=== PATIENT | female | born 1950 | race Caucasian/White ===

== ENCOUNTER 2016-07-29 12:01 | Outpatient (CLI) ==
[2016-06-05 12:32] VITALS: BMI 14.1
--- NOTE | 2016-07-29 12:29 | DI ---
EXAM: Two views of the chest. History: Difficulty breathing. Comparison: Chest radiograph 02/17/2016, chest CT 06/05/2016 Findings: Heart size is normal. Emphysema again appreciated. Chronic bilateral interstitial means es again noted with scattered areas of scarring. No developing opacities. No appreciable pleural f luid and no pneumothorax. Atherosclerotic vascular calcifications. Thoracic kyphoplasty material a gain noted. Osteopenia. Impression: No definite acute infiltrates. Stable chronic lung changes.
[2016-07-29 12:55] LABS: BASOPHILS % (AUTO) 0.4 % (0.0-3.0); EOSINOPHILS # (AUTO) 0.7 K/ul (0.0-0.7); EOSINOPHILS % (AUTO) 9.6 % (0.0-7.0); HEMATOCRIT 33.1 % (37.0-47.0); IMMATURE GRANULOCYTE % (AUTO) 0.3 % (0.0-5.0); LYMPHOCYTES # (AUTO) 1.5 K/uL (0.60-3.4); LYMPHOCYTES % (AUTO) 19.1 (10.0-50.0); MEAN CORPUSCULAR HEMOGLOBIN 29.5 pg (27.0-31.0); MEAN CORPUSCULAR HGB CONC 30.2 (31.8-35.4); MEAN CORPUSCULAR VOLUME 97.6 fl (81.0-99.0); MONOCYTES # (AUTO) 0.7 K/uL (0.4-2.0); MONOCYTES % (AUTO) 9.1 (0-10); NEUTROPHILS # (AUTO) 4.7 K/ul (2.0-6.9); NEUTROPHILS % (AUTO) 61.5; PLATELET COUNT 214 10^3/uL (140-440); RED BLOOD COUNT 3.39 10^6/ul (4.20-5.40)
[2016-07-29 13:26] LABS: ALBUMIN 3.3 g/dL (3.4-5.0); ALBUMIN/GLOBULIN RATIO 0.77; ANION GAP 14.8; BILIRUBIN,TOTAL 0.97 mg/dL (0.00-1.20); BUN/CREATININE RATIO 12.65; CALCIUM 9.4 mg/dL (8.2-10.2); CREATININE 0.79 mg/dL (0.60-1.30); POTASSIUM 3.8 mmol/L (3.5-5.10); TOTAL PROTEIN 7.6 g/dL (5.8-8.1)
== END 2016-07-29 12:02 | disposition home or self-care (01) ==
LOC: RAD 12:01
PROVIDERS: ATTEND General Practice
DX: M85.80 Other specified disorders of bone density and structure, unspecified site (principal); E03.9 Hypothyroidism, unspecified; J01.00 Acute maxillary sinusitis, unspecified; R06.89 Other abnormalities of breathing
CPT/HCPCS: 36415; 80053; 84443; 85025

== ENCOUNTER 2016-08-04 09:57 | Outpatient (CLI) ==
[2016-06-05 12:32] VITALS: BMI 14.1
--- NOTE | 2016-08-04 12:12 | DEXA ---
EXAM: BONE DENSITOMETRY HISTORY: Screening for osteoporosis. Compression fracture of lumbar vertebra. FINDINGS: Exam of the hips revealed a total mean bone mineral density of 0.638 g/cm2. Mean hip T score: -2.9 Mean hip age-matched Z score: -0.9 Study quality: Adequate. Comparison date: None. FRAX WHO Fracture Risk Assessment. Ten year probability of fracture (%). Major Osteoporotic Fracture 40.3% Hip Fracture 25.7%. IMPRESSION: Osteoporosis of the hips.
== END 2016-08-04 09:58 | disposition home or self-care (01) ==
LOC: RAD 09:57
PROVIDERS: ATTEND General Practice
DX: S32.010A Wedge compression fracture of first lumbar vertebra, initial encounter for closed fracture (principal)

== ENCOUNTER 2016-08-10 14:42 | Outpatient (CLI) | payer OTHER ==
[2016-06-05 12:32] VITALS: BMI 14.1
== END 2016-08-10 14:43 | disposition home or self-care (01) ==
LOC: LAB 14:42
PROVIDERS: ATTEND General Practice
DX: M85.80 Other specified disorders of bone density and structure, unspecified site (principal)
CPT/HCPCS: 36415; 82306

== ENCOUNTER 2016-08-13 10:58 | Outpatient (CLI) ==
[2016-06-05 12:32] VITALS: BMI 14.1
--- NOTE | 2016-08-13 11:40 | CT ---
Exam: CT thorax without contrast. Clinical indication: Wheezing. Comparison is made to the prior study dated 06/05/2016. TECHNIQUE: Axial unenhanced CT images of the thorax were obtained followed by coronal and sagittal reformats. Findings: There is moderate underlying centrilobular emphysema. There is bilateral upper lobe areas of scarri ng. There are areas of cylindrical bronchiectasis within the bilateral upper lobes and bilateral lower l obes. Within the inferolateral aspect of the right lower lobe there is some heterogeneous linear opacities extending to the pleural surface which most likely represents some focal scarring secondary to the previously noted opacity within this region. At the inferolateral aspect there is a slight nodular area measuring up to 1.0 cm in diameter and is likely focal scarring as well, but underlying neoplas m cannot be entirely excluded. The remainder the pulmonary parenchyma is unremarkable. There are no enlarged axillary, hilar or mediastinal lymph nodes, by size criteria. There are coronary artery calcifications. 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 The remainder the visualized portions of the upper abdomen are grossly unremarkable. There are been kyphoplasties involving the T8 and L1 vertebral bodies. There is also and inferior e ndplate compression fracture involving the L2 vertebral body and superior endplate compression fract ure involving the T5 vertebral body which are unchanged. The remainder the visualized bony structur es are unremarkable. Impression: 1. 1.0 cm nodular opacity at the inferolateral right lower lobe which is likely scarring, but under lying neoplasm cannot be entirely excluded. Follow-up CT in 3 months time is recommended. 2. Moderate underlying centrilobular emphysema. 3. Bilateral areas of cylindrical bronchiectasis. 4. Coronary artery calcifications. 5. Multiple old healed compression fractures.
== END 2016-08-13 10:59 | disposition home or self-care (01) ==
LOC: RAD 10:58
PROVIDERS: ATTEND General Practice
DX: R06.2 Wheezing (principal); R05 Cough; R50.9 Fever, unspecified

== ENCOUNTER 2016-10-12 14:55 | Inpatient (IN) ==
[2016-10-12] MEDS ORDERED: TYLENOL PO PRN (14:59)
[2016-10-12] MEDS ORDERED: VISTARIL INJ IM PRN (14:59)
[2016-10-12] MEDS ORDERED: MORPHINE 4 MG/ML SYRINGE IVP PRN (14:59)
[2016-10-12] MEDS ORDERED: NITROSTAT SL PRN (14:59)
[2016-10-12] MEDS ORDERED: ATROPINE SULFATE PFS IVP PRN (14:59)
[2016-10-12 15:17] LABS: BASOPHILS % (AUTO) 0.2 % (0.0-3.0); EOSINOPHILS # (AUTO) 0.3 K/ul (0.0-0.7); EOSINOPHILS % (AUTO) 2.4 % (0.0-7.0); HEMATOCRIT 33.1 % (37.0-47.0); HEMOGLOBIN 10.1 g/dl (12.0-16.0); IMMATURE GRANULOCYTE % (AUTO) 0.5 % (0.0-5.0); LYMPHOCYTES # (AUTO) 1.8 K/uL (0.60-3.4); LYMPHOCYTES % (AUTO) 12.7 (10.0-50.0); MEAN CORPUSCULAR HGB CONC 30.5 (31.8-35.4); MEAN CORPUSCULAR VOLUME 88.5 fl (81.0-99.0); MONOCYTES # (AUTO) 1.3 K/uL (0.4-2.0); MONOCYTES % (AUTO) 9.3 (0-10); NEUTROPHILS # (AUTO) 10.5 K/ul (2.0-6.9); NEUTROPHILS % (AUTO) 74.9; PLATELET COUNT 290 10^3/uL (140-440); RED BLOOD COUNT 3.74 10^6/ul (4.20-5.40); WHITE BLOOD COUNT 13.96 K/ul (4.6-10.2)
[2016-10-12 15:18] VITALS: BMI 14.4
[2016-10-12 16:31] LABS: ABG BASE EXCESS -3 (-2.0-2.0); ABG HCO3 21.7 (22.0-26.0); ABG PCO2 33.2 mmHg (35-45); ABG PH 7.424 (7.35-7.45); ABG TCO2 23 (22.0-28.0)
--- NOTE | 2016-10-12 16:37 | CT ---
EXAM: CT chest without contrast. HISTORY: Cough. Shortness of breath, chronic tobacco use. Weight loss. COMPARISON: 08/13/2016. TECHNIQUE: Multiple axial images of the chest were obtained without intravenous contrast. Images w ere reformatted in the sagittal and coronal planes. FINDINGS: Evaluation for lymphadenopathy is limited due to lack of intravenous contrast. Heart siz e is normal. Atherosclerotic calcifications present. No pericardial effusion identified. Emphysematous changes seen bilaterally. Nodular consolidation in the right lower lobe has worsened from prior study with findings now present in the left lower lobe and to a lesser extent in the righ t middle lobe. Left upper lobe and lingular scarring is stable. No pleural effusion or pneumothora x identified. No acute abnormality identified in the upper abdomen. Thoracolumbar kyphoplasty changes again seen. Old sternal body fracture also noted. IMPRESSION: Worsening of right middle lobe nodular densities with new involvement of the left lower lobe and to a lesser extent the right middle lobe. Findings most likely due to pneumonia. Follow-up CT in 4-6 weeks recommended for reassessment.
[2016-10-12] MEDS: INFUVITE ADULT 10 ML in D5%-1/4NS-KCL 20 MEQ/L IV SOL 1,000 ML IV SCH (16:39)
[2016-10-12 16:40] LABS: BILIRUBIN,URINE Negative (NEGATIVE); KETONES,URINE Negative (NEGATIVE); LEUKOCYTE ESTERASE ,URINE 2+ (NEGATIVE); NITRITE,URINE Positive (NEGATIVE); PROTEIN,URINE Trace (NEGATIVE); URINE, BLOOD 1+ (NEGATIVE)
[2016-10-12 16:47] LABS: ADD URINE MICROSCOPIC YES
[2016-10-12 16:49] LABS: ALANINE AMINOTRANSFERASE 15 U/L (12-78); ALBUMIN 3.2 g/dL (3.4-5.0); ALKALINE PHOSPHATASE 226 U/L (53-141); ANION GAP 17.2; ASPARTATE AMINO TRANSFERASE 34 U/L (15-37); BILIRUBIN,TOTAL 1.34 mg/dL (0.00-1.20); BLOOD UREA NITROGEN 12 mg/dL (7-18); CALCIUM 9.7 mg/dL (8.2-10.2); CARBON DIOXIDE 20 mmol/L (23-31); CHLORIDE 110 mmol/L (98-107); CREATININE 0.75 mg/dL (0.60-1.30); GLUCOSE 103 mg/dL (82-115); POTASSIUM 3.2 mmol/L (3.5-5.10); SODIUM 144 mmol/L (136-145); TOTAL PROTEIN 7.8 g/dL (5.8-8.1)
[2016-10-12 16:49] LABS: BACTERIA,URINE 3+ (NOT PRESENT)
[2016-10-12 16:51] LABS: CREATINE KINASE 19 U/L; MYOGLOBIN 28 ng/ml
[2016-10-12] MEDS ORDERED: AVELOX 250 ML IV ONE (18:31)
[2016-10-12] MEDS: AVELOX 400 MG in PREMIX 250 ML NS 1 BAG IV SCH (18:33)
[2016-10-12] MEDS: OXYCODONE PO PRN (18:36)
[2016-10-12 23:23] LABS: CREATINE KINASE 15 U/L; MYOGLOBIN 25 ng/ml
[2016-10-13] MEDS: OXYCODONE PO PRN ×4 (00:34→21:26)
[2016-10-13] MEDS: SYNTHROID PO SCH (05:48)
[2016-10-13] MEDS ORDERED: INFUVITE ADULT IV ONE ×2 (06:21→19:04)
[2016-10-13] MEDS: INFUVITE ADULT 10 ML in D5%-1/4NS-KCL 20 MEQ/L IV SOL 1,000 ML IV SCH ×3 (06:25→20:29)
[2016-10-13] MEDS ORDERED: ASPIRIN EC PO SCH (08:00)
[2016-10-13] MEDS: ZOLOFT PO SCH (08:48)
[2016-10-13] MEDS: ZYPREXA PO SCH (08:48)
[2016-10-13] MEDS: AVELOX 400 MG in PREMIX 250 ML NS 1 BAG IV SCH (08:48)
[2016-10-13] MEDS ORDERED: VITAMIN D PO SCH (09:00)
[2016-10-13] MEDS: LOVENOX SUBCUT SCH (21:25)
[2016-10-14] MEDS: OXYCODONE PO PRN ×3 (05:50→20:42)
[2016-10-14] MEDS: SYNTHROID PO SCH (05:50)
[2016-10-14] MEDS: ZYPREXA PO SCH (08:23)
[2016-10-14] MEDS: ZOLOFT PO SCH (08:23)
[2016-10-14] MEDS: AVELOX 400 MG in PREMIX 250 ML NS 1 BAG IV SCH (08:24)
[2016-10-14] MEDS: ROCEPHIN 1 GM in SODIUM CHLORIDE 100 ML IV SCH (10:25)
[2016-10-14] MEDS: DUONEB NEB SCH ×3 (11:02→23:29)
[2016-10-14] MEDS: INFUVITE ADULT 10 ML in D5%-1/4NS-KCL 20 MEQ/L IV SOL 1,000 ML IV SCH ×2 (11:59→23:23)
[2016-10-14] MEDS: LOVENOX SUBCUT SCH (20:29)
[2016-10-14] MEDS ORDERED: INFUVITE ADULT IV ONE (23:13)
[2016-10-15] MEDS: OXYCODONE PO PRN ×4 (03:18→21:40)
[2016-10-15] MEDS: DUONEB NEB SCH ×4 (04:52→22:55)
[2016-10-15] MEDS: SYNTHROID PO SCH (05:40)
[2016-10-15] MEDS: ROCEPHIN 1 GM in SODIUM CHLORIDE 100 ML IV SCH (08:41)
[2016-10-15] MEDS: ZOLOFT PO SCH (08:41)
[2016-10-15] MEDS: ZYPREXA PO SCH (08:41)
[2016-10-15] MEDS ORDERED: AVELOX 400 MG in PREMIX 250 ML NS 1 BAG IV SCH (09:00)
[2016-10-15] MEDS: INFUVITE ADULT 10 ML in D5%-1/4NS-KCL 20 MEQ/L IV SOL 1,000 ML IV SCH (11:09)
[2016-10-15] MEDS: MAXIPIME 2 GM in SODIUM CHLORIDE 100 ML IV SCH ×2 (12:12→20:35)
[2016-10-15] MEDS ORDERED: MAXIPIME IV ONE ×2 (12:12→20:35)
[2016-10-15] MEDS: LOVENOX SUBCUT SCH (20:35)
[2016-10-16] MEDS ORDERED: INFUVITE ADULT IV ONE ×2 (01:09→13:28)
[2016-10-16] MEDS: INFUVITE ADULT 10 ML in D5%-1/4NS-KCL 20 MEQ/L IV SOL 1,000 ML IV SCH ×2 (01:14→13:35)
[2016-10-16] MEDS: OXYCODONE PO PRN (04:15)
[2016-10-16] MEDS: DUONEB NEB SCH ×2 (04:58→11:04)
[2016-10-16] MEDS: SYNTHROID PO SCH (05:44)
[2016-10-16] MEDS: ZOLOFT PO SCH (08:44)
[2016-10-16] MEDS ORDERED: MAXIPIME IV ONE (08:44)
[2016-10-16] MEDS: MAXIPIME 2 GM in SODIUM CHLORIDE 100 ML IV SCH (08:44)
[2016-10-16] MEDS: ZYPREXA PO SCH (08:44)
[2016-10-16 09:56] VITALS: BP 137/68; TEMP 98
--- NOTE | 2016-10-19 09:24 | HP ---
DATE OF ADMISSION: 10/12/16 CHIEF COMPLAINT: Increasing shortness of breath and fever. SOURCE OF HISTORY: The patient HISTORY OF PRESENT ILLNESS: This patient was seen at the office as a regular followup. The patient however on examination was complaining of runny nose, non-productive cough, increasing shortness of breath with fever. The patient has rales on both lung arias, left more than right moist and in crepitant and breath sounds are diminished. Heart is audible and regular with not tachycardiac. I felt that the patient needed to be admitted to the hospital because of the fever, increasing. PAST PERSONAL HISTORY: The patient had right lower lobe pneumonia 06/05/16 and was admitted in the hospital. She also was confused and a CAT scan of the head showed no acute intracranial processes or abnormalities. She also had a bilateral cataract surgery 2014. History of Hepatitis C, there was no history of treatment. After discussion further to see if there was any previous treatment and by home. Previous appendectomy Cholecystectomy ERCP, 2016 Previous hysterectomy FAMILY HISTORY: One brother had COPD Sister also had COPD and was a smoker Mother had congestive heart failure Father had liver carcinoma SOCIAL HISTORY: The patient is with grown child and resides with her . She stopped smoking four months ago. No alcoholic beverages. MEDICATIONS: Zoloft 100mg daily Levothyroxine 50mcg daily Amantadine 100mg twice a day KCL 20meq daily Albuterol 0.083% vial #1 per nebulizer Q 6 hours PRN Zyprexa 20mg daily at bedtime Protonix 40mg twice a day Hydrocodone/Tylenol 10-325 one Q6 hours PRN Vitamin D2 50,000 international units weekly for 12 weeks Lactulose 20grams per 30cc twice a day PRN ALLERGIES: Aspirin Codeine NSAIDS Sulfa REVIEW OF SYSTEMS: CONSTITUTIONAL: The patient has fever, no chills and fatigued and sick looking. CLAIMS INVESTIGATOR: The patient has some headache but not significant. The patient just has generalized weakness but no significant ataxia. VISUAL: Denies any blurred vision, double vision or transient loss of vision. AUDITORY: Denies any significant hearing loss. No tinnitus. No pain or drainage. RESPIRATORY: The patient has gargling sounding cough with some sputum. The patient has shortness of breath and increasing. The patient is using nasal oxygen and does have oxygen at home. CARDIOVASCULAR: Denies any chest pain or chest tightness GASTROINTESTINAL: Appetite is decreased but no nausea of vomiting or diarrhea. Denies any abdominal pain GENITOURINARY: Denies any burning in urination. MUSCULOSKELETAL: Denies any significant joint or muscular pains. INTEGUMENT: The skin is dry and thin but no rash and no subcutaneous ecchymosis ENDOCRINE: Negative HEMATOLOGIC: Denies any prolonged breeding and spontaneous ecchymosis PSYCHIATRIC: Affect is somewhat down, probably because she doesn't feel good. PHYSICAL EXAMINATION: GENERAL: The patient is a 66 year old female who looks much older then her chronological age. She was admitted to the hospital because of fever and increasing shortness of breath. This patient is know to have chronic obstructive lung disease with respiratory failure on chronic oxygen therapy. VITAL SIGNS: Temperature 98.2, pulse 104, blood pressure left 150/88 and right 140/70, respiratory rate 74, she is 5'0 and 73 pounds and 12.8 ounces. FACE: Symmetrical and equal with no facial weakness. No significant tenderness to palpation under pressure in the front maxillary sinus areas. EYES: Pupils equal/reactive to light. Conjunctivae slightly pale. Sclerae not icteric. MOUTH: Unremarkable THROAT: No inflammation, tumors or exudate. NECK: No masses. No bruit. No tenderness. No rigidity. CHEST: Symmetrical and equal with the ribs prominent LUNGS: Breath sounds are diminished in both sides with rales scattered all over more on the left side. Rales also heard anteriorly. No significant wheezing. HEART: Audible and regular with good tones and slightly tachycardiac. No murmurs. ABDOMEN: Flat, soft with tumor masses. No tenderness. No bruit and no masses palpable. EXTERNAL GENITALIA: Not examined RECTAL: Not performed LOWER EXTREMITIES: Some ankle edema, Pedal pulses anterior present. UPPER EXTREMITIES: Symmetrical and equal ASSESSMENT: 1. Bilateral pneumonitis, probable 2. COPD, severe 3. Respiratory failure secondary to the #2 4. Chronic tobacco use and abuse, stopped four months ago 5. Malnourished 6. History of pneumonia right lower lobe,2016 7. History fo hepatitis C 8. History of hypothyroidism 9. History of Vitamin D deficiency 10.History of osteoporosis 11.History of depression 12.Appendectomy 13.Cholecystectomy 14.Hysterectomy PROGNOSIS: Guarded to poor MTDD
--- NOTE | 2016-10-20 09:40 | PN ---
DATE OF VISIT: 10/16/16 SUBJECTIVE: The patient is alert and responsive. I did see her about 12:30 in the afternoon today. Her temperature had been normal since this morning. Temperature 98, pulse 99,blood pressure 132/68, respiratory rate 20 and oxygen saturation 92% at 2 liters per nasal oxygen. LUNGS: Still has rales in both lung field. HEART: Audible with good tones ABDOMEN: Soft with no masses This patient is discharged from Acute care to Transitional today. CALLIED
--- NOTE | 2016-10-20 09:48 | PN ---
DATE OF VISIT: 10/15/16 SUBJECTIVE: The patient today is alert and feeling some better. The patient did spike a temperature late last night of 101.1. The temperature since then has returned to normal. The patient's vital signs at 5:09pm on 10/15/16 showed a temperature of 98.5, pulse 93, blood pressure 125/64 and respiratory rate 20 and oxygen saturation 95 at 2 liters of nasal oxygen. LUNGS: Still has rales of both lung field Sputum showed pseudomonas and urine did show e-coli. The patient is receiving Moxifloxacin and this is discontinued. Since both organism as sensitive to the Cefepime then the patient will be given 2 grams of Cefepime every 12 hours. The Pharm-D also recommended the medication at this dose. This patient will continued on this medication until she has showed emmett improvement of her pneumonia. She is still consuming about the same amount about 70-75% of her food. Still has the gargling the cough and still has rales in both lung arias. MTDD
--- NOTE | 2016-10-20 09:54 | PN ---
DATE OF VISIT: 10/14/16 SUBJECTIVE: The patient is alert and responsive. She is wonder if she can go home. I did tell her that she is no where near going home at this time. I reemphasized to her again that her pneumonia her worsened since the last time. I did encourage her to eat and consume about 75% which is an improved from the previous days. She also receiving intervenous fluids plus vitamins. Temperature on 10/14/16 at 1:44pm showed a temperature of 99.2, pulse 95, blood pressure 129/57 and respiratory 20 an oxygen saturation is 98% at 2 liters, an improvement. LUNGS: Still has rales in both lung field about the same amount. No change in medication. No legs pain or tenderness. CONDITION: Stable maybe somewhat improved PROGNOSIS: Unchanged. MTDD
--- NOTE | 2016-10-20 10:06 | PN ---
DATE OF VISIT: 10/13/16 SUBJECTIVE: The patient today is alert and general condition about the same. Temperature is 99.1 at 6:00 pm on 10/13/16, pulse 100, blood pressure 162/76, respiratory rate 24 and oxygen saturation 93% at 2 liters. The patient still has a gargling cough. She still has rales in both lung field as well as anteriorly. The chest CT showed increasing pneumonia of the right lower lobe and now involving also on the left the lower lobe as well as the right middle lobe. This patient back in May had right lower lobe pneumonia. The Alkaline phosphatase is elevated , reason not clear. BNP is close to normal at 116. Urinalysis abnormal and urine culture was requested as well as sputum gram stain and culture. The patient was given Lovenox 30mg SUBCUT daily and continued on the inhaler. She was given Moxifloxacin intervenously daily since admission. Changing in antibiotics will depend upon the results of the culture. CONDITION: Stable, the same MTDD
--- NOTE | 2016-10-20 12:40 | DS ---
HAN OF ADMISSION: 10/12/16 DATE OF DISCHARGE: 10/16/16 PATIENT IDENTIFICATION: The patient is a 66 year old female who looks older than her chronological age was admitted to the hospital because of increasing weakness, increasing shortness of breath with fever and cough. The patient also had lost weight and her appetite has decreased. The patient examination revealed rales in both lungs field as well as anteriorly. Abdomen was unremarkably. Heart is mitra sinus rhythm. The CAT of the chest showed increasing pneumonic process now extending into the left lower lobe as well as the right middle lobe. The patient patient last May 2016 was diagnosed to have right lower lobe pneumonia by CT. The patient during this admission had CBC showing mild leukocytosis 13,960, hgb 10.1 and hct 33.1. Neutrophil 10.5 and arterial blood gases FiO2 21 showed of a pO2 of 62, pCO2 32.22, pH 7.24 and oxygen saturation is 92. I am not certain as to how long the patient had been without oxygen. The patient's chemistries showed slight abnormality in the electrolyte, potassium 3.2 otherwise the rest was unremarkable. The GFR estimated is 77, Alkaline phosphatase was 226 source undetermined, BNP 116. TSH is 1.620, procalcitonin 0.21 interpreted as low risk for sepsis. Urinalysis is abnormal 2+ leukocyte esterase 50-100 WBC, 3+ bacteria squamous Epith cells negative. Nitrate positive and leukocyte esterase positive, 2+. Urine culture did show e-coli and sensitive to Cefepime and the sputum culture did grown Pseudomonas Aeruginosa and again sensitive to Cefepime. This patient was then given 2 grams every 12 hours and the Moxifloxacin was discontinued. The patient's condition continued to be stable. She did spike of 101.1 once. The patient at the time of discharge from acute care to transitional revealed an alert individual who is not cyanotic. tachypnea has more or less decreased and the rales is still present in both lung arias maybe slightly less, no wheezing. Heart is audible with good tones. The patient will be continued on the same medication on the transitional care status. FINAL DIAGNOSES: 1. Bilateral lower lobe pneumonia and right middle lobe 2. Urinary tract infection, e-coli 3. Pseudomonas sputum 4. History of Hepatitis C 5. History of migraine 6. History of hypothyroidism, replaced 7. History of osteoporosis 8. History of Vitamin D deficiency 9. History of COPD severe 10.History of respiratory failure secondary to COPD 11.History of chronic tobacco use and abuse, stopped four months ago PROGNOSIS: Poor MTDD
== END 2016-10-16 14:08 | disposition swing bed (61) | DRG 178 ==
LOC: MEDSURG B 14:55
PROVIDERS: ADMIT General Practice; ATTEND General Practice
DX: J15.1 Pneumonia due to Pseudomonas (principal); N39.0 Urinary tract infection, site not specified; B96.20 Unspecified Escherichia coli [E. coli] as the cause of diseases classified elsewhere; R50.9 Fever, unspecified; J44.9 Chronic obstructive pulmonary disease, unspecified; E89.0 Postprocedural hypothyroidism; M81.0 Age-related osteoporosis without current pathological fracture; E55.9 Vitamin D deficiency, unspecified; R74.8 Abnormal levels of other serum enzymes; R06.02 Shortness of breath; Z87.891 Personal history of nicotine dependence; Z86.19 Personal history of other infectious and parasitic diseases; Z86.69 Personal history of other diseases of the nervous system and sense organs; Z79.891 Long term (current) use of opiate analgesic; Z79.899 Other long term (current) drug therapy
CPT/HCPCS: 36415; 80053; 81001; 82550; 82803; 83874; 83880; 84145; 84443; 84484; 85025; 87040; 87070; 87086; 87186; 93005; 93010; 94640; 97802; 97803; 99223; 99231; 99232; 99239

== ENCOUNTER 2016-10-16 14:21 | Inpatient (IN) ==
[2016-10-16 15:27] VITALS: BMI 15.1
[2016-10-16] MEDS ORDERED: INFUVITE ADULT IV SCH (15:30)
[2016-10-16] MEDS ORDERED: ADDITIVE ONLY IV SCH (15:30)
[2016-10-16] MEDS ORDERED: INFUVITE ADULT 10 ML in D5%-1/2NS-KCL 20 MEQ/L IV SOL 1,000 ML IV SCH (15:30)
[2016-10-16] MEDS ORDERED: POTASSIUM CHLORIDE IV SCH (15:30)
[2016-10-16] MEDS ORDERED: [UNRECOGNIZED DRUG - OTHER] IV SCH (15:30)
[2016-10-16] MEDS: OXYCODONE PO PRN (17:00)
[2016-10-16] MEDS: DUONEB IH SCH (17:30)
[2016-10-16] MEDS ORDERED: MAXIPIME IV ONE (20:25)
[2016-10-16] MEDS: ZYPREXA PO SCH (20:25)
[2016-10-16] MEDS: MAXIPIME 2 GM in SODIUM CHLORIDE 100 ML IV SCH (20:25)
[2016-10-16] MEDS: LOVENOX SUBCUT SCH (20:26)
[2016-10-17] MEDS: DUONEB IH SCH ×2 (00:02→05:02)
[2016-10-17] MEDS ORDERED: INFUVITE ADULT IV ONE ×2 (02:26→15:24)
[2016-10-17] MEDS: INFUVITE ADULT 10 ML in D5%-1/4NS-KCL 20 MEQ/L IV SOL 1,000 ML IV SCH ×2 (02:33→15:32)
[2016-10-17] MEDS: SYNTHROID PO SCH (05:52)
[2016-10-17 06:52] LABS: BASOPHILS % (AUTO) 0.2 % (0.0-3.0); EOSINOPHILS # (AUTO) 0.7 K/ul (0.0-0.7); EOSINOPHILS % (AUTO) 5.9 % (0.0-7.0); HEMATOCRIT 24.3 % (37.0-47.0); HEMOGLOBIN 7.9 g/dl (12.0-16.0); IMMATURE GRANULOCYTE % (AUTO) 0.6 % (0.0-5.0); LYMPHOCYTES # (AUTO) 1.8 K/uL (0.60-3.4); LYMPHOCYTES % (AUTO) 15.6 (10.0-50.0); MEAN CORPUSCULAR HEMOGLOBIN 29.4 pg (27.0-31.0); MEAN CORPUSCULAR HGB CONC 32.5 (31.8-35.4); MEAN CORPUSCULAR VOLUME 90.3 fl (81.0-99.0); MONOCYTES # (AUTO) 1.1 K/uL (0.4-2.0); MONOCYTES % (AUTO) 9.5 (0-10); NEUTROPHILS # (AUTO) 7.7 K/ul (2.0-6.9); NEUTROPHILS % (AUTO) 68.2; PLATELET COUNT 301 10^3/uL (140-440); RED BLOOD COUNT 2.69 10^6/ul (4.20-5.40); WHITE BLOOD COUNT 11.31 K/ul (4.6-10.2)
[2016-10-17 07:06] LABS: ALBUMIN 2.5 g/dL (3.4-5.0); ALBUMIN/GLOBULIN RATIO 0.58; BILIRUBIN,TOTAL 0.76 mg/dL (0.00-1.20); BUN/CREATININE RATIO 12.5; CALCIUM 8.8 mg/dL (8.2-10.2); CREATININE 0.64 mg/dL (0.60-1.30); TOTAL PROTEIN 6.8 g/dL (5.8-8.1)
[2016-10-17] MEDS ORDERED: CALMOSEPTINE OINTMENT TP PRN (07:54)
[2016-10-17] MEDS: MAXIPIME 2 GM in SODIUM CHLORIDE 100 ML IV SCH ×2 (08:14→20:30)
[2016-10-17] MEDS: ZOLOFT PO SCH (08:14)
[2016-10-17] MEDS ORDERED: MAXIPIME IV ONE (08:14)
[2016-10-17] MEDS ORDERED: OLANZAPINE 10 MG PO SCH (09:00)
[2016-10-17] MEDS ORDERED: MAXIPIME 2 GM in SODIUM CHLORIDE 100 ML IV SCH (09:00)
[2016-10-17] MEDS: DUONEB NEB SCH ×2 (11:04→17:05)
[2016-10-17] MEDS: OXYCODONE PO PRN ×2 (11:51→19:58)
[2016-10-17] MEDS: ZYPREXA PO SCH (20:30)
[2016-10-17] MEDS: LOVENOX SUBCUT SCH (20:30)
[2016-10-18] MEDS: DUONEB NEB SCH ×5 (00:12→23:11)
[2016-10-18] MEDS: OXYCODONE PO PRN ×2 (01:38→19:00)
[2016-10-18] MEDS: INFUVITE ADULT IV ONE ×2 (04:02→04:04)
[2016-10-18] MEDS: INFUVITE ADULT 10 ML in D5%-1/4NS-KCL 20 MEQ/L IV SOL 1,000 ML IV SCH ×2 (04:02→04:06)
[2016-10-18] MEDS: SYNTHROID PO SCH (05:38)
[2016-10-18] MEDS: MAXIPIME 2 GM in SODIUM CHLORIDE 100 ML IV SCH ×2 (08:02→20:53)
[2016-10-18] MEDS: ZOLOFT PO SCH (08:02)
[2016-10-18] MEDS: LOVENOX SUBCUT SCH (20:52)
[2016-10-18] MEDS: ZYPREXA PO SCH (20:53)
[2016-10-19] MEDS: OXYCODONE PO PRN ×2 (01:16→20:00)
[2016-10-19] MEDS: DUONEB NEB SCH ×4 (05:14→23:04)
[2016-10-19] MEDS: SYNTHROID PO SCH (05:36)
[2016-10-19] MEDS: ZOLOFT PO SCH (08:34)
[2016-10-19] MEDS: MAXIPIME 2 GM in SODIUM CHLORIDE 100 ML IV SCH ×2 (08:34→20:00)
[2016-10-19] MEDS ORDERED: VITAMIN D PO SCH (09:00)
[2016-10-19] MEDS: DRISDOL PO SCH (09:34)
--- NOTE | 2016-10-19 11:51 | CT ---
EXAM: CT of the chest without contrast History: Follow-up pneumonia Comparison: Chest CT 10/12/2016 Technique: Multiplanar CT images through the thorax were obtained without the administration of IV contrast Findings: Heart size is upper limits of normal. Atherosclerotic vascular calcifications. No pathol ogically enlarged axillary lymph nodes. Evaluation for mediastinal and hilar lymph nodes is limited due to the lack of contrast administration but no bulky adenopathy is seen. Right greater than left bibasilar consolidation has slightly worsened. Biapical scarring. Emphysema . Small right pleural effusion. Stable 7 mm nodule within the anterior left upper lobe. Within the visualized upper abdomen, nodular surface contour of the liver. The visualized osseous s tructures unchanged. Impression: 1. Right greater than left bibasilar pneumonia has slightly worsened. 2. Small right pleural effusion. 3. Emphysema. 4. No significant interval change in the 7 mm left upper lobe lung nodule. Close attention to on f ollow-up recommended. 5. Nodular surface contour of the liver suggesting cirrhosis.
[2016-10-19 12:18] LABS: HEMOGLOBIN 7.6 g/dl (12.0-16.0)
[2016-10-19] MEDS: LOVENOX SUBCUT SCH (20:00)
[2016-10-19] MEDS: ZYPREXA PO SCH (20:00)
[2016-10-19] MEDS: MEGACE PO SCH (20:01)
[2016-10-20] MEDS: OXYCODONE PO PRN ×2 (03:49→21:16)
[2016-10-20 04:44] LABS: BASOPHILS % (AUTO) 0.2 % (0.0-3.0); EOSINOPHILS # (AUTO) 0.6 K/ul (0.0-0.7); EOSINOPHILS % (AUTO) 5.4 % (0.0-7.0); HEMATOCRIT 24.4 % (37.0-47.0); HEMOGLOBIN 7.5 g/dl (12.0-16.0); IMMATURE GRANULOCYTE % (AUTO) 0.6 % (0.0-5.0); LYMPHOCYTES # (AUTO) 2.3 K/uL (0.60-3.4); LYMPHOCYTES % (AUTO) 19.2 (10.0-50.0); MEAN CORPUSCULAR HEMOGLOBIN 26.6 pg (27.0-31.0); MEAN CORPUSCULAR HGB CONC 30.7 (31.8-35.4); MEAN CORPUSCULAR VOLUME 86.5 fl (81.0-99.0); MONOCYTES % (AUTO) 8.3 (0-10); NEUTROPHILS # (AUTO) 7.9 K/ul (2.0-6.9); NEUTROPHILS % (AUTO) 66.3; PLATELET COUNT 373 10^3/uL (140-440); RED BLOOD COUNT 2.82 10^6/ul (4.20-5.40); WHITE BLOOD COUNT 11.92 K/ul (4.6-10.2)
[2016-10-20] MEDS: DUONEB NEB SCH ×4 (05:11→23:15)
[2016-10-20] MEDS: SYNTHROID PO SCH (05:48)
[2016-10-20] MEDS: MEGACE PO SCH ×2 (08:05→20:56)
[2016-10-20] MEDS: MAXIPIME 2 GM in SODIUM CHLORIDE 100 ML IV SCH ×2 (08:05→20:55)
[2016-10-20] MEDS: ZOLOFT PO SCH (08:06)
[2016-10-20] MEDS ORDERED: WELLBUTRIN SR PO SCH ×2 (09:00)
[2016-10-20] MEDS: WELLBUTRIN PO SCH ×2 (09:38→20:56)
--- NOTE | 2016-10-20 11:16 | US ---
EXAM: Ultrasound abdomen limited right upper quadrant HISTORY: Hepatitis C, cirrhosis COMPARISON: 02/17/2016 TECHNIQUE: Limited ultrasound abdomen right upper quadrant was performed FINDINGS: Visualized portion pancreas appears normal. Portions of the pancreas obscured secondary bowel gas shadowing. Liver coarsened in echogenicity and nodular in contour. Patient status post c holecystectomy. No biliary duct dilation with the common bile duct measuring 0.6 cm. Retrograde mikel w in the main portal vein IMPRESSION: 1. Cirrhotic configuration of the liver. 2. Retrograde flow in the main portal vein. 3. Status post cholecystectomy. No biliary duct dilation.
[2016-10-20 13:14] LABS: BILIRUBIN,URINE Negative (NEGATIVE); KETONES,URINE Negative (NEGATIVE); LEUKOCYTE ESTERASE ,URINE 1+ (NEGATIVE); NITRITE,URINE Negative (NEGATIVE); PH,URINE 6.5 (5-9); PROTEIN,URINE Negative (NEGATIVE); URINE, BLOOD Negative (NEGATIVE)
[2016-10-20 13:15] LABS: ADD URINE MICROSCOPIC YES
[2016-10-20 13:18] LABS: BACTERIA,URINE 2+ (NOT PRESENT)
[2016-10-20] MEDS: LOVENOX SUBCUT SCH (20:55)
[2016-10-20] MEDS: ZYPREXA PO SCH (20:56)
[2016-10-20] MEDS ORDERED: OXYCODONE PO STA (22:54)
[2016-10-21] MEDS: DUONEB NEB SCH ×4 (05:04→23:05)
[2016-10-21 06:12] LABS: ALKALINE PHOSPHATASE, S 171 IU/L (39-117)
[2016-10-21] MEDS: SYNTHROID PO SCH (06:12)
[2016-10-21 07:15] LABS: INTESTINAL FRAC.: 2 % (0-18)
[2016-10-21] MEDS: WELLBUTRIN PO SCH ×2 (08:46→20:32)
[2016-10-21] MEDS: ZOLOFT PO SCH (08:46)
[2016-10-21] MEDS: MAXIPIME 2 GM in SODIUM CHLORIDE 100 ML IV SCH ×2 (08:46→20:30)
[2016-10-21] MEDS: MEGACE PO SCH ×2 (08:48→20:32)
[2016-10-21] MEDS: OXYCODONE PO PRN (20:31)
[2016-10-21] MEDS: LOVENOX SUBCUT SCH (20:31)
[2016-10-21] MEDS: ZYPREXA PO SCH (20:32)
[2016-10-22] MEDS: DUONEB NEB SCH ×4 (05:07→22:15)
[2016-10-22] MEDS: SYNTHROID PO SCH (05:42)
[2016-10-22] MEDS: MEGACE PO SCH ×2 (08:46→20:42)
[2016-10-22] MEDS: WELLBUTRIN PO SCH ×2 (08:46→20:41)
[2016-10-22] MEDS: MAXIPIME 2 GM in SODIUM CHLORIDE 100 ML IV SCH ×2 (08:46→20:41)
[2016-10-22] MEDS: ZOLOFT PO SCH (08:46)
[2016-10-22] MEDS: COLACE PO SCH ×2 (09:43→20:42)
[2016-10-22 11:16] LABS: BILIRUBIN,URINE Negative (NEGATIVE); KETONES,URINE Negative (NEGATIVE); LEUKOCYTE ESTERASE ,URINE 3+ (NEGATIVE); NITRITE,URINE Negative (NEGATIVE); PROTEIN,URINE Trace (NEGATIVE); URINE, BLOOD Trace-intact (NEGATIVE)
[2016-10-22 11:25] LABS: ADD URINE MICROSCOPIC YES
[2016-10-22 11:28] LABS: BACTERIA,URINE 2+ (NOT PRESENT)
[2016-10-22] MEDS: ZYPREXA PO SCH (20:41)
[2016-10-22] MEDS: LOVENOX SUBCUT SCH (20:41)
[2016-10-23] MEDS: DUONEB NEB SCH ×4 (05:13→23:17)
[2016-10-23] MEDS: SYNTHROID PO SCH (05:41)
[2016-10-23 06:14] LABS: BASOPHILS % (AUTO) 0.2 % (0.0-3.0); EOSINOPHILS # (AUTO) 0.5 K/ul (0.0-0.7); EOSINOPHILS % (AUTO) 4.5 % (0.0-7.0); HEMATOCRIT 23.8 % (37.0-47.0); HEMOGLOBIN 7.3 g/dl (12.0-16.0); IMMATURE GRANULOCYTE % (AUTO) 0.5 % (0.0-5.0); LYMPHOCYTES % (AUTO) 19.2 (10.0-50.0); MEAN CORPUSCULAR HEMOGLOBIN 26.4 pg (27.0-31.0); MEAN CORPUSCULAR HGB CONC 30.7 (31.8-35.4); MEAN CORPUSCULAR VOLUME 86.2 fl (81.0-99.0); MONOCYTES # (AUTO) 0.9 K/uL (0.4-2.0); MONOCYTES % (AUTO) 8.8 (0-10); NEUTROPHILS # (AUTO) 6.9 K/ul (2.0-6.9); NEUTROPHILS % (AUTO) 66.8; PLATELET COUNT 406 10^3/uL (140-440); RED BLOOD COUNT 2.76 10^6/ul (4.20-5.40); WHITE BLOOD COUNT 10.27 K/ul (4.6-10.2)
[2016-10-23 06:33] LABS: ALBUMIN 2.5 g/dL (3.4-5.0); ALBUMIN/GLOBULIN RATIO 0.61; ANION GAP 11.6; BILIRUBIN,TOTAL 0.72 mg/dL (0.00-1.20); BUN/CREATININE RATIO 18.75; CALCIUM 8.9 mg/dL (8.2-10.2); CREATININE 0.64 mg/dL (0.60-1.30); POTASSIUM 3.6 mmol/L (3.5-5.10); TOTAL PROTEIN 6.6 g/dL (5.8-8.1)
[2016-10-23] MEDS: OXYCODONE PO PRN ×2 (07:42→16:25)
[2016-10-23] MEDS: ZOLOFT PO SCH (08:10)
[2016-10-23] MEDS: COLACE PO SCH ×2 (08:10→20:36)
[2016-10-23] MEDS: MEGACE PO SCH ×2 (08:10→20:35)
[2016-10-23] MEDS: WELLBUTRIN PO SCH ×2 (08:11→20:36)
[2016-10-23] MEDS: MAXIPIME 2 GM in SODIUM CHLORIDE 100 ML IV SCH ×2 (08:57→21:17)
[2016-10-23] MEDS ORDERED: DRISDOL PO SCH (09:00)
--- NOTE | 2016-10-23 09:12 | PN ---
DATE OF VISIT: 10/16/16 This patient is admitted to Transitional Care today for continued antibiotic administration. VITAL SIGNS: At 2:53 p.m. showed a temperature of 98, pulse 99, blood pressure 137/68, respiratory rate 20, oxygen saturation 92 at 2 Liters per nasal. LUNGS: Still has rales in both lung arias, left lower base and right middle lung. No expiratory wheezing. Breath sounds are diminished in both sides. HEART: Normal sinus rhythm. ABDOMEN: Nontender. The patient did weigh 77 pounds today, but there is a difference in the scale that this patient weighed 73 pounds before that. This patient will be continued on Cefepime 2 grams IV twice a day. MTDD
--- NOTE | 2016-10-23 09:23 | PN ---
DATE OF VISIT: 10/17/16 The patient had a history of hepatitis C and she told me that she was treated by a doctor in [place], [place]/Oncologist, maybe Dr. Ochoa. She was given Interferon, plus other medications. A hepatitis panel showed a positive hepatitis C at 3.9. The hepatitis A antibody is negative. B surface antigen negative. B core antibody negative. The patient appears weak and pale and forlorn. She just told me that she wanted to go home. I told her that she is not able to go home at this time. MTDD
--- NOTE | 2016-10-23 09:29 | PN ---
DATE OF VISIT: 10/18/16 The patient had been afebrile throughout this hospital stay and her temperature today at 5:00 p.m. is 97.4, pulse 91, blood pressure 120/70, respiratory rate 20 , oxygen saturation 98 at 2 liters per nasal. She is pale. Hemoglobin yesterday was 7.9, hematocrit 24.3. Her RDW is 16.5, upper normal 14.8. LUNGS: Still has rales in both lung arias, left base. Right mostly middle posterior chest field. HEART: Audible with good tones. ABDOMEN: No masses and no tenderness. The patient is eating a bit more, about 75% of the meals. This patient is encouraged to eat some more and also eat snacks. MTDD
--- NOTE | 2016-10-23 09:37 | PN ---
DATE OF VISIT: 10/19/16 The patient is alert and responsive. She still wants to go home. I did tell her that it is not reasonable, mostly that the CT scan showed no improvement, in fact a worsening of her pneumonia. I would try to refer to a boiler fireman. I did call her and left a message. CT scan of the chest also indicated cirrhosis of the liver, which may be due to the hepatitis C, but no indication of tumor. We will try to do a dedicated ultrasound of the liver to see if there is any tumor. Alpha-Fetoprotein was requested. LUNGS: Still the same, but the patient is not coughing as much. MTDD
--- NOTE | 2016-10-23 09:43 | PN ---
DATE OF VISIT: 10/20/16 The patient had an ultrasound of the liver showing cirrhosis, but no tumors. She is alert and responsive and pale. She looks much older than her chronological age. CBC showed WBC of 11,920, RBC 2,820,000, hemoglobin 7.5, hematocrit 24.4, MCV 86.5, MCH 26.6. Repeat urinalysis today improved from previous. Leukocyte esterase 1+ and WBC 5-10, bacteria 2+. This patient had pseudomonas in the urine culture. We will continue the antibiotics for now and repeat another urine. LUNGS: Rales still left and right. No wheezing. HEART: Audible with good tones. CONDITION: Stable. MTDD
--- NOTE | 2016-10-23 09:49 | PN ---
DATE OF VISIT: 10/21/16 The patient, in the presence of her , was advised that she has an appointment with Dr. Herrera this coming Wednesday at 9:30 a.m. I also told them that she had been a patient of the clinic before, but she did not keep her appointment. The patient again wanted to go home and I told her in the presence of her , but that she is not ready to go home for now. We will wait for what Dr. Herrera would tell us about her condition. The was agreeable for the referral and he will bring her to the office this coming Wednesday. VITAL SIGNS: At 6:00 p.m. showed a temperature of 98.5, pulse 94, blood pressure 118/62, respiratory rate 22, oxygen saturation 98 at 2 Liters of oxygen. MTDD
--- NOTE | 2016-10-23 09:59 | PN ---
DATE OF VISIT: 10/22/16 I saw the patient this morning and the was present, as well as another gentleman. The patient was alert, pale, responsive, maybe slightly tachypneic. She again told me that she wants to go home. I repeated the same advise to her that she is not ready to go home at this time and we area trying to help her. I also reiterated the appointment with Dr. Herrera this coming Wednesday. I did inform her in the presence of her and the gentleman that I would wait for Dr. Herrera's evaluation and also advice as to how to proceed with her treatment. VITAL SIGNS: Today at 5:58 a.m. showed a temperature of 97.9, pulse 93, blood pressure 101/53, respiratory rate 20, oxygen saturation 97 at 2 Liters. The patient had a CBC on 10/20/16 and had a hemoglobin of 7.5, hematocrit 24.4. The patient is not in congestive heart failure. I wondering whether this patient might benefit with a blood transfusion, probably 2 units to bring the hemoglobin to about 10 or there about. I will repeat another hemoglobin and hematocrit tomorrow 10/23/16 and see what the results are. If it is a 7 or below, that this patient will be given a transfusion of at least 2 units. LUNGS: Still has rales in both lung arias, left base and right middle with no wheezing. CONDITION: Stable. PROGNOSIS: Unchanged, poor. MTDD
[2016-10-23 18:25] LABS: HEMATOCRIT 28.8 % (37.0-47.0); HEMOGLOBIN 9.1 g/dl (12.0-16.0)
[2016-10-23] MEDS: VANCOMYCIN IV SCH ×2 (18:36→22:54)
[2016-10-23] MEDS: SODIUM CHLORIDE IV SCH ×2 (18:36→22:54)
[2016-10-23] MEDS: LOVENOX SUBCUT SCH (20:34)
[2016-10-23] MEDS: ZYPREXA PO SCH (20:35)
[2016-10-24] MEDS: DUONEB NEB SCH ×4 (05:01→23:48)
[2016-10-24] MEDS: SYNTHROID PO SCH (05:56)
[2016-10-24] MEDS: COLACE PO SCH ×2 (08:50→20:15)
[2016-10-24] MEDS: WELLBUTRIN PO SCH ×2 (08:50→20:14)
[2016-10-24] MEDS: MEGACE PO SCH ×2 (08:50→20:15)
[2016-10-24] MEDS: MAXIPIME 2 GM in SODIUM CHLORIDE 100 ML IV SCH ×2 (08:50→20:13)
[2016-10-24] MEDS: ZOLOFT PO SCH (08:50)
[2016-10-24] MEDS: VANCOMYCIN IV SCH (09:59)
[2016-10-24] MEDS: SODIUM CHLORIDE IV SCH (09:59)
[2016-10-24 18:28] LABS: HEMATOCRIT 34.4 % (37.0-47.0); HEMOGLOBIN 11.2 g/dl (12.0-16.0)
[2016-10-24] MEDS: ZYPREXA PO SCH (20:14)
[2016-10-24] MEDS: LOVENOX SUBCUT SCH (20:14)
[2016-10-24] MEDS ORDERED: SODIUM CHLORIDE IV SCH (21:00)
[2016-10-24] MEDS ORDERED: VANCOMYCIN IV SCH (21:00)
[2016-10-25] MEDS: OXYCODONE PO PRN (02:56)
[2016-10-25] MEDS: DUONEB NEB SCH ×4 (04:57→23:04)
[2016-10-25 04:58] LABS: BASOPHILS % (AUTO) 0.2 % (0.0-3.0); EOSINOPHILS # (AUTO) 0.5 K/ul (0.0-0.7); EOSINOPHILS % (AUTO) 5.1 % (0.0-7.0); HEMATOCRIT 32.7 % (37.0-47.0); HEMOGLOBIN 10.4 g/dl (12.0-16.0); IMMATURE GRANULOCYTE % (AUTO) 0.4 % (0.0-5.0); LYMPHOCYTES # (AUTO) 1.7 K/uL (0.60-3.4); LYMPHOCYTES % (AUTO) 18.1 (10.0-50.0); MEAN CORPUSCULAR HEMOGLOBIN 27.3 pg (27.0-31.0); MEAN CORPUSCULAR HGB CONC 31.8 (31.8-35.4); MEAN CORPUSCULAR VOLUME 85.8 fl (81.0-99.0); MONOCYTES # (AUTO) 0.9 K/uL (0.4-2.0); MONOCYTES % (AUTO) 9.1 (0-10); NEUTROPHILS # (AUTO) 6.3 K/ul (2.0-6.9); NEUTROPHILS % (AUTO) 67.1; PLATELET COUNT 339 10^3/uL (140-440); RED BLOOD COUNT 3.81 10^6/ul (4.20-5.40); WHITE BLOOD COUNT 9.44 K/ul (4.6-10.2)
[2016-10-25 05:10] LABS: ALBUMIN 2.5 g/dL (3.4-5.0); ALBUMIN/GLOBULIN RATIO 0.61; ANION GAP 9.6; BILIRUBIN,TOTAL 0.87 mg/dL (0.00-1.20); BUN/CREATININE RATIO 22.85; CALCIUM 9.2 mg/dL (8.2-10.2); CREATININE 0.7 mg/dL (0.60-1.30); POTASSIUM 3.6 mmol/L (3.5-5.10); TOTAL PROTEIN 6.6 g/dL (5.8-8.1)
[2016-10-25] MEDS: SYNTHROID PO SCH (06:28)
[2016-10-25] MEDS: MEGACE PO SCH ×2 (08:13→20:42)
[2016-10-25] MEDS: WELLBUTRIN PO SCH ×2 (08:14→20:42)
[2016-10-25] MEDS: ZOLOFT PO SCH (08:14)
[2016-10-25] MEDS: MAXIPIME 2 GM in SODIUM CHLORIDE 100 ML IV SCH ×2 (08:17→22:59)
[2016-10-25] MEDS: COLACE PO SCH ×2 (08:17→20:42)
--- NOTE | 2016-10-25 16:05 | CT ---
EXAM: CT chest without contrast HISTORY: Follow-up pneumonia TECHNIQUE: Multi-slice transaxial helical with coronal and sagittal reformed images CONTRAST: None COMPARISON: CT chest from 10/19/2016, 04/29/2016, 07/16/2015, and 05/14/2015 FINDINGS: The aorta is atherosclerotic with normal caliber. The heart size is normal. No pericardi al effusion is appreciated. No suspicious lymphadenopathy is evident. Trace right pleural fluid is noted. Bibasilar alveolar opacities are overall unchanged. A solid nodule in the lingula measurin g 7.1 mm is unchanged dating back to 07/16/2015. A more remote study from 05/14/2015 is reviewed in this nodule is not appreciated at that time. The lungs are moderately emphysematous. Mild fibrosi s is stable. Minimal bronchiectasis is noted without mucus plugging. There is peribronchial thicke lenora in the lower lungs. The solid abdominal organs are grossly normal visualized portions of the upper abdomen. The bones are free of suspicious osteolytic or osteoblastic lesions. Vertebral augmentation has bee n performed at L1 and T8. A chronic inferior endplate compression fracture is noted at L2. An kelvin tional chronic inferior endplate compression fracture is detected at T7. Chronic biconvex compressi on fractures are detected at T4 and T5. An old sternal fracture has healed. IMPRESSION: 1. Bibasilar pneumonia, unchanged. 2. Trace right pleural effusion. 3. Moderate emphysema. 4. Minimal bronchiectasis with peribronchial thickening in the lower lobes. 5. Multiple chronic fractures. 6. 7.1 mm solid nodule in the lingula is stable dating back to 07/16/2015. Please see followup comm ent below. Comment: [employer] Recommendations on Incidental Solid Pulmonary Nodule Follow-up: Low risk patient: (no history of smoking, cancer, or other known risk factors) < 6mm - no follow-u needed > 6-8mm - inital at 6-12 months, then 18-24 months if no change > 8mm - Consider CT, PET/CT, or biopsy at 3 months High risk patient: (history of smoking or other risk factors) < 6mm - optional CT at 12 months if suspicious morophology or upper lobe location > 6-8mm - initial CT at 6-12 months, then CT at 18-24 months > 8mm - same as low risk
[2016-10-25] MEDS: ZYPREXA PO SCH (20:42)
[2016-10-25] MEDS: LOVENOX SUBCUT SCH (20:42)
[2016-10-25] MEDS ORDERED: VANCOMYCIN 750 MG in SODIUM CHLORIDE 250 ML IV SCH (21:00)
[2016-10-26] MEDS: DUONEB NEB SCH (05:04)
[2016-10-26] MEDS: SYNTHROID PO SCH (05:32)
[2016-10-26 05:44] VITALS: BP 122/72; TEMP 98
[2016-10-26] MEDS: ZOLOFT PO SCH (08:07)
[2016-10-26] MEDS: COLACE PO SCH (08:07)
[2016-10-26] MEDS: DRISDOL PO SCH (08:07)
[2016-10-26] MEDS: MEGACE PO SCH (08:07)
[2016-10-26] MEDS: WELLBUTRIN PO SCH (08:07)
[2016-10-26] MEDS: MAXIPIME 2 GM in SODIUM CHLORIDE 100 ML IV SCH (08:09)
--- NOTE | 2016-10-27 10:20 | PN ---
DATE OF VISIT: 10/23/16 The patient is alert, oriented times four, not dyspneic, nor tachypneic with nasal oxygen. She looks pale and her recent CBC showed the hemoglobin of 7.3 without the IV fluids that had been discontinued nor for more than 2 days. Because of the persistent severe anemia, a blood transfusion was considered and this patient will be given 2 Units, 1 unit today and one tomorrow. This was explained to the patient about 12:30 this afternoon. The patient was agreeable. The patient also was told of why it is being done. This patient is still receiving Cefepime 2 grams IV every 12 hours. Her CBC today showed 10, 270 WBC, RBC 2.76, hemoglobin 7.3, hematocrit 23.8. MCV is 6.2 and MCH 26.4, RDW 16.9. Chlorides is a little bit higher at 115. Sodium is normal, as well as potassium. CO2 at 20, BUN 12, creatinine 0.64, E GFR 93. Blood sugar is 76. Alkaline phosphatase 144 from 171. Serum ammonia 89 yesterday. The patient will be given Lactulose 10 grams twice a day. Total protein 6.6, Albumin 2.5. Urinalysis yesterday was still abnormal with 2+ leukocyte esterase and WBC 30-50. Squamous cells 5-10. bacteria 2+. I did ask for a catheterized urine and I am not sure whether this was catheterized mid stream. Urine culture showed Enterococcus Faecium, heavy growth sensitive to the available antibiotics that are sensitive to the bacteria. This patient will be given Vancomycin 500 mg every 8 hours, since she is only 75 pounds. I will consult with Staff Toxicologist tomorrow with regards to dosing. LUNGS: Still has rales in both lung arias, somewhat less than before. No wheezing HEART: Audible with good tones. The patient, this evening, had finished the 1 unit and the patient had no reaction. I did encourage her to eat her meals that was on her table. She hasn 't started eating. The dose of the Vancomycin will be changed to 750 mg every 12. MTDD
--- NOTE | 2016-10-27 10:44 | PN ---
DATE OF VISIT: 10/24/16 The patient this morning is alert, responsive with a better color. She was given a Unit of packed red blood cells yesterday and her hemoglobin did rise to 9.1 from 7.3. Hematocrit to 28.8 from 23.8. She is still using 2 Liters of nasal oxygen and there is still some slight tachypnea. VITAL SIGNS: At 5 a.m. showed a temperature of 98.2, pulse 89, blood pressure 123/63, respiratory rate 24, oxygen saturation 94 at 2 Liters. LUNGS: Has rales on the right side. The left has cleared completely. No wheezing. HEART: Audible and regular with good tones. I wonder whether another another CT low dose would be helpful, as it is now 7 days since the last one, which showed some deterioration, although mild. Her appetite is variable consuming any where between 10 to 75%. On 10/22/16, she weighed 74 pounds 12.8 ounces, two pounds less than the other day. This patient was advised that I will be going out of town and that another doctor will be following her in my absence and I will be back Wednesday. She was reminded again about her appointment on Wednesday with Dr. Herrera and that she will just be going there to the office and back and I would follow the recommendations of Dr. eHrrera. Vancomycin today is reduced to 75 once a day, after discussing with the Pharmacist. She will have a CT of the chest tomorrow without contrast for a better evaluation by the Document Image Technician. CBC and CMP also was ordered for tomorrow. SUKUMAR
[2016-10-27 13:11] LABS: ALKALINE PHOSPHATASE, S 160 IU/L (39-117)
[2016-10-28 07:42] LABS: INTESTINAL FRAC.: 5 % (0-18)
--- NOTE | 2016-10-28 10:12 | PN ---
DATE OF VISIT: 10/25/16 66 year old female is still in the hospital receiving antibiotics, Cefepime for the lung problems and Vancomycin because of urinary tract infection. The bacterial culture has changed in the urinary tract. She is receiving 750 mg once a day of Vancomycin. I had a discussion with the Pharmacist with the dose. VITAL SIGNS: The patient's vital signs on 10/25/2016 at 5:40 p.m. showed a temperature of 97.8, pulse 90, blood pressure 131/64, respiratory rate 18, oxygen saturation 96 at 2 liters. The patient's affect is more or less zero. She seems like she doesn't care whether she is in the hospital or she is getting better or worse. She wanted to go home otherwise. LUNGS: The patient has rales more on the right side and a few on the left, mostly at the base. CT of the chest without contrast done 10/25/2016 showed bibasilar pneumonia unchanged. Trace right pleural effusion. Moderate emphysema, minimal bronchiectasis with peribronchial thickening in the lower lobes. Multiple chronic fractures. 7.1 mm solid nodule in the lingula is stable dating back to 07/16/2015. Recommendations 6-8 mm follow up in 6-12 months. Patient is a chronic smoker and since it is still below 8 that the follow up will be 6 to 12 months. This patient has an appointment with the senior search marketing analyst tomorrow. SUKUMAR
--- NOTE | 2016-10-28 11:54 | DS ---
PATIENT IDENTIFICATION: 66 year old female was admitted initially because of increasing pneumonia. HOSPITAL COURSE: The sputum culture showed pseudomonas aeruginosa and sensitive to Cefepime and e. coli in the urine, ESBL negative is also sensitive to the same. This patient was then given 2 grams of Cefepime IV every 12 hours as advised by the Lab Engineer. This patient had bilateral pneumonia, right and left basal or lower lobe and not extending into the middle lobe right side. This patient had a pneumonia way back in the May of 2016. The patient was then discharged from acute care to [facility] for continued antibiotic management, IV. The patient remained afebrile and the vital signs were stable. The patient on repeat CBC showed persistent, severe anemia. The lowest was 7.3 after the IV's were discontinued. It was then decided to transfuse two units and the hemoglobin did rise to 9.1 after one unit and then to 11.2 after the second unit. WBC has remained just slightly above 11,000. The RDW is high at 16.9. MCV is normal with the MCH and MCHC all below normal. The patient's GFR remained high between 83 to 93. Her alkaline phosphatase was high at one time 144 and on 10/25/2016 it returned to normal at 128. The upper normal for this lab is 141. Serum ammonia was elevated to 89, range of normal 11 to 32. This patient has cirrhosis, probably secondary to Hepatitis C. Alpha fetoprotein was requested, but no results at this time. This patient's alkaline phosphatase on admission was 226. Procalcitonin 0.21. Cardiac enzymes normal. This patient had a history of hepatitis C and was treated according to her. She did not know the source of her hepatitis. The patient had another CT scan of the chest without contrast on 10/25/2016 and prior to that was 10/19/2016 and also on admission. CT scan showed bibasilar pneumonia, unchanged. The patient had been on antibiotics since 10/12 to 10/25/2016 with the scan. Repeat urinalysis showed persistent abnormality and showed Enterococcus Faecium instead of e.coli and not sensitive to Cefepime. The patient was then given Vancomycin 750 mg initially twice a day and then one daily after the first two doses. The patient's color had improved after 2 units. The BNP after the 2 unit transfusion was 82, normal. The patient at the time of discharge from [place] to go to the Dredging Inspector was alert, ambulatory with movement of all extremities. LUNGS: Has rales mostly in the right side with a few rales at the left and no wheezing. HEART: Audible with good tones. ABDOMEN: Nontender. VITAL SIGNS: At 5:43 a.m. showed a temperature of 98, pulse 89, blood pressure 122/72, respiratory rate 18, oxygen saturation 96 with 2 liters of oxygen. This patient has home oxygen. PLAN: Records were sent to the crab meat processor's office. I did tell the patient , as well as the , that I would like to see them at the office after they had been to the crab meat processor. FINAL DIAGNOSES: 1. BILATERAL LOWER LOBE PNEUMONITIS, STABLE 2. RESPIRATORY FAILURE, CHRONIC 3. CHRONIC OBSTRUCTIVE PULMONARY DISEASE 4. CHRONIC TOBACCO USE AND ABUSE, STOPPED FOUR MONTHS AGO 5. SEVERE ANEMIA 6. HYPOTHYROIDISM, REPLACED 7. QUESTIONABLE PARKINSON'S DISEASE 8. HISTORY OF HEPATITIS C 9. LIVER CIRRHOSIS, PROBABLY SECONDARY TO HEPATITIS C 10. HISTORY OF DEPRESSION ON [place] PROGNOSIS: Poor. MTDD
== END 2016-10-26 09:06 | disposition home or self-care (01) | DRG 194 ==
LOC: MEDSURG B 14:21
PROVIDERS: ADMIT General Practice; ATTEND General Practice
PROC: 30233N1 Transfusion of Nonautologous Red Blood Cells into Peripheral Vein, Percutaneous Approach (ICD-10-PCS; principal; 2016-10-23)
PROC: 30233N1 Transfusion of Nonautologous Red Blood Cells into Peripheral Vein, Percutaneous Approach (ICD-10-PCS; 2016-10-24)
DX: J18.9 Pneumonia, unspecified organism (principal); B96.5 Pseudomonas (aeruginosa) (mallei) (pseudomallei) as the cause of diseases classified elsewhere; J96.10 Chronic respiratory failure, unspecified whether with hypoxia or hypercapnia; J90 Pleural effusion, not elsewhere classified; N39.0 Urinary tract infection, site not specified; B95.2 Enterococcus as the cause of diseases classified elsewhere; J44.9 Chronic obstructive pulmonary disease, unspecified; D64.9 Anemia, unspecified; E03.9 Hypothyroidism, unspecified; G20 Parkinson's disease; K74.60 Unspecified cirrhosis of liver; Z16.11 Resistance to penicillins; Z86.59 Personal history of other mental and behavioral disorders; Z87.891 Personal history of nicotine dependence; Z86.19 Personal history of other infectious and parasitic diseases; Z79.899 Other long term (current) drug therapy
CPT/HCPCS: 36415; 36430; 80053; 80074; 81001; 82105; 82140; 83880; 84075; 84080; 85014; 85018; 85025; 86850; 86900; 86922; 87086; 87186; 87522; 94640; 97802; 99308; 99316

== ENCOUNTER 2016-11-02 14:10 | Outpatient (CLI) ==
--- NOTE | 2016-11-02 14:31 | DI ---
EXAM: Chest two views HISTORY: Pneumonia, unspecified organism COMPARISON: CT chest 10/25/2016 TECHNIQUE: Two views of the chest were performed FINDINGS: There are bibasilar infiltrates, right greater than left. There is emphysematous change. Left apical scarring. There is no pleural effusion or pneumothorax. The heart is normal in size. T he mediastinal contour is normal, noting atherosclerosis. Multilevel compression deformities , some of which have been treated with vertebral plasty or kyphoplasty. Please see prior CT. IMPRESSION: 1. Bibasilar pneumonia. Follow-up recommended. 2. Emphysema
== END 2016-11-02 14:11 | disposition home or self-care (01) ==
LOC: RAD 14:10
PROVIDERS: ATTEND General Practice
DX: J18.9 Pneumonia, unspecified organism (principal)

== ENCOUNTER 2016-11-16 15:09 | Outpatient (CLI) | payer OTHER ==
--- NOTE | 2016-11-16 15:47 | CT ---
EXAM: CT THORAX HISTORY: Pneumonia. TECHNIQUE: CT thorax without intravenous contrast. 5-mm axial sections. Coronal and sagittal re-fo rmations. COMPARISON: 10/25/2016 FINDINGS: Normal heart size without pericardial effusion. Moderate aortic atherosclerosis. Within limits of this unenhanced exam, there is no obvious hilar mass or mediastinal lymphadenopathy. Lungs are hyperinflated. There is evidence of pulmonary emphysema and scattered fibrosis. There is mild interstitial thickening and patchy consolidation in the posterior right lung base. There is a s tellate opacity in the left upper lobe measuring 0.5 cm which is stable. There is a tiny nodule in t he left lower lobe, axial image 39 which is grossly stable given possible differences in slice selec tion. There is minimal consolidation in the posterior left lung base. No pleural fluid or active c ongestive heart failure. The bones reveal compression fractures which have been treated by vertebral plasty, grossly stable. These are located at the mid thoracic spine and what appears to represent the L1 level. IMPRESSION: 1. Moderate pulmonary emphysema and scattered fibrosis. Right base pneumonia is suggested. 2. Scattered nodular stellate opacities are thought to represent areas of fibrosis and are grossly stable since prior studies reviewed. Given complex appearance of the lungs as well as these finding s, consider follow-up CT in approximately 6 months. 3. Moderate atherosclerotic disease. 4. Stable previously treated vertebral body compression fractures.
== END 2016-11-16 15:10 | disposition home or self-care (01) ==
LOC: RAD 15:09
PROVIDERS: ATTEND General Practice
DX: R09.89 Other specified symptoms and signs involving the circulatory and respiratory systems (principal)

== ENCOUNTER 2016-11-18 11:14 | Inpatient (IN) | payer OTHER ==
[2016-11-18 11:45] VITALS: BMI 14.1
[2016-11-18] MEDS ORDERED: DILAUDID 1 MG/ML SYRINGE IVP STA (12:07)
[2016-11-18] MEDS ORDERED: INFUVITE ADULT 10 ML in DEXTROSE 5%-1/2NS IV SOLUTION 1,000 ML IV SCH (12:30)
[2016-11-18 12:32] LABS: BASOPHILS # (AUTO) 0.1 K/uL (0-0.2); BASOPHILS % (AUTO) 0.4 % (0.0-3.0); EOSINOPHILS # (AUTO) 0.2 K/ul (0.0-0.7); EOSINOPHILS % (AUTO) 1.3 % (0.0-7.0); HEMATOCRIT 36.5 % (37.0-47.0); IMMATURE GRANULOCYTE % (AUTO) 0.5 % (0.0-5.0); LYMPHOCYTES # (AUTO) 1.7 K/uL (0.60-3.4); LYMPHOCYTES % (AUTO) 12.5 (10.0-50.0); MEAN CORPUSCULAR HEMOGLOBIN 27.9 pg (27.0-31.0); MEAN CORPUSCULAR HGB CONC 32.9 (31.8-35.4); MEAN CORPUSCULAR VOLUME 84.9 fl (81.0-99.0); MONOCYTES # (AUTO) 1.3 K/uL (0.4-2.0); MONOCYTES % (AUTO) 9.4 (0-10); NEUTROPHILS # (AUTO) 10.5 K/ul (2.0-6.9); NEUTROPHILS % (AUTO) 75.9; PLATELET COUNT 231 10^3/uL (140-440); WHITE BLOOD COUNT 13.81 K/ul (4.6-10.2)
[2016-11-18 12:52] LABS: ALBUMIN 3.4 g/dL (3.4-5.0); ALBUMIN/GLOBULIN RATIO 0.87; ANION GAP 18.9; BILIRUBIN,TOTAL 1.82 mg/dL (0.00-1.20); BUN/CREATININE RATIO 25.31; CALCIUM 9.4 mg/dL (8.2-10.2); CREATININE 0.79 mg/dL (0.60-1.30); POTASSIUM 2.9 mmol/L (3.5-5.10); TOTAL PROTEIN 7.3 g/dL (5.8-8.1)
--- NOTE | 2016-11-18 13:53 | CT ---
EXAM: CT BRAIN HISTORY: Mental status change TECHNIQUE: CT brain without intravenous contrast. 5-mm axial sections with Reformations. COMPARISON: 06/05/2016 FINDINGS: There is generalized atrophy and at least mild chronic microvascular ischemic change. These finding s are stable. Brain otherwise is unremarkable without distinct evidence of hemorrhage or large vesse l distribution recent ischemic infarction. There is no suggestion of acute hydrocephalus or subdura l fluid collection. No mass or mass effect. Cranium is within normal limits. Mastoid air cells are aerated. The visualized paranasal sinuses are clear. IMPRESSION: No acute intracranial process.
[2016-11-18] MEDS: INFUVITE ADULT 10 ML in D5%-1/2NS-KCL 20 MEQ/L IV SOL 1,000 ML IV SCH (14:00)
[2016-11-18 14:33] LABS: BILIRUBIN,URINE 1+ (NEGATIVE); KETONES,URINE 1+ (NEGATIVE); LEUKOCYTE ESTERASE ,URINE 1+ (NEGATIVE); NITRITE,URINE Negative (NEGATIVE); PH,URINE 6.5 (5-9); PROTEIN,URINE Negative (NEGATIVE); URINE, BLOOD 1+ (NEGATIVE)
[2016-11-18 14:36] LABS: ADD URINE MICROSCOPIC YES
[2016-11-18 14:38] LABS: BACTERIA,URINE 3+ (NOT PRESENT)
[2016-11-18] MEDS: LACTULOSE PO SCH ×2 (15:25→20:10)
[2016-11-18] MEDS ORDERED: ZOFRAN 4 MG/2 ML IVP PRN (22:42)
[2016-11-18] MEDS ORDERED: ROCEPHIN ONE (22:46)
[2016-11-18] MEDS ORDERED: ROCEPHIN 1 GM in SODIUM CHLORIDE 50 ML IV SCH (23:00)
[2016-11-18] MEDS ORDERED: INVANZ ONE (23:29)
[2016-11-18] MEDS ORDERED: INVANZ 1 GM in SODIUM CHLORIDE 50 ML IV SCH (23:30)
[2016-11-18 23:51] LABS: ABG BASE EXCESS -7 (-2.0-2.0); ABG HCO3 17.3 (22.0-26.0); ABG PCO2 25.8 mmHg (35-45); ABG PH 7.435 (7.35-7.45); ABG TCO2 18 (22.0-28.0)
[2016-11-18 23:53] LABS: MAGNESIUM 2.1 mg/dL (1.7-2.2); TROPONIN I 0.027 ng/ml (0.0000-0.4000)
[2016-11-19] MEDS ORDERED: DILAUDID 1 MG/ML SYRINGE ONE (00:45)
[2016-11-19] MEDS: DILAUDID 1 MG/ML SYRINGE IVP PRN ×2 (00:51→11:03)
[2016-11-19] MEDS ORDERED: INFUVITE ADULT IV ONE (02:18)
[2016-11-19] MEDS: INFUVITE ADULT 10 ML in D5%-1/2NS-KCL 20 MEQ/L IV SOL 1,000 ML IV SCH (02:27)
[2016-11-19 10:33] LABS: BASOPHILS % (AUTO) 0.3 % (0.0-3.0); EOSINOPHILS # (AUTO) 0.1 K/ul (0.0-0.7); EOSINOPHILS % (AUTO) 0.9 % (0.0-7.0); HEMATOCRIT 33.6 % (37.0-47.0); IMMATURE GRANULOCYTE % (AUTO) 0.3 % (0.0-5.0); MEAN CORPUSCULAR HEMOGLOBIN 27.6 pg (27.0-31.0); MEAN CORPUSCULAR HGB CONC 32.7 (31.8-35.4); MEAN CORPUSCULAR VOLUME 84.2 fl (81.0-99.0); MONOCYTES # (AUTO) 1.5 K/uL (0.4-2.0); MONOCYTES % (AUTO) 10.3 (0-10); NEUTROPHILS # (AUTO) 10.7 K/ul (2.0-6.9); NEUTROPHILS % (AUTO) 74.2; PLATELET COUNT 225 10^3/uL (140-440); RED BLOOD COUNT 3.99 10^6/ul (4.20-5.40); WHITE BLOOD COUNT 14.43 K/ul (4.6-10.2)
[2016-11-19 10:47] LABS: PROTHROMBIN TIME 11.8 SEC (9.3-11.0)
[2016-11-19 10:52] LABS: ALBUMIN 3.1 g/dL (3.4-5.0); ALBUMIN/GLOBULIN RATIO 0.79; ANION GAP 11.9; BILIRUBIN,TOTAL 1.44 mg/dL (0.00-1.20); BUN/CREATININE RATIO 20.23; CALCIUM 8.5 mg/dL (8.2-10.2); CREATININE 0.84 mg/dL (0.60-1.30); POTASSIUM 2.9 mmol/L (3.5-5.10)
--- NOTE | 2016-11-19 11:28 | US ---
EXAM: Ultrasound abdomen complete. HISTORY: Hepatitis C TECHNIQUE: Ultrasound and limited doppler evaluation of the enitre abdomen was performed. COMPARISON: Abdominal ultrasound 10/20/2016 and 02/29/2016 FINDINGS: The liver is heterogeneous and coarse in echogenicity and is unchanged in size The portal vein is patent and retrograde flow was identified. The gallbladder has been removed. Common bile d uct measures 0.6 cm in diameter. The pancreas is unremarkable and partially obscured. The aorta an d IVC are unremarkable although limited due to bowel gas. The spleen is not identified due to bowel gas. The right kidney measures 7.6 x 3.8 x 3.3 cm with cortical thickness of 0.8 cm. There is mildly inc reased echogenicity and Doppler flow. There is no visualized stone, cyst or hydronephrosis. The left kidney measures 7.7 x 3.8 x 3.5 cm with renal cortical thickness of 0.7 cm. There is norm al echogenicity and color Doppler flow. There is no stone, cyst or hydronephrosis. IMPRESSION: 1. Cirrhotic appearance of the liver with retrograde flow in the main portal vein which is unchanged from prior exam. 2. Prior cholecystectomy. 3. Minimal increased echogenicity of the kidneys that may represent medical renal disease.
[2016-11-19] MEDS: LACTULOSE PO SCH (13:39)
[2016-11-19] MEDS: [UNRECOGNIZED DRUG - MIXTURE] IV SCH (14:30)
[2016-11-19] MEDS ORDERED: LACTULOSE RC SCH (14:30)
[2016-11-19] MEDS: LOVENOX SUBCUT SCH (14:41)
[2016-11-19 19:09] LABS: OCCULT BLOOD INTERNAL QC 1 INTERNAL QC VALID; OCCULT BLOOD SAMPLE 1 POSITIVE (NEGATIVE)
[2016-11-19] MEDS ORDERED: LACTULOSE PO SCH ×2 (19:20→21:00)
[2016-11-19] MEDS ORDERED: LACTULOSE RC ONE (19:35)
[2016-11-19] MEDS ORDERED: INVANZ 1 GM in SODIUM CHLORIDE 50 ML IV SCH (21:00)
[2016-11-19] MEDS: LACTULOSE RC SCH (21:46)
[2016-11-20 01:42] LABS: OCCULT BLOOD SAMPLE 2 NO SPECIMEN RECEIVED (NEGATIVE)
[2016-11-20 01:43] LABS: OCCULT BLOOD INTERNAL QC 2 INTERNAL QC VALID; OCCULT BLOOD INTERNAL QC 3 INTERNAL QC VALID; OCCULT BLOOD SAMPLE 3 NO SPECIMEN RECEIVED (NEGATIVE)
[2016-11-20] MEDS ORDERED: POTASSIUM CHLORIDE 20 MEQ VIAL-ADDITIVE ONLY IV ONE ×2 (04:06→18:56)
[2016-11-20 05:00] LABS: BASOPHILS % (AUTO) 0.2 % (0.0-3.0); EOSINOPHILS # (AUTO) 0.7 K/ul (0.0-0.7); EOSINOPHILS % (AUTO) 4.5 % (0.0-7.0); HEMATOCRIT 34.4 % (37.0-47.0); IMMATURE GRANULOCYTE % (AUTO) 0.5 % (0.0-5.0); LYMPHOCYTES # (AUTO) 3.2 K/uL (0.60-3.4); LYMPHOCYTES % (AUTO) 21.8 (10.0-50.0); MEAN CORPUSCULAR HEMOGLOBIN 27.8 pg (27.0-31.0); MEAN CORPUSCULAR VOLUME 86.9 fl (81.0-99.0); MONOCYTES # (AUTO) 1.6 K/uL (0.4-2.0); MONOCYTES % (AUTO) 10.8 (0-10); NEUTROPHILS % (AUTO) 62.2; PLATELET COUNT 198 10^3/uL (140-440); RED BLOOD COUNT 3.96 10^6/ul (4.20-5.40); WHITE BLOOD COUNT 14.43 K/ul (4.6-10.2)
[2016-11-20] MEDS: [UNRECOGNIZED DRUG - MIXTURE] IV SCH ×2 (05:03→05:04)
[2016-11-20 05:15] LABS: ALBUMIN 2.9 g/dL (3.4-5.0); ALBUMIN/GLOBULIN RATIO 0.78; ANION GAP 11.8; BILIRUBIN,TOTAL 1.43 mg/dL (0.00-1.20); BUN/CREATININE RATIO 18.18; CALCIUM 8.6 mg/dL (8.2-10.2); CREATININE 0.77 mg/dL (0.60-1.30); POTASSIUM 3.8 mmol/L (3.5-5.10); TOTAL PROTEIN 6.6 g/dL (5.8-8.1)
[2016-11-20] MEDS: LACTULOSE RC SCH ×3 (05:50→21:43)
[2016-11-20] MEDS: LOVENOX SUBCUT SCH (08:14)
[2016-11-20] MEDS: ZYVOX 600 MG in PREMIX 300 ML WATER 1 BAG IV SCH ×2 (10:40→20:20)
[2016-11-20] MEDS ORDERED: RIFAMPIN PO SCH (12:00)
[2016-11-20] MEDS ORDERED: LACTULOSE RC STA (12:17)
[2016-11-20] MEDS: XIFAXAN PO SCH ×2 (13:30→20:13)
[2016-11-20] MEDS: DILAUDID 1 MG/ML SYRINGE IVP PRN (18:23)
[2016-11-20] MEDS: [UNRECOGNIZED DRUG - MIXTURE] IV SCH (18:27)
[2016-11-21] MEDS: LACTULOSE RC SCH ×2 (04:16→16:09)
[2016-11-21] MEDS: DILAUDID 1 MG/ML SYRINGE IVP PRN ×2 (04:38→17:23)
[2016-11-21] MEDS ORDERED: POTASSIUM CHLORIDE 20 MEQ VIAL-ADDITIVE ONLY IV ONE ×2 (08:18→20:33)
[2016-11-21] MEDS: LOVENOX SUBCUT SCH (08:24)
[2016-11-21] MEDS: [UNRECOGNIZED DRUG - MIXTURE] IV SCH ×2 (08:24→23:51)
[2016-11-21] MEDS: ZYVOX 600 MG in PREMIX 300 ML WATER 1 BAG IV SCH ×2 (08:24→21:08)
[2016-11-21 09:06] LABS: BASOPHILS % (AUTO) 0.3 % (0.0-3.0); EOSINOPHILS # (AUTO) 1.2 K/ul (0.0-0.7); EOSINOPHILS % (AUTO) 11.4 % (0.0-7.0); HEMATOCRIT 34.2 % (37.0-47.0); HEMOGLOBIN 10.7 g/dl (12.0-16.0); IMMATURE GRANULOCYTE % (AUTO) 0.7 % (0.0-5.0); LYMPHOCYTES # (AUTO) 2.3 K/uL (0.60-3.4); LYMPHOCYTES % (AUTO) 22.8 (10.0-50.0); MEAN CORPUSCULAR HEMOGLOBIN 27.9 pg (27.0-31.0); MEAN CORPUSCULAR HGB CONC 31.3 (31.8-35.4); MEAN CORPUSCULAR VOLUME 89.3 fl (81.0-99.0); MONOCYTES # (AUTO) 0.8 K/uL (0.4-2.0); MONOCYTES % (AUTO) 7.7 (0-10); NEUTROPHILS # (AUTO) 5.7 K/ul (2.0-6.9); NEUTROPHILS % (AUTO) 57.1; PLATELET COUNT 181 10^3/uL (140-440); RED BLOOD COUNT 3.83 10^6/ul (4.20-5.40); WHITE BLOOD COUNT 10.05 K/ul (4.6-10.2)
[2016-11-21] MEDS: XIFAXAN PO SCH ×2 (09:16→21:18)
[2016-11-21 09:26] LABS: ALBUMIN 2.9 g/dL (3.4-5.0); ALBUMIN/GLOBULIN RATIO 0.78; ANION GAP 10.1; BILIRUBIN,TOTAL 1.39 mg/dL (0.00-1.20); BUN/CREATININE RATIO 11.94; CALCIUM 8.6 mg/dL (8.2-10.2); CREATININE 0.67 mg/dL (0.60-1.30); POTASSIUM 4.1 mmol/L (3.5-5.10); TOTAL PROTEIN 6.6 g/dL (5.8-8.1)
[2016-11-21] MEDS ORDERED: CLINIMIX E 4.25%-5% SOLUTION 1,000 ML IV ONE (18:45)
[2016-11-21] MEDS: LACTULOSE PO SCH (21:18)
[2016-11-22 05:02] LABS: BASOPHILS % (AUTO) 0.4 % (0.0-3.0); EOSINOPHILS # (AUTO) 0.9 K/ul (0.0-0.7); EOSINOPHILS % (AUTO) 12.3 % (0.0-7.0); HEMOGLOBIN 10.7 g/dl (12.0-16.0); IMMATURE GRANULOCYTE % (AUTO) 0.7 % (0.0-5.0); LYMPHOCYTES # (AUTO) 1.7 K/uL (0.60-3.4); LYMPHOCYTES % (AUTO) 22.9 (10.0-50.0); MEAN CORPUSCULAR HEMOGLOBIN 27.7 pg (27.0-31.0); MEAN CORPUSCULAR HGB CONC 30.6 (31.8-35.4); MEAN CORPUSCULAR VOLUME 90.7 fl (81.0-99.0); MONOCYTES # (AUTO) 0.7 K/uL (0.4-2.0); MONOCYTES % (AUTO) 9.1 (0-10); NEUTROPHILS % (AUTO) 54.6; PLATELET COUNT 166 10^3/uL (140-440); RED BLOOD COUNT 3.86 10^6/ul (4.20-5.40); WHITE BLOOD COUNT 7.38 K/ul (4.6-10.2)
[2016-11-22 05:11] LABS: BILIRUBIN,URINE Negative (NEGATIVE); KETONES,URINE Negative (NEGATIVE); LEUKOCYTE ESTERASE ,URINE 2+ (NEGATIVE); NITRITE,URINE Negative (NEGATIVE); PROTEIN,URINE Negative (NEGATIVE); URINE, BLOOD 1+ (NEGATIVE)
[2016-11-22] MEDS: LACTULOSE PO SCH ×3 (05:12→21:15)
[2016-11-22 05:51] LABS: ADD URINE MICROSCOPIC YES
[2016-11-22 05:52] LABS: BACTERIA,URINE TRACE (NOT PRESENT)
[2016-11-22 05:59] LABS: ALBUMIN 2.7 g/dL (3.4-5.0); ALBUMIN/GLOBULIN RATIO 0.82; ANION GAP 10.1; BILIRUBIN,TOTAL 0.97 mg/dL (0.00-1.20); BUN/CREATININE RATIO 9.83; CALCIUM 8.2 mg/dL (8.2-10.2); CREATININE 0.61 mg/dL (0.60-1.30); POTASSIUM 4.1 mmol/L (3.5-5.10)
[2016-11-22] MEDS ORDERED: CLINIMIX E 4.25%-5% SOLUTION 1,000 ML IV ONE (08:00)
[2016-11-22] MEDS: LOVENOX SUBCUT SCH (08:15)
[2016-11-22] MEDS: ZYVOX 600 MG in PREMIX 300 ML WATER 1 BAG IV SCH ×2 (08:15→21:34)
[2016-11-22] MEDS: XIFAXAN PO SCH ×2 (08:15→21:16)
[2016-11-22 08:44] LABS: BASOPHILS % (AUTO) 0.4 % (0.0-3.0); EOSINOPHILS # (AUTO) 0.9 K/ul (0.0-0.7); HEMATOCRIT 33.4 % (37.0-47.0); HEMOGLOBIN 10.5 g/dl (12.0-16.0); IMMATURE GRANULOCYTE % (AUTO) 0.2 % (0.0-5.0); LYMPHOCYTES # (AUTO) 1.5 K/uL (0.60-3.4); LYMPHOCYTES % (AUTO) 18.5 (10.0-50.0); MEAN CORPUSCULAR HEMOGLOBIN 27.7 pg (27.0-31.0); MEAN CORPUSCULAR HGB CONC 31.4 (31.8-35.4); MEAN CORPUSCULAR VOLUME 88.1 fl (81.0-99.0); MONOCYTES # (AUTO) 0.6 K/uL (0.4-2.0); MONOCYTES % (AUTO) 7.2 (0-10); NEUTROPHILS % (AUTO) 62.7; PLATELET COUNT 179 10^3/uL (140-440); RED BLOOD COUNT 3.79 10^6/ul (4.20-5.40); WHITE BLOOD COUNT 8.02 K/ul (4.6-10.2)
[2016-11-22 09:01] LABS: ALBUMIN 2.8 g/dL (3.4-5.0); ALBUMIN/GLOBULIN RATIO 0.8; ANION GAP 11.1; BILIRUBIN,TOTAL 1.09 mg/dL (0.00-1.20); BUN/CREATININE RATIO 8.06; CALCIUM 8.5 mg/dL (8.2-10.2); CREATININE 0.62 mg/dL (0.60-1.30); POTASSIUM 4.1 mmol/L (3.5-5.10); TOTAL PROTEIN 6.3 g/dL (5.8-8.1)
[2016-11-22] MEDS: [UNRECOGNIZED DRUG - MIXTURE] IV SCH (18:18)
[2016-11-22] MEDS ORDERED: NON-FORMULARY MEDICATION (Olanzapine [Zyprexa] 20 MG) PO SCH (21:00)
[2016-11-22] MEDS: ZYPREXA ONE (21:16)
[2016-11-22] MEDS: ZYPREXA PO ONE (21:16)
[2016-11-22] MEDS ORDERED: POTASSIUM CHLORIDE 20 MEQ VIAL-ADDITIVE ONLY IV ONE (23:22)
[2016-11-23] MEDS: [UNRECOGNIZED DRUG - MIXTURE] IV SCH ×2 (03:35→17:50)
[2016-11-23] MEDS: LACTULOSE PO SCH ×3 (05:20→20:13)
[2016-11-23] MEDS: ZYPREXA PO ONE (07:12)
[2016-11-23] MEDS: ZYPREXA ONE (07:13)
[2016-11-23] MEDS: LOVENOX SUBCUT SCH (08:38)
[2016-11-23] MEDS: XIFAXAN PO SCH ×2 (08:38→20:13)
[2016-11-23] MEDS: ZYVOX 600 MG in PREMIX 300 ML WATER 1 BAG IV SCH ×2 (08:39→20:13)
[2016-11-23] MEDS ORDERED: CALMOSEPTINE OINTMENT TP PRN (12:21)
[2016-11-23] MEDS ORDERED: POTASSIUM CHLORIDE 20 MEQ VIAL-ADDITIVE ONLY IV ONE (17:33)
[2016-11-23] MEDS: ZYPREXA PO SCH (20:13)
[2016-11-24] MEDS: LACTULOSE PO SCH ×2 (05:07→20:07)
[2016-11-24] MEDS: ZYVOX 600 MG in PREMIX 300 ML WATER 1 BAG IV SCH ×2 (08:30→20:07)
[2016-11-24] MEDS: LOVENOX SUBCUT SCH (08:30)
[2016-11-24] MEDS: XIFAXAN PO SCH ×2 (08:31→20:07)
[2016-11-24] MEDS: [UNRECOGNIZED DRUG - MIXTURE] IV SCH (08:39)
--- NOTE | 2016-11-24 09:34 | HP ---
DATE OF ADMISSION: 11/18/16 CHIEF COMPLAINT: Change in mental status, unresponsive and not eating for the last day or two. HISTORY OF PRESENT ILLNESS: The patient was seen at the office about two day prior to admission and was responsive to verbal questions. She claimed that she did eat and her and her did not see anything otherwise. This patient was diagnosed with right lower lobe pneumonia back on her admission on 06/05/16. The patient had rales in both lung arias and no wheezing. Her general appear were not different from the times that I had seen her at the office. Her sister however on 11/17/16 was concerned since the patient was not eating. We had a conversation with regards to support her nutrition either by feeding gastrostomy would be much easier and probably longer lasting then intervenous hyperalimentation. Did call Dr. Mark's office that day and the office told me that Dr. Mark is on vacation and would not be back for about 2 weeks but the Nurse practitioner had told me that she would be talk to the other GI doctors in the group. She hasn't returned my call and the patient's condition more or less had deteriorated on the next day and the sister was very concerned that now she is not responding and not eating. I did tell the sister, Hiral to then admit her to the Hospital. Reason for admission is unresponsive to verbal stimulus, dehydration and anorexia. This patient is known to have liver cirrhosis probably from alcohol as well as from Hepatitis C. Hepatitis C was treated by Dr. Mark several years ago using Interferon. The patient was seen at the emergency room 06/05/16 because of altered mental status and CT chest showed right lower lobe pneumonitis. Change in mental status had improved. During that time the patient had received Lactulose from 06/06/16 with Vancomycin, Ceftriaxone and Zithromax. CT of the head was without any acute intracranial processes again the chest CT showed right lower lobe pneumonia. She was discharged to the alf and her sister had asked me to her physician while she was in the alf. She was discharged 06/11/16. PAST PERSONAL HISTORY: The patient used to be a heavy drinker when she was younger and also had Hepatitis C that was treated. Urinary tract infection also on 06/05/16 Compression L1 May 2015 Cavitating lesion in the right upper lobe May 2015 Anemia, chronic problem Hyperthyroidism Senile Dementia Psychosis maybe partly alcohol induced This patient had been to a psychiatrist, Dr. Post who has prescribed medications History of substance abuse when younger Degenerative Joint Disease, knees SURGICAL HISTORY: Appendectomy Cholecystectomy Tonsillectomy Bilateral cataract surgery Total abdominal Hysterectomy ERCP, 2015( Will try to get the results since that would tell us whether the patient had varices then that were significant) The patient was diagnosed with cirrhosis of the liver. FAMILY HISTORY: One brother had COPD and Sister had COPD and still is a smoker with coronary artery disease plus NH Mother had congestive heart failure Father had liver Carcinoma. SOCIAL HISTORY: The patient is and resides with her . The sister did tell me that she has been 5 times in her life. She stopped smoking 4 months ago and she had not had any alcohol beverages for some times. MEDICATIONS: Levothyroxine Zyprexa 20mg Vitamin D3 50,000 international units weekly Albuterol 0.083% for Nebulization 3cc Zoloft 50mg Ranitidine 150mg twice a day Amantadine 100mg twice a day Hydrocodone/ Tylenol 10-325mg one Q hours PRN Lactulose 20mg per 30cc twice a day, it is not listed at this time. ALLERGIES: Aspirin Codeine NSAIDS Sulfa REVIEW OF SYSTEMS: CONSTITUTIONAL: The patient is unresponsive. The sister claimed that she had not been eating since yesterday and worse today. She was quite concerned since she was becoming more drowsy. She had not had any seizure problems. Because of the unresponsiveness and inability to get oral nutrition the patient was admitted to the hospital for further evaluation and nutritional support. INSURANCE SPECIAL AGENT: VISUAL: AUDITORY: RESPIRATORY: CARDIOVASCULAR: GASTROINTESTINAL: GENITOURINARY: MUSCULOSKELETAL: ENDOCRINE: INTEGUMENT: ENDOCRINE: HEMATOLOGIC: INTEGUMENT: PSYCHIATRIC: PHYSICAL EXAMINATION: GENERAL: The patient is a 66 year old female was admitted to the hospital with mental changes and refusal to eat with progression to being unresponsive. The patient is unresponsive to very stimulus and she does respond to pain stimulation. VITAL SIGNS:Temperature 98 oral, pulse 92, blood pressure left 138/70 and right 136/78, respiratory rate 20, oxygen saturation 94% at room air. She is 5'0 weighting 72 pounds 6.4 ounces, BMI 14.1. HEAD: Unremarkable FACE: Symmetrical and equal with no facial weakness. No signs of pain on palpation on the frontal maxillary sinus areas under pressure. EYES: The eye balls are rolled towards the head. THROAT: No inflammation, tumors or exudate. NECK: No masses. No bruit. No tenderness. No rigidity. CHEST: Symmetrical and equal with rib prominent. LUNGS: Breath sounds are diminished in both sides with rales scattered all over more on the left. No wheezing. Rales are also heard anteriorly. HEART: Audible and regular with good tones. No murmurs. ABDOMEN: Flat to scaphoid. No remarkable tenderness based upon the facial expression. No tumor, masses. Bowel sounds are active. No bruit. EXTERNAL GENITALIA: Not examined RECTAL: Not performed LOWER EXTREMITIES: Some ankle edema. Pedal pulse anterior are present. UPPER EXTREMITIES: Symmetrical and equal. ASSESSMENT: 1. HEPATIC ENCEPHALOPATHY 2. HISTORY OF LIVER CIRRHOSIS 3. HISTORY OF ALCOHOL USE AND ABUSE 4. HISTORY OF HEPATITIS C TREATED BY DR. MARK 5. HISTORY OF SUBSTANCE ABUSE 6. HISTORY OF CHRONIC TOBACCO USE AND ABUSE STOPPING FOUR MONTHS AGO 7. HISTORY OF RIGHT LOWER LOBE PNEUMONIA 06/05/16 8. HISTORY OF CEREBRAL ENCEPHALOPATHY 06/05/16 ASCRIBED TO URINARY TRACT INFECTION 9. HISTORY OF HYPOTHYROIDISM ON REPLACEMENT THERAPY 10. HISTORY OF VITAMIN D DEFICIENCY ON REPLACEMENT THERAPY 11. HISTORY OF OSTEOPOROSIS 12. HISTORY OF L1 COMPRESSION FRACTURE 13. HISTORY OF DEPRESSION BEING FOLLOWED AND TREATED BY PSYCHIATRIST, DR. POST 14. HISTORY OF APPENDECTOMY/CHOLECYSTECTOMY/HYSTERECTOMY/BILATERAL CATARACT EXTRACTION AND ERCP. NOTE: The patient had a CT chest without contrast on 11/16/16 interpreted as moderate pulmonary emphysema and scattered fibrosis, bibasilar pneumonia suggested; scattered nodular stellate opacities thought to represent areas of fibrosis grossly stable since prior studies. Followup in 6 months was recommended because of the complex appearance of the lung. Moderate atherosclerotic disease, stable compression fracture mid thoracic spine areas treated with kyphoplasty and also L1. PLAN: 1. MTDD
--- NOTE | 2016-11-24 10:05 | PN ---
DATE OF VISIT: 11/19/16 SUBJECTIVE: The patient remained unresponsive to verbal stimulus. Her eyes are still rolled towards the head. CAT scan of the head that was done yesterday was without any acute intracranial processes. VITAL SIGNS: Temperature 97.8, pulse 82, blood pressure 152/64 and respiratory rate 22 with oxygen saturation 92 with 2 liters of oxygen. It was also 92% without any oxygen prior to that. It was after my examined that I advised to give the nasal oxygen to the patient. HEART: Normal sinus rhythm ABDOMEN: Not distended and no masses, No muscular guarding, bowel sounds are present. No significant edema on both lower extremities. CONDITION: Stable LABS: Coagulation profile normal. WBC still elevated 14,430. The patient is unable to take any oral medications and so lactulose is given as an enema since yesterday. The patient is not able to retain the enema. Alpha feta protein marker is normal 2.9. The procalcitonin on admission was normal. Urinalysis abnormal. Urine culture no sensitivity at this time. This patient is receiving Ertapenem 1 gram daily. Blood cultures are still negative. MRSA screen positive. MTDD
--- NOTE | 2016-11-24 10:22 | PN ---
DATE OF VISIT: 11/20/16 SUBJECTIVE: This patient is receiving Lactulose enema every 8 hours. I had evacuated the stool a large amount yesterday. She also had a large bowel movement according to the nurse. The patient appears to be a bit responsive, still not follow verbal commands and would not swallow any foods or liquids. I instructed the nursing to give Rifaximin maybe with ice cream and see if she would swallow. Rifaximin at 250mg twice a day. VITAL SIGNS: Temperature 96.5, pulse 81, blood pressure 164/89, respiratory rate 24, oxygen saturation 97 at 2 liters. LUNGS: Still has rales in both lung arias. LABS: Urinalysis showed Enterococcus faecium and sensitive to only Zyvox. Quinupristin and Tigecycline. The patient is then given Zyvox intervenous Q 12 hours 600mg. The Ertapenem was discontinued. Labs today still showed WBC 14,430 , hgb 11, sodium 153, potassium 3.8, chloride 125, alkaline phosphatase decreasing now 139, ammonia 74 from 119. BNP slightly elevated at 302 total protein 6.6, Albumin 2.9, Globulin 3.7. Total protein is better then the time she was admitted at 16. MTDD
--- NOTE | 2016-11-24 11:01 | PN ---
DATE OF VISIT: 11/21/16 SUBJECTIVE: The patient today is responsive and did recognize her sister and even called her name. She now opens her eyes. She follows some verbal commands. She still was wanting to under go insertion of her gastric feeding tube and/or intervenous hyperalimentation. All the relatives were present in the room. I did tell her that I would call the hospitalist if they would accept the patient to their services and then would need to consult a GI doctor. Tried to call today realistically it would be better if she would be transferred tomorrow if they will accept her since there is not going to be any procedure since this is more or less elective. VITAL SIGNS: Temperature 97 auxiliary, pulse 74, blood pressure 114/62, respiratory rate 22, oxygen saturation 99 with 2 liters. LABS: CBC now showed a WBC of 10,050, RDW elevated, MCH lower normal indicated some iron deficiency. The patient is receiving Lovenox 30mg SUBCUT daily as a prophylaxis. Total bilirubin slightly lower than admission now 1.39 from 1.82. AST is slightly higher at 60m ALT has remained essentially unchanged. Alkaline phosphatase still slightly elevated and serum ammonia is lower today was 74 yesterday and 58 today. Total protein 6.6, Albumin 2.9. Serum Calcium is still normal. I would like to transfer tomorrow to better hospital who has a specialty to insert the feed gastrostomy or including an intervenous hyperalimentation. Tried to get give her Aminosyn plus Liposyn and Dextrose. MTDD
[2016-11-24 11:11] LABS: BASOPHILS % (AUTO) 0.1 % (0.0-3.0); EOSINOPHILS # (AUTO) 0.6 K/ul (0.0-0.7); HEMATOCRIT 33.1 % (37.0-47.0); HEMOGLOBIN 10.1 g/dl (12.0-16.0); IMMATURE GRANULOCYTE % (AUTO) 0.3 % (0.0-5.0); LYMPHOCYTES # (AUTO) 1.6 K/uL (0.60-3.4); MEAN CORPUSCULAR HEMOGLOBIN 27.7 pg (27.0-31.0); MEAN CORPUSCULAR HGB CONC 30.5 (31.8-35.4); MEAN CORPUSCULAR VOLUME 90.9 fl (81.0-99.0); MONOCYTES # (AUTO) 0.6 K/uL (0.4-2.0); MONOCYTES % (AUTO) 8.1 (0-10); NEUTROPHILS # (AUTO) 4.7 K/ul (2.0-6.9); NEUTROPHILS % (AUTO) 62.5; PLATELET COUNT 155 10^3/uL (140-440); RED BLOOD COUNT 3.64 10^6/ul (4.20-5.40); WHITE BLOOD COUNT 7.54 K/ul (4.6-10.2)
--- NOTE | 2016-11-24 11:12 | PN ---
DATE OF VISIT: 11/22/16 SUBJECTIVE: The patient is now alert and responsive and does recognize relatives. She also answer questions. She had been eating and the family is feeding her. I did talk to her sister, Hiral, with regards to the feeding tube. I did tell her that I did not call the doctors in [place] yesterday since they are not likely receive her at that point in time since it is not an emergency. I told her that we would see how she does Wednesday, tomorrow and if she eats better then she can decided if they still wanted to pursue the feeding gastrostomy. I did tell them that she needs somebody to urge her to eat. They longterm setting and that is probably not likely to be pursued very strongly. I do not about the home setting. They patient has improved. VITAL SIGNS: Temperature 98.1, pulse 80, blood pressure 112/78, respiratory rate 22 and pulse ox 97% at 2 liters. This patient is receiving the Zyvox because of the enterococcus faecium in the urine. LABS: WBC has remained normal in the last three days, Electrolyte are close to normal except for the chloride of 118, EGFR has remained normal, BUN normal, Ammonia now down to 44 from 58 yesterday; it was 119 on admission. BNP is slightly higher today 331 from 302. Repeat urinalysis better. RBC 0, WBC 5-10 from 20-30 , epithelial cell 0-2 and bacteria trace from 3+. MTDD
[2016-11-24 11:30] LABS: ALBUMIN 2.7 g/dL (3.4-5.0); ALBUMIN/GLOBULIN RATIO 0.82; ANION GAP 11.9; BILIRUBIN,TOTAL 0.54 mg/dL (0.00-1.20); BUN/CREATININE RATIO 12.16; CALCIUM 8.6 mg/dL (8.2-10.2); CREATININE 0.74 mg/dL (0.60-1.30); POTASSIUM 3.9 mmol/L (3.5-5.10)
[2016-11-24] MEDS: ZYPREXA PO SCH (20:07)
[2016-11-25] MEDS: [UNRECOGNIZED DRUG - MIXTURE] IV SCH (01:18)
[2016-11-25] MEDS ORDERED: POTASSIUM CHLORIDE 20 MEQ VIAL-ADDITIVE ONLY IV ONE ×2 (01:24→01:28)
[2016-11-25 05:02] LABS: BASOPHILS % (AUTO) 0.3 % (0.0-3.0); EOSINOPHILS # (AUTO) 0.6 K/ul (0.0-0.7); EOSINOPHILS % (AUTO) 8.9 % (0.0-7.0); HEMATOCRIT 32.3 % (37.0-47.0); HEMOGLOBIN 10.2 g/dl (12.0-16.0); IMMATURE GRANULOCYTE % (AUTO) 0.4 % (0.0-5.0); LYMPHOCYTES # (AUTO) 1.7 K/uL (0.60-3.4); LYMPHOCYTES % (AUTO) 24.6 (10.0-50.0); MEAN CORPUSCULAR HEMOGLOBIN 28.3 pg (27.0-31.0); MEAN CORPUSCULAR HGB CONC 31.6 (31.8-35.4); MEAN CORPUSCULAR VOLUME 89.7 fl (81.0-99.0); MONOCYTES # (AUTO) 0.5 K/uL (0.4-2.0); MONOCYTES % (AUTO) 6.7 (0-10); NEUTROPHILS % (AUTO) 59.1; PLATELET COUNT 146 10^3/uL (140-440); WHITE BLOOD COUNT 6.71 K/ul (4.6-10.2)
[2016-11-25 05:22] LABS: ALBUMIN 2.7 g/dL (3.4-5.0); ALBUMIN/GLOBULIN RATIO 0.75; ANION GAP 11.4; BILIRUBIN,TOTAL 0.61 mg/dL (0.00-1.20); BUN/CREATININE RATIO 13.69; CALCIUM 8.7 mg/dL (8.2-10.2); CREATININE 0.73 mg/dL (0.60-1.30); POTASSIUM 4.4 mmol/L (3.5-5.10); TOTAL PROTEIN 6.3 g/dL (5.8-8.1)
[2016-11-25] MEDS: ZYVOX 600 MG in PREMIX 300 ML WATER 1 BAG IV SCH (09:21)
[2016-11-25] MEDS: LACTULOSE PO SCH (09:21)
[2016-11-25] MEDS: XIFAXAN PO SCH (09:21)
[2016-11-25] MEDS: LOVENOX SUBCUT SCH (09:22)
[2016-11-25 10:17] VITALS: BP 116/57; TEMP 97.1
[2016-11-25 15:52] LABS: BILIRUBIN,URINE Negative (NEGATIVE); KETONES,URINE Negative (NEGATIVE); LEUKOCYTE ESTERASE ,URINE 2+ (NEGATIVE); NITRITE,URINE Negative (NEGATIVE); PH,URINE 6.5 (5-9); PROTEIN,URINE Negative (NEGATIVE); URINE, BLOOD 2+ (NEGATIVE)
[2016-11-25 15:56] LABS: ADD URINE MICROSCOPIC YES
[2016-11-25 15:57] LABS: BACTERIA,URINE 1+ (NOT PRESENT)
--- NOTE | 2017-01-27 15:14 | PN ---
DATE OF VISIT: 11/23/2016 The patient is alert and responsive and does answer questions correctly. Her appetite has improved remarkably and she is now eating. The question of feeding gastrostomy is now moot. She did eat between 75 to 100% yesterday and today. She is also given Boost. The urine output is good. VITAL SIGNS: At 2 p.m. on 11/23/16 showed a temperature of 97.8, axillary, pulse 82, blood pressure 124/66, respiratory rate 20, oxygen saturation 98 at 2 liters. LUNGS: Still has some rales, but less and scattered and markedly diminished breath sounds. HEART: Regular with good tones. ABDOMEN: Unremarkable. This patient is on Zyprexa 20 mg at bedtime. Lactulose 20 grams every 12 hours. KCL 20 mEq to the IV. This patient was given Amicine 4.25% peripheral IV. She also was given Rifaximin 550 mg twice a day MTDD
--- NOTE | 2017-01-27 15:21 | PN ---
DATE OF VISIT: 11/24/2016 The patient is alert and responsive and eating well. This patient will be discharged to the detention after discussing with relatives. The relatives will be coming to the detention and tried to encourage her to eat. VITAL SIGNS: Today at 5:47 p.m. showed a temperature of 97 oral, pulse 93, blood pressure 125/55, respiratory rate 16, oxygen saturation 97 at 2 liters. The patient will be admitted to [facility]. Arrangement will be made for that. LUNGS: Again, has diminished breath sound with some rales. HEART: Audible with good tones. CONDITION: Markedly improved. MTDD
--- NOTE | 2017-01-28 11:48 | PN ---
DATE OF VISIT: 11/19/2016 The patient received Rocephin 1 gram yesterday, but this was change to Invanz today. Most of the urinary tract infection would be e.coli and sometimes ESBL positive. This patient had markedly abnormal urinalysis with 3+ bacteria, 20- 30 WBC, RBC 2-5. Leukocyte esterase was positive. The patient is still unresponsive to verbal stimulus. She does move with pain. LUNGS: Still has diminished breath sounds with rales in both lung arias. The patient's encephalopathy maybe related to the liver cirrhosis. Serum ammonia yesterday was 119, upper normal 32. Alkaline phosphatase slightly elevated, probably coming from the liver. The total bilirubin is 1.82. E GFR is 68. Potassium is still low at 2.9. Alpha fetoprotein 2.9 within normal. Upper limit 8.3 nanogram per ml. Procalcitonin yesterday was 0.09, normal. Not indicative of any sepsis. MTDD
--- NOTE | 2017-01-28 11:58 | PN ---
DATE OF VISIT: 11/20/16 the patient is still nonresponsive to verbal stimulus. The potassium now has risen to 3.8 from 2.9. AST is slightly elevated. Alkaline phosphatase still in the upper normal. VITAL SIGNS: At 5:54 p.m. showed a temperature 97.5, axillary, pulse 92, blood pressure 130/74, respiratory rate 24, on 2 liters of nasal oxygen. Discussion about feeding the patient, since the patient is not able to eat and the IV's including the protein IV is not enough to sustain the calories. Feeding gastrostomy was entertained. The family is willing to consider and proceed with the feeding gastrostomy. I told them that I will touch base with the GI doctor who comes to [place] to do the feeding gastrostomy. CT scan of the head unremarkable. Generalized atrophy. Ultrasound of the abdomen cirrhotic liver. 3+ bacteria, enterococcus faecium and resistant to Vancomycin. It is sensitive to Linezolid and Tigecycline. The Ertapenem was discontinued and changed to Zyvox on 11/20/2016. CONDITION: Still serious. MTDD
--- NOTE | 2017-01-29 14:22 | DS ---
PATIENT IDENTIFICATION: 66 year old female who was admitted directly to the hospital because of increasing weakness. The sister, who is a nurse, was very concerned. I did see the patient two days ago and the patient was verbal and answered questions. She claims that she was eating. The never did contradict anything. This patient, according to the sister, had not been eating very much. HOSPITAL COURSE: The patient on admission was found to be unconscious and no responsive to verbal stimulus. She does move with pain stimuli. LUNGS: She had rales on both lung arias with diminished breath sounds. The patient is a chronic tobacco user. HEART: Audible and regular with good tones. Initial laboratory showed mild leukocytosis 13,810, RDW 19.1. Serial blood gases with oxygen saturation 95, pH 7.435, PCO2 25.8, PO2 71, carbonate 17.3, total CO2 18, base excess -7. Sodium was slightly elevated at 150, potassium 2.9, chloride 119. Carbon dioxide 15, iron gap elevated. BUN 20, GFR 73, total bilirubin 1.82, alkaline phosphatase 165, serum ammonia 119, upper normal 32. Troponin and CK are normal. Urinalysis markedly abnormal 20-30 WBC, 3+ bacteria, 2-5 red cells, leukocyte esterase positive. Ketones 1+, blood 1+. The Procalcitonin is 0.09. The patient was given IV fluids and later on peripheral protein aminase in 4.25 and liposin. The patient remained unresponsive for the next four days until . She at times responded to the family on 11/21/2016. Discussion with regards to feeding gastrostomy was carried, however that was more or less abandoned when the patient regained consciousness and was eating. The patient since then progressed remarkably and she was eating good. The patient on was eating 100% of her meals and on 11/23 75% and 11/24 25%. She was drinking Boost. This patient was treated with Rocephin initially for urinary tract infection and changed Ertapenem and then Linezolid. It did grow enterococcus and resistant to Vancomycin and only sensitive to a few medications including Zyvox. The patient also was given Rifaximin 550 mg twice a day and Lactulose 20 twice a day. Urinalysis was done 11/25/16, mini cath, not a catheterized midstream. This showed no bacteria, but has 10-20 WBC and 10 -20 RBC, 2+ leukocyte esterase. CBC now has normal WBC and had been normal since 11/21/2016. She still has moderate anemia. The electrolytes now are normal, except for slightly elevated chlorides at 115. The AST is 39, ALT normal, alkaline phosphatase normal at 135, ammonia 35 from 113. Upper normal for ammonia is 32. The patient at the time of transfer was alert and responsive and cheerful. LUNGS: Has rales in both lung arias and also diminished breath sounds. No wheezing. HEART: Audible and regular with good tones. ABDOMEN: Soft with no remarkable tenderness. No masses and no bruits. PLAN: 1. The patient on discharge is continued on Albuterol sulfate 0.083% in 3 cc of saline every 6 hours. Amantadine 100 mg twice a day. Vitamin D3 50,000 units weekly for 12 weeks. Hydrocodone/APAP 10/325 mg one tablet every 6 hours prn. Levothyroxine sodium 50 mcg daily. Olanzapine 20 mg daily. Ranitidine 150 mg twice a day. Sertraline 50 mg daily. 2. Continue Lactulose 20 grams every 12 hours. 3. Use Calmoseptine to the area in the coccyx twice a day. 4. Vital signs every shift for three days and then weekly for four weeks and then monthly. 5. Mechanical soft diet as tolerated. 6. Labs; CBC, CMP and ammonia level in one week. CBC and CMP every three months. 7. Oxygen at 2 liters per minute. FINAL DIAGNOSES: 1. 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 ELEVATED SERUM AMMONIA 3. HISTORY OF HEPATITIS C 4. DEHYDRATION, CORRECTED 5. URINARY TRACT INFECTION, ENTEROCOCCUS FAECIUM, VANCOMYCIN RESISTANT 6. MODERATE ANEMIA 7. COPD 8. HISTORY OF CHRONIC TOBACCO USE AND ABUSE, STOPPED FOUR MONTHS AGO 9. HISTORY OF SUBSTANCE ABUSE 10. HISTORY OF RIGHT LOWER LOBE PNEUMONIA 06/05/2016 11. HISTORY OF HYPOTHYROIDISM REPLACED 12. HISTORY OF VITAMIN D DEFICIENCY, TREATED 13. HISTORY OF OSTEOPOROSIS 14. HISTORY OF COMPRESSION FRACTURE L1 15. HISTORY OF DEPRESSION ON MEDICATION PROGNOSIS: Poor to guarded. MTDD
== END 2016-11-25 15:32 | DRG 70 ==
LOC: MEDSURG B 11:14 → UNDOADMIN 11:14 → SCU 11:14 → UNDOADMIN 11-19 01:00 → SCU 11-19 01:00
PROVIDERS: ADMIT General Practice; ATTEND General Practice
DX: G93.40 Encephalopathy, unspecified (principal); R40.20 Unspecified coma; E72.20 Disorder of urea cycle metabolism, unspecified; N39.0 Urinary tract infection, site not specified; K74.60 Unspecified cirrhosis of liver; R63.0 Anorexia; E86.0 Dehydration; D64.9 Anemia, unspecified; J44.9 Chronic obstructive pulmonary disease, unspecified; E03.9 Hypothyroidism, unspecified; F32.9 Major depressive disorder, single episode, unspecified; B95.2 Enterococcus as the cause of diseases classified elsewhere; F10.21 Alcohol dependence, in remission; Z86.19 Personal history of other infectious and parasitic diseases; Z87.898 Personal history of other specified conditions; Z87.891 Personal history of nicotine dependence; Z16.24 Resistance to multiple antibiotics; Z79.899 Other long term (current) drug therapy
CPT/HCPCS: 36415; 80053; 81001; 82105; 82140; 82272; 82550; 82803; 82985; 83735; 83880; 84145; 84484; 85025; 85610; 87040; 87081; 87086; 87186; 93005; 93010; 97802; 99223; 99232; 99238

== ENCOUNTER 2017-03-16 14:29 | Outpatient (CLI) ==
[2017-03-16 14:45] LABS: BASOPHILS % (AUTO) 0.3 % (0.0-3.0); EOSINOPHILS # (AUTO) 0.3 K/ul (0.0-0.7); EOSINOPHILS % (AUTO) 3.5 % (0.0-7.0); HEMATOCRIT 32.3 % (37.0-47.0); HEMOGLOBIN 9.8 g/dl (12.0-16.0); IMMATURE GRANULOCYTE % (AUTO) 0.3 % (0.0-5.0); LYMPHOCYTES % (AUTO) 13.4 (10.0-50.0); MEAN CORPUSCULAR HEMOGLOBIN 26.7 pg (27.0-31.0); MEAN CORPUSCULAR HGB CONC 30.3 (31.8-35.4); MONOCYTES # (AUTO) 0.5 K/uL (0.4-2.0); MONOCYTES % (AUTO) 6.3 (0-10); NEUTROPHILS # (AUTO) 5.4 K/ul (2.0-6.9); NEUTROPHILS % (AUTO) 76.2; PLATELET COUNT 233 10^3/uL (140-440); RED BLOOD COUNT 3.67 10^6/ul (4.20-5.40); WHITE BLOOD COUNT 7.09 K/ul (4.6-10.2)
[2017-03-16 15:20] LABS: ALBUMIN 2.9 g/dL (3.4-5.0); ALBUMIN/GLOBULIN RATIO 0.74; ANION GAP 15.3; BILIRUBIN,TOTAL 0.51 mg/dL (0.00-1.20); CALCIUM 9.3 mg/dL (8.2-10.2); CREATININE 0.75 mg/dL (0.60-1.30); POTASSIUM 3.3 mmol/L (3.5-5.10); TOTAL PROTEIN 6.8 g/dL (5.8-8.1)
== END 2017-03-16 14:30 | disposition home or self-care (01) ==
LOC: LAB 14:29
PROVIDERS: ATTEND General Practice
DX: I10 Essential (primary) hypertension (principal); E55.9 Vitamin D deficiency, unspecified; Z79.899 Other long term (current) drug therapy
CPT/HCPCS: 36415; 80053; 82306; 85025

== ENCOUNTER 2017-03-31 16:13 | Outpatient (CLI) ==
[2017-03-31 16:35] LABS: ADD URINE MICROSCOPIC YES; BILIRUBIN,URINE Negative (NEGATIVE); KETONES,URINE Negative (NEGATIVE); LEUKOCYTE ESTERASE ,URINE 3+ (NEGATIVE); NITRITE,URINE Positive (NEGATIVE); PH,URINE 6.5 (5-9); PROTEIN,URINE 1+ (NEGATIVE); URINE, BLOOD 2+ (NEGATIVE)
== END 2017-03-31 16:14 | disposition home or self-care (01) ==
LOC: LAB 16:13
PROVIDERS: ATTEND General Practice
DX: N32.89 Other specified disorders of bladder (principal); R10.9 Unspecified abdominal pain
CPT/HCPCS: 81001; 87086

== ENCOUNTER 2017-04-16 12:27 | Outpatient (CLI) ==
[2017-04-16 12:34] LABS: BILIRUBIN,URINE Negative (NEGATIVE); KETONES,URINE Negative (NEGATIVE); LEUKOCYTE ESTERASE ,URINE 3+ (NEGATIVE); NITRITE,URINE Positive (NEGATIVE); PH,URINE >=9.0 (5-9); PROTEIN,URINE 1+ (NEGATIVE); URINE, BLOOD Trace-lysed (NEGATIVE)
[2017-04-16 12:40] LABS: ADD URINE MICROSCOPIC YES
[2017-04-16 12:41] LABS: BACTERIA,URINE 3+ (NOT PRESENT)
== END 2017-04-16 12:28 | disposition home or self-care (01) ==
LOC: LAB 12:27
PROVIDERS: ATTEND General Practice
DX: N32.89 Other specified disorders of bladder (principal); R10.9 Unspecified abdominal pain; N39.0 Urinary tract infection, site not specified
CPT/HCPCS: 81001; 87086; 87186

== ENCOUNTER 2017-04-21 16:10 | Outpatient (CLI) ==
[2017-04-21 16:17] LABS: BILIRUBIN,URINE Negative (NEGATIVE); KETONES,URINE Negative (NEGATIVE); LEUKOCYTE ESTERASE ,URINE 3+ (NEGATIVE); NITRITE,URINE Positive (NEGATIVE); PH,URINE 8.5 (5-9); PROTEIN,URINE Trace (NEGATIVE); URINE, BLOOD Trace-intact (NEGATIVE)
[2017-04-21 16:19] LABS: ADD URINE MICROSCOPIC YES
[2017-04-21 16:20] LABS: BACTERIA,URINE 3+ (NOT PRESENT)
== END 2017-04-21 16:11 | disposition home or self-care (01) ==
LOC: LAB 16:10
PROVIDERS: ATTEND General Practice
DX: R82.90 Unspecified abnormal findings in urine (principal)
CPT/HCPCS: 81001; 87086

== ENCOUNTER 2017-05-07 07:56 | Day surgery (SDC) ==
[2017-05-07 09:05] VITALS: TEMP 98.7
[2017-05-07] MEDS ORDERED: LIDOCAINE 1%-EPI 1:100,000 10 ML (SURGERY) INJ ONE (09:45)
[2017-05-07] MEDS ORDERED: ALBUTEROL 0.083% NEB NEB STA (10:27)
--- NOTE | 2017-05-07 11:20 | DI ---
EXAM: CHEST FRONTAL AND LATERAL VIEWS HISTORY: Wheezing. COMPARISON: 11/02/2016 FINDINGS: Normal heart size. Mild to moderate atherosclerosis. There is diffuse, chronic appearing interstitial accentuation. Lungs are hyperinflated and there is relative lucency of the lung zones s uggesting emphysema. Scattered fibrosis. Patchy density over the right cardiophrenic angle is indet erminate in etiology. Fibrotic change could appear similar. Pulmonary nodules or other mass not exc luded. Less likely pneumonia. No vascular congestion nor pleural fluid. Redemonstration of previou sly treated vertebral body (with kyphoplasty) mid thoracic spine. IMPRESSION: Moderately severe chronic obstructive pulmonary disease. Densities in the right costophrenic angle a re indeterminate. This was seen on recent CT of 11/16/2016. Follow-up CT was recommended.
[2017-05-07 11:53] VITALS: BP 123/59
--- NOTE | 2017-05-19 13:50 | OP ---
DATE OF SERVICE: 05/07/17 DATA: 67 year old female who was found to have a firm area raised and irregular in the left lower labia. There are no similar lesions on the right side. The nature of this is undetermined and this patient as well as the was advised an incisional biopsy to determine the nature. They were advised about the possibility to infection and further surgery dependant upon the results of the biopsy. They had showed good understanding and the patient was then scheduled. PRE OPERATIVE DIAGNOSIS: Firm irregular lesion left lower labia OPERATION: Incisional biopsy under 1% local anesthesia and Xylocaine. POST OPERATIVE DIAGNOSIS: Firm irregular lesion left lower labia PROCEDURE: The patient was left on the cot and was placed in a lithotomy position. The area was then prepped and draped and then anesthetized with 1% Xylocaine. A wedge tissue was removed at the center of the lesion. This was submitted. The bed was the cauterized using a disposable cautery. No significant bleeding was noted at the end and Neosporin ointment was applied. The patient tolerated the procedure well and was advised to see me a week from the time of surgery and before if there is any problem. SUKUMAR
== END 2017-05-07 10:50 | disposition home or self-care (01) ==
LOC: SURG 07:56
PROVIDERS: ATTEND General Practice
DX: L82.0 Inflamed seborrheic keratosis (principal); D28.0 Benign neoplasm of vulva; N90.89 Other specified noninflammatory disorders of vulva and perineum
CPT/HCPCS: 56605; 94640

== ENCOUNTER 2017-05-10 14:56 | Outpatient (CLI) | payer OTHER ==
--- NOTE | 2017-05-10 15:56 | CT ---
EXAM: CT chest without contrast. HISTORY: Chronic obstructive pulmonary disease. Shortness of breath for 2 weeks. COMPARISON: 11/16/2016. TECHNIQUE: Multiple axial images of the chest were obtained without intravenous contrast. Images we re reformatted in the sagittal and coronal planes. FINDINGS: Evaluation for lymphadenopathy is limited by lack of intravenous contrast. Heart size is normal. There is no pericardial effusion. Atherosclerotic calcifications present. Emphysematous changes present bilaterally. Subpleural reticular and nodular opacities in the right l ower lobe are stable. Other scattered linear and nodular densities in both lungs are stable, includi ng a 0.6 cm left upper lobe nodule on axial image 19 and a 0.6 cm lingular nodule on axial image 37. No new nodules, consolidation, pleural effusion or pneumothorax identified. No acute abnormality identified in the upper abdomen. Multilevel thoracolumbar compression deformiti es with to level kyphoplasty again noted. IMPRESSION: 1. Stable nodular and linear densities throughout both lungs, likely post inflammatory scarring. Co nsider follow-up CT in 6-12 months for reassessment. 2. Stable emphysema.
== END 2017-05-10 14:57 | disposition home or self-care (01) ==
LOC: RAD 14:56
PROVIDERS: ATTEND General Practice
DX: J44.9 Chronic obstructive pulmonary disease, unspecified (principal); R91.8 Other nonspecific abnormal finding of lung field

== ENCOUNTER 2017-05-12 12:39 | Outpatient (CLI) | payer OTHER | END 2017-05-12 12:40 | disposition home or self-care (01) | LOC: LAB 12:39 | PROVIDERS: ATTEND General Practice | DX: L03.211 Cellulitis of face (principal); H57.8 Other specified disorders of eye and adnexa | CPT/HCPCS: 87070 ==

== ENCOUNTER 2017-05-12 22:53 | Inpatient (IN) | payer OTHER ==
[2017-05-12] MEDS ORDERED: DUONEB NEB STA (23:16)
--- NOTE | 2017-05-12 23:28 | ED.PDOC ---
General ED Provider: Dr. ANALI MAYES Chief Complaint: Cellulitis Stated Complaint: Pateint is a 67 year old female who comes to the ER with right face redness but has been having shortness of breath. He was placed on Doxycylinc for redness of the right face. Has been couging that sounds productive. Time Seen by Physician: 23:29 Mode of Arrival: Wheelchair Information Source: Patient, Family Exam Limitations: No limitations Primary [facility] Provider[facility] Nursing and Triage Documentation Reviewed and Agree: Yes Respiratory Complaint Exam - Respiratory Complaint/Exam Onset/Duration: 2 days Symptoms Are: Still present Timing: Constant Initial Severity: Moderate Current Severity: Severe Location: Chest Character: Reports: Productive cough Aggravating: Reports: URI, Weather Alleviating: Reports: Bronchodilators Associated Signs and Symptoms: Reports: Dyspnea, Fever (with right facial flushing. ), Wheezing, Vomiting Related History: Reports: Similar episode History of Healthcare-Acquired Pneumonia: No Cardiac Risk Factors: Reports: Smoking Home Oxygen Use: No Recent Stress Test: No Recent Echo/LV Function: No Current Antibiotic Use: Yes (doxycycline) Current Asthma Medication Use: Yes Respiratory Distress: Moderate Inadequate Respiratory Effort: Yes Dysphagia Present: No Stridor Present: No JVD Present: No Accessory Muscle Use: Yes Retractions: Supraclavicular Diminished Breath Sounds: Yes Grunting Respirations: No Kussmaul Respirations: No Differential Diagnoses: COPD Exacerbation, Pneumonia, URI, Influenza Review of Systems - Review Of Systems Constitutional: Reports: Fever, Weakness Ears, Nose, Mouth, Throat: Reports: No symptoms Respiratory: Reports: Cough, Short of air, Wheezing Cardiac: Reports: No symptoms GI: Reports: No symptoms : Reports: No symptoms Skin: Reports: Rash (right face) Neurological: Reports: Anxiety Endocrine: Reports: No symptoms Hematologic/Lymphatic: Reports: No symptoms All Other Systems: Reviewed and Negative Past Medical History - Past Medical History Previously Healthy: No Endocrine: Reports: Hypothyroid Cardiovascular: Reports: None Respiratory: Reports: COPD, Pneumonia ((05/31/15 bap)), Other (benign RUL lesion , chronic LLL inf(05/31/15 bap)) Hematological: Reports: Other Gastrointestinal: Reports: GERD, Liver (hepatitits c post treatment(05/31/15 bap )) Genitourinary: Reports: UTI Neuro/Psych: Reports: None, 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)) Musculoskeletal: Reports: Arthritis (osteoarthritis), Back Pain (L1 comp fracture without malignancy(05/31/15 bap)with kyphoplasty(05/31/15 bap)), Other (leg pain) Cancer: Reports: None Last Menstrual Period: na - Surgical History General Surgical History: Reports: Back Surgery, Other (URINARY SURGERY,) - Family History Family History: Reports: Unknown - Social History Smoking Status: Former smoker Hx Substance Use: No Alcohol Screening: None - Immunizations Tetanus Shot up to Date: No (unknown) Physical Exam - Physical Exam Appearance: Ill-appearing, Thin Ill-appearing: Severe Pain Distress: Mild Eyes: CATHLEEN, EOMI, Conjunctiva clear ENT: Dry mucosa Neck: Supple Respiratory: Breath sounds diminished, Rhonchi, Wheezes Cardiovascular: Tachycardia GI/: Soft Musculoskeletal: Normal strength Skin: Warm Neurological: Sensation intact, Alert, Oriented Psychiatric: Anxious Interpretation - Radiology Interpretation Radiology Interpretation By: Radiologist Re-Evaluation - Re-Evaluation Time of Re-Evaluation: 01:27 Status: Improved (resting comfortably ) Vital Signs Stable: Yes Lungs: Clear Physician Notification - Case Discussed Physician Notified: Dr Rodriguez Time of Notification: 01:10 (admit to SCU, get sputum cultures and Urine cultures too. ) Critical Care Note - Critical Care Note Total Time (mins): 35 Course - Course Hematology/Chemistry: 05/12/17 23:32 05/12/17 23:32 Orders, Labs, Meds: Lab Review 05/12/17 05/12/17 05/12/17 23:15 23:32 23:32 WBC 8.44 RBC 3.77 L Hgb 10.5 L Hct 33.0 L MCV 87.5 MCH 27.9 MCHC 31.8 RDW Coeff of [place] 17.0 H Plt Count 163 Immature Gran % (Auto) 0.2 Neut % (Auto) 80.5 Lymph % (Auto) 11.8 [place] % (Auto) 6.9 Eos % (Auto) 0.5 Baso % (Auto) 0.1 Immature Gran # (Auto) 0.0 Neut # 6.8 Lymph # 1.0 [place] # 0.6 Eos # 0.0 Baso # 0.0 Puncture Site Rr O2 Saturation 88.0 L ABG pH 7.460 H ABG pCO2 32.6 L ABG pO2 51.0 L* ABG HCO3 23.2 ABG Total CO2 24 ABG Base Excess -1 Ta Test + FiO2 % 21.0 Sodium 141 Potassium 3.3 L Chloride 108 H Carbon Dioxide 22 L Anion Gap 14.3 BUN 12 Creatinine 0.70 Estimated GFR (MDRD) 83.00 BUN/Creatinine Ratio 17.14 Glucose 110 Lactic Acid Calcium 9.3 Total Bilirubin 1.10 AST 30 ALT 9 L Alkaline Phosphatase 151 H Total Protein 7.6 Albumin 3.2 L Globulin 4.4 Albumin/Globulin Ratio 0.73 Procalcitonin Influenza A (Rapid) Influenza B (Rapid) 05/12/17 05/12/17 05/12/17 23:32 23:32 23:58 WBC RBC Hgb Hct MCV MCH MCHC RDW Coeff of [place] Plt Count Immature Gran % (Auto) Neut % (Auto) Lymph % (Auto) [place] % (Auto) Eos % (Auto) Baso % (Auto) Immature Gran # (Auto) Neut # Lymph # [place] # Eos # Baso # Puncture Site O2 Saturation ABG pH ABG pCO2 ABG pO2 ABG HCO3 ABG Total CO2 ABG Base Excess Ta Test FiO2 % Sodium Potassium Chloride Carbon Dioxide Anion Gap BUN Creatinine Estimated GFR (MDRD) BUN/Creatinine Ratio Glucose Lactic Acid 11.1 Calcium Total Bilirubin AST ALT Alkaline Phosphatase Total Protein Albumin Globulin Albumin/Globulin Ratio Procalcitonin 0.16 Influenza A (Rapid) Negative Influenza B (Rapid) Negative Orders Category Date Time Status ADMIT PATIENT INPATIENT .TO SCU (MONITORED BED) ADMISSION 05/13/17 01:05 Active ABG DRAW REQUEST Stat CARDIO 05/12/17 23:15 Completed NEBULIZER TREATMENT Routine CARDIO 05/13/17 01:10 Ordered NEBULIZER TREATMENT Stat CARDIO 05/12/17 23:16 Completed OXYGEN Routine CARDIO 05/13/17 01:05 Ordered INTAKE & OUTPUT Q8HR CARE 05/13/17 01:05 Active IV ACCESS ONCE CARE 05/12/17 23:15 Active TELEMETRY MONITORING TELE CARE 05/13/17 01:10 Active VITAL SIGNS Q4HR CARE 05/13/17 01:05 Active REGULAR DIET DIETARY 05/13/17 Breakfast Ordered ED APPLY O2 .ONCE EMERGENCY 05/12/17 23:15 Active ED BOX ANNEALER APPLIED .ONCE EMERGENCY 05/12/17 23:15 Active ED VITAL SIGNS Q1HR EMERGENCY 05/12/17 23:15 Active IV [ED IV/MEDIPORT/POWERPORT] .ONCE EMERGENCY 05/13/17 00:10 Active ABG Stat LAB 05/12/17 23:15 Completed BASIC METABOLIC PANEL DAILY@0600 LAB 05/13/17 06:00 Ordered BASIC METABOLIC PANEL DAILY@0600 LAB 05/14/17 06:00 Ordered BASIC METABOLIC PANEL DAILY@0600 LAB 05/15/17 06:00 Ordered BASIC METABOLIC PANEL DAILY@0600 LAB 05/16/17 06:00 Ordered BASIC METABOLIC PANEL DAILY@0600 LAB 05/17/17 06:00 Ordered BASIC METABOLIC PANEL DAILY@0600 LAB 05/18/17 06:00 Ordered BASIC METABOLIC PANEL DAILY@0600 LAB 05/19/17 06:00 Ordered BASIC METABOLIC PANEL DAILY@0600 LAB 05/20/17 06:00 Ordered BASIC METABOLIC PANEL DAILY@0600 LAB 05/21/17 06:00 Ordered BASIC METABOLIC PANEL DAILY@0600 LAB 05/22/17 06:00 Ordered BASIC METABOLIC PANEL DAILY@0600 LAB 05/23/17 06:00 Ordered BASIC METABOLIC PANEL DAILY@0600 LAB 05/24/17 06:00 Ordered BASIC METABOLIC PANEL DAILY@0600 LAB 05/25/17 06:00 Ordered BASIC METABOLIC PANEL DAILY@0600 LAB 05/26/17 06:00 Ordered BASIC METABOLIC PANEL DAILY@0600 LAB 05/27/17 06:00 Ordered BASIC METABOLIC PANEL DAILY@0600 LAB 05/28/17 06:00 Ordered BASIC METABOLIC PANEL DAILY@0600 LAB 05/29/17 06:00 Ordered BASIC METABOLIC PANEL DAILY@0600 LAB 05/30/17 06:00 Ordered BASIC METABOLIC PANEL DAILY@0600 LAB 05/31/17 06:00 Ordered BASIC METABOLIC PANEL DAILY@0600 LAB 06/01/17 06:00 Ordered CBC W/ AUTO DIFF DAILY@0600 LAB 05/13/17 06:00 Ordered CBC W/ AUTO DIFF DAILY@0600 LAB 05/14/17 06:00 Ordered CBC W/ AUTO DIFF DAILY@0600 LAB 05/15/17 06:00 Ordered CBC W/ AUTO DIFF DAILY@0600 LAB 05/16/17 06:00 Ordered CBC W/ AUTO DIFF DAILY@0600 LAB 05/17/17 06:00 Ordered CBC W/ AUTO DIFF DAILY@0600 LAB 05/18/17 06:00 Ordered CBC W/ AUTO DIFF DAILY@0600 LAB 05/19/17 06:00 Ordered CBC W/ AUTO DIFF DAILY@0600 LAB 05/20/17 06:00 Ordered CBC W/ AUTO DIFF DAILY@0600 LAB 05/21/17 06:00 Ordered CBC W/ AUTO DIFF DAILY@0600 LAB 05/22/17 06:00 Ordered CBC W/ AUTO DIFF DAILY@0600 LAB 05/23/17 06:00 Ordered CBC W/ AUTO DIFF DAILY@0600 LAB 05/24/17 06:00 Ordered CBC W/ AUTO DIFF DAILY@0600 LAB 05/25/17 06:00 Ordered CBC W/ AUTO DIFF DAILY@0600 LAB 05/26/17 06:00 Ordered CBC W/ AUTO DIFF DAILY@0600 LAB 05/27/17 06:00 Ordered CBC W/ AUTO DIFF DAILY@0600 LAB 05/28/17 06:00 Ordered CBC W/ AUTO DIFF DAILY@0600 LAB 05/29/17 06:00 Ordered CBC W/ AUTO DIFF DAILY@0600 LAB 05/30/17 06:00 Ordered CBC W/ AUTO DIFF DAILY@0600 LAB 05/31/17 06:00 Ordered CBC W/ AUTO DIFF DAILY@0600 LAB 06/01/17 06:00 Ordered CBC W/ AUTO DIFF Stat LAB 05/12/17 23:32 Completed COMPREHENSIVE METABOLIC PANEL Stat LAB 05/12/17 23:32 Completed LACTIC ACID Stat LAB 05/12/17 23:32 Completed PROCALCITONIN Stat LAB 05/12/17 23:32 Completed RAPID FLU A/B Stat LAB 05/12/17 23:58 Completed URINALYSIS C & S IF INDICATED Stat LAB 05/12/17 23:15 Uncollected 0.9 % Sodium Chloride [Saline Flush] MEDS 05/13/17 00:10 Ordered 1 syr IVF PRN PRN Acetaminophen [Tylenol] MEDS 05/13/17 00:44 Discontinued 1,000 mg PO ONCE STA Acetaminophen [Tylenol] MEDS 05/13/17 01:05 Ordered 650 mg PO Q4H PRN Enoxaparin Sodium [Lovenox] MEDS 05/13/17 09:00 Ordered 40 mg SUBCUT DAILY Ipratropium/Albuterol Neb [Duoneb] MEDS 05/12/17 23:16 Discontinued 1 vial NEB ONCE STA Ipratropium/Albuterol Neb [Duoneb] MEDS 05/13/17 06:00 Ordered 1 vial NEB RTQID Methylprednisolone Sod Succ/Pf [Solu-Medrol 125 mg] MEDS 05/12/17 23:53 Discontinued 125 mg IVP ONCE STA Methylprednisolone Sod Succ/Pf [Solu-Medrol 40 mg] MEDS 05/13/17 05:00 Ordered 80 mg IVP Q8HR Ondansetron HCl/Pf [Zofran 4 mg/2 ml] MEDS 05/13/17 01:05 Ordered 4 mg IVP Q6H PRN Piperacillin Sodium/Tazobactam [Zosyn 3.375 gm] 3.375 MEDS 05/12/17 23:54 Discontinued gm 0.9 % Sodium Chloride [Sodium Chloride] 100 ml IV ONCE Piperacillin Sodium/Tazobactam [Zosyn 3.375 gm] 3.375 MEDS 05/13/17 06:00 Ordered gm 0.9 % Sodium Chloride [Sodium Chloride] 100 ml IV Q6HR Sodium Chloride 0.9% [Sodium Chloride] 1,000 ml MEDS 05/13/17 01:30 Ordered IV 75 mls/hr RESUSCITATION STATUS Routine OTHERS 05/13/17 01:05 Ordered CHEST, 1V AP ONLY Stat RADS 05/12/17 23:15 Completed Medications Generic Name Dose Route Start Last Admin Trade Name Freq PRN Reason Stop Dose Admin Acetaminophen 650 mg 05/13/17 01:05 Tylenol PO Q4H PRN fever/chills Acetaminophen/Hydrocodone Bitart tab 05/13/17 01:10 [place] 10-325 PO Q6H PRN moderate pain Albuterol/Ipratropium 1 vial 05/13/17 06:00 Duoneb NEB RTQID ANTONIO Enoxaparin Sodium 40 mg 05/13/17 09:00 Lovenox SUBCUT DAILY ANOTNIO Ergocalciferol 50,000 unit 05/13/17 09:00 Drisdol PO WEEKLY ANTONIO Piperacillin Sod/Tazobactam 100 mls @ 100 mls/hr 05/13/17 06:00 Sod 3.375 gm/ Sodium Chloride IV Q6HR ANTONIO Sodium Chloride 1,000 mls @ 75 mls/hr 05/13/17 01:30 Sodium Chloride IV .[id number] ANTONIO Lactulose 20 gm 05/13/17 09:00 Lactulose PO EVERY OTHER DAY [facility] Levothyroxine Sodium 50 mcg 05/13/17 09:00 Synthroid PO DAILY ANTONIO Methylprednisolone Sodium Succinate 80 mg 05/13/17 05:00 Solu-Medrol 40 Mg IVP Q8HR ANTONIO Non-Formulary Medication 20 mg 05/13/17 21:00 Olanzapine [Zyprexa] PO BEDTIME ANTONIO Non-Formulary Medication 100 mg 05/13/17 09:00 Amantadine Hcl PO BID ANTONIO Ondansetron HCl 4 mg 05/13/17 01:05 Zofran 4 Mg/2 Ml IVP Q6H PRN Nausea / Vomiting Ranitidine HCl 150 mg 05/13/17 06:30 Zantac PO BIDAC ANTONIO Sertraline HCl 50 mg 05/13/17 09:00 Zoloft PO DAILY ANTONIO Sodium Chloride 1 syr 05/13/17 00:10 05/13/17 00:20 Saline Flush IVF 1 syr PRN PRN Administration To flush IV Discontinued Medications Generic Name Dose Route Start Last Admin Trade Name Freq PRN Reason Stop Dose Admin Acetaminophen 1,000 mg 05/13/17 00:44 05/13/17 00:53 Tylenol PO 05/13/17 00:45 1,000 mg ONCE STA Administration Albuterol/Ipratropium 1 vial 05/12/17 23:16 05/12/17 23:38 Duoneb NEB 05/12/17 23:17 1 vial ONCE STA Administration Piperacillin Sod/Tazobactam 100 mls @ 100 mls/hr 05/12/17 23:54 05/13/17 00: 25 Sod 3.375 gm/ Sodium Chloride IV 05/13/17 00:53 100 mls/hr ONCE STA Administration Methylprednisolone Sodium Succinate 125 mg 05/12/17 23:53 05/13/17 00:20 Solu-Medrol 125 Mg IVP 05/12/17 23:54 125 mg ONCE STA Administration Vital Signs: Temp Pulse Resp BP Pulse Ox 05/13/17 00:55 98.5 F 84 18 110/55 L 98 05/12/17 22:56 101.7 F H 108 H 32 H 131/75 90 L Departure - Departure Time of Disposition: 01:27 Disposition: ADMITTED INPATIENT Discharge Problem: Cellulitis COPD (chronic obstructive pulmonary disease) Qualifiers: COPD type: COPD with acute exacerbation Qualified Code(s): J44.1 - Chronic obstructive pulmonary disease with (acute) exacerbation Condition: Serious Pt referred to PMD for follow-up: No (admitted ) Allergies/Adverse Reactions: Allergies aspirin Allergy (Mild, Verified 05/12/17 23:16) Vomiting codeine Allergy (Mild, Verified 05/12/17 23:16) Vomiting NSAIDS (Non-Steroidal Anti-Inflamma Allergy (Mild, Verified 05/12/17 23:16) Vomiting Sulfa (Sulfonamide Antibiotics) Allergy (Mild, Verified 05/12/17 23:16) Unknown Blisters in mouth Home Medications: Ambulatory Orders Albuterol Sulfate 0.083% Neb [Albuterol 0.083% Neb] 0.083 vial IH Q6H PRN Hydrocodone/Acetaminophen [[place] 10-325 Tablet] 1 each PO Q6H PRN 11/18/16 Ranitidine HCl [Zantac] 150 mg PO BIDAC 11/18/16 Disposition Discussed With: Patient, Family
[2017-05-12 23:31] LABS: ABG PCO2 32.6 mmHg (35-45)
[2017-05-12 23:32] LABS: ABG BASE EXCESS -1 (-2.0-2.0); ABG HCO3 23.2 (22.0-26.0); ABG TCO2 24 (22.0-28.0)
[2017-05-12] MEDS ORDERED: SOLU-MEDROL 125 MG IVP STA (23:53)
[2017-05-12] MEDS ORDERED: ZOSYN 3.375 GM 3.375 GM in SODIUM CHLORIDE 100 ML IV STA (23:54)
[2017-05-12 23:57] LABS: BASOPHILS % (AUTO) 0.1 % (0.0-3.0); EOSINOPHILS % (AUTO) 0.5 % (0.0-7.0); HEMOGLOBIN 10.5 g/dl (12.0-16.0); IMMATURE GRANULOCYTE % (AUTO) 0.2 % (0.0-5.0); LYMPHOCYTES % (AUTO) 11.8 (10.0-50.0); MEAN CORPUSCULAR HEMOGLOBIN 27.9 pg (27.0-31.0); MEAN CORPUSCULAR HGB CONC 31.8 (31.8-35.4); MEAN CORPUSCULAR VOLUME 87.5 fl (81.0-99.0); MONOCYTES # (AUTO) 0.6 K/uL (0.4-2.0); MONOCYTES % (AUTO) 6.9 (0-10); NEUTROPHILS # (AUTO) 6.8 K/ul (2.0-6.9); NEUTROPHILS % (AUTO) 80.5; PLATELET COUNT 163 10^3/uL (140-440); RED BLOOD COUNT 3.77 10^6/ul (4.20-5.40); WHITE BLOOD COUNT 8.44 K/ul (4.6-10.2)
[2017-05-13 00:18] LABS: ALBUMIN 3.2 g/dL (3.4-5.0); ALBUMIN/GLOBULIN RATIO 0.73; ANION GAP 14.3; BILIRUBIN,TOTAL 1.1 mg/dL (0.00-1.20); BUN/CREATININE RATIO 17.14; CALCIUM 9.3 mg/dL (8.2-10.2); CREATININE 0.7 mg/dL (0.60-1.30); POTASSIUM 3.3 mmol/L (3.5-5.10); TOTAL PROTEIN 7.6 g/dL (5.8-8.1)
[2017-05-13 00:23] LABS: FLU INTERNAL QC INTERNAL QC VALID; RAPID FLU A NEGATIVE (NEGATIVE); RAPID FLU B NEGATIVE (NEGATIVE)
[2017-05-13] MEDS ORDERED: TYLENOL PO STA (00:44)
--- NOTE | 2017-05-13 00:50 | DI ---
EXAM: Single-view chest HISTORY: Cough COMPARISON: Two-view chest 05/07/2017 FINDINGS: The heart is normal in size. Atherosclerotic changes are seen involving the aortic arch. There is improved aeration at the level of the right lateral costophrenic angle. The left lung is cl ear. There is multilevel kyphoplasty. IMPRESSION: Resolution previously noted right lower lobe infiltrate
[2017-05-13] MEDS ORDERED: TYLENOL PO PRN (01:05)
[2017-05-13] MEDS ORDERED: ZOFRAN 4 MG/2 ML IVP PRN (01:05)
[2017-05-13] MEDS: SODIUM CHLORIDE 1,000 ML IV SCH ×2 (02:13→17:29)
[2017-05-13 02:30] VITALS: BMI 17.8
[2017-05-13] MEDS ORDERED: SOLU-MEDROL 40 MG IVP SCH (05:00)
[2017-05-13] MEDS: DUONEB NEB SCH ×4 (05:30→21:20)
[2017-05-13] MEDS: ZOSYN 3.375 GM 3.375 GM in SODIUM CHLORIDE 100 ML IV SCH ×4 (05:54→23:51)
[2017-05-13] MEDS: SYNTHROID PO SCH (05:55)
[2017-05-13] MEDS: ZANTAC PO SCH ×2 (05:55→17:28)
[2017-05-13 06:07] LABS: HEMATOCRIT 27.8 % (37.0-47.0); HEMOGLOBIN 8.9 g/dl (12.0-16.0); IMMATURE GRANULOCYTE % (AUTO) 0.3 % (0.0-5.0); LYMPHOCYTES # (AUTO) 0.7 K/uL (0.60-3.4); LYMPHOCYTES % (AUTO) 11.2 (10.0-50.0); MEAN CORPUSCULAR HEMOGLOBIN 28.1 pg (27.0-31.0); MEAN CORPUSCULAR VOLUME 87.7 fl (81.0-99.0); MONOCYTES # (AUTO) 0.1 K/uL (0.4-2.0); MONOCYTES % (AUTO) 1.7 (0-10); NEUTROPHILS # (AUTO) 5.3 K/ul (2.0-6.9); NEUTROPHILS % (AUTO) 86.8; PLATELET COUNT 146 10^3/uL (140-440); RED BLOOD COUNT 3.17 10^6/ul (4.20-5.40); WHITE BLOOD COUNT 6.06 K/ul (4.6-10.2)
[2017-05-13 06:27] LABS: ANION GAP 11.8; BUN/CREATININE RATIO 18.3; CALCIUM 8.9 mg/dL (8.2-10.2); CREATININE 0.71 mg/dL (0.60-1.30); POTASSIUM 3.8 mmol/L (3.5-5.10)
[2017-05-13] MEDS ORDERED: SYNTHROID PO SCH (09:00)
[2017-05-13] MEDS ORDERED: NON-FORMULARY MEDICATION (Amantadine Hcl 100 MG) PO SCH (09:00)
[2017-05-13] MEDS: LOVENOX SUBCUT SCH (09:26)
[2017-05-13] MEDS: SYMMETREL PO SCH ×2 (09:26→20:24)
[2017-05-13] MEDS: ZOLOFT PO SCH (09:27)
[2017-05-13] MEDS: LACTULOSE PO SCH (09:27)
[2017-05-13] MEDS: NORCO 10-325 PO PRN ×2 (13:46→19:39)
--- NOTE | 2017-05-13 13:46 | CT ---
EXAM: CT sinuses/facial bones without contrast HISTORY: Right-sided facial edema COMPARISON: CT head 11/18/2016 TECHNIQUE: Serial axial images of the facial bones/sinuses were obtained without IV contrast. These were viewed in coronal, sagittal and axial planes. FINDINGS: There is skin thickening on the right with minimal hazy ground-glass in the subcutaneous f at. There is no focal fluid collection. Orbital globes are normal. The retrobulbar structures are normal. Limited views of the intracranial are unremarkable. Parotid and submandibular glands are no rmal. Paranasal sinuses demonstrate minimal mucosal thickening. Mastoid air cells are clear. IMPRESSION: Skin thickening on the right with mild subcutaneous ground-glass consistent with cellulitis/edema wit h no focal fluid collection or abscess. Minimal paranasal sinus mucosal thickening.
[2017-05-13] MEDS: SOLU-MEDROL 125 MG IVP SCH ×2 (13:47→20:26)
[2017-05-13] MEDS: ZYPREXA PO SCH (20:24)
[2017-05-13] MEDS ORDERED: NON-FORMULARY MEDICATION (Olanzapine [Zyprexa] 20 MG) PO SCH (21:00)
[2017-05-14] MEDS: NORCO 10-325 PO PRN (02:21)
[2017-05-14] MEDS: DUONEB NEB SCH ×4 (05:00→21:50)
[2017-05-14] MEDS: SOLU-MEDROL 125 MG IVP SCH ×3 (05:05→20:36)
[2017-05-14] MEDS: ZOSYN 3.375 GM 3.375 GM in SODIUM CHLORIDE 100 ML IV SCH ×4 (05:05→23:01)
[2017-05-14 05:35] LABS: HEMATOCRIT 24.2 % (37.0-47.0); HEMOGLOBIN 7.7 g/dl (12.0-16.0); IMMATURE GRANULOCYTE % (AUTO) 0.6 % (0.0-5.0); LYMPHOCYTES # (AUTO) 0.7 K/uL (0.60-3.4); LYMPHOCYTES % (AUTO) 10.3 (10.0-50.0); MEAN CORPUSCULAR HGB CONC 31.8 (31.8-35.4); MONOCYTES # (AUTO) 0.4 K/uL (0.4-2.0); NEUTROPHILS # (AUTO) 5.2 K/ul (2.0-6.9); NEUTROPHILS % (AUTO) 82.1; PLATELET COUNT 119 10^3/uL (140-440); RED BLOOD COUNT 2.75 10^6/ul (4.20-5.40); WHITE BLOOD COUNT 6.31 K/ul (4.6-10.2)
[2017-05-14] MEDS: SYNTHROID PO SCH (05:47)
[2017-05-14] MEDS: ZANTAC PO SCH ×2 (05:47→17:32)
[2017-05-14 05:55] LABS: ANION GAP 10.2; BUN/CREATININE RATIO 25.35; CALCIUM 8.5 mg/dL (8.2-10.2); CREATININE 0.71 mg/dL (0.60-1.30); POTASSIUM 3.2 mmol/L (3.5-5.10)
[2017-05-14] MEDS: LOVENOX SUBCUT SCH (09:02)
[2017-05-14] MEDS: SYMMETREL PO SCH (09:02)
[2017-05-14] MEDS: ZOLOFT PO SCH (09:02)
[2017-05-14] MEDS: SODIUM CHLORIDE 1,000 ML IV SCH (10:00)
[2017-05-14] MEDS: NORCO 5-325 PO PRN ×2 (14:55→20:36)
[2017-05-14] MEDS: BACTROBAN TP SCH (20:36)
[2017-05-14] MEDS: ZYPREXA PO SCH (20:36)
[2017-05-15] MEDS: NORCO 5-325 PO PRN ×2 (02:28→12:14)
[2017-05-15] MEDS: SODIUM CHLORIDE 1,000 ML IV SCH ×2 (02:28→09:34)
[2017-05-15 05:02] LABS: BASOPHILS % (AUTO) 0.2 % (0.0-3.0); HEMATOCRIT 24.4 % (37.0-47.0); HEMOGLOBIN 7.8 g/dl (12.0-16.0); IMMATURE GRANULOCYTE % (AUTO) 0.9 % (0.0-5.0); LYMPHOCYTES # (AUTO) 0.6 K/uL (0.60-3.4); LYMPHOCYTES % (AUTO) 9.5 (10.0-50.0); MEAN CORPUSCULAR HEMOGLOBIN 28.2 pg (27.0-31.0); MEAN CORPUSCULAR VOLUME 88.1 fl (81.0-99.0); MONOCYTES # (AUTO) 0.3 K/uL (0.4-2.0); MONOCYTES % (AUTO) 4.5 (0-10); NEUTROPHILS % (AUTO) 84.9; PLATELET COUNT 123 10^3/uL (140-440); RED BLOOD COUNT 2.77 10^6/ul (4.20-5.40); WHITE BLOOD COUNT 5.82 K/ul (4.6-10.2)
[2017-05-15] MEDS: DUONEB NEB SCH ×4 (05:15→20:37)
[2017-05-15] MEDS: ZOSYN 3.375 GM 3.375 GM in SODIUM CHLORIDE 100 ML IV SCH ×3 (05:31→18:34)
[2017-05-15] MEDS: SYNTHROID PO SCH (05:32)
[2017-05-15] MEDS: SOLU-MEDROL 125 MG IVP SCH ×2 (05:32→12:06)
[2017-05-15] MEDS: ZANTAC PO SCH (05:32)
[2017-05-15 05:35] LABS: ANION GAP 11.2; BUN/CREATININE RATIO 26.08; CALCIUM 8.5 mg/dL (8.2-10.2); CREATININE 0.69 mg/dL (0.60-1.30); POTASSIUM 3.2 mmol/L (3.5-5.10)
[2017-05-15] MEDS: BACTROBAN TP SCH ×2 (09:49→20:59)
[2017-05-15] MEDS: ZOLOFT PO SCH (09:50)
[2017-05-15] MEDS: LACTULOSE PO SCH (09:51)
[2017-05-15] MEDS: LOVENOX SUBCUT SCH (09:51)
[2017-05-15] MEDS: LIDODERM PATCH 5% TP SCH (09:53)
[2017-05-15] MEDS ORDERED: AVELOX 250 ML IV ONE (16:00)
[2017-05-15] MEDS: AVELOX 400 MG in PREMIX 250 ML NS 1 BAG IV SCH (16:02)
[2017-05-15] MEDS: ZYPREXA PO SCH (21:00)
[2017-05-15] MEDS ORDERED: OXYCODONE PO STA (21:59)
[2017-05-16] MEDS: ZOSYN 3.375 GM 3.375 GM in SODIUM CHLORIDE 100 ML IV SCH ×3 (01:18→12:21)
[2017-05-16 04:46] LABS: BASOPHILS % (AUTO) 0.4 % (0.0-3.0); HEMATOCRIT 24.4 % (37.0-47.0); HEMOGLOBIN 7.6 g/dl (12.0-16.0); IMMATURE GRANULOCYTE % (AUTO) 0.7 % (0.0-5.0); LYMPHOCYTES # (AUTO) 1.1 K/uL (0.60-3.4); LYMPHOCYTES % (AUTO) 19.6 (10.0-50.0); MEAN CORPUSCULAR HEMOGLOBIN 27.7 pg (27.0-31.0); MEAN CORPUSCULAR HGB CONC 31.1 (31.8-35.4); MEAN CORPUSCULAR VOLUME 89.1 fl (81.0-99.0); MONOCYTES # (AUTO) 0.6 K/uL (0.4-2.0); MONOCYTES % (AUTO) 11.3 (0-10); NEUTROPHILS # (AUTO) 3.8 K/ul (2.0-6.9); PLATELET COUNT 125 10^3/uL (140-440); RED BLOOD COUNT 2.74 10^6/ul (4.20-5.40); WHITE BLOOD COUNT 5.51 K/ul (4.6-10.2)
[2017-05-16] MEDS: DUONEB NEB SCH ×3 (05:00→14:19)
[2017-05-16] MEDS: SYNTHROID PO SCH (05:56)
[2017-05-16] MEDS: BACTROBAN TP SCH (09:13)
[2017-05-16] MEDS: AVELOX 400 MG in PREMIX 250 ML NS 1 BAG IV SCH (09:14)
[2017-05-16] MEDS: LIDODERM PATCH 5% TP SCH (09:14)
[2017-05-16] MEDS: LOVENOX SUBCUT SCH (09:14)
[2017-05-16] MEDS: ZOLOFT PO SCH (09:15)
[2017-05-16 14:10] VITALS: BP 150/82; TEMP 98.4
[2017-05-18] MEDS ORDERED: DRISDOL PO SCH (09:00)
--- NOTE | 2017-05-18 09:54 | PN ---
DATE OF VISIT: 05/13/17 SUBJECTIVE: The patient appears to be better outwardly. She is less dyspneic. Her color is good. Temperature is 98.5, pulse 100, blood pressure 130/70, respiratory rate 20 and oxygen saturation is 97at 2 liters. CBC today showed normal WBC, severe anemia, 8.9 grams hgb, MCV and MCH within normal limits. RDW elevated between 6.8-17. Plt count 146,000 and the rest are unremarkable. Chemistry is unremarkable. Redness and swelling on the right side of the face is less. The alveolar ridge in the right lower is benzene still utility operator to palpation not the upper. There is not purulent material exuding through and there is no fluctuant area noted. CT scan maxillary facial bones and sinus showed skin thickening on the right side with mild subcutaneous ground glass consistent with cellulitis edema with no focal fluid collection or abscess. Minimal paranasal sinus mucosal thickening. LUNGS: About the same as yesterday. Rales mostly in the right side. Breath sounds are markedly diminished. Appetite is somewhat OK. 60% of dinner. MTDD
--- NOTE | 2017-05-18 10:30 | PN ---
DATE OF VISIT: 05/14/17 SUBJECTIVE: The patient is alert and claims to be feeling better. The redness in the right side of the face and swelling is less. VITAL SIGNS: Temperature 98.2 the previous temperatures were within normal also, pulse 99, blood pressure 137/62, respiratory rate 18, oxygen saturation 95 at 2 liters. LUNGS: Diminished breath sounds in the left with no obvious rales. Right rales scattered on the right side posteriorly HEART: Audible with good tones ABDOMEN: unremarkable Appetite is somewhat OK, 60% of the food given was consumed. PLAN: 1. The patient will be treated with Bactroban with positive MRSA nasal swab 2. Blood cultures are still negative at this point 3. Sputum culture no growth. 4. The patient is treated with Bactroban to be swabbed into the nostrils twice a day MTDD
--- NOTE | 2017-05-18 13:00 | PN ---
DATE OF VISIT: 05/15/17 SUBJECTIVE: The patient is alert with no distress. Her son is visiting her and I did introduce myself to him. She is alert and responsive. Her affect is better. She is much more awake and alert. The facial redness and swelling is decreased remarkably. HEART: Audible with good tones LUNGS: The same as yesterday. Still has rales in the right side ABDOMEN: Unremarkable VITAL SIGNS: Temperature 97.7, pulse 87, blood pressure 130/68, respiratory rate 16, oxygen saturation 97 at 2 liters per minutes. ASSESSMENT: 1. Cellulitis right side, improved secondary to infection in the lower mandibular area. 2. Acute exacerbation of chronic bronchitis or COPD PLAN: 1. Amantadine will not be continued as home medication MTDD
--- NOTE | 2017-06-08 11:45 | DS ---
PATIENT IDENTIFICATION: 67 year old female presented to the emergency room because of facial redness and swelling with fever. The patient was seen at the office earlier for followup post incisional biopsy of a vaginal lesion of the left lower labia. The patient during the course of the followup was noted to have redness with swelling of the right side of the face with some tenderness. The patient was felt to have cellulitis probably coming from the mandibular area although there was no obvious ulceration or abscess but was tender to palpation. The patient was prescribed Doxycycline. The patient at that time did not have any fever and did not complain of any pain. This was finding only during physical examination but the patient never did complain of any nor the . HOSPITAL COURSE: The patient at present to the emergency room had a temperature of 101.7, pulse 108, respiratory rate 32 with some shortness of breath. This patient is known to have chronic obstructive lung disease moderate to severe with nasal oxygen at home. The patient has rales scattered on the right side all over and none on the left but markedly diminished breath sounds. There is no wheezing in the left or right. I had asked emergency room physician to get a sputum culture as well as urine culture and blood. The culture bottle for blood should be specified for one with onboard antibiotic. He did tell me the culture was done. The patient was then admitted because of the facial cellulitis on the right side as well as exacerbation of chronic bronchitis. The chest x-ray does not show exacerbation instead resolving or resolution previously noted right lower lobe infiltrate. This patient had reduced her use of cigarettes but she is still smoking. The patient's home medications were continued and the patient was given Zosyn 3.375 grams intervenously every 6 hours. Doxycycline was held. The patient also was given Lovenox prophylactically. The swelling and redness had decreased the next day and continued to decrease over time. CAT scan of the facial bone showed some edema of the subcutaneous tissue as well as skin but none in the bone. Avelox was added to the regimen 400mg daily. The MRSA screen was positive. Urine analysis was unremarkable. The patient's cough is getting less and the shortness of breath is much less. The patient's oxygen saturation at the emergency room on presentation was 90 at 2 liters subsequent saturations had improved to 95 at 2 liters. She had not had any fever since admission. Her respiratory rate was ranging from 16 to 18. Oxygen saturation was getting higher at 98 to 95. It was 95-98 on day of discharge. The patient's appearance is much better. She is not dyspneic or tachypneic at rest and no cyanosis. The swelling in the face is markedly decreased. There is minimal edema. The tenderness in the right mandibular surface is much less. There are no ulcerations in the ocular surface nor in the buccal mucosa. I did tell them I am not certain as to the source of the cellulitis but could be from the ocular surface maybe denture related. Rales in the right side is less and the left remained fairly clear although the breath sounds are markedly diminished and there is no wheezing. HEART: Audible with good tones. ABDOMEN: Nontender LOWER EXTREMITIES: No edema. Tibial pulses are present both left and right The patient's CBC today showed WBC 5,510, hgb 7.6, hct 24.4, RDW 17.5. Chemistry unremarkable as of 06/14/17. Chloride is slightly elevated to 116 from 107. Had been receiving intervenous fluids. Blood sugar went down to 117 from high 150 and 148. The steroid was discontinued. The Procalcitonin is 0.16. VITAL SIGNS: Temperature 98.4, pulse 95, blood pressure 150/82, respiratory rate 20, oxygen saturation 95 before that the oxygen saturation was 98. FINAL DIAGNOSES: 1. Facial cellulitis, improved 2. Severe anemia probably iron deficiency 3. Chronic obstructive lung disease, severe 4. Chronic respiratory failure on nasal oxygen at home 5. Chronic tobacco use and abuse persistent 6. History of Hepatitis C 7. History of Anorexia, resolving PLAN: The patient is to resume the Doxycycline that she has at home to be taken twice a day two hours after breakfast and two hours after supper with no milk. The patient also is prescribed Levaquin 500mg tablet daily #7. This patient is instructed to see me this coming Wednesday and I told them that I would be on Vacation after that. They should call the office tomorrow for the appointment on Wednesday. Consideration will be made as to further followup for the severe anemia. This patient needs to either have an injection of iron and will refer to capital equipment specialist/oncologist for that purpose. She also needs to have an endoscopy plus a colonoscopy if she had not had one lately. SUKUMAR
== END 2017-05-16 15:10 | disposition home or self-care (01) | DRG 603 ==
LOC: ED 22:53 → SCU 05-13 01:08
PROVIDERS: ADMIT General Practice; ATTEND General Practice
DX: L03.211 Cellulitis of face (principal); J44.1 Chronic obstructive pulmonary disease with (acute) exacerbation; J96.10 Chronic respiratory failure, unspecified whether with hypoxia or hypercapnia; R50.9 Fever, unspecified; D50.9 Iron deficiency anemia, unspecified; R63.0 Anorexia; F17.200 Nicotine dependence, unspecified, uncomplicated; Z86.19 Personal history of other infectious and parasitic diseases; Z79.899 Other long term (current) drug therapy
CPT/HCPCS: 36415; 80048; 80053; 82803; 83605; 84145; 85025; 87070; 87081; 87804; 94640; 96365; 96375; 99284

== ENCOUNTER 2017-06-16 15:29 | Inpatient (IN) | payer OTHER ==
[2017-06-16] MEDS ORDERED: DUONEB NEB STA (15:42)
--- NOTE | 2017-06-16 15:43 | ED.PDOC ---
General ED Provider: Dr. LAURA TREVINO JR Chief Complaint: Shortness of Air Stated Complaint: to clinic today for regular appointment; sent to er with labored breathing and low o2 sat, productive cough yellow-green sputum [End] Time Seen by Physician: 15:40 Mode of Arrival: Wheelchair Information Source: Patient Exam Limitations: No limitations Primary Care Provider[facility] Nursing and Triage Documentation Reviewed and Agree: No Review of Systems - Review Of Systems Constitutional: Reports: Malaise, Weakness Eyes: Reports: No symptoms Ears, Nose, Mouth, Throat: Reports: No symptoms Respiratory: Reports: Cough, Short of air Cardiac: Reports: No symptoms GI: Reports: No symptoms : Reports: No symptoms Musculoskeletal: Reports: No symptoms Skin: Reports: No symptoms Neurological: Reports: No symptoms Endocrine: Reports: No symptoms Hematologic/Lymphatic: Reports: No symptoms All Other Systems: Other Past Medical History - Past Medical History Previously Healthy: No Endocrine: Reports: Hypothyroid Cardiovascular: Reports: None Respiratory: Reports: COPD, Pneumonia ((05/31/15 bap)), Other (benign RUL lesion , chronic LLL inf(05/31/15 bap)) Hematological: Reports: Other Gastrointestinal: Reports: GERD, Liver (hepatitits c post treatment(05/31/15 [facility] )) Genitourinary: Reports: UTI Neuro/Psych: Reports: None, 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)) Musculoskeletal: Reports: Arthritis (osteoarthritis), Back Pain (L1 comp fracture without malignancy(05/31/15 bap)with kyphoplasty(05/31/15 [facility])), Other (leg pain) Cancer: Reports: None Last Menstrual Period: none - Surgical History General Surgical History: Reports: Back Surgery, Other (URINARY SURGERY,) - Family History Family History: Reports: Unknown - Social History Smoking Status: Former smoker Hx Substance Use: No Alcohol Screening: None Physical Exam - Physical Exam Appearance: Ill-appearing, Cachectic Ill-appearing: Moderate Pain Distress: Mild Eyes: CATHLEEN, EOMI, Conjunctiva clear ENT: Ears normal, Nose normal, Oropharynx normal Neck: Supple Respiratory: Airway patent, Breath sounds equal, Breath sounds diminished, Rhonchi Cardiovascular: RRR, Pulses normal, No rub, No murmur GI/: Soft, Nontender, No masses, Bowel sounds normal, No Organomegaly Musculoskeletal: ROM intact, No edema, Calf tenderness (bilateral chronic) Skin: Warm, Dry, Normal color Neurological: Sensation intact, Motor intact, Reflexes intact, Cranial nerves intact, Alert, Oriented Psychiatric: Affect appropriate, Mood appropriate Interpretation - EKG Interpretation Time of EKG #1: 16:03 Rate: Normal Rhythm: Sinus Ectopy: None Mobile: NL ST Segment: Normal Critical Care Note - Critical Care Note Total Time (mins): 20 Course - Course Hematology/Chemistry: 06/16/17 16:02 06/16/17 16:02 Orders, Labs, Meds: Lab Review 06/16/17 06/16/17 06/16/17 15:38 16:02 16:02 WBC 6.45 RBC 3.79 L Hgb 10.3 L Hct 33.7 L MCV 88.9 MCH 27.2 MCHC 30.6 L RDW Coeff of [place] 15.9 H Plt Count 162 Immature Gran % (Auto) 0.5 Neut % (Auto) 60.2 Lymph % (Auto) 25.9 [place] % (Auto) 7.3 Eos % (Auto) 5.9 Baso % (Auto) 0.2 Immature Gran # (Auto) 0.0 Neut # 3.9 Lymph # 1.7 [place] # 0.5 Eos # 0.4 Baso # 0.0 D-Dimer (Manual) Puncture Site Rb O2 Saturation 84.0 L ABG pH 7.430 ABG pCO2 42.3 ABG pO2 48.0 L* ABG HCO3 28.0 H ABG Total CO2 29 H ABG Base Excess 4 H FiO2 % 21.0 Sodium 147 H Potassium 3.3 L Chloride 107 Carbon Dioxide 28 Anion Gap 15.3 BUN 11 Creatinine 0.77 Estimated GFR (MDRD) 75.00 BUN/Creatinine Ratio 14.28 Glucose 109 Lactic Acid Calcium 9.7 Total Bilirubin 0.79 AST 36 ALT 8 L Alkaline Phosphatase 168 H Total Creatine Kinase 69 Troponin I < 0.0100 B-Natriuretic Peptide Total Protein 7.7 Albumin 3.5 Globulin 4.2 Albumin/Globulin Ratio 0.83 Procalcitonin 06/16/17 06/16/17 06/16/17 16:02 16:02 16:02 WBC RBC Hgb Hct MCV MCH MCHC RDW Coeff of [place] Plt Count Immature Gran % (Auto) Neut % (Auto) Lymph % (Auto) [place] % (Auto) Eos % (Auto) Baso % (Auto) Immature Gran # (Auto) Neut # Lymph # [place] # Eos # Baso # D-Dimer (Manual) 977.94 Puncture Site O2 Saturation ABG pH ABG pCO2 ABG pO2 ABG HCO3 ABG Total CO2 ABG Base Excess FiO2 % Sodium Potassium Chloride Carbon Dioxide Anion Gap BUN Creatinine Estimated GFR (MDRD) BUN/Creatinine Ratio Glucose Lactic Acid Calcium Total Bilirubin AST ALT Alkaline Phosphatase Total Creatine Kinase Troponin I B-Natriuretic Peptide 79 Total Protein Albumin Globulin Albumin/Globulin Ratio Procalcitonin < 0.05 06/16/17 16:02 WBC RBC Hgb Hct MCV MCH MCHC RDW Coeff of [place] Plt Count Immature Gran % (Auto) Neut % (Auto) Lymph % (Auto) [place] % (Auto) Eos % (Auto) Baso % (Auto) Immature Gran # (Auto) Neut # Lymph # [place] # Eos # Baso # D-Dimer (Manual) Puncture Site O2 Saturation ABG pH ABG pCO2 ABG pO2 ABG HCO3 ABG Total CO2 ABG Base Excess FiO2 % Sodium Potassium Chloride Carbon Dioxide Anion Gap BUN Creatinine Estimated GFR (MDRD) BUN/Creatinine Ratio Glucose Lactic Acid 22.7 H Calcium Total Bilirubin AST ALT Alkaline Phosphatase Total Creatine Kinase Troponin I B-Natriuretic Peptide Total Protein Albumin Globulin Albumin/Globulin Ratio Procalcitonin Orders Category Date Time Status ADMIT PATIENT INPATIENT .TO [facility] [place] (MONITORED BED) ADMISSION 06/16/17 17: 04 Active ABG DRAW REQUEST Stat CARDIO 06/16/17 15:38 Completed EKG-(ED ONLY) Stat CARDIO 06/16/17 15:38 Completed EKG-(IP & OP ONLY) DAILY CARDIO 06/17/17 06:00 Ordered EKG-(IP & OP ONLY) DAILY CARDIO 06/18/17 06:00 Ordered NEBULIZER TREATMENT Stat CARDIO 06/16/17 15:42 Completed OXYGEN Routine CARDIO 06/16/17 17:09 Ordered ACTIVITY .Early Mobilization for VTE Prevention CARE 06/16/17 17:04 Active ACTIVITY .Up ad Barbie CARE 06/16/17 17:04 Active INTAKE & OUTPUT Q8HR CARE 06/16/17 17:05 Active IV ACCESS ONCE CARE 06/16/17 15:40 Active TELEMETRY MONITORING TELE CARE 06/16/17 17:08 Active VITAL SIGNS Q4HR CARE 06/16/17 17:04 Active REGULAR DIET DIETARY 06/16/17 Dinner Ordered ED APPLY O2 .ONCE EMERGENCY 06/16/17 15:37 Active ED COP APPLIED .ONCE EMERGENCY 06/16/17 15:37 Active ED IV/MEDIPORT/POWERPORT .ONCE EMERGENCY 06/16/17 15:37 Active ED VITAL SIGNS Q1HR EMERGENCY 06/16/17 15:40 Active ABG Stat LAB 06/16/17 15:38 Completed B-TYPE NATRIURETIC PEPTIDE Stat LAB 06/16/17 16:02 Completed BLOOD CULTURE Stat LAB 06/16/17 15:38 Received CBC W/ AUTO DIFF DAILY@0600 LAB 06/17/17 06:00 Ordered CBC W/ AUTO DIFF DAILY@0600 LAB 06/18/17 06:00 Ordered CBC W/ AUTO DIFF Stat LAB 06/16/17 16:02 Completed COMPREHENSIVE METABOLIC PANEL DAILY@0600 LAB 06/17/17 06:00 Ordered COMPREHENSIVE METABOLIC PANEL DAILY@0600 LAB 06/18/17 06:00 Ordered COMPREHENSIVE METABOLIC PANEL Stat LAB 06/16/17 16:02 Completed CREATINE KINASE Q8H LAB 06/16/17 23:15 Ordered CREATINE KINASE Q8H LAB 06/17/17 07:15 Ordered CREATINE KINASE Stat LAB 06/16/17 16:02 Completed D-DIMER Stat LAB 06/16/17 16:02 Completed LACTIC ACID Stat LAB 06/16/17 16:02 Completed PROCALCITONIN Stat LAB 06/16/17 16:02 Completed SPUTUM CULTURE Stat LAB 06/16/17 16:02 Received TROPONIN I Q8H LAB 06/16/17 23:15 Ordered TROPONIN I Q8H LAB 06/17/17 07:15 Ordered TROPONIN I Stat LAB 06/16/17 16:02 Completed URINALYSIS C & S IF INDICATED Stat LAB 06/16/17 15:40 Uncollected 0.9 % Sodium Chloride [Saline Flush] MEDS 06/16/17 15:37 Active 1 syr IVF PRN PRN Acetaminophen [Tylenol] MEDS 06/16/17 17:04 Active 650 mg PO Q4H PRN Ceftriaxone Sodium [Rocephin] MEDS 06/16/17 16:26 Discontinued 1 gm .ROUTE .STK-MED ONE Ceftriaxone Sodium [Rocephin] 1 gm MEDS 06/16/17 15:47 Discontinued 0.9 % Sodium Chloride [Sodium Chloride] 50 ml IV ONCE Ipratropium/Albuterol Neb [Duoneb] MEDS 06/16/17 15:42 Discontinued 1 vial NEB ONCE STA Morphine Sulfate [Morphine 2 mg/ml Syringe] MEDS 06/16/17 16:46 Discontinued 2 mg IVP ONCE STA Potassium Chloride [K-Dur] MEDS 06/16/17 16:38 Discontinued 40 meq PO ONCE STA RESUSCITATION STATUS Routine OTHERS 06/16/17 17:04 Ordered CHEST, 1V AP ONLY Stat RADS 06/16/17 15:38 Completed Medications Generic Name Dose Route Start Last Admin Trade Name Freq PRN Reason Stop Dose Admin Acetaminophen 650 mg 06/16/17 17:04 Tylenol PO Q4H PRN Mild Pain Acetaminophen/Hydrocodone Bitart tab 06/16/17 17:21 [place] 10-325 PO Q6H PRN pain Albuterol Sulfate 0.083 vial 06/16/17 17:21 Albuterol 0.083% Neb NEB Q6H PRN Wheezing Ergocalciferol 50,000 unit 06/23/17 09:00 Drisdol PO WEEKLY ANTONIO Guaifenesin 1,200 mg 06/16/17 21:00 Mucinex PO Q12HR ANTONIO Lactulose 20 gm 06/18/17 09:00 Lactulose PO EVERY OTHER DAY ANTONIO Levothyroxine Sodium 50 mcg 06/17/17 09:00 Synthroid PO DAILY ANTONIO Methylprednisolone Sodium Succinate 40 mg 06/16/17 17:30 Solu-Medrol 40 Mg IVP Q8HR ANTONIO Non-Formulary Medication 2 puff 06/16/17 21:00 Glycopyrrolate/Formoterol Fum [Bevespi Aerosphere Inhaler] IH BID ANTONIO Non-Formulary Medication 100 mg 06/16/17 21:00 Amantadine Hcl PO BID ANTONIO Non-Formulary Medication 20 mg 06/16/17 21:00 Olanzapine [Zyprexa] PO BEDTIME ANTONIO Sertraline HCl 50 mg 06/17/17 09:00 Zoloft PO DAILY ANTONIO Sodium Chloride 1 syr 06/16/17 15:37 Saline Flush IVF PRN PRN To flush IV Discontinued Medications Generic Name Dose Route Start Last Admin Trade Name Freq PRN Reason Stop Dose Admin Albuterol/Ipratropium 1 vial 06/16/17 15:42 06/16/17 16:08 Duoneb NEB 06/16/17 15:43 1 vial ONCE STA Administration Ceftriaxone Sodium 1 gm/ 50 mls @ 75 mls/hr 06/16/17 15:47 06/16/17 16:49 Sodium Chloride IV 06/16/17 16:26 75 mls/hr ONCE STA Administration Morphine Sulfate 2 mg 06/16/17 16:46 06/16/17 16:59 Morphine 2 Mg/Ml Syringe IVP 06/16/17 16:47 2 mg ONCE STA Administration Potassium Chloride 40 meq 06/16/17 16:38 06/16/17 16:59 K-Dur PO 06/16/17 16:39 40 meq ONCE STA Administration Vital Signs: Temp Pulse Resp BP Pulse Ox 06/16/17 15:29 97.8 F 93 H 22 156/70 H 75 L Departure - Departure Time of Disposition: 17:26 Disposition: ADMITTED INPATIENT Discharge Problem: COPD (chronic obstructive pulmonary disease) Qualifiers: COPD type: unspecified COPD Qualified Code(s): J44.9 - Chronic obstructive pulmonary disease, unspecified Respiratory failure Qualifiers: Chronicity: acute on chronic Respiratory failure complication: hypoxia Qualified Code(s): J96.21 - Acute and chronic respiratory failure with hypoxia Condition: Stable Pt referred to PMD for follow-up: Yes Allergies/Adverse Reactions: Allergies aspirin Allergy (Mild, Verified 06/16/17 15:42) Vomiting codeine Allergy (Mild, Verified 06/16/17 15:42) Vomiting NSAIDS (Non-Steroidal Anti-Inflamma Allergy (Mild, Verified 06/16/17 15:42) Vomiting Sulfa (Sulfonamide Antibiotics) Allergy (Mild, Verified 06/16/17 15:42) Unknown Blisters in mouth Home Medications: Ambulatory Orders Albuterol Sulfate 0.083% Neb [Albuterol 0.083% Neb] 0.083 vial IH Q6H PRN Hydrocodone/Acetaminophen [[place] 10-325 Tablet] 1 each PO Q6H PRN 11/18/16 Glycopyrrolate/Formoterol Fum [Bevespi Aerosphere Inhaler] 2 puff IH BID
[2017-06-16] MEDS ORDERED: ROCEPHIN 1 GM in SODIUM CHLORIDE 50 ML IV STA (15:47)
--- NOTE | 2017-06-16 16:08 | DI ---
EXAM: Single view of the chest. History: Chest pain. Comparison: Chest radiograph 05/12/2017 Findings: Heart size is within normal limits. No focal consolidation. Emphysema. Reachable pleura l fluid and no pneumothorax. No acute osseous abnormalities. The visualized osseous structures unch anged. No acute osseous abnormalities identified. Kyphoplasty within the thoracic spine. Impression: No acute cardiopulmonary process. Emphysema.
[2017-06-16] MEDS ORDERED: ROCEPHIN ONE (16:26)
[2017-06-16] MEDS ORDERED: K-DUR PO STA (16:38)
[2017-06-16] MEDS ORDERED: MORPHINE 2 MG/ML SYRINGE IVP STA (16:46)
[2017-06-16] MEDS ORDERED: TYLENOL PO PRN (17:04)
[2017-06-16] MEDS ORDERED: ALBUTEROL 0.083% NEB NEB PRN (17:21)
[2017-06-16] MEDS ORDERED: NORCO 10-325 PO PRN (17:21)
[2017-06-16] MEDS ORDERED: SOLU-MEDROL 125 MG IVP SCH (17:30)
[2017-06-16] MEDS ORDERED: SOLU-MEDROL 40 MG IVP STA (17:34)
[2017-06-16 18:23] VITALS: BMI 16.9
[2017-06-16] MEDS: SOLU-MEDROL 40 MG IVP SCH ×2 (18:34→20:40)
[2017-06-16] MEDS: MUCINEX PO SCH (20:40)
[2017-06-16] MEDS: NON-FORMULARY MEDICATION (Glycopyrrolate/Formoterol Fum [Bevespi Aerosphere Inhaler] 2 PUF IH SCH (20:41)
[2017-06-16] MEDS ORDERED: NORCO 10-325 ONE (20:54)
[2017-06-16] MEDS: NORCO 10-325 PO PRN (20:58)
[2017-06-16] MEDS ORDERED: NON-FORMULARY MEDICATION (Amantadine Hcl 100 MG) PO SCH (21:00)
[2017-06-16] MEDS ORDERED: NON-FORMULARY MEDICATION (Olanzapine [Zyprexa] 20 MG) PO SCH (21:00)
[2017-06-17] MEDS: SOLU-MEDROL 40 MG IVP SCH ×3 (04:46→20:56)
[2017-06-17] MEDS: SYMMETREL PO SCH ×2 (08:29→20:57)
[2017-06-17] MEDS: ZOLOFT PO SCH (08:29)
[2017-06-17] MEDS: SYNTHROID PO SCH (08:29)
[2017-06-17] MEDS: MUCINEX PO SCH ×2 (08:30→20:57)
[2017-06-17] MEDS: NON-FORMULARY MEDICATION (Glycopyrrolate/Formoterol Fum [Bevespi Aerosphere Inhaler] 2 PUF IH SCH ×2 (08:31→20:56)
[2017-06-17] MEDS: NORCO 10-325 PO PRN ×2 (10:32→16:24)
--- NOTE | 2017-06-17 11:56 | RS.PTINEVL ---
Subjective - Patient information Date of Evaluation: 06/17/17 Date of Arrival on Unit: 06/16/17 Admitted From:: Home Diagnosis: COPD, Resp. failure Usual Living Arrangement: With Spouse Living Arrangement Comments: Lives with spouse Home Environment: House, Stairs (few), Rail Medical History: COPD, Arthritis Medical History Comments:: GERD, RA, Hep C, hypothyroid, back pain with L1 comp fx Surgical History Comments:: kyphoplasty Subjective Information/ Patient Comments:: pt states she came in because she could not breath. pt states she uses O2 at home and does not walk with AD due to "they cause me to hurt myself" states pt walks very short distance and really needs someone with her when she walks. - Level of function Prior to this admission, the patient could do the following:: Independent Selfcare, Independent ADL's, Partially Dependent Ambulation Current Level of Function: Partially Dependent Current Equipment Used at Home: oxygen-in use at home. shower chair, bedside commode, walker, cane, wheelchair- has but does not use at this time. Pain Assessement - Location Back Description: Sharp, Aching Intensity: 7 Pain Behavior: Facial Grimacing Pain Aggravating Factors: Changing Position, Standing, Walking, Stair Climbing Pain Alleviating Factors: Medication Interventions - Objective Patient Orientation: Person, Place, Situation Current Interventions: Oxygen, Telemetry Range of Motion - ROM Right Upper Extremity AROM: WFL's Left Upper Extremity AROM: WFL's Right Lower Extremity AROM: WFL's Left Lower Extremity AROM: WFL's Muscle Strength - Muscle Strength Right Upper Extremity Strength: Mild Weakness (grossly 3+/5) Left Upper Extremity Strength: Mild Weakness (grossly 3+/5) Right Lower Extremity Strength: Mild Weakness (hip flex 3+/5, knee flex/ext 4-/5 , ankle DF/PF 4-/5) Left Lower Extremity Strength: Mild Weakness (hip flex 3+/5, knee flex/ext 4-/5 , ankle DF/PF 4-/5) Sensation - Sensation Right Upper Extremity Sensation: Intact/Normal Left Upper Extremity Sensation: Intact/Normal Right Lower Extremity Sensation: Intact/Normal Left Lower Extremity Sensation: Intact/Normal Palpation Palpation Findings: Tenderness (lumbar spine) Balance - Sitting Balance and Reactions Static Sitting Balance: Good Dynamic Sitting Balance: Fair Sitting Equilibrium Reactions: Delayed Left, Delayed Right Sitting Protective Reactions: Delayed Left, Delayed Right - Standing Balance and Reactions Static Standing Balance: Fair Dynamic Standing Balance: Poor Standing Equilibrium Reactions: Delayed Left, Delayed Right Standing Protective Reactions: Delayed Left, Delayed Right - Comments Balance Assessment Comments: pt balance limited due to BLE and trunk weakness. Functional Mobility - Bed Mobility Rolling R/L: Supervision Scooting: Supervision Supine to Sit: CGA Sit to Supine: CGA - Transfers Sit to Stand: CGA Stand to Sit: CGA - Safety Awareness Safety Awareness: Fair Ambulation - Ambulation Assistive Device Used: Gait belt Orthotic/Prosthetic Device: No Distance: 30ft x 2 Assistance needed with Ambulation: CGA Quality of Ambulation: pt refused to use AD pt amb with OPERATIONS WELDER for CGA Gait Deviations: Forward posture, Short stride, Deviates from path, Lacks step continuity Ambulation Comments: pt with increased lat sway and decreased step length, Treatment time - Time with patient Total treatment time: 28 Patient Education - Education Patient Education: Education of diagnosis, Activity Modification, Education of Plan of Care Teaching Recipient: Patient Teaching Methods: Discussion, Audiovisual Comments: Instructed pt on PLB and deep breathing technques. Assessment - Assessment Problem List:: Decreased level of function, Requires training/education, Decreased safety/Risk of falls, Weakness, Pain limits previous level of function , Cognitive status limits abilities Rehab Potential: Good Further Therapy Indicated?: Yes Short Term Goals GOAL #1: pt transfer sup to/from sit to/from stand SBA Goal to be met by: 06/19/17 GOAL #2: pt amb with/without AD 100ft with O2 with CGA and no LOB Goal to be met by: 06/19/17 GOAL #3: pt independent with bed mobility Goal to be met by: 06/19/17 Soap Drier Operator Goals GOAL #1: pt transfer sup to/from sit to/from stand independently Goal to be met by: 06/21/17 GOAL #2: pt amb 150ft with/without AD with no LOB with O2 with SBA Goal to be met by: 06/21/17 GOAL #3: pt demonstrate improved strength BLE 4- to 4/5 and independent with HEP Goal to be met by: 06/21/17 Plan Plan of Care: Therapeutic EX, Therapeutic Activity, Self-Care/Home Management Other:: gait training Frequency of Treatment: 1-2 X day, as tolerated Duration of Treatment: 4 days Anticipated Discharge Destination: Home Has the Physician been added for Co-signature?: Yes
--- NOTE | 2017-06-17 15:16 | RS.OTINEVL ---
Subjective - Patient information Date of Evaluation: 06/17/17 Date of Arrival on Unit: 06/16/17 Admitted From:: Home Diagnosis: COPD, Respiratory Failure Usual Living Arrangement: With Spouse Living Arrangement Comments: Lives with spouse Home Environment: House, Stairs (few), Rail Medical History: COPD, Arthritis Medical History Comments:: GERD, RA, Hep C, hypothyroid, back pain with L1 comp fx Surgical History Comments:: kyphoplasty Subjective Information/ Patient Comments:: "I need a pain pill. It's about a 7/ 10 right now. It took them an hour to get me the last pain pill." - Level of function Prior to this admission, the patient could do the following:: Independent Selfcare, Independent ADL's, Partially Dependent Ambulation Abilities prior to this admission: Pt was living at home. Her does the cooking and the laundry. She has a house keeper 2X a week to clean and straighten the house. Current Equipment Used at Home: oxygen-in use at home. shower chair, bedside commode, walker, cane, wheelchair- has but does not use at this time. Pain Assessment - Pain Pain Score: 7 Side: bilateral Pain Location Body Site: Back Pain Aggravating Factors: ADL's, Changing Position, Standing, Walking Pain Alleviating Factors: Medication Interventions - Objective Patient Orientation: Person, Place, Situation Current Interventions: IV's, Oxygen, Telemetry Observation: Pt is very small, short of air with activity. Pt's O2 drops when she is in standing. Interventions - ROM Right Upper Extremity AROM: WFL's Left Upper Extremity AROM: WFL's - Strength Right Upper Extremity Strength: Mild Weakness Left Upper Extremity Strength: Mild Weakness - Sensation Right Upper Extremity Sensation: Intact/Normal Left Upper Extremity Sensation: Intact/Normal Balance - Sitting Balance Static Sitting Balance: Fair Dynamic Sitting Balance: Fair - Standing Balance Static Standing Balance: Fair Dynamic Standing Balance: Fair - Comments Balance Assessment Comments: Pt uses a walker at home. ADL Skills - Self Feeding Self Feeding: Set Up Only (Pt reported getting choked on the rice -a-Neftali) - Grooming Grooming: Min Assist - Bathing Bathing UE: Min Assist Bathing LE: Min Assist - Dressing Dressing UE: Min Assist Dressing LE: Min Assist - Toilet Management Toileting Management: Min Assist Functional Mobility - Bed Mobility Rolling R/L: Independent Scooting: Independent Supine to Sit: Supervision Sit to Supine: Supervision - Transfers Sit to Stand: Min Assist Stand to Sit: Min Assist Stand Pivot Transfers: Min Assist, 1 person assist - Ambulation Weight Bearing Status: FWB Assistive Device Used: No Assistive Device Assistance needed with Ambulation: 1 person assist Comments:: Pt walks Hand Held assistance and does well until her O2 level drops. - Safety Awareness Safety Awareness: Fair Additional Treatment Performed - Additional units charged ADL: 15 - Time with patient Total treatment time: 30 Activities Patient Interests:: Watching Television, Visiting/Socializing Patient Education Patient Education: Education of diagnosis, Home Exercise Program, Home Safety, Education of Plan of Care Teaching Recipient: Patient Teaching Methods: Teach Back Method Used, Discussion Comments: O2 teach back method of purse lip breathing. Educating patient regarding breathing slowly to catch her breath. Assessment Problem List:: Decreased level of function, Requires training/education, Decreased safety/Risk of falls, Weakness, Pain limits previous level of function Rehab Potential: Good Further Therapy Indicated?: Yes Short Term Goals - Goals GOAL 1: Pt to increase BUE strength to 4+/5. Goal to be met by: 06/24/17 GOAL 2: Pt to tolerate 10 minutes of sink level ADLS with O2. Goal to be met by: 06/24/17 GOAL 3: Pt to be independent with Home exercise programs. Goal to be met by: 06/24/17 Healthcare Economics Consultant Goals GOAL 1: Pt to increase BUE strength to 5/5. Goal to be met by: 07/01/17 GOAL 2: Pt to tolerate 15 minutes of sink level ADLS with O2. Goal to be met by: 07/01/17 GOAL 3: Pt to tolerate 15 minutes of standing activity with Good balance. Goal to be met by: 07/01/17 Plan Plan of Care: Therapeutic EX, Neuromuscular Re-Educ, Therapeutic Activity, Self- Care/Home Management Modalities: Cold Pack/Cryotherapy Frequency of Treatment: 1-2 X day, as tolerated Duration of Treatment: 2 Weeks Anticipated Discharge Destination: Home Has the Physician been added for Co-signature?: Yes
[2017-06-17] MEDS: ALBUTEROL 0.083% NEB NEB SCH ×2 (17:33→23:50)
[2017-06-17] MEDS ORDERED: ZYPREXA PO SCH (21:00)
[2017-06-18] MEDS: NORCO 10-325 PO PRN ×2 (00:04→10:36)
[2017-06-18] MEDS: ALBUTEROL 0.083% NEB NEB SCH ×2 (05:13→11:05)
[2017-06-18] MEDS: SOLU-MEDROL 40 MG IVP SCH ×2 (05:43→14:14)
[2017-06-18] MEDS: SYNTHROID PO SCH (05:43)
[2017-06-18] MEDS ORDERED: LACTULOSE PO SCH (09:00)
[2017-06-18] MEDS: ZOLOFT PO SCH (09:08)
[2017-06-18] MEDS: NON-FORMULARY MEDICATION (Glycopyrrolate/Formoterol Fum [Bevespi Aerosphere Inhaler] 2 PUF IH SCH (09:08)
[2017-06-18] MEDS: MUCINEX PO SCH (09:08)
[2017-06-18] MEDS: SYMMETREL PO SCH (09:09)
[2017-06-18 14:28] VITALS: BP 102/46; TEMP 98.2
[2017-06-19] MEDS ORDERED: ASPIRIN CHEWABLE PO STA (07:48)
[2017-06-23] MEDS ORDERED: DRISDOL PO SCH (09:00)
--- NOTE | 2017-07-20 11:05 | HP ---
CHIEF COMPLAINT: Shortness of breath and markedly low oxygen saturation. HISTORY OF PRESENT ILLNESS: The patient is known to have chronic obstructive lung disease secondary to smoking. This patient more or less had stopped smoking, but not completely. The patient was seen at the office initially for regular follow up, but the patient now looks sicker and respiration is rapid and also dyspneic. Oxygen saturation was low. Because of this, the patient was then advised to go to the emergency room for further evaluation and possible admission. The work up in the emergency room showed moderate anemia with a hemoglobin of 10.3 and hematocrit 33.7, normal WBC and platelet count. Arterial blood gases with oxygen saturation 84, pH 7.430, PCO2 42.3, PO2 48. Bicarbonate slightly high at 28, upper normal 26 and total CO2 at 29. Lactic acid 22.7, upper normal 19.8, cardiac enzymes, CK and Troponin normal. Procalcitonin normal at 0.05. TSH normal. Alkaline phosphatase was elevated initially at 168. The chest x-ray showed no acute processes-emphysema. The patient was then admitted for COPD with respiratory failure with acute exacerbation. PAST PERSONAL HISTORY: Bilateral cataract extraction 10/2014, history of hepatitis C not treated evidently. History of total abdominal hysterectomy, gallbladder surgery and bladder surgery. The patient admits to history of depression. FAMILY HISTORY: Brother had COPD, sister also had COPD and coronary artery disease. Mother had congestive heart failure. Father had liver problems. SOCIAL HISTORY: The patient is and resides with her . She had tried to stop smoking and still smokes very occasionally. HOME MEDICATIONS: Albuterol Sulfate 0.083% for nebulizer every six hours prn Hydrocodone/Tylenol 10/325 mg one every six hours prn Vitamin D2 50,000 IU one weekly Amantadine 100 mg capsule twice a day Lactulose 20 grams per 30 cc solution every other day Zyprexa 20 mg daily at bedtime Levothyroxine 50 mcg tablet daily Zoloft 50 mg daily Bevespi two puffs twice a day DRUG ALLERGIES: Aspirin, Codeine, NSAIDS REVIEW OF SYSTEMS: CONSTITUTIONAL: The patient is somewhat drowsy. She denies any fever or chills , but is fatigued. DISPATCHER RADIO: The patient is somewhat drowsy. She is arousable and answers questions. Denies any headaches. VISUAL: Denies any blurred vision, double vision or transient loss of vision. AUDITORY: Hearing is adequate. She does hear, but you have to raise your voice. Denies any tinnitus, pain or drainage. RESPIRATORY: The patient is having shortness of breath with rapid respirations and low oxygen saturation. She does not have any cyanosis. CARDIOVASCULAR: Denies any chest pain or chest oppression. GASTROINTESTINAL: Denies any problems swallowing solids or liquids, but the appetite is somewhat down. No abdominal pain. GENITOURINARY: The patient denies any pain on urination. MUSCULOSKELETAL: She does have some joint pains and does take some narcotic analgesics. She does have some back pain also. ENDOCRINE: Negative. No history of prolonged bleeding. PSYCHIATRIC: Affect is decreased. PHYSICAL EXAMINATION: GENERAL: We have a 67 year old female admitted to the hospital because of rapid respirations with dyspnea and low oxygen saturation. The arterial blood gases showed a markedly low PO2 at 48. VITAL SIGNS: Blood pressure 156/70 on admission, temperature 97.8, respiratory rate 22, oxygen saturation 75 at room air. 86 pounds, 6.7 ounces, 5'. GENERAL APPEARANCE: Is that of an individual who is tired. She does answer questions. She is dyspneic and tachypneic, but no cyanosis. HEAD: The head is leaning towards the right. Unremarkable. FACE: Symmetrical and equal with no facial weakness. No significant tenderness in the frontal or maxillary sinus area to palpation under pressure. EYES: Pupils equal/reactive to light. Conjunctivae not pale. Sclerae not icteric. THROAT: No inflammation, tumors or exudate. NECK: No masses. No bruit. No tenderness. No rigidity. CHEST: Symmetrical and equal with a limited expansion. The ribs are quite prominent LUNGS: Breath sounds are diminished on both sides. No wheezing. There are some rales, mostly in the left side base. HEART: Audible and regular with good tones. Slightly tachycardic. No murmurs. ABDOMEN: Flat, soft with no remarkable tenderness. No guarding. No masses palpable. Bowel sounds are active. EXTERNAL GENITALIA: Not examined. RECTAL: Not performed. LOWER EXTREMITIES: Some ankle edema. Pedal pulses anterior tibials present. UPPER EXTREMITIES: Symmetrical and equal. ASSESSMENT: 1. CHRONIC OBSTRUCTIVE PULMONARY DISEASE WITH ACUTE EXACERBATION 2. RESPIRATORY FAILURE WITH LEFT SIDE DETERIORATION 3. CHRONIC TOBACCO USE AND ABUSE HAD STOPPED, BUT NOT COMPLETELY. 4. HISTORY OF RIGHT LOWER LOBE PNEUMONIA 2016 5. HISTORY OF HEPATITIS C, NO EVIDENCE OF TREATMENT 6. HISTORY OF HYPOTHYROIDISM REPLACED 7. HISTORY OF VITAMIN D DEFICIENCY TREATED 8. HISTORY OF OSTEOPOROSIS 9. HISTORY OF DEPRESSION 10. HISTORY OF APPENDECTOMY, CHOLECYSTECTOMY, HYSTERECTOMY AND CATARACT SURGERY MTDD
--- NOTE | 2017-07-20 11:35 | DS ---
PATIENT IDENTIFICATION: 67 year old female who is know to have chronic obstructive lung disease, severe with respiratory failure because of chronic tobacco use. The patient's appetite also had been poor and the patient continued to lose weight. Finally, the patient had reduced her smoking to essentially stopped and the patient had began to gain weight. The patient had occasionally used tobacco or cigarettes, but very occasional. I did tell her that she could never use any cigarettes at all not even once a day or once a week. It is an all or nothing proposition. The patient was seen in the office on 06/15/2017 and appeared weak, drowsy. Oxygen saturation was very low and she was dyspneic and tachypneic. She was sent to the emergency room for further evaluation and the arterial blood gases showed markedly low PO2 at 48, oxygen saturation at 84. The chest x-ray showed changes compatible with emphysema. CBC showed anemia, otherwise unremarkable. ABG's with FIO2 21, oxygen saturation 84, pH 7.430, PCO2 of 42.3, PO2 48, bicarbonate 28, total CO2 29, base excess 4. Lactic acid slightly elevated at 22.7. Alkaline phosphatase 168, BNP normal at 79. CK plus Troponin normal. HOSPITAL COURSE: The patient while in the hospital was given Rocephin 1 gram IV daily. She also was given Solu-Cortef 125 mg every 8 hours. This was replaced with Solu-Medrol 40 mg every 12 hours. She also was given Mucinex 1200 mg twice a day. The patient remained afebrile during her hospital stay and her pulse was slightly elevated at slightly above 100 initially. The blood pressure at one time did rise to 142/78, but the blood pressure remained slightly elevated on admission, however that had come down to the lower normal towards the end of her hospitalization. The patient had improved while in the hospital and she had eaten about 50% at times during lunch. Dinner between 25 to 75. The patient at the time of discharge was much more alert and responsive. She was no longer drowsy. VITAL SIGNS: On 06/18/2017 at 2 p.m. showed a temperature of 98.2, pulse 97, blood pressure 1012/46, respiratory rate 22, oxygen saturation 94 at 2 liters. Her oxygen saturation at 2 liters had gone up to 95 and up to 98. LUNGS: Breath sounds are diminished, but air exchange is better on the left. The right is much more diminished than the left. There is still a few rales on the right base. HEART: Audible with good tones. ABDOMEN: Nontender. This patient also was seen by Physical Therapy, as well as Occupational Therapy. The patient has qualified for home oxygen after testing and the patient will be placed on oxygen at least 2 liters of oxygen per minute. [facility] [place] will be providing the oxygen. The patient was instructed never to smoke at all. I told her that the proposition for smoking is zero or smoke as much as she wants. She is to resume her previous medications. She should see me in about a week or two from the time of discharge and before if there is any concerns. FINAL DIAGNOSES: 1. CHRONIC OBSTRUCTIVE LUNG DISEASE WITH ACUTE EXACERBATION 2. RESPIRATORY FAILURE 3. CHRONIC TOBACCO USE AND ABUSE, NOW STOPPED 4. HISTORY OF HEPATITIS C 5. HISTORY OF GERD 6. HISTORY OF LUMBAR SURGERY, CHOLECYSTECTOMY, BLADDER SUSPENSION PROGNOSIS: Guarded. MTDD
== END 2017-06-18 15:22 | disposition home or self-care (01) | DRG 190 ==
LOC: ED 15:29 → MEDSURG A 17:10
PROVIDERS: ADMIT General Practice; ATTEND General Practice
DX: J44.1 Chronic obstructive pulmonary disease with (acute) exacerbation (principal); J96.21 Acute and chronic respiratory failure with hypoxia; R06.02 Shortness of breath; R53.1 Weakness; F17.201 Nicotine dependence, unspecified, in remission; K21.9 Gastro-esophageal reflux disease without esophagitis; Z86.19 Personal history of other infectious and parasitic diseases; Z79.891 Long term (current) use of opiate analgesic; Z79.899 Other long term (current) drug therapy; Z98.890 Other specified postprocedural states; Z90.49 Acquired absence of other specified parts of digestive tract
CPT/HCPCS: 36415; 80053; 80074; 80323; 81001; 82550; 82803; 83605; 83880; 84145; 84443; 84484; 85025; 85379; 87040; 87070; 87086; 87186; 87522; 93005; 93010; 94640; 94761; 96365; 96375; 99284

== ENCOUNTER 2017-08-16 10:37 | Outpatient (CLI) | END 2017-08-16 10:38 | disposition home or self-care (01) | LOC: LAB 10:37 | PROVIDERS: ATTEND General Practice | DX: D75.89 Other specified diseases of blood and blood-forming organs (principal); E03.9 Hypothyroidism, unspecified; I10 Essential (primary) hypertension; J44.9 Chronic obstructive pulmonary disease, unspecified; Z79.899 Other long term (current) drug therapy; Z86.2 Personal history of diseases of the blood and blood-forming organs and certain disorders involving the immune mechanism | CPT/HCPCS: 36415; 80053; 80061; 81001; 85025; 87086 ==

== ENCOUNTER 2017-09-21 12:15 | Outpatient (CLI) | END 2017-09-21 12:16 | disposition home or self-care (01) | LOC: CAR 12:15 | PROVIDERS: ATTEND General Practice | DX: R74.8 Abnormal levels of other serum enzymes (principal); R40.0 Somnolence; R53.83 Other fatigue; R82.90 Unspecified abnormal findings in urine | CPT/HCPCS: 36415; 81001; 82803; 84075; 84080; 87086 ==

== ENCOUNTER 2017-09-21 17:45 | Inpatient (IN) | payer OTHER ==
[2017-09-21 18:27] VITALS: BMI 18.1
[2017-09-21] MEDS ORDERED: NON-FORMULARY MEDICATION (Olanzapine [Zyprexa] 20 MG) PO SCH (21:00)
--- NOTE | 2017-09-21 22:27 | CT ---
EXAM: CT of the chest without contrast. HISTORY: Shortness of breath. PROCEDURE: Contiguous axial CT images of the chest without contrast with coronal and sagittal reform ats. FINDINGS: Comparison made with CT chest of 05/10/2017. The heart is within normal limits in size. Th e thoracic aorta is within normal limits in diameter. There are calcified mediastinal and hilar lymp h nodes. There are emphysematous changes throughout both lungs. There are stable bilateral lung nodu les measuring up to 6 mm. There is scarring in the upper lobes. There is a stable parenchymal densi ty in the lateral left upper lobe measuring 0.7 x 0.4 cm. There is minimal bibasilar dependent atelec tasis. No new consolidation. Redemonstrated are compression fractures in the spine containing methylm ethacrylate. The liver has a nodular contour suspicious for cirrhosis. The adrenal glands are normal in appearance. Impression: Stable bilateral lung nodules and left upper lobe parenchymal density as described. Rec ommend follow-up CT in 6 months to confirm stability. Minimal bibasilar dependent atelectasis. Chronic obstructive pulmonary disease. Nodular liver suspicious for cirrhosis.
[2017-09-21] MEDS: NORCO 5-325 PO PRN (23:36)
[2017-09-22] MEDS: DUONEB NEB SCH ×5 (00:05→22:58)
[2017-09-22] MEDS: ZOLOFT PO SCH (08:48)
[2017-09-22] MEDS: SYNTHROID PO SCH (08:48)
[2017-09-22] MEDS: INFUVITE ADULT 10 ML in D5%-1/2NS-KCL 20 MEQ/L IV SOL 1,000 ML IV SCH ×2 (12:36→23:44)
[2017-09-22] MEDS ORDERED: ZYPREXA PO SCH (21:00)
[2017-09-22] MEDS: NORCO 5-325 PO PRN (21:12)
[2017-09-22] MEDS ORDERED: LEVAQUIN 500 MG in PREMIX 100 ML D5W 1 BAG IV STA (23:36)
[2017-09-22] MEDS ORDERED: LEVAQUIN 100 ML IV ONE (23:41)
[2017-09-22] MEDS ORDERED: INFUVITE ADULT IV ONE (23:41)
[2017-09-23] MEDS: DUONEB NEB SCH (05:08)
[2017-09-23] MEDS: SYNTHROID PO SCH (05:59)
[2017-09-23] MEDS: ZOLOFT PO SCH (09:24)
[2017-09-23] MEDS ORDERED: DUONEB NEB SCH (10:00)
[2017-09-23 10:35] VITALS: BP 125/60; TEMP 98.4
[2017-09-23] MEDS: NORCO 5-325 PO PRN (11:26)
[2017-09-23] MEDS ORDERED: LEVAQUIN 500 MG in PREMIX 100 ML D5W 1 BAG IV SCH (21:00)
--- NOTE | 2017-09-24 14:54 | HP ---
CHIEF COMPLAINT: Lethargy, pallor and low oxygen saturation. HISTORY OF PRESENT ILLNESS: The patient was seen at the office on 09/21/17 as a regular follow up. She had been seen monthly because of her chronic problems- respiratory failure secondary to COPD. The patient had not smoked for some time according to the patient and confirmed by the . The patient was complaining of inability to sleep. The patient, however, at the office could hardly keep her eyes open. Her previous urinalysis was abnormal, so a catheterized urine was done for urinalysis, plus culture. The patient's physical examination revealed an individual who is drowsy and could not keep her eyes open. She goes back to sleep a few seconds after you ask a question. Lungs with breath sounds diminished in both sides, but no wheezing or rales. Heart is normal sinus rhythm. The patient was sent for arterial blood gases, however, unfortunately the blood gases was venous. Repeat arterial blood gases were done with the patient and the coming back to the hospital. Respiratory therapist had noted the oxygen, portable that was being used by the patient is triggered by the patient's depth of respiratory. The patient being drowsy was unable to get any oxygen at all. Because of lethargy and generalized weakness without any fever that this patient was felt to require hospitalization for further examination. PAST PERSONAL HISTORY: The patient was admitted 06/16/2017 because of shortness of breath. She had exacerbation of chronic bronchitis with deterioration of the respiratory failure. She was still smoking at that point. She also had a right lower lobe pneumonia in 2016. Hepatitis C slightly treated. Hypothyroidism replaced. History of osteoporosis. History of depression. PAST SURGICAL HISTORY: Appendectomy, cholecystectomy, hysterectomy and cataract extraction. FAMILY HISTORY: Brother had COPD, sister had COPD and coronary artery disease , mother had congestive heart failure, father had liver problems. SOCIAL HISTORY: The patient is and resides with her . She had stopped smoking and the has confirmed that. MEDICATIONS: Albuterol Sulfate 0.083% per nebulizer every 6 hours prn Hydrocodone/APAP 10/325 mg one every 6 hours [address]n prescribed by Dr[address] Garza. This patient, according to the , had been out for about 3 weeks or more since she lost the prescription and had a prescription filled some three to four days ago and had been taking four times a day more or less. Levothyroxine Sodium 50 mcg daily Zyprexa 20 mg daily at bedtime Zantac 150 mg twice a day Zoloft 50 mg daily Lactulose 20 gms 30 cc solution every other day Vitamin D2 50,000 unit capsule monthly ALLERGIES: The patient is allergic to Aspirin, codeine and NSAIDS. REVIEW OF SYSTEMS: CONSTITUTIONAL: The patient has no fever or chills, but markedly drowsy. The patient could hardly keep her eyes open. Not also able to answer questions continuously since since her eyes closes. 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 No headaches. She denies any seizure problems. VISUAL: Denies any blurred vision, double vision or loss of vision. AUDITORY: Hearing is adequate and diminished. Denies any tinnitus, pain or drainage. RESPIRATORY: The patient has shortness of breath and slightly tachypneic. Oxygen saturation is 86. No cyanosis. CARDIOVASCULAR: Denies any chest pain or chest tightness. GASTROINTESTINAL: Appetite is poor. She had not been eating much according to the patient, as well as the . GENITOURINARY: Denies any pain on urination. This patient's previous urinalysis was abnormal, so urine was obtained with catheterization in the office before admission. MUSCULOSKELETAL: The patient does have some back pain and takes narcotic analgesics prescribed by the orthopedic surgeon, Dr. Garza. ENDOCRINE: Negative. INTEGUMENT: Denies any rash or pruritus. HEMATOLOGIC: Negative for history of prolonged bleeding. PSYCHIATRIC: Affect is diminished. The patient is drowsy. PHYSICAL EXAMINATION: GENERAL: We have a 67 year old female admitted to the hospital because of marked lethargy. VITAL SIGNS: At 6:05 p.m. on admission showed a temperature 97.8 orally, pulse 80, blood pressure 130/70 left, 126/63 right, respiratory rate 18, oxygen saturation 86 at room air. She is 5' and 92 pounds and 9.5 ounces. GENERAL APPEARANCE: Weak, drowsy, but arousable. Pale with no cyanosis. Unable to sit up on her own, nor stand up. HEAD: Unremarkable. Scalp with no active dermatitis. FACE: Symmetrical and equal with no facial weakness. EYES: Pupils equal/reactive to light. Conjunctivae pale. Sclerae not icteric. MOUTH: Unremarkable. THROAT: No inflammation, tumors or exudate. NECK: No masses. No bruit. No tenderness. No rigidity. CHEST: Symmetrical and equal with limited expansion. No tenderness. LUNGS: Breath sounds are diminished in both sides. No rales or wheezing. HEART: Audible and regular with good tones. No murmurs. Not tachycardic. ABDOMEN: Flat, soft with no remarkable tenderness. No guarding. Bowel sounds are active. No masses palpable. EXTERNAL GENITALIA: Not examined. RECTAL: Not performed. LOWER EXTREMITIES: Essentially symmetrical and equal with no significant edema. Pedal pulses, anterior tibials are present, posterior tibials not palpable. UPPER EXTREMITIES: Symmetrical and equal. NOTE: The patient's portable oxygen was not used when she first came in. When the did bring the portable oxygen that it was on 4 liters per minute. This however does not seem to be a continuous flow oxygen. This has to be triggered by her breathing. We will contact the supplier and probably change it to a continuous or intermittent flow that is not triggered by her breathing. ASSESSMENT: 1. LETHARGY, ETIOLOGY UNDETERMINED. RULE OUT CO2 NARCOSIS. 2. CHRONIC OBSTRUCTIVE PULMONARY DISEASE WITH RESPIRATORY FAILURE WITH PROBABLE EXACERBATION 3. CHRONIC TOBACCO USE AND ABUSE, STOPPED A FEW MONTHS AGO 4. HISTORY OF HEPATITIS C 5. HISTORY OF HYPOTHYROIDISM, TREATED AND REPLACED. 6. HISTORY OF VITAMIN D DEFICIENCY TREATED WITH 50,000 IU MONTHLY 7. HISTORY OF OSTEOPOROSIS 8. HISTORY OF PNEUMONIA, RIGHT LOWER LOBE 9. HISTORY OF APPENDECTOMY, CHOLECYSTECTOMY, HYSTERECTOMY AND CATARACT EXTRACTION AND ERCP NOTE: This patient complained of insomnia. I asked the whether he knew that for a fact and he told me that he sleeps in another room so he is not quite sure. The lethargy maybe iatrogenic with the patient taking the Hydrocodone/APAP 10/325 mg maybe four times a day. We need to count the amount of medication left and we will ask the to bring the Hydrocodone, so that we can count it. MTDD
--- NOTE | 2017-09-27 11:11 | PN ---
DATE OF VISIT: 09/22/17 SUBJECTIVE: The patient at the time of my rounds, 13:00 today was alert, cheerful and wide awake. Her color is good and she appears entirely different from yesterday. The nurse had also told me that she had asked for any pain medication and so as a consequence had not received any [place] or Lortab. This patient had been without the pain medication for three weeks when she lost the prescription that this patient probably does not need the pain medication at all or if she does it will be much a lower dose. I talked to the and I will talk to the sister , Hiral hopefully to remove the Hydrocodone for now and see how she does. This will done only with conjunction with Mr. Sung. Her oral intake today is very low so this patient is initiated on Dextrose 5% 1/2 saline plus 20KCL plus MVI at 33cc per minute. VITAL SIGNS: Temperature 98.4 orally, pulse 85, blood pressure 105/76, respiratory rate 14 with oxygen saturation 98 at 2 liters. LUNGS: Still has diminished breath sounds but no rales HEART: Audible with good tones. The patient was asking when she can go home. This patient may very well go home tomorrow. The chest CT does not indicate any acute processes that was done last night. The oxygen was reduced to 1 liters per nasal, to see if the oxygen saturation is adequate and above 90's MTDD
--- NOTE | 2017-09-27 12:45 | PN ---
DATE OF VISIT: 09/23/17 SUBJECTIVE: Urine culture did show Morganella Morganii. It is sensitive to Levaquin and the patient received Levaquin last night, 500mg. Her renal panel is normal and liver panel is normal. This patient has severe anemia and reason undetermined. The patient does go to Pain Management and was prescribed Hydrocodone/ APAP 10- 325mg every 6 hours. We had reduced that medication to 5mg-325mg one Q 6 hours PRN while in the hospital. The patient had not asked so much for this medication. The patient was alert yesterday and still alert today although slightly less than yesterday. The sister, Hiral was in the room. I had discussed with them the possible problems. I recounted about the extreme drowsiness that the patient had while at the office. The problem is not a CO2 retention base upon the results of the atrial blood gasses. It may very well be due to the medications since she is taking 10mg of Hydrocodone. She is being given 5mg orally while in the hospital. I did advise the sister to break the prescription that was given by the Pain Management to half a tablet every 6 hours. The patient's color is sallow, she is jaundice. Her liver enzymes are normal. Bilirubin is also normal. LUNGS: rales on the right side, none on the left. The patient is now able to take deeper breaths then the day of admission. HEART: Audible and regular and not tachycardiac The patient again had claimed that she had not smoked anymore. CT scan of the chest was without any acute processes. This patient will be discharged today at noon or slightly beyond noon time. SUKUMAR
[2017-10-03] MEDS ORDERED: DRISDOL PO SCH (09:00)
--- NOTE | 2017-10-15 08:19 | DS ---
PATIENT IDENTIFICATION: 67 year old female was seen at the office on regular follow up. The patient was markedly lethargic and the patient was admitted to the hospital because of the severe lethargy. The reason was not quite obvious at that time. HOSPITAL COURSE: The patient was arousable and responsive. The patient goes to Pain Management and had been prescribed Hydrocodone/APAP 10/325 mg to be taken every 6 hours. The patient lost the prescription and so she did not have any pain medication for about three weeks. She had recently acquired again the pain medication and was it about four times a day. Because of the drowsiness, she was admitted to the hospital and she had not been eating and so fluid replacement plus electrolytes was initiated at 83 cc per hour. The Hydrocodone/ APAP was reduced to 5/325 every 6 hours prn and the Zoloft was decreased to 25 mg daily. Breath sounds were bilaterally diminished, but no rales or wheezing. Heart was audible and regular with good tones and no murmurs. The abdomen was unremarkable. The patient's initial CBC showed a hemoglobin of 8.4, hematocrit 27.3, MCV 88.3 , MCH 27.2. A repeat CBC with hydration showed a hemoglobin of 7.5, hematocrit 24.2 and the MCV and MCH stayed about the same. The RDW is elevated slightly. Arterial blood gases on the second hospital day, 09/22/2017 appears to be satisfactory and given the patient's chronic condition. Oxygen saturation 94, pH 7.45, PCO2 40, PO2 67, CO2 28, total CO2 29, base excess +4 and FIO2 28%. Serum albumin was low even on admission and stayed at 2.9 and 2.8. Urinalysis was abnormal and urine culture showed Morganella Morganii and is sensitive to Cipro and Levofloxacin. It is also sensitive to Ampicillin, Bactrim, as well as Cefepime, Zosyn and Tobramycin. The patient was given Levofloxacin 500 mg IV daily. The patient was much more alert on the second hospital day and on much more on the third hospital day, day of discharge. The patient at the time of discharge is alert, not drowsy and responsive and with a normal affect. LUNGS: Breath sounds are diminished, but no rales or wheezing. HEART: Audible and regular with good tones. ABDOMEN: Soft and nontender. VITAL SIGNS: At discharge, showed a temperature of 98.4, pulse 92, blood pressure 125/60, respiratory rate 20, oxygen saturation 97 at room air. The patient on discharge was prescribed Ferrous Sulfate 45 mg tablet daily, Levofloxacin 500 mg p.o. daily, #6. She was instructed to follow up with me at the office. She would need a repeat urinalysis, probably a catheterized or clean catch. FINAL DIAGNOSES: 1. LETHARGY, PROBABLY SECONDARY TO MEDICATION INDUCED 2. URINARY TRACT INFECTION MORGANELLA MORGANII 3. CHRONIC OBSTRUCTIVE PULMONARY DISEASE, SEVERE WITH HOME OXYGEN 4. CHRONIC TOBACCO USE AND ABUSE, STOPPED ABOUT A MONTH AGO OR SO 5. ANEMIA 6. HISTORY OF HEPATITIS C 7. HYPERTHYROIDISM TREATED 8. HISTORY OF VITAMIN D DEFICIENCY ON 50,000 IU MONTHLY 9. HISTORY OF OSTEOPOROSIS 10. HISTORY OF APPENDECTOMY, CHOLECYSTECTOMY, HYSTERECTOMY AND CATARACT EXTRACTION PROGNOSIS: guarded. NOTE: This patient's weight on 05/14/2015 was 123 pounds 14.3 ounces and on , a year after that was 72 pounds, a loss of 50 pounds. She was under Dr. Aguilera at that time. The patient remained at 72 pounds until 11/18/2016. She gained 19 pounds from 11/2016 to 05/12/2017. She lost 5 pounds from 2016 to 06/16/2017 and gained a few more pounds from 06/16/2017 to 09/21/2017 and now weighing 92 pounds 9.5 ounces. SUKUMAR
== END 2017-09-23 01:30 | disposition home or self-care (01) | DRG 948 ==
LOC: MEDSURG A 17:45
PROVIDERS: ADMIT General Practice; ATTEND General Practice
DX: R53.83 Other fatigue (principal); N39.0 Urinary tract infection, site not specified; T40.2X5A Adverse effect of other opioids, initial encounter; B96.89 Other specified bacterial agents as the cause of diseases classified elsewhere; J44.9 Chronic obstructive pulmonary disease, unspecified; D64.9 Anemia, unspecified; E05.90 Thyrotoxicosis, unspecified without thyrotoxic crisis or storm; M81.0 Age-related osteoporosis without current pathological fracture; R74.8 Abnormal levels of other serum enzymes; R40.0 Somnolence; R82.90 Unspecified abnormal findings in urine; F17.211 Nicotine dependence, cigarettes, in remission; Z79.891 Long term (current) use of opiate analgesic; Z79.899 Other long term (current) drug therapy; Z99.81 Dependence on supplemental oxygen; Z86.19 Personal history of other infectious and parasitic diseases; Z16.11 Resistance to penicillins
CPT/HCPCS: 36415; 80053; 81001; 82803; 84075; 84080; 84443; 85025; 87086; 87186; 94640

== ENCOUNTER 2017-12-26 10:54 | Emergency (ER) ==
[2017-12-26 10:57] VITALS: BP 152/75; TEMP 98.3; BMI 20.5
[2017-12-26] MEDS ORDERED: NORCO 10-325 PO STA (11:16)
--- NOTE | 2017-12-26 12:19 | CT ---
EXAM: CT of the cervical spine without contrast History: Neck trauma. Technique: Multiplanar CT images through the cervical spine were obtained without the administration of IV contrast Findings: Emphysema within the upper lungs. Biapical lung scarring. The visualized airway remains p atent. Atherosclerotic vascular calcifications. No acute fracture or subluxation of the cervical spine. Osteopenia. Mild to moderate disc space marissa rowing at C4-5 and C6-7 with endplate sclerosis and small osteophytes. Bony spinal canal is not sign ificantly compromised. Mild to moderate multilevel bilateral bony neural foraminal narrowing seconda ry to uncovertebral and facet hypertrophy and most significant at C4-5. Impression: No acute osseous abnormality of the cervical spine
--- NOTE | 2017-12-26 12:23 | CT ---
EXAM: CT of the chest without contrast History: Chest trauma. Comparison: Chest CT 09/21/2017 Technique: Multiplanar CT images through the thorax were obtained without the administration of IV c ontrast Findings: Heart size is normal. Coronary calcifications. No thoracic aortic aneurysm. No axillary or mediastinal lymphadenopathy. Evaluation for hilar lymph nodes is limited due to the lack of contr ast administration but no bulky hilar adenopathy is seen. Emphysema again noted. No significant int erval change in the bilateral lung nodules. There is bronchial wall thickening and mild right lower lobe infiltrate. No pleural fluid and no pneumothorax. Within the visualized upper abdomen, nodular cirrhotic liver again noted. Osteopenia. Kyphoplasties again seen within the spine with stable chronic compression deformities. No acute osseous abnormali ties. Impression: 1. No acute traumatic injury identified within the thorax. 2. Mild right lower lobe infiltrate suspicious for pneumonia. 3. No change in the bilateral lung nodules. Recommend follow-up chest CT in 6 months. 4. Emphysema. 5. Cirrhotic liver
--- NOTE | 2017-12-26 12:32 | CT ---
EXAM: CT of the thoracic spine without contrast History: Back trauma. Comparison: Chest CT 12/26/2017, thoracic spine CT 05/14/2015, chest CT 09/21/2017 of the Technique: Multiplanar CT images through the thoracic spine were obtained without the administration of IV contrast Findings: Emphysema within the lungs. Bilateral lung nodules as seen on recent chest CT. Mild righ t lower lobe infiltrate. Nodular cirrhotic contour of the liver. Atherosclerotic vascular calcifica tions. Stable chronic compression deformities with kyphoplasties at T8 and L1. Osteopenia. Mild to moderat e multilevel degenerative disc space narrowing. No significant bony central canal stenosis. No acute fracture or subluxation. Impression: No acute osseous abnormality of the thoracic spine.
--- NOTE | 2017-12-26 12:40 | CT ---
EXAM: CT of the lumbar spine without contrast History: Lower back trauma. Comparison: Thoracic spine CT 12/26/2017, chest CT 12/26/2017, chest CT 09/21/2017, CT abdomen pelvi s and 02/2016 Technique: Multiplanar CT images through the lumbar spine were obtained without the administration o f IV contrast Findings: Osteopenia. Stable compression deformity with kyphoplasty at L1. Stable chronic compression deformit y involving the inferior endplate of L2. No acute fracture or subluxation of the lumbar spine. Bony spinal canal is not significantly compromised. Multilevel bilateral bony neural foraminal narrowing secondary to ligamentous and facet hypertrophy which is severe on the right at L5-S1, and moderate t o severe on the right at L4-L5. Moderate to severe disc space narrowing at L4-L5 with endplate scler osis and osteophyte formation. Impression: No acute osseous abnormality of the lumbar spine.
--- NOTE | 2017-12-26 12:44 | CT ---
EXAM: CT of the pelvis without contrast History: Pelvic trauma and pelvic pain. Comparison: CT lumbar spine 12/26/2017, CT abdomen pelvis 02/17/2016 Technique: Multiplanar CT images through the pelvis were obtained without the administration of IV c ontrast Findings: Atherosclerotic vascular calcifications. A [id number] amount of stool seen distend ing the rectosigmoid colon. No bladder wall thickening. Uterus is not seen. Osteopenia. Degenerative changes within the lower lumbar spine. There is an acute mild to moderatel y displaced and varus angulated intertrochanteric fracture of the proximal right femur with adjacent soft tissue swelling. No dislocation. Bilateral hip joint spaces are relatively preserved. Sacroil iac joints are intact. Impression: Acute intertrochanteric fracture of the proximal right femur.
--- NOTE | 2017-12-26 12:56 | DI ---
EXAM: Four views of the right femur. History: Right leg trauma. Findings: Surgical clips seen within the pelvis. Osteopenia. Mild to moderately displaced varus an gulated intertrochanteric fracture of the proximal right femur. No dislocation. Mild to moderate de generative changes seen at the right knee. Mild narrowing of the right hip joint. Impression: Intertrochanteric proximal right femoral fracture.
--- NOTE | 2017-12-26 13:19 | ED.PDOC ---
General ED Provider: Dr. ESE PAIGE Chief Complaint: Extremity Pain/Injury Stated Complaint: RIGHT HIP PAIN AFTER A FALL Time Seen by Physician: 11:00 (FALL 9 AM) Mode of Arrival: Wheelchair Information Source: Patient Exam Limitations: No limitations [facility] Nursing and Triage Documentation Reviewed and Agree: Yes (NO FOOD SINCE LAST NIGHT ) Reviewed sepsis parameters & appropriate labs ordered?: Yes System Inflammatory Response Syndrome: Not Applicable Sepsis Protocol: For patient's 13 years and over: Temp is 96.8 and below OR 101 and greater Pulse >90 BPM Resp >20/minute Acutely Altered Mental Status Are patient's symptoms suggestive of a new infection, such as: -Pneumonia -Skin, Soft Tissue -Endocarditis -UTI -Bone, Joint Infection -Implantable Device -Acute Abdominal Infection -Wound Infection -Meningitis -Blood Stream Catheter Infection -Unknown Trauma/Injury Complaint Exam - Trauma Complaint/Exam Location of Pain or Injury: Reports: Neck, Back, RLE (HIP) Mechanism of Injury: Reports: Fall (NOT SYNCOPE RELATED ) Onset/Duration: 3 HOURS Symptoms Are: Still present Timing of Treatment: Immediate Initial Severity: Moderate Current Severity: Moderate Character: Reports: Aching Aggravating: Reports: Movement Alleviating: Reports: Rest Associated Signs and Symptoms: Denies: LOC, Confusion, Memory loss, Lethargy, Vomiting, Bleeding, Bruising (BUT ABRASION, , LACERATION), Swelling, Extremity disuse, Painful respiration, Hoarseness, Dysphagia, Hemoptysis, Significant blood loss Related History: Reports: Similar episode : No Related Surgical History: Reports: None Nexus Low Risk Criteria: No evidence of intoxicat., No Altered LOC, No focal neuro deficit, No distracting injuries Immobilization Removed Post Exam: No Glascow Coma Scale (see protocol): 15 Compartment Syndrome Risk Factors: Present: Pain Trauma Findings: Present: Neck tenderness, Decreased breath sounds, Pelvic tenderness (RIGHT SIDED). Absent: Hemotympanum, Nasal deformity, Dental tenderness, Dental injury, Dental malocclusion, Neck spasm, SubQ Air, Crepitus, Airway obstructed, Trachea displaced, Labored respirations, Muffled heart sounds , Weak pulses, Absent pulses, Abdominal distention Review of Systems - Review Of Systems Constitutional: Reports: No symptoms Eyes: Reports: No symptoms Ears, Nose, Mouth, Throat: Reports: No symptoms Respiratory: Reports: No symptoms Cardiac: Reports: No symptoms GI: Reports: No symptoms : Reports: No symptoms Musculoskeletal: Reports: Other (RIGHT HIP PAIN EXTERNAL ROTATION , ABRASION ARMS ) Skin: Reports: No symptoms Neurological: Reports: No symptoms Endocrine: Reports: No symptoms Hematologic/Lymphatic: Reports: No symptoms All Other Systems: Reviewed and Negative Past Medical History - Past Medical History Previously Healthy: No Endocrine: Reports: Hypothyroid Cardiovascular: Reports: None Respiratory: Reports: COPD, Pneumonia ((05/31/15 [facility])), Other (benign RUL lesion , chronic LLL inf(05/31/15 [facility])) Hematological: Reports: Other Gastrointestinal: Reports: GERD, Liver (hepatitits c post treatment(05/31/15 [facility] )) Genitourinary: Reports: UTI Neuro/Psych: Reports: None, Other (hx eulalia psychosis(05/31/15 [facility])) Musculoskeletal: Reports: Arthritis (osteoarthritis), Back Pain (L1 comp fracture without malignancy(05/31/15 [facility])with kyphoplasty(05/31/15 [facility])), Other (leg pain) Cancer: Reports: None Last Menstrual Period: none - Surgical History General Surgical History: Reports: Back Surgery, Other (URINARY SURGERY,) - Family History Family History: Reports: Unknown - Social History Smoking Status: Former smoker Hx Substance Use: No Alcohol Screening: None - Immunizations Tetanus Shot up to Date: Yes Physical Exam - Physical Exam Appearance: Well-appearing, No pain distress, Well-nourished Eyes: CATHLEEN, EOMI, Conjunctiva clear ENT: Ears normal, Nose normal, Oropharynx normal Respiratory: Airway patent, Breath sounds clear, Breath sounds equal, Respirations nonlabored Cardiovascular: RRR, Pulses normal, No rub, No murmur GI/: Soft, Nontender, No masses, Bowel sounds normal, No Organomegaly Musculoskeletal: Limited ROM (HIP PAIN RIGHT SIDED ), Limited strength (RIGHT HIP) Skin: Warm, Dry ( ABRASION ARMS ) Neurological: Sensation intact, Motor intact, Reflexes intact, Cranial nerves intact, Alert, Oriented Psychiatric: Affect appropriate, Mood appropriate Procedures - IV/Art Line Insertion Location: LEFT E/J Type of Line: External Jugular Invasive Line/IV Catheter Gauge: 20 Number of Attempts: 1 Blood Return Positive: Yes Invasive Line/IV Flushes Without Difficulty: Yes (PRESENT ADE[place] AND FAMILY ) Physician Notification - Case Discussed Physician Notified: RODRÍGUEZ Love Time of Notification: 13:26 (TRANSFER ) Physician Notified: KRISTIAN FERREIRA Time of Notification: 13:26 Critical Care Note - Critical Care Note Total Time (mins): 0 Course - Course Hematology/Chemistry: 12/26/17 13:55 Orders, Labs, Meds: Lab Review 12/26/17 13:55 WBC 11.97 H RBC 3.83 L Hgb 11.8 L Hct 36.5 L MCV 95.3 MCH 30.8 MCHC 32.3 RDW Coeff of [place] 15.0 H Plt Count 141 Immature Gran % (Auto) 0.5 Neut % (Auto) 83.6 Lymph % (Auto) 8.6 L [place] % (Auto) 6.3 Eos % (Auto) 0.8 Baso % (Auto) 0.2 Immature Gran # (Auto) 0.1 Neut # (Auto) 10.0 H Lymph # (Auto) 1.0 [place] # (Auto) 0.8 Eos # (Auto) 0.1 Baso # (Auto) 0.0 Orders Category Date Time Status ABG Stat LAB 12/26/17 11:16 Ordered CBC W/ AUTO DIFF Stat LAB 12/26/17 13:55 Completed COMPREHENSIVE METABOLIC PANEL Stat LAB 12/26/17 13:55 Received CREATINE KINASE Stat LAB 12/26/17 13:55 Received TROPONIN I Stat LAB 12/26/17 13:55 Received Hydrocodone Bit/Acetaminophen [[place] 10-325] MEDS 12/26/17 11:16 Discontinued 1 tab PO ONCE STA CT CERVICAL SPINE W/O CONTRAST Stat RADS 12/26/17 11:[address] CHEST W/O CONTRAST Stat RADS 12/26/17 11:[address] LUMBAR SPINE W/O CONTRAST Stat RADS 12/26/17 11:[address] PELVIS W/O CONTRAST Stat RADS 12/26/17 11:[address] THORACIC SPINE W/O CONTRAST Stat RADS 12/26/17 11:14 Completed FEMUR, RIGHT 2 VIEWS Stat RADS 12/26/17 11:16 Completed Medications Discontinued Medications Generic Name Dose Route Start Last Admin Trade Name Freq PRN Reason Stop Dose Admin Hydrocodone Bitart/Acetaminophen 1 tab 12/26/17 11:16 12/26/17 11:22 [place] 10-325 PO 12/26/17 11:17 1 tab ONCE STA Administration Vital Signs: Temp Pulse Resp BP Pulse Ox 12/26/17 10:54 98.3 F 89 14 152/75 H 80 L Departure - Departure Time of Disposition: 13:24 (FAMILY DECLINED ABF) Disposition: TSF SHORT-TRM HOSP Discharge Problem: Hip fracture Qualifiers: Encounter type: initial encounter Fracture type: closed Laterality: right Qualified Code(s): S72.001A - Fracture of unspecified part of neck of right femur, initial encounter for closed fracture Instructions: Hip Fracture (ED) Condition: Good Pt referred to PMD for follow-up: Yes IPMP verified?: No Additional Instructions: Please call your Family Physician as soon as possible to schedule a follow-up appointment. Allergies/Adverse Reactions: Allergies aspirin Allergy (Mild, Unverified 08/18/17 11:29) Vomiting codeine Allergy (Mild, Unverified 08/18/17 11:29) Vomiting NSAIDS (Non-Steroidal Anti-Inflamma Allergy (Mild, Unverified 08/18/17 11:29) Vomiting Sulfa (Sulfonamide Antibiotics) Allergy (Mild, Unverified 08/18/17 11:29) Unknown Blisters in mouth Home Medications: Ambulatory Orders Albuterol Sulfate 0.083% Neb [Albuterol 0.083% Neb] 0.083 vial IH Q6H PRN Hydrocodone/Acetaminophen [[place] 10-325 Tablet] 1 each PO Q6H PRN 11/18/16 Ferrous Sulfate 45 mg PO DAILY #30 tablet 09/23/17 Levofloxacin [Levaquin] 500 mg PO DAILY #6 tablet 09/23/17
[2017-12-26] MEDS ORDERED: SODIUM CHLORIDE 500 ML IV STA (13:29)
== END 2017-12-26 13:45 | disposition short-term general hospital (02) ==
LOC: ED 10:54
DX: S72.141A Displaced intertrochanteric fracture of right femur, initial encounter for closed fracture (principal); M54.2 Cervicalgia; M54.9 Dorsalgia, unspecified; S40.812A Abrasion of left upper arm, initial encounter; S40.811A Abrasion of right upper arm, initial encounter; W19.XXXA Unspecified fall, initial encounter; R06.9 Unspecified abnormalities of breathing
CPT/HCPCS: 36415; 80053; 82550; 84484; 85025; 96360; 96361; 99285

== ENCOUNTER 2017-12-30 15:50 | Outpatient (CLI) | payer OTHER ==
[2017-12-30 18:36] VITALS: BMI 18.6
== END 2017-12-30 16:13 | disposition short-term general hospital (02) ==
LOC: AMBL 15:50
PROVIDERS: ATTEND Emergency Medicine
DX: S72.001D Fracture of unspecified part of neck of right femur, subsequent encounter for closed fracture with routine healing (principal); W19.XXXD Unspecified fall, subsequent encounter; Z98.890 Other specified postprocedural states

== ENCOUNTER 2017-12-30 16:25 | Inpatient (IN) ==
[2017-12-30] MEDS ORDERED: ZOFRAN TAB PO PRN (17:48)
[2017-12-30] MEDS: XARELTO PO SCH (18:20)
[2017-12-30 18:36] VITALS: BMI 18.6
[2017-12-30] MEDS: NORCO 5-325 PO PRN (20:56)
[2017-12-30] MEDS: MUCINEX PO SCH (20:56)
[2017-12-30] MEDS: SYMBICORT 160-4.5 MCG INHALER IH SCH (20:57)
[2017-12-30] MEDS ORDERED: NON-FORMULARY MEDICATION (Olanzapine [Zyprexa] 20 MG) PO SCH (21:00)
[2017-12-30] MEDS ORDERED: ZYPREXA ONE (21:00)
[2017-12-30] MEDS ORDERED: ZANTAC PO SCH (21:00)
[2017-12-31] MEDS: NORCO 5-325 PO PRN ×4 (01:12→23:37)
[2017-12-31] MEDS ORDERED: DULCOLAX PO PRN (09:00)
[2017-12-31] MEDS: ZYPREXA PO SCH ×2 (09:39→20:33)
[2017-12-31] MEDS: SYNTHROID PO SCH (10:16)
[2017-12-31] MEDS: ZOLOFT PO SCH (10:16)
[2017-12-31] MEDS: MUCINEX PO SCH ×2 (10:16→20:33)
[2017-12-31] MEDS: FERROUS SULFATE PO SCH (10:16)
[2017-12-31] MEDS: ZANTAC PO SCH ×2 (10:16→17:54)
[2017-12-31] MEDS: SYMBICORT 160-4.5 MCG INHALER IH SCH ×2 (10:17→20:33)
--- NOTE | 2017-12-31 11:01 | RS.OTINEVL ---
Subjective - Patient information Date of Evaluation: 12/31/17 Date of Arrival on Unit: 12/30/17 Admitted From:: Facility Transfer Usual Living Arrangement: With Spouse Living Arrangement Comments: Lives with spouse Home Environment: House, Stairs (few), Rail Medical History: Hypertension, COPD Medical History Comments:: tonsillectomy, hysterectomy, bladder surgery, ERCP, Glaucoma, Liver disease, hypothyroid, L1 compression fracture. Surgical History Comments:: hysterectomy, ERCP, Bladders surgery, Right hip surgery-nail Subjective Information/ Patient Comments:: It's an 02/18. - Level of function Prior to this admission, the patient could do the following:: Independent Selfcare, Independent ADL's, Partially Dependent Ambulation Abilities prior to this admission: Pt lives at home with her . He takes care of her. He does the cooking, laundry, and helps her with bathing. Current Level of Function: Partially Dependent Current Equipment Used at Home: walker, wheelchair, oxygen at night at home on 2L [place], nebulizer, bedside commode, shower chair Pain Assessment - Pain Pain Score: 8 Side: right Pain Location Body Site: Hip Pain Aggravating Factors: ADL's, Changing Position, Standing, Sitting, Walking Pain Alleviating Factors: Medication, Position Change Interventions - Objective Patient Orientation: Person, Place, Time, Situation Current Interventions: IV's, Oxygen, Telemetry Observation: Pt is weak and requires 2 people minimal assistance to transfer with rolling walker. Interventions - ROM Right Upper Extremity AROM: WFL's Left Upper Extremity AROM: WFL's - Strength Right Upper Extremity Strength: Mild Weakness Left Upper Extremity Strength: Mild Weakness - Sensation Right Upper Extremity Sensation: Intact/Normal Left Upper Extremity Sensation: Intact/Normal Balance - Sitting Balance Static Sitting Balance: Fair Dynamic Sitting Balance: Fair - Standing Balance Static Standing Balance: Poor Dynamic Standing Balance: Poor - Comments Balance Assessment Comments: Poor ADL Skills - Self Feeding Self Feeding: Independent - Grooming Grooming: Min Assist - Bathing Bathing LE: Max Assist - Dressing Dressing UE: Min Assist Dressing LE: Max Assist - Toilet Management Toileting Management: Mod Assist Functional Mobility - Bed Mobility Rolling R/L: Independent Scooting: Independent Supine to Sit: Independent Sit to Supine: Min Assist - Transfers Sit to Stand: Min Assist, 2 person assist Stand to Sit: Min Assist, 2 person assist Stand Pivot Transfers: Min Assist, 2 person assist - Ambulation Weight Bearing Status: FWB Assistive Device Used: Rolling Walker Assistance needed with Ambulation: Min Assist, 2 person assist - Safety Awareness Safety Awareness: Fair [place] INDEX SCORE: 55 Additional Treatment Performed - Additional units charged ADL: 15 - Time with patient Total treatment time: 30 Activities Do you have difficulty with your vision?: No Patient Interests:: Watching Television, Visiting/Socializing Patient Education Patient Education: Education of diagnosis, Home Exercise Program, Home Safety, Education of Plan of Care Teaching Recipient: Patient Teaching Methods: Teach Back Method Used, Discussion, Demonstration Assessment Problem List:: Decreased level of function, Requires training/education, Decreased safety/Risk of falls, Pain limits previous level of function Rehab Potential: Good Further Therapy Indicated?: Yes Candidate for Swing Bed for Therapy Services?: yes Evaluation Complexity: HISTORY: Medium, EXAM OF BODY SYSTEMS: Medium, CLINICAL DECISION MAKING: Medium Short Term Goals - Goals GOAL 1: Pt to increase BUE strength to 4/5. Goal to be met by: 01/07/18 GOAL 2: Pt to tolerate 10 minutes of sink level ADLS with O2. Goal to be met by: 01/07/18 GOAL 3: Pt to be independent with Home exercise programs. Goal to be met by: 01/07/18 GOAL 4: Pt to increase dynamic std. balance to Good. Goal to be met by: 01/07/18 Care Home Goals GOAL 1: Pt to increase BUE strength to 4+/5. Goal to be met by: 01/14/18 GOAL 2: Pt to tolerate 15 minutes of sink level ADLS with O2. Goal to be met by: 01/14/18 GOAL 3: Pt to tolerate 15 minutes of standing activity with Good balance. Goal to be met by: 01/14/18 Plan Plan of Care: Therapeutic EX, Neuromuscular Re-Educ, Therapeutic Activity, Self- Care/Home Management Frequency of Treatment: 1-2 X day, as tolerated Duration of Treatment: 2 Weeks Anticipated Discharge Destination: Home Treatment Diagnosis (ICD 10 Codes): M62.81 Muscle Weakness Has the Physician been added for Co-signature?: Yes
--- NOTE | 2017-12-31 11:21 | RS.PTINEVL ---
Subjective - Patient information Date of Evaluation: 12/31/17 Date of Arrival on Unit: 12/30/17 Admitted From:: Facility Transfer (swing bed) Diagnosis: R hip fx s/p ORIF Usual Living Arrangement: With Spouse Living Arrangement Comments: Lives with spouse Home Environment: House, Stairs (few), Rail Medical History: Hypertension, COPD Medical History Comments:: glaucoma, Hepatitis C, L1 compression fx LATEX ALLERGY?: No Surgical History: Lumbar Spine, Cholecystectomy, Hysterectomy Surgical History Comments:: ERCP, Bladders surgery, Medications: see chart Subjective Information/ Patient Comments:: pt states that she is SOA today. pt somewhat confused regarding situation, alert and oriented x person and place. pt states she tripped over her dog and broke her hip. - Level of function Prior to this admission, the patient could do the following:: Independent Selfcare, Independent ADL's, Partially Dependent Ambulation Current Level of Function: Partially Dependent Current Equipment Used at Home: walker, wheelchair, oxygen at night at home on 2L [place], nebulizer, bedside commode, shower chair Pain Assessement - Location R hip Description: Sharp, Acute Pain Behavior: Facial Grimacing Pain Aggravating Factors: ADL's, Changing Position, Exercise/Activity, Walking Pain Alleviating Factors: Medication Interventions - Objective Patient Orientation: Person, Place Current Interventions: IV's, Oxygen (2 liters) Range of Motion - ROM Right Upper Extremity AROM: WFL's Left Upper Extremity AROM: WFL's Right Lower Extremity AROM: Slight limitation (limited R hip due to fx and s/p ORIF) Left Lower Extremity AROM: WFL's Muscle Strength - Muscle Strength Right Upper Extremity Strength: Mild Weakness (grossly 4-/5) Left Upper Extremity Strength: Mild Weakness (grossly 4-/5) Right Lower Extremity Strength: Mild Weakness (hip flex 3/5, knee flex/ext 3+/5 , ankle Df/PF 4-/5) Left Lower Extremity Strength: Mild Weakness (grossly 4/5) Sensation - Sensation Right Upper Extremity Sensation: Intact/Normal Left Upper Extremity Sensation: Intact/Normal Right Lower Extremity Sensation: Intact/Normal Left Lower Extremity Sensation: Intact/Normal Palpation Palpation Findings: Tenderness (R hip) Balance - Sitting Balance and Reactions Static Sitting Balance: Fair Dynamic Sitting Balance: Poor Sitting Equilibrium Reactions: Delayed Left, Delayed Right Sitting Protective Reactions: Delayed Left, Delayed Right - Standing Balance and Reactions Static Standing Balance: Poor Dynamic Standing Balance: Poor Standing Equilibrium Reactions: Delayed Left, Delayed Right Standing Protective Reactions: Delayed Left, Delayed Right Functional Mobility - Bed Mobility Rolling R/L: Min Assist Scooting: Min Assist Supine to Sit: Min Assist - Transfers Sit to Stand: Min Assist Stand to Sit: Min Assist - Safety Awareness Safety Awareness: Poor [place] INDEX SCORE: 55 Ambulation - Ambulation Assistive Device Used: Rolling Walker Orthotic/Prosthetic Device: No Distance: 20ft Assistance needed with Ambulation: Min Assist, 2 person assist Gait Deviations: Forward posture, Short stride Ambulation Comments: pt c/o increased SOA with amb and anxiety which limits amb. Factors Affecting Ambulation: Decreased Balance, Breathing/O2 Saturation, Weakness, Decreased Safety, Cognitive Status, Limited Endurance Treatment time - Units charged Gait trainin - Time with patient Total treatment time: 31 Patient Education - Education Patient Education: Activity Modification, Education of Plan of Care Teaching Recipient: Patient Teaching Methods: Discussion (discussion regarding POC as well as demonstrated PLB pt requires multiple vc for PLB), Demonstration Assessment - Assessment Problem List:: Decreased level of function, Requires training/education, Decreased safety/Risk of falls, Weakness, Pain limits previous level of function , Cognitive status limits abilities Rehab Potential: Good Further Therapy Indicated?: Yes Candidate for Swing Bed for Therapy Services?: pt is currently swing bed patient Evaluation Complexity: HISTORY: Medium (COPD, hip fx, hep c), EXAM OF BODY SYSTEMS: Medium (gait, pain, balance, strength), CLINICAL PRESENTATION: Medium ( evolving), CLINICAL DECISION MAKING: Medium Short Term Goals GOAL #1: pt transfer sup to/from sit to/from stand CGA Goal to be met by: 01/05/18 GOAL #2: pt amb with RWX 75ft with O2 with CGA and no LOB Goal to be met by: 01/05/18 GOAL #3: pt independent with rolling and scooting in bed with bedrails Goal to be met by: 01/05/18 GOAL #4: pt demonstrate improved dyn stand balance as noted by no LOB with gait Goal to be met by: 01/05/18 Prison Goals GOAL #1: pt transfer sup to/from sit to/from stand independently Goal to be met by: 01/10/18 GOAL #2: pt amb functional household distances with rwx with O2 with no LOB SBA Goal to be met by: 01/10/18 GOAL #3: pt demonstrate improved strength BLE 4 to 4+/5 and independent with HEP Goal to be met by: 01/10/18 Plan Plan of Care: Therapeutic EX, Therapeutic Activity Other:: gait training Frequency of Treatment: 1-2 X day, as tolerated Duration of Treatment: 10 days Anticipated Discharge Destination: Home Treatment Diagnosis (ICD 10 Codes): R 26.81 balance impaired. M 62.81 general weakness Has the Physician been added for Co-signature?: Yes
[2017-12-31] MEDS: XARELTO PO SCH (17:54)
[2018-01-01] MEDS: SYNTHROID PO SCH (05:49)
[2018-01-01] MEDS: ZANTAC PO SCH ×2 (05:49→16:35)
[2018-01-01] MEDS: SYMBICORT 160-4.5 MCG INHALER IH SCH ×2 (08:49→20:52)
[2018-01-01] MEDS: ZOLOFT PO SCH (08:49)
[2018-01-01] MEDS: MUCINEX PO SCH ×2 (08:50→20:53)
[2018-01-01] MEDS: FERROUS SULFATE PO SCH (08:50)
[2018-01-01] MEDS: NORCO 5-325 PO PRN ×3 (10:01→20:53)
[2018-01-01] MEDS: XARELTO PO SCH (16:35)
[2018-01-01] MEDS: ZYPREXA PO SCH (20:52)
[2018-01-02] MEDS: NORCO 5-325 PO PRN ×4 (04:21→23:10)
[2018-01-02] MEDS: ZANTAC PO SCH ×2 (06:07→16:35)
[2018-01-02] MEDS: SYNTHROID PO SCH (06:07)
[2018-01-02] MEDS: SYMBICORT 160-4.5 MCG INHALER IH SCH ×2 (08:50→20:57)
[2018-01-02] MEDS: FERROUS SULFATE PO SCH (08:50)
[2018-01-02] MEDS: ZOLOFT PO SCH (08:51)
[2018-01-02] MEDS: MUCINEX PO SCH ×2 (08:51→20:58)
[2018-01-02] MEDS: XARELTO PO SCH (16:35)
[2018-01-02] MEDS: ZYPREXA PO SCH (20:57)
[2018-01-03] MEDS: ZANTAC PO SCH ×2 (06:13→17:03)
[2018-01-03] MEDS: SYNTHROID PO SCH (06:13)
[2018-01-03] MEDS: SYMBICORT 160-4.5 MCG INHALER IH SCH ×2 (09:21→21:37)
[2018-01-03] MEDS: MUCINEX PO SCH ×2 (09:21→21:37)
[2018-01-03] MEDS: FERROUS SULFATE PO SCH (09:21)
[2018-01-03] MEDS: ZOLOFT PO SCH (09:22)
[2018-01-03] MEDS: NORCO 5-325 PO PRN ×3 (09:27→23:18)
[2018-01-03] MEDS: XARELTO PO SCH (17:03)
[2018-01-03] MEDS: ZYPREXA PO SCH (21:37)
[2018-01-04] MEDS: SYNTHROID PO SCH (05:47)
[2018-01-04] MEDS: ZANTAC PO SCH ×2 (05:47→18:07)
[2018-01-04] MEDS: MUCINEX PO SCH ×2 (08:21→21:12)
[2018-01-04] MEDS: ZOLOFT PO SCH (08:21)
[2018-01-04] MEDS: SYMBICORT 160-4.5 MCG INHALER IH SCH ×2 (08:21→21:11)
[2018-01-04] MEDS: FERROUS SULFATE PO SCH (08:21)
[2018-01-04] MEDS ORDERED: LACTULOSE PO SCH (09:00)
[2018-01-04] MEDS: NORCO 5-325 PO PRN ×2 (10:40→18:00)
[2018-01-04] MEDS: XARELTO PO SCH (18:07)
[2018-01-04] MEDS: ZYPREXA PO SCH (21:11)
[2018-01-05] MEDS: SYNTHROID PO SCH (05:42)
[2018-01-05] MEDS: ZANTAC PO SCH ×2 (05:42→16:17)
[2018-01-05] MEDS: NORCO 5-325 PO PRN ×2 (06:00→12:17)
[2018-01-05] MEDS: FERROUS SULFATE PO SCH (08:04)
[2018-01-05] MEDS: SYMBICORT 160-4.5 MCG INHALER IH SCH ×2 (08:04→20:14)
[2018-01-05] MEDS: MUCINEX PO SCH ×2 (08:04→20:15)
[2018-01-05] MEDS: ZOLOFT PO SCH (08:04)
[2018-01-05] MEDS: LACTULOSE PO SCH (10:41)
[2018-01-05] MEDS: XARELTO PO SCH (16:17)
[2018-01-05] MEDS: ZYPREXA PO SCH (20:16)
[2018-01-06] MEDS: ZANTAC PO SCH ×2 (05:41→17:25)
[2018-01-06] MEDS: SYNTHROID PO SCH (05:42)
[2018-01-06] MEDS: SYMBICORT 160-4.5 MCG INHALER IH SCH ×2 (08:30→20:15)
[2018-01-06] MEDS: ZOLOFT PO SCH (08:30)
[2018-01-06] MEDS: LACTULOSE PO SCH (08:30)
[2018-01-06] MEDS: MUCINEX PO SCH ×2 (08:30→20:16)
[2018-01-06] MEDS: FERROUS SULFATE PO SCH (08:30)
[2018-01-06] MEDS: NORCO 5-325 PO PRN ×2 (12:56→16:55)
[2018-01-06] MEDS: XARELTO PO SCH (17:25)
[2018-01-06] MEDS: ZYPREXA PO SCH (20:16)
[2018-01-07] MEDS: ZANTAC PO SCH ×2 (05:56→17:48)
[2018-01-07] MEDS: SYNTHROID PO SCH (05:56)
[2018-01-07] MEDS: NORCO 5-325 PO PRN ×3 (06:25→20:23)
[2018-01-07] MEDS: FERROUS SULFATE PO SCH (08:50)
[2018-01-07] MEDS: LACTULOSE PO SCH (08:50)
[2018-01-07] MEDS: MUCINEX PO SCH ×2 (08:50→20:23)
[2018-01-07] MEDS: SYMBICORT 160-4.5 MCG INHALER IH SCH ×2 (08:51→20:24)
[2018-01-07] MEDS: ZOLOFT PO SCH (08:51)
[2018-01-07] MEDS: XARELTO PO SCH (17:48)
[2018-01-07] MEDS: ZYPREXA PO SCH (20:23)
[2018-01-08] MEDS: NORCO 5-325 PO PRN ×4 (03:44→23:16)
[2018-01-08] MEDS: ZANTAC PO SCH ×2 (06:26→16:49)
[2018-01-08] MEDS: SYNTHROID PO SCH (06:26)
[2018-01-08] MEDS: MUCINEX PO SCH ×2 (10:06→20:09)
[2018-01-08] MEDS: ZOLOFT PO SCH (10:06)
[2018-01-08] MEDS: SYMBICORT 160-4.5 MCG INHALER IH SCH ×2 (10:06→20:06)
[2018-01-08] MEDS: LACTULOSE PO SCH (10:06)
[2018-01-08] MEDS: FERROUS SULFATE PO SCH (10:06)
[2018-01-08] MEDS: XARELTO PO SCH (16:49)
[2018-01-08] MEDS: ZYPREXA PO SCH (20:09)
[2018-01-09] MEDS: SYNTHROID PO SCH (06:00)
[2018-01-09] MEDS: ZANTAC PO SCH ×2 (06:00→17:10)
[2018-01-09] MEDS: LACTULOSE PO SCH (08:49)
[2018-01-09] MEDS: FERROUS SULFATE PO SCH (08:49)
[2018-01-09] MEDS: SYMBICORT 160-4.5 MCG INHALER IH SCH ×2 (08:49→20:11)
[2018-01-09] MEDS: ZOLOFT PO SCH (08:50)
[2018-01-09] MEDS: MUCINEX PO SCH ×2 (08:50→20:08)
--- NOTE | 2018-01-09 10:59 | DI ---
EXAM: Two views of the chest. History: Short of breath Comparison: Chest radiograph 06/16/2017, chest CT 12/26/2017 Findings: Atherosclerotic vascular calcifications. Heart size is normal. Emphysema. Scattered are as of subsegmental atelectasis and scarring. No definite acute infiltrates. No appreciable pleural fluid and no pneumothorax. Visualized osseous structures unchanged with kyphoplasties again seen. Impression: No definite acute infiltrates. Chronic obstructive pulmonary disease.
[2018-01-09] MEDS: NORCO 5-325 PO PRN ×2 (13:39→18:40)
[2018-01-09] MEDS: XARELTO PO SCH (17:10)
[2018-01-09] MEDS: ZYPREXA PO SCH (20:08)
[2018-01-10] MEDS: NORCO 5-325 PO PRN ×3 (03:06→22:21)
[2018-01-10] MEDS: ZANTAC PO SCH ×2 (05:40→17:56)
[2018-01-10] MEDS: SYNTHROID PO SCH (05:41)
[2018-01-10] MEDS: SYMBICORT 160-4.5 MCG INHALER IH SCH ×2 (08:51→21:11)
[2018-01-10] MEDS: FERROUS SULFATE PO SCH (08:51)
[2018-01-10] MEDS: MUCINEX PO SCH ×2 (08:51→21:10)
[2018-01-10] MEDS: ZOLOFT PO SCH (08:51)
[2018-01-10] MEDS: LACTULOSE PO SCH (08:51)
[2018-01-10] MEDS: XARELTO PO SCH (17:56)
[2018-01-10] MEDS: ZYPREXA PO SCH (21:10)
[2018-01-11] MEDS: ZANTAC PO SCH ×2 (05:50→16:52)
[2018-01-11] MEDS: SYNTHROID PO SCH (05:51)
[2018-01-11] MEDS: SYMBICORT 160-4.5 MCG INHALER IH SCH ×2 (08:06→20:08)
[2018-01-11] MEDS: ZOLOFT PO SCH (08:06)
[2018-01-11] MEDS: LACTULOSE PO SCH (08:06)
[2018-01-11] MEDS: FERROUS SULFATE PO SCH (08:06)
[2018-01-11] MEDS: MUCINEX PO SCH ×2 (08:06→20:08)
[2018-01-11] MEDS: NORCO 5-325 PO PRN ×2 (13:38→20:08)
[2018-01-11] MEDS: XARELTO PO SCH (16:52)
[2018-01-11] MEDS: ZYPREXA PO SCH (20:08)
[2018-01-12] MEDS: NORCO 5-325 PO PRN ×3 (00:15→18:31)
[2018-01-12] MEDS: SYNTHROID PO SCH (05:37)
[2018-01-12] MEDS: ZANTAC PO SCH ×2 (05:37→16:45)
[2018-01-12] MEDS: FERROUS SULFATE PO SCH (08:49)
[2018-01-12] MEDS: ZOLOFT PO SCH (08:49)
[2018-01-12] MEDS: SYMBICORT 160-4.5 MCG INHALER IH SCH ×2 (08:50→20:23)
[2018-01-12] MEDS: MUCINEX PO SCH ×2 (08:50→20:23)
[2018-01-12] MEDS: LACTULOSE PO SCH (08:50)
[2018-01-12] MEDS: XARELTO PO SCH (16:45)
[2018-01-12] MEDS: ZYPREXA PO SCH (20:23)
[2018-01-13] MEDS: ZANTAC PO SCH (05:33)
[2018-01-13] MEDS: SYNTHROID PO SCH (05:34)
[2018-01-13 06:05] VITALS: BP 106/60; TEMP 98.6
[2018-01-13] MEDS: LACTULOSE PO SCH ×2 (08:05→08:07)
[2018-01-13] MEDS: SYMBICORT 160-4.5 MCG INHALER IH SCH (08:05)
[2018-01-13] MEDS: MUCINEX PO SCH (08:05)
[2018-01-13] MEDS: ZOLOFT PO SCH (08:05)
[2018-01-13] MEDS: FERROUS SULFATE PO SCH (08:05)
[2018-01-13] MEDS: NORCO 5-325 PO PRN (13:57)
--- NOTE | 2018-01-19 12:50 | PN ---
DATE OF SERVICE: 12/31/17 SUBJECTIVE: The patient is alert, responsive with movement of all extremities. The patient' s first question is "when he is going home". I told her that I did but we have to complete the physical therapy and rehabilitation before we can consider going home. Initial labs on 12/31/17 showed a normal WBC 6.74, RBC 2.45, hemoglobin 7.4, hematocrit 23.1. Platelet count 131. TSH 2.326, normal. Hemoglobin the next day was 7.8 so the idea of transfusion was dropped at this time. The patient did not eat very much of the meals today. OBJECTIVE: Lungs are about the same. Heart is normal sinus rhythm. Dressing on the right lateral thigh is in place and dry. Lungs have diminished breath sounds with few rales at the bases. No wheezing. No change from yesterday. Abdomen soft and nontender. Lower extremities have no significant edema in the right lower extremity with fracture. MTDD
--- NOTE | 2018-01-19 12:55 | PN ---
DATE OF SERVICE: 01/01/18 SUBJECTIVE: The hemoglobin today is 7.8. She consumed about 50% of dinner. She voided twice but no bowel movement. She weighed 91 lbs today and 7 ozs. General appearance is about the same. This patient appears to be slightly tachypneic even with nasal oxygen. MTDD
--- NOTE | 2018-01-19 12:57 | PN ---
DATE OF SERVICE: 01/02/18 SUBJECTIVE: The patient is alert, oriented times four. OBJECTIVE: Vital signs at 1735 hours 01/02/18 showed a temperature of 97.6, pulse 103, blood pressure 119/66, oxygen saturation 90 on room air, respiratory rate 16. No labs were done today. CONDITION: Stable. MTDD
--- NOTE | 2018-01-19 13:00 | PN ---
DATE OF SERVICE: 01/03/18 SUBJECTIVE: The patient is alert and oriented. She again wanted to know when she is going home or if she is going home today. I told her again that she is not going home yet until physical therapy and rehabilitation is completed. The patient did eat 90% of her meals today. OBJECTIVE: The patient is still pale and weak looking. Lungs still have diminished breath sounds with a few rales at the bases. No wheezing. Heart is audible and regular. Abdomen nontender. Conjunctivae pale. CONDITION: Stable. MTDD
--- NOTE | 2018-01-19 13:05 | PN ---
DATE OF SERVICE: 01/04/18 SUBJECTIVE: The patient is alert and oriented using nasal oxygen. OBJECTIVE: Temperature at 5:17 p.m. was not recorded. Pulse 96, BP 116/64, respiratory rate 20, oxygen saturation 98% on 2L/oxygen. Lungs still have markedly diminished breath sounds with few rales at the bases. No wheezing. Heart is audible and regular with good tones. Abdomen unremarkable. Legs have no tenderness in the calf muscles. The area of surgery is dry with intact dressing. The patient's hemoglobin today came down to 7.1 from 7.8 on 01/01/18. It was felt that this patient probably would benefit from a transfusion so 2 units of packed red cells were ordered. She will be transfused one pack of red cells a day instead of continuous. The patient received one unit on the and her hemoglobin did go up to 8.5 from 7.1, hematocrit went up to 6.6 from 23.3. She is still pale. Essentially unchanged. Heart is audible and regular with good tones. The patient tolerated the transfusion without any reaction. CALLIED
--- NOTE | 2018-01-19 13:12 | PN ---
DATE OF SERVICE: 01/05/18 SUBJECTIVE: The patient received another unit of transfusion and the hemoglobin now at 6:19 p.m. on 01/05/18 is 10.3. Hematocrit is at 32.3. Lungs still have a few rales at the bases. No wheezing. Heart is normal sinus rhythm. No abdominal pain. The patient denies any pain in the area of surgery that is significant. The dressing is dry. MTDD
--- NOTE | 2018-01-19 13:17 | PN ---
DATE OF SERVICE: 01/06/18 SUBJECTIVE: The patient is alert, still wanting to go home and asking the same question, when is she going home. Again, I told her that it would be after the physical therapy is completed and we would have to talk to her as well as her sister as to where she would be going after this hospitalization. OBJECTIVE: Vital signs at 5:59 p.m. at 01/06/18 showed temperature 98.7, pulse 88, BP 122/68 , respiratory rate 18, oxygen saturation 96 on 2L of oxygen. She consumed 25% of her meals. The patient is encouraged to eat more since that would make her stronger. Heart is normal sinus rhythm. There is no significant swelling in both legs and no tenderness to palpation in the calf muscles. MTDD
--- NOTE | 2018-01-19 13:22 | PN ---
DATE OF SERVICE: 01/07/18 SUBJECTIVE: The patient is alert and responsive. OBJECTIVE: Vital signs in the afternoon at 5:43 p.m. showed temperature 98.5, pulse 98, BP 132/66, respiratory rate 20, oxygen saturation 97 on 2L of nasal oxygen. Lungs essentially the same findings. Breath sounds are diminished with a few rales at the bases. No wheezing. Heart normal sinus rhythm and not tachycardic. No murmurs. Abdomen is flat and soft, no remarkable tenderness with active bowel sounds. She did consume about 60% of her lunch. LABS: Today showed hemoglobin of 9.8, hematocrit 30.5, WBC normal 7.74 and platelet count 248. Electrolytes very slightly lower potassium and higher chlorides. Renal panel normal. Alkaline phosphatase elevated probably secondary to the fracture. MTDD
--- NOTE | 2018-01-19 13:25 | PN ---
DATE OF SERVICE: 01/08/18 SUBJECTIVE: The patient is alert and still asking question of when she is going home. She did eat 50% of her dinner. She has movement of all extremities. She still has two liters of nasal oxygen. Lung findings are about the same. Heart is audible and regular with good tones. Vital signs at 5:18 p.m. No change in physical findings as of yesterday. SUKUMAR
--- NOTE | 2018-01-19 13:29 | PN ---
DATE OF SERVICE: 01/09/18 SUBJECTIVE: The patient is alert and responsive. She eats about 80% of meals. Blood pressure 112/62 at 6 p.m. on 01/09/18. Temperature 98.2, pulse 102, respiratory rate 20, oxygen saturation 94 on 2L. The patient does have movement of all extremities. She is still continuing her physical and occupational therapy. Condition is stable. [facility]
--- NOTE | 2018-01-19 13:32 | PN ---
DATE OF SERVICE: 01/10/18 SUBJECTIVE: The patient's temperature 97.9 at 6 p.m. 01/10/18, pulse 98, BP 116/62, oxygen saturation 96 on 2L of oxygen. Lungs still have rales at the bases but few. No expiratory wheezing. Heart is audible with good tones. She ate about the same amount of food, 50% of dinner. This patient is encouraged to eat a good amount of meals and explained it to her. TIME SPENT: More than 35 minutes MTDD
--- NOTE | 2018-01-19 13:44 | PN ---
DATE OF SERVICE: 01/11/18 SUBJECTIVE: The patient is alert with movement of all extremities. She is cooperative. She ate 95% of her dinner today. OBJECTIVE: Vital signs at 6 p.m. showed a temperature 97.7, pulse 79, blood pressure 125/63 , respiratory rate 16, oxygen saturation 97 on 2L. No significant edema. No tenderness in the calf muscles. MTDD
--- NOTE | 2018-01-19 13:47 | PN ---
DATE OF SERVICE: 01/12/18 SUBJECTIVE: The patient is alert with movement of all extremities. OBJECTIVE: 5:55 p.m. - vital signs: Temperature 98, pulse 92, BP 110/57, respiratory rate 18, oxygen saturation 97 on 2L. Lungs have rales at the bases. Heart normal sinus rhythm. Will discuss post hospitalization placement for this patient tomorrow with the family. SUKUMAR
--- NOTE | 2018-01-19 13:55 | PN ---
DATE OF SERVICE: 01/13/18 SUBJECTIVE: Discussion with patient and sister Hiral. I talked with Hiral and she told me that it is set now that she has to go home. It is not affordable for her to go to a custodial so she will be going home. The physical therapy has released her 01/11/18. This patient will then be discharged today to home with Home Health, see if this would be adequate. OBJECTIVE: Lungs have diminished breath sounds, fairly clear except for a few rales at the bases. Heart has a normal sinus rhythm. Abdomen is soft and nontender. Legs are nontender. PLAN: This patient will be given a prescription for Xarelto. She still has some pain medications at home so no new prescriptions were writtent for that. The patient is to resume all of her previous medications. She is to see me in about two weeks at the office or before if there is any problem or concerns. SUKUMAR
--- NOTE | 2018-01-19 14:38 | HP ---
DATE OF SERVICE: 12/30/17 CHIEF COMPLAINT: Admission transitional care post right hip surgery; open reduction and internal fixation. HISTORY OF PRESENT ILLNESS: The patient fell at home after tripping over her dog on 12/26/17. She was seen initially at [facility] Emergency Room and transferred to the [facility]. She was seen by Dr. Jovan Arteaga who did the surgery on 12/26/17. She was also seen by a silk screen etcher Dr. Herrera during the course of the hospitalization. The patient was transferred 12/30/17 to this facility after being judged stable. The patient's hgb and hct was decreased while at [facility], no blood transfusion. PAST PERSONAL HISTORY: The patient has been admitted to the hospital because of COPD with exacerbation. The patient has chronic respiratory problems with home oxygen. The patient was still smoking then however she had stopped now. She had right lower lobe pneumonitis in 2016. Hypothyroidism replaced. Thrombocytopenia, mild. History of lumbar compression fracture status post kyphoplasty. History of urinary tract infection with e-coli Possible speculated nodule of the left upper lobe to be followed by Dr. Herrera History of chronic hepatitis C, patient claimed that she was treated Acute blood loss during surgery Generalized weakness Appendectomy Cholecystectomy Hysterectomy Cataract extraction FAMILY HISTORY: Brother had COPD Sister had COPD and still smoking as well as coronary artery disease, [place]. Mother had congestive heart failure Father had liver problems SOCIAL HISTORY: The patient is and resides with her . She claimed to have stopped smoking and had not returned to habit. MEDICATIONS: Levothyroxine 50mcg daily Zoloft 50mg daily Zyprexa 20mg at bedtime Ranitidine 150mg twice a day Zofran 4mg tablet four times a day as needed ALLERGIES: Aspirin Codeine NSAIDS REVIEW OF SYSTEMS: CONSTITUTIONAL: The patient has no fever or chills but extremely fatigue and weak. TRANSITIONAL LIVING SPECIALIST: The patient is alert and responsive. She does back to sleep. Denies any headaches and had not had any seizure disorder or any syncopal episode. VISUAL: Denies any blurred vision, double vision or loss of vision. AUDITORY: The patient's hearing is decreased but denies any tinnitus or pain or drainage RESPIRATORY: The patient has some cough and shortness. On nasal oxygen and had been for some time. The patient claimed that she had stopped smoking completely CARDIOVASCULAR: She denies any chest pain or chest tightness. GASTROINTESTINAL: The patient's appetite is poor. Denies any problems swallowing solids or liquids. Denies any abdominal pain or diarrhea. MUSCULOSKELETAL: The patient has pain in the right hip from previous fracture that was recently corrected. ENDOCRINE: Negative INTEGUMENT: No rash or pleuritis HEMATOLOGIC: The patient has lost consider amount of blood and is severely anemic but no transfusion was given PSYCHIATRIC: The patient is responsive and appropriate PHYSICAL EXAMINATION: GENERAL: 67 year old female admitted to the hospital as transitional care post open reduction and internal fixation of right Intertrochanteric fracture. The patient is markedly pale but alert and responsive. She has movement of all extremities. VITAL SIGNS: Temperature 97.5, pulse 87, blood pressure 105/55, respiratory rate 20 and oxygen saturation 90 at 2 liters of oxygen. 5'0, 93 pounds and 4 ounces. HEAD: Unremarkable FACE: Symmetrical and equal with no facial weakness and no cyanosis. No remarkably tenderness to palpation under pressure in the frontal and maxillary sinus area. EYES: Pupils equal/reactive to light. Conjunctivae markedly pale. Sclerae not icteric. THROAT: No inflammation, tumors or exudate. NECK: No masses. No bruit. No tenderness. No rigidity. CHEST: Essentially symmetrical and equal with limited expansion LUNGS: Breath sounds are markedly diminished in both sides. No rales of wheezing. HEART: Audible and regular with good tones. No murmurs. Not tachycardiac ABDOMEN: Flat, soft with no remarkably tenderness. No guarding. Bowel sounds are active. No masses palpable. EXTERNAL GENITALIA: Not examined RECTAL: Not performed LOWER EXTREMITIES: Right lateral thigh has a dressing from the previous open reduction due to intertrochanteric fracture of the right femur. No significant edema in both feet and legs. Pedal pulses, anterior tibials are present and posterior tibials could not be found. UPPER EXTREMITIES: Symmetrical and equal ASSESSMENT: 1. Intertrochanteric fracture, right femur post open reduction and internal fixation. Transferred to [place] for transitional care admission 2. Severe anemia, exacerbation by bleeding during surgery 3. Severe COPD 4. Chronic respiratory failure with home oxygen. 5. Chronic hepatitis C, treated 6. Speculated nodule left upper lobe as seen on CT at [place] 7. History of e-coli urinary tract infection 8. History of lumbar compression status post kyphoplasty 9. History of hypothyroidism replacement therapy 10.History of thrombocytopenia MTDD
--- NOTE | 2018-02-17 14:51 | DS ---
DATE OF SERVICE: 01/13/18 PATIENT IDENTIFICATION: 67 year old female who fell tripped by her dog on 12/26/17 was seen at [facility] initially because of pain in the right hip. The patient had intertrochanteric fracture and was then transferred to [facility] and was operated by Dr. Castro. The patient while at [facility] was also seen by a director of enterprise applications Dr. Herrera. The patient has chronic lung problems, chronic respiratory distress and chronic hypoxemia on home oxygen. The patient was discharged from [facility] 12/30/17 four days after surgery to be admitted at [place] on transitional care for rehabilitation. The patient's hgb was markedly low and was fluctuating between 7.4-7.8 and then finally to 7.1. It was then decided to transfuse this patient and did receive a transfusion on 01/04/18 and hgb did rise to 8.5 from 7.1 and another unit was given on and now the hgb is 10.3. The patient's appetite had been variable. On admission she had 50% and practically nothing the next day and on 01/01/18 consumed 50%. Her consumption of food which has varied and at times as high has 90%. Her temperature had remained normal and her blood pressure also was stable. Her oxygen saturation at room air was 90 but was at 97 at 2 liters. Most of the time the oxygen saturation up to 2 liters is 98%. MEDICATIONS WHILE IN THE HOSPITAL: Hydrocodone/Tylenol 5-325Q 4 hours PRN for pain Xarelto 10mg daily to be continued until 02/05/18 Zofran 4mg four times a day as needed PO Symbicort 160/4.5 mcg two puffs twice a day Zyprexa 20mg daily Ranitidine 150mg twice a day Mucinex 600mg Q 12 hours Zyprexa 20mg at bedtime Ferrous Sulfate 324mg tablet daily Dulcolax 10mg PO daily as needed Levothyroxine 50mcg daily Zoloft 50mg daily Lactulose 20grams every other day 0.9% sodium chloride flush The patient has been progressing and physical therapy rehab as well as OT had been working with the patient physical therapy and I arrived to the decision to stop the physical therapy on 01/11/18. The patient seemed to have achieved the goal for the rehab. The patient was ready to go to the snf however that was not feasible because of high cost. Her sister did tell me, Hiral, that there is just no way that Mr. Sung and his can afford to do that. The patient is then going home with home health care. I had emphasized to Mrs. Sung that she should not get out of bed by herself unless there is somebody that is going help her where she is going. It was be a disaster if she would fall and then break another bone in the process. Prescription of Xarelto was given since there was a date that was established as to when to stop the medication. She was also scheduled followup for the director of enterprise applications as well as the orthopedic surgeon. The patient at the time of discharge was alert and responsive to verbal stimuli and have movement of all extremities. LUNGS: Diminished breaths sounds with occasional rales in both bases with no wheezing HEART: Normal sinus rhythm ABDOMEN: Flat, soft with no remarkably tenderness. No guarding. The incision is healed completely. There is no significant swelling. No tenderness in the calf muscles. The patient is being discharged today with instructions to continue Levothyroxine, Zyprexa and Zofran. She is to see me in two weeks and before if there is any concern. Xarelto 10mg to be taken daily with supper until . Home Health will provide with PT/OT was at home as well as discussion with nutrition. Appointment with Dr. Castro on January 17, 2018 at 8:30am and Dr. Herrera on 02/03/18. FINAL DIAGNOSES: 1. Intertrochanteric fracture treated with ORIF 2. Severe anemia aggravated by post operative bleeding, two unit transfusion required 3. Severe COPD 4. Chronic hypoxic respiratory failure on home oxygen 5. History of chronic Hepatitis C 6. History of left upper lobe speculated nodule 7. UTI- e-coli 8. History of Thrombocytopenia 9. History of Hypothyroidism 10.History of lumbar compression with kyphoplasty PROGNOSIS: Guarded to poor. MTDD
== END 2018-01-13 15:50 | disposition home or self-care (01) | DRG 812 ==
LOC: MEDSURG A 16:25 → MEDSURG B 01-07 18:39
PROVIDERS: ADMIT General Practice; ATTEND General Practice
PROC: 30233N1 Transfusion of Nonautologous Red Blood Cells into Peripheral Vein, Percutaneous Approach (ICD-10-PCS; principal; 2018-01-04)
PROC: 30233N1 Transfusion of Nonautologous Red Blood Cells into Peripheral Vein, Percutaneous Approach (ICD-10-PCS; 2018-01-05)
DX: D64.9 Anemia, unspecified (principal); J96.11 Chronic respiratory failure with hypoxia; N39.0 Urinary tract infection, site not specified; J44.9 Chronic obstructive pulmonary disease, unspecified; Z99.81 Dependence on supplemental oxygen; B19.20 Unspecified viral hepatitis C without hepatic coma; B96.20 Unspecified Escherichia coli [E. coli] as the cause of diseases classified elsewhere; R53.1 Weakness
CPT/HCPCS: 36415; 36430; 80053; 82803; 84443; 85014; 85018; 85025; 86850; 86900; 86922; 87081; 97802; 99305; 99307; 99310

== ENCOUNTER 2018-01-25 12:57 | Inpatient (IN) ==
--- NOTE | 2018-01-25 13:21 | ED.PDOC ---
General ED Provider: Dr. LICHA NICOLE Chief Complaint: Fever Stated Complaint: Urinary Burning. Has been weak, somewhat confused.Has a headache. Fell stated bumped her Rt Frontal scalp. Time Seen by Physician: 13:10 Mode of Arrival: Wheelchair Information Source: Patient, Family Exam Limitations: No limitations [facility] and Triage Documentation Reviewed and Agree: Yes Does patient meet sepsis criteria?: No System Inflammatory Response Syndrome: Not Applicable Sepsis Protocol: For patient's 13 years and over: Temp is 96.8 and below OR 101 and greater Pulse >90 BPM Resp >20/minute Acutely Altered Mental Status Are patient's symptoms suggestive of a new infection, such as: -Pneumonia -Skin, Soft Tissue -Endocarditis -UTI -Bone, Joint Infection -Implantable Device -Acute Abdominal Infection -Wound Infection -Meningitis -Blood Stream Catheter Infection -Unknown Complaint Exam - UTI Female Complaint/Exam Patient Complains of: Reports: Painful urination Symptoms Are: Still present Timing: Constant Initial Severity: Severe Current Severity: Moderate Location of Pain: Reports: Right, Left, Flank, Suprapubic Associated Signs and Symptoms: Reports: Fever, Chills, Flank pain Related History: Reports: Similar episode CVA Tenderness: Yes Suprapubic Tenderness: Yes Differential Diagnoses: Metabolic Disorder, Pyelonephritis, Ureteral Calculus Review of Systems - Review Of Systems Constitutional: Reports: Chills, Fever, Malaise, Weakness Eyes: Reports: No symptoms Ears, Nose, Mouth, Throat: Reports: No symptoms Respiratory: Reports: Short of air, Wheezing Cardiac: Reports: No symptoms GI: Reports: No symptoms : Reports: Burning, Dysuria, Discharge Musculoskeletal: Reports: Back pain Skin: Reports: No symptoms Neurological: Reports: Headache Endocrine: Reports: No symptoms Hematologic/Lymphatic: Reports: No symptoms All Other Systems: Reviewed and Negative Past Medical History - Past Medical History Endocrine: Reports: Hypothyroid Cardiovascular: Reports: None Respiratory: Reports: COPD, Pneumonia ((05/31/15 bap)), Other (benign RUL lesion , chronic LLL inf(05/31/15 bap)) Hematological: Reports: Other Gastrointestinal: Reports: GERD, Liver (hepatitits c post treatment(05/31/15 bap )) Genitourinary: Reports: UTI Neuro/Psych: Reports: None, 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)) Musculoskeletal: Reports: Arthritis (osteoarthritis), Back Pain (L1 comp fracture without malignancy(05/31/15 bap)with kyphoplasty(05/31/15 bap)), Other (leg pain) Cancer: Reports: None Last Menstrual Period: none - Surgical History General Surgical History: Reports: Back Surgery, Other (URINARY SURGERY,) - Family History Family History: Reports: Unknown - Social History Smoking Status: Former smoker Hx Substance Use: No Alcohol Screening: None Physical Exam - Physical Exam Appearance: Ill-appearing, Well-nourished, Thin Ill-appearing: Severe Pain Distress: Mild Eyes: CATHLEEN, EOMI, Conjunctiva clear ENT: Ears normal, Nose normal, Oropharynx normal Respiratory: Airway patent, Breath sounds clear, Breath sounds equal, Respirations nonlabored Cardiovascular: RRR, Pulses normal, No rub, No murmur GI/: Soft, No masses, No Organomegaly, Tender, Bowel sounds hypoactive Musculoskeletal: Normal strength, ROM intact, No edema, No calf tenderness Skin: Warm, Dry, Normal color Neurological: Sensation intact, Motor intact, Reflexes intact, Cranial nerves intact, Alert, Oriented Psychiatric: Affect appropriate, Mood appropriate Re-Evaluation - Re-Evaluation Time of Re-Evaluation: 15:20 Status: Improved Vital Signs Stable: Yes Appearance: NAD Lungs: Other (few wheezes) Skin: Warm and Dry Neuro: Alert and Oriented X3 CV: RRR Critical Care Note - Critical Care Note Total Time (mins): 60 Course - Course Hematology/Chemistry: 01/25/18 13:30 01/25/18 13:20 Orders, Labs, Meds: Lab Review 01/25/18 01/25/18 01/25/18 13:20 13:20 13:30 WBC 13.36 H RBC 3.62 L Hgb 11.0 L Hct 34.7 L MCV 95.9 MCH 30.4 MCHC 31.7 L RDW Coeff of [place] 15.9 H Plt Count 195 Immature Gran % (Auto) 0.4 Neut % (Auto) 83.9 Lymph % (Auto) 8.7 L [place] % (Auto) 6.3 Eos % (Auto) 0.6 Baso % (Auto) 0.1 Immature Gran # (Auto) 0.1 Neut # (Auto) 11.2 H Lymph # (Auto) 1.2 [place] # (Auto) 0.8 Eos # (Auto) 0.1 Baso # (Auto) 0.0 Sodium 142 Potassium 3.4 L Chloride 108 H Carbon Dioxide 26 Anion Gap 11.4 BUN 9 Creatinine 0.60 Estimated GFR (MDRD) 99.00 BUN/Creatinine Ratio 15.00 Glucose 132 H Calcium 9.1 Total Bilirubin Pending AST 25 ALT 8 L Alkaline Phosphatase 236 H Troponin I Total Protein 7.6 Albumin 3.8 Globulin 3.8 Albumin/Globulin Ratio 1.00 Procalcitonin Urine Color Yellow Urine Clarity Cloudy Urine pH 6.5 Ur Specific [place] 1.015 Urine Protein 1+ Urine Glucose (UA) Negative Urine Ketones Negative Urine Blood 1+ Urine Nitrite Positive Urine Bilirubin Negative Urine Urobilinogen 2.0 Ur Leukocyte Esterase 3+ Urine Microscopic RBC 20-30 Urine Microscopic WBC Tntc Ur Squamous Epith Cells Not present Urine Bacteria 3+ 01/25/18 01/25/18 13:30 14:04 WBC RBC Hgb Hct MCV MCH MCHC RDW Coeff of [place] Plt Count Immature Gran % (Auto) Neut % (Auto) Lymph % (Auto) [place] % (Auto) Eos % (Auto) Baso % (Auto) Immature Gran # (Auto) Neut # (Auto) Lymph # (Auto) [place] # (Auto) Eos # (Auto) Baso # (Auto) Sodium Potassium Chloride Carbon Dioxide Anion Gap BUN Creatinine Estimated GFR (MDRD) BUN/Creatinine Ratio Glucose Calcium Total Bilirubin AST ALT Alkaline Phosphatase Troponin I < 0.0100 Total Protein Albumin Globulin Albumin/Globulin Ratio Procalcitonin 0.11 Urine Color Urine Clarity Urine pH Ur Specific [place] Urine Protein Urine Glucose (UA) Urine Ketones Urine Blood Urine Nitrite Urine Bilirubin Urine Urobilinogen Ur Leukocyte Esterase Urine Microscopic RBC Urine Microscopic WBC Ur Squamous Epith Cells Urine Bacteria Orders Category Date Time Status ADMIT PATIENT INPATIENT .TO MEDSURG (MONITORED BED) ADMISSION 01/25/18 15: 05 Active EKG-(ED ONLY) Stat CARDIO 01/25/18 13:29 Completed ACTIVITY .Early Mobilization for VTE Prevention CARE 01/25/18 15:05 Active GIVE HS SNACK 2100 CARE 01/25/18 13:57 Active INTAKE & OUTPUT Q8HR CARE 01/25/18 15:05 Active TELEMETRY MONITORING TELE CARE 01/25/18 15:06 Active VITAL SIGNS Q4HR CARE 01/25/18 15:05 Active CLEAR LIQUID DIET DIETARY 01/25/18 Dinner Ordered HS SNACK DIETARY 01/25/18 Dinner Ordered BLOOD CULTURE (ED ONLY) Stat LAB 01/25/18 13:30 Received CBC W/ AUTO DIFF Stat LAB 01/25/18 13:30 Completed CMP [COMPREHENSIVE METABOLIC PANEL] Stat LAB 01/25/18 13:20 Results LACTIC ACID Stat LAB 01/25/18 13:30 Ordered PROCALCITONIN Stat LAB 01/25/18 14:04 Completed TROPONIN I Stat LAB 01/25/18 13:30 Completed UA [URINALYSIS C & S IF INDICATED] Stat LAB 01/25/18 13:20 Completed URINE CULTURE Stat LAB 01/25/18 13:20 Received Ceftriaxone Sodium [Rocephin] MEDS 01/25/18 14:49 Discontinued 2 gm .ROUTE .STK-MED ONE Ceftriaxone Sodium [Rocephin] 2 gm MEDS 01/25/18 14:44 Active 0.9 % Sodium Chloride [Sodium Chloride] 50 ml IV ONCE Methylprednisolone Sod Succ/Pf [Solu-Medrol 125 mg] MEDS 01/25/18 14:45 Discontinued 125 mg IVP ONCE STA Sodium Chloride 0.9% [Sodium Chloride] 1,000 ml MEDS 01/25/18 13:56 Active IV 125 mls/hr RESUSCITATION STATUS Routine OTHERS 01/25/18 15:[address] ABD/PEL WO RENAL STONE PROT Stat RADS 01/25/18 13:[address] CHEST W/O CONTRAST Stat RADS 01/25/18 13:44 Completed Medications Generic Name Dose Route Start Last Admin Trade Name Freq PRN Reason Stop Dose Admin Albuterol/Ipratropium 1 vial 01/25/18 15:11 Duoneb NEB RTQ6H PRN Wheezing Enoxaparin Sodium 40 mg 01/25/18 15:30 Lovenox SUBCUT DAILY ANTONIO Sodium Chloride 1,000 mls @ 125 mls/hr 01/25/18 13:56 01/25/18 14:32 Sodium Chloride IV 01/25/18 21:55 125 mls/hr .Q8H STA Administration Ceftriaxone Sodium 2 gm/ 50 mls @ 50 mls/hr 01/25/18 14:44 01/25/18 14:56 Sodium Chloride IV 01/25/18 15:43 50 mls/hr ONCE STA Administration Ceftriaxone Sodium 1 gm/ 50 mls @ 75 mls/hr 01/26/18 09:00 Sodium Chloride IV DAILY ANTONIO Methylprednisolone Sodium Succinate 125 mg 01/25/18 21:00 Solu-Medrol 125 Mg IVP Q8HR ANTONIO Discontinued Medications Generic Name Dose Route Start Last Admin Trade Name Kellie PRN Reason Stop Dose Admin Methylprednisolone Sodium Succinate 125 mg 01/25/18 14:45 01/25/18 14:55 Solu-Medrol 125 Mg IVP 01/25/18 14:46 125 mg ONCE STA Administration Vital Signs: Temp Pulse Resp BP Pulse Ox 01/25/18 12:57 100.6 F H 116 H 18 117/65 87 L Departure - Departure Time of Disposition: 15:10 Disposition: ADMITTED INPATIENT Discharge Problem: UTI (urinary tract infection), Colon abnormality, Clubbing of nail, Dehydration , Confusion Condition: Poor Pt referred to PMD for follow-up: Yes (PCP) IPMP verified?: No Allergies/Adverse Reactions: Allergies aspirin Allergy (Mild, Verified 01/25/18 13:01) Vomiting codeine Allergy (Mild, Verified 01/25/18 13:01) Vomiting NSAIDS (Non-Steroidal Anti-Inflamma Allergy (Mild, Verified 01/25/18 13:01) Vomiting Sulfa (Sulfonamide Antibiotics) Allergy (Mild, Verified 01/25/18 13:01) Unknown Blisters in mouth Home Medications: Ambulatory Orders Ondansetron HCl [Zofran] 1 tab PO QID PRN 12/30/17 Disposition Discussed With: Patient, Family
[2018-01-25] MEDS ORDERED: SODIUM CHLORIDE 1,000 ML IV STA (13:56)
[2018-01-25] MEDS ORDERED: ROCEPHIN 2 GM in SODIUM CHLORIDE 50 ML IV STA (14:44)
[2018-01-25] MEDS ORDERED: SOLU-MEDROL 125 MG IVP STA (14:45)
--- NOTE | 2018-01-25 14:45 | CT ---
EXAM: CT chest without contrast HISTORY: Dyspnea. Patient complaining of cough and congestion and bilateral flank pain. COMPARISON: CT chest 12/26/2017 and numerous priors TECHNIQUE: Serial axial images of the chest were obtained from the lung apices to the upper abdomen without contrast. These were viewed in multiple planes. FINDINGS: The thyroid is normal. The visualized vessels demonstrate mild atherosclerotic disease wi thout aneurysm or stenosis. The heart is normal in size without pericardial effusion. There are no pathologically enlarged mediastinal or hilar lymph nodes. There is no pneumothorax or pleural effusion. There is mild bronchiectasis and emphysema. Evaluatio n is limited due to patient respiratory motion. There is scattered areas of airway thickening. Nodu lar ground-glass in the central lobular distribution is noted in the right lower lobe. There is a 0. 3 cm ground-glass nodule in the left lower lobe on image 38 which is unchanged from prior exam. Ther e is a 0.4 cm pulmonary nodule in the left upper lobe which is become more prominent than on prior st udy. The central airways are patent. Soft tissues in the upper abdomen are unremarkable with moderate atherosclerotic disease. The osseou s structures are unchanged with stable vertebraplasty/kyphoplasty changes with no new compression fra cture. IMPRESSION: 1. No change in airway thickening and ground-glass in the lungs with scattered emphysema. Suggestiv e of chronic obstructive pulmonary disease with or without component of small airways infection/infla mmation. 2. Nodules noted above are unchanged from most recent study. Follow-up CT in 6 months is recommende d. 3. Moderate atherosclerotic disease.
--- NOTE | 2018-01-25 14:47 | CT ---
EXAM: CT ABDOMEN AND PELVIS HISTORY: Bilateral flank pain TECHNIQUE: CT abdomen and pelvis without intravenous contrast. Images were reconstructed using 3 mm section thickness. Reformations were prepared. COMPARISON: 02/17/2016 FINDINGS: Diagnostic limitations exist without including contrast enhanced images. Artifact from arms remainin g down within the scanning field of view degrade image quality. No focal hepatic or splenic lesions. Gallbladder has been removed. Pancreas within normal limits. No adrenal nodule is seen. No nephro lithiasis or hydronephrosis. The ureters are poorly seen although have no obvious dilatation or intra luminal calculus. Severe vascular calcifications consistent with atherosclerosis and / or diabetic an giopathy. There is a there is a 3 cm length within the mid right colon which has circumferential wall thickenin g and caliber restriction as well as mild surrounding stranding of the paracolic fat and several tiny regional lymph nodes. The bowel was otherwise grossly within normal limits. No bowel obstruction. Urinary bladder is within normal limits. The patient has a history of appendectomy and hysterectomy . No ascites is seen. No ventral abdominal wall hernia. Bones appear demineralized. There is a severe compression fractur e at L1 which is stable and has been treated with kyphoplasty. Stabilization hardware of the right h ip. Lung bases reveal interstitial thickening which may be chronic or secondary to inflammatory/infe ctious process. Less likely a neoplastic process would be considered. There is no pneumoperitoneum. IMPRESSION: 1. No evidence of hydronephrosis or collecting system obstruction. Limited exam. 2. Focal region of wall thickening and caliber restriction mid right colon could be infectious, infl ammatory or neoplastic. Further workup is recommended. See second paragraph of report. 3. Severe vascular calcifications consistent with atherosclerosis and / or diabetic angiopathy. 4. Stable L1 compression fracture. 5. Interstitial thickening in the lung bases.
[2018-01-25] MEDS ORDERED: ROCEPHIN ONE (14:49)
[2018-01-25] MEDS ORDERED: DUONEB NEB PRN (15:11)
[2018-01-25] MEDS ORDERED: ZOFRAN TAB PO PRN (15:51)
[2018-01-25 15:59] VITALS: BMI 16.9
[2018-01-25] MEDS: LOVENOX SUBCUT SCH (16:34)
[2018-01-25] MEDS: ZANTAC PO SCH (16:50)
[2018-01-25] MEDS: SOLU-MEDROL 125 MG IVP SCH (20:12)
[2018-01-25] MEDS ORDERED: NON-FORMULARY MEDICATION (Olanzapine [Zyprexa] 20 MG) PO SCH (21:00)
[2018-01-25] MEDS: ZYPREXA PO SCH (21:05)
[2018-01-25] MEDS ORDERED: D5%-1/2NS-KCL 20 MEQ/L IV SOL 1,000 ML IV SCH (22:00)
[2018-01-25] MEDS: D5%-1/2NS-KCL 20 MEQ/L IV SOL 1,000 ML IV SCH (23:10)
[2018-01-26] MEDS: SOLU-MEDROL 125 MG IVP SCH ×2 (04:40→12:44)
[2018-01-26] MEDS: SYNTHROID PO SCH (05:44)
[2018-01-26] MEDS: ZANTAC PO SCH ×2 (05:44→16:40)
[2018-01-26] MEDS ORDERED: ROCEPHIN 1 GM in SODIUM CHLORIDE 50 ML IV SCH (09:00)
[2018-01-26] MEDS ORDERED: ZOLOFT PO SCH (09:00)
[2018-01-26] MEDS: LOVENOX SUBCUT SCH (09:15)
[2018-01-26] MEDS: D5%-1/2NS-KCL 20 MEQ/L IV SOL 1,000 ML IV SCH (12:44)
--- NOTE | 2018-01-26 13:13 | ECHO2D ---
Date of Exam: 01/26/18 Ordering Physician: DR. JANUSZ RODRIGUEZ--HOSPITALIST Room #: [id number] Reason for Echo: COPD M-Mode Normal Adult Results LV Dimensions Normal Adult Results AoV Opening excursions >1.6 >1.6 LVEDD-base- 3.5-5.8 3.7 Ao root dimensions 2.0-3.7 3.1 LVESD-base- 3.1-4.6 L. Atrium dimensions 1.9-3.8 3.6 Post. Wall thickness 0.8-1.1 1.0 IV septum (thickness) 0.7-1.2 1.1 Post. Wall excursion 0.72-1.3 NORMAL Septal motion NORMAL Systolic motion R. Ventricular cavity 1.5-2.0 3.0 LVEF 60% 63% Paradoxical septal wall motion NONE 2-D : 2-D M Mode Echocardiogram was performed using apical four chamber and left parasternal long and short axis views. Mitral, tricuspid and aortic valves appear to be normal. Contractility of the left ventricle seems to be normal, so is the cavity size. Left atrial cavity size and aortic root appear to be normal. There is no pericardial effusion. There is no thrombus noted in the left ventricular or left aortic cavity. No mitral valve prolapse noted. M-MODE: MV: NORMAL AV: NORMAL TV: NORMAL PV: CHAMBER SIZE: ENLARGED RIGHT VENTRICULAR CAVITY SIZE WALL MOTION: NORMAL PERICARDIUM: NORMAL INTERPRETATION: 1. NORMAL LEFT VENTRICULAR CONTRACTILITY 2. ENLARGED RIGHT VENTRICLE CAVITY 3. NORMAL VALVES MTDD
--- NOTE | 2018-01-26 13:34 | RS.PTINEVL ---
Subjective - Patient information Date of Evaluation: 01/26/18 Date of Arrival on Unit: 01/25/18 Admitted From:: Home Diagnosis: Fall, UTI, dehydration Usual Living Arrangement: With Spouse Home Environment: House, Stairs (few), Rail Medical History: COPD, Arthritis Medical History Comments:: GERD, Hep C post treatment, psychosis, back pain, L1 comp fx, hypothyroid LATEX ALLERGY?: No Surgical History Comments:: kyphoplasty, R hip fx s/p ORIF. Medications: see chart Subjective Information/ Patient Comments:: pt states that she was walking at home with rwx independently and the dog ran between her legs causing her to fall and strike her head. - Level of function Prior to this admission, the patient could do the following:: Partially Dependent Ambulation Abilities prior to this admission: assisted with ADL's, Current Level of Function: Partially Dependent Current Equipment Used at Home: oxygen Pain Assessement - Location headache Description: Aching Intensity: 7 Pain Behavior: Facial Grimacing Pain Alleviating Factors: Medication R hip Description: Aching Intensity: 5 Pain Alleviating Factors: Medication Effects of Pain: pt c/o R hip pain without outward signs of pain. Interventions - Objective Patient Orientation: Person, Place Current Interventions: IV's, Oxygen (2 liters), Telemetry Range of Motion - ROM Right Upper Extremity AROM: WFL's Left Upper Extremity AROM: WFL's Right Lower Extremity AROM: WFL's Left Lower Extremity AROM: WFL's Muscle Strength - Muscle Strength Right Upper Extremity Strength: Mild Weakness (grossly 4-/5) Left Upper Extremity Strength: Mild Weakness (grossly 4-/5) Right Lower Extremity Strength: Mild Weakness (hip flex 3+/5, knee flex/ext 4-/5 , ankle DF/PF 4-/5) Left Lower Extremity Strength: Mild Weakness (hip flex 4-/5, knee flex/ext 4/5, ankle Df/PF 4/5) Sensation - Sensation Right Upper Extremity Sensation: Intact/Normal Left Upper Extremity Sensation: Intact/Normal Right Lower Extremity Sensation: Intact/Normal Left Lower Extremity Sensation: Intact/Normal Palpation Comments:: pt with bruising to R side of forehead from fall. Balance - Sitting Balance and Reactions Static Sitting Balance: Fair Dynamic Sitting Balance: Poor Sitting Equilibrium Reactions: Delayed Left, Delayed Right Sitting Protective Reactions: Delayed Left, Delayed Right - Standing Balance and Reactions Static Standing Balance: Poor Dynamic Standing Balance: Poor Standing Equilibrium Reactions: Delayed Left, Delayed Right Standing Protective Reactions: Delayed Left, Delayed Right Functional Mobility - Bed Mobility Rolling R/L: Supervision Supine to Sit: CGA - Transfers Sit to Stand: CGA Stand to Sit: CGA, Min Assist - Safety Awareness Safety Awareness: Poor BARRON INDEX SCORE: n/a Ambulation - Ambulation Assistive Device Used: Rolling Walker Orthotic/Prosthetic Device: No Distance: 40ft Assistance needed with Ambulation: CGA, Min Assist Quality of Ambulation: pt amb with CGA to min x 1 +1 for IV and O2 Gait Deviations: Forward posture, Short stride, Deviates from path Ambulation Comments: pt with difficulty guiding rwx running into wall requires assist for placement of rwx. Factors Affecting Ambulation: Decreased Balance, Breathing/O2 Saturation, Pain, Weakness, Decreased Safety, Limited Endurance Treatment time - Units charged Gait trainin - Time with patient Length of Evaluation: 21 Total treatment time: 32 Patient Education - Education Patient Education: Home Exercise Program, Education of Plan of Care Teaching Recipient: Patient Teaching Methods: Discussion, Demonstration Comments: discussion and demonstration of safety with amb. Assessment - Assessment Problem List:: Decreased level of function, Requires training/education, Decreased safety/Risk of falls, Weakness, Pain limits previous level of function , Cognitive status limits abilities Rehab Potential: Good Further Therapy Indicated?: Yes Candidate for Swing Bed for Therapy Services?: would need to reeval at later time to determine pt ability to reach goals to determine candidate for swing bed. Evaluation Complexity: HISTORY: Medium (falls, UTI, COPD, OA recent hip fx), EXAM OF BODY SYSTEMS: Medium (strength, posture, balance, gait), CLINICAL PRESENTATION: Medium (evolving), CLINICAL DECISION MAKING: Medium Short Term Goals GOAL #1: pt transfer sup to/from sit to/from stand SBA Goal to be met by: 01/30/18 GOAL #2: pt amb with RWX 75ft with O2 with CGA and no LOB Goal to be met by: 01/30/18 GOAL #3: pt independent with rolling and scooting in bed with bedrails Goal to be met by: 01/30/18 GOAL #4: improved dyn stand balance as noted by improved ability to guide rwx Goal to be met by: 01/30/18 Manufacturing Chief Engineer Goals GOAL #1: pt transfer sup to/from sit to/from stand independently Goal to be met by: 02/01/18 GOAL #2: pt amb functional household distances with rwx with O2 with no LOB SBA/ CGA Goal to be met by: 02/01/18 GOAL #3: pt demonstrate improved strength BLE 4 to 4+/5 and independent with HEP Goal to be met by: 02/01/18 Plan Plan of Care: Therapeutic EX, Therapeutic Activity Other:: gait training Frequency of Treatment: 1-2 X day, as tolerated Duration of Treatment: 5-6 days Anticipated Discharge Destination: Home Treatment Diagnosis (ICD 10 Codes): R26.2 difficulty walking. R 26.81 balance impaired. M62.81 general weakness Has the Physician been added for Co-signature?: Yes
--- NOTE | 2018-01-26 14:24 | RS.OTINEVL ---
Subjective - Patient information Date of Evaluation: 01/26/18 Date of Arrival on Unit: 01/25/18 Admitted From:: Home Usual Living Arrangement: With Spouse Living Arrangement Comments: Lives at home with her . Pt uses a RW to ambulate in her home. Pt wears oxygen at all times. Home Environment: House, Stairs (few), Rail Medical History: COPD, Arthritis Medical History Comments:: GERD, Hep C post treatment, psychosis, back pain, L1 comp fx, hypothyroid LATEX ALLERGY?: No Surgical History Comments:: kyphoplasty, R hip fx s/p ORIF. Medications: see chart Subjective Information/ Patient Comments:: "My helps me in the shower." "I fed myself today." - Level of function Prior to this admission, the patient could do the following:: Partially Dependent Ambulation Abilities prior to this admission: Pt was feeding herself at home. Pt has help from her for showering. Pt has help in her home. Pt was walking with a RW around in her home. Current Level of Function: Partially Dependent Current Equipment Used at Home: oxygen, RW, shower chair Pain Assessment - Pain Pain Score: 7 Pain Location Body Site: Head Pain Aggravating Factors: ADL's, Changing Position Pain Alleviating Factors: Medication Interventions - Objective Patient Orientation: Person Current Interventions: IV's, Oxygen, Telemetry Observation: Pt is confused and is having difficulty giving the appropriate answer to a question. Pt is SOA with activity. Pt sat down before she was safely in front of her chair. Interventions - ROM Right Upper Extremity AROM: WFL's Left Upper Extremity AROM: WFL's - Strength Right Upper Extremity Strength: Mild Weakness Left Upper Extremity Strength: Mild Weakness - Sensation Right Upper Extremity Sensation: Intact/Normal Left Upper Extremity Sensation: Intact/Normal Balance - Sitting Balance Static Sitting Balance: Poor Dynamic Sitting Balance: Poor - Standing Balance Static Standing Balance: Poor Dynamic Standing Balance: Poor - Comments Balance Assessment Comments: Poor ADL Skills - Self Feeding Self Feeding: CGA - Grooming Grooming: Min Assist - Bathing Bathing UE: Min Assist Bathing LE: Max Assist - Dressing Dressing UE: Min Assist Dressing LE: Max Assist - Toilet Management Toileting Management: CGA Functional Mobility - Bed Mobility Rolling R/L: Supervision Scooting: Supervision Supine to Sit: Supervision Sit to Supine: Supervision - Transfers Sit to Stand: Supervision Stand to Sit: Supervision Stand Pivot Transfers: Supervision - Ambulation Weight Bearing Status: FWB Assistive Device Used: Rolling Walker Orthotic/Prosthetic Device: No Assistance needed with Ambulation: CGA - Safety Awareness Safety Awareness: Good BARRON INDEX SCORE: . Additional Treatment Performed - Additional units charged ADL: 15 - Time with patient Length of Evaluation: 15 Total treatment time: 30 Activities Patient Interests:: Reading Books/Magazines, Watching Television, Visiting/ Socializing Patient Education Patient Education: Education of diagnosis, Home Exercise Program, Home Safety, Education of Plan of Care Teaching Recipient: Patient Teaching Methods: Teach Back Method Used, Discussion Assessment Problem List:: Decreased level of function, Requires training/education, Weakness, Pain limits previous level of function Rehab Potential: Good Further Therapy Indicated?: Yes Evaluation Complexity: HISTORY: Medium, EXAM OF BODY SYSTEMS: Medium, CLINICAL DECISION MAKING: Medium Short Term Goals - Goals GOAL 1: Pt to increase BUE strength to 4/5. Goal to be met by: 01/31/18 GOAL 2: Pt to tolerate 10 minutes of sink level ADLS with O2. Goal to be met by: 01/31/18 Progress towards goal: Partially Met Comments: Performed in sitting and standing GOAL 3: Pt to be independent with Home exercise programs. Goal to be met by: 01/31/18 GOAL 4: Pt to increase dynamic std. balance to Good. Goal to be met by: 01/31/18 Fdc Goals GOAL 1: Pt to increase BUE strength to 4+/5. Goal to be met by: 02/04/18 GOAL 2: Pt to tolerate 15 minutes of sink level ADLS with O2. Goal to be met by: 02/04/18 GOAL 3: Pt to tolerate 15 minutes of standing activity with Good balance. Goal to be met by: 02/04/18 Plan Plan of Care: Therapeutic EX, Neuromuscular Re-Educ, Therapeutic Activity, Self- Care/Home Management Frequency of Treatment: 1-2 X day, as tolerated Duration of Treatment: 2 Weeks Anticipated Discharge Destination: Home Treatment Diagnosis (ICD 10 Codes): M62.81 Muscle weakness, Z74.1 Need for assistance fir personal care. Z74.0 Reduced Mobility. Has the Physician been added for Co-signature?: Yes
[2018-01-26] MEDS: LEVAQUIN 500 MG in PREMIX 100 ML D5W 1 BAG IV SCH (16:35)
[2018-01-26] MEDS: D5%-1/2NS-KCL 40 MEQ/L IV SOL 1,000 ML IV SCH (16:35)
[2018-01-26] MEDS: ZYPREXA PO SCH (20:24)
[2018-01-27] MEDS: SYNTHROID PO SCH (05:58)
[2018-01-27] MEDS: ZANTAC PO SCH ×2 (05:58→16:13)
[2018-01-27] MEDS: D5%-1/2NS-KCL 40 MEQ/L IV SOL 1,000 ML IV SCH ×2 (07:18→21:12)
[2018-01-27] MEDS: LEVAQUIN 500 MG in PREMIX 100 ML D5W 1 BAG IV SCH (08:38)
[2018-01-27] MEDS: ZOLOFT PO SCH (08:38)
[2018-01-27] MEDS: LOVENOX SUBCUT SCH (08:39)
--- NOTE | 2018-01-27 08:40 | PN ---
DATE OF SERVICE: 01/26/18 SUBJECTIVE: The patient's vital signs this morning showed a temperature of 97.7, pulse 99, blood pressure 111/63, respiratory rate 20, oxygen saturation 96 at 2 liters. It is not room air. This patient has continuous oxygen. The patient is arousable but she went to sleep. She finally woke up. The food was still on the tray and she needed somebody to help her eat. I did talk to the nurse and the nurse is the only on in that wing and she was going to finish things and will help her eat. LUNGS: breath sounds are still diminished in both sides with no rales or wheezing. HEART: Audible and slightly rapid The urine culture showed gram negative rods probably e-coli. We don't have the ID as well as the M.I.C at this time. The patient was given Rocephin two grams in the emergency room initially and 1 gram daily. The Rocephin was discontinued and changed to Levaquin 500mg daily. This patient's EGFR is 103. Her hgb is 8.9 from 11. This patient had been dehydrated. The WBC is now normal at 5,370. Arterial blood gasses showed a oxygen saturation of 96 at 2 liters of oxygen. pH 7.4393, pCO2 30.5, pO2 77, HCO3 23.4, CO2 34. Potassium is slightly lower than yesterday and now at 3.1. The IV changed to 40meq of Potassium per 1,000cc of Dextrose 5% 1/2 saline running at 83 drops per minute. The Alkaline phosphatase is down to 167 still high and this is probably due to the fracture. The sugar is elevated to 144. The patient had an echocardiogram today. A large right ventricular cavity ejection fraction is 63%. The valves were judged normal. This patient may have depression. She is on Zoloft. We will probably reduce this medication slowly and give her Remeron. Remeron would be for depression and hopefully it will increase her appetite. Try to reduce the Zoloft 25mg today. Methylprednisolone intervenously every 8 hours is discontinued today. MTDD
[2018-01-27] MEDS: NORCO 5-325 PO PRN ×2 (12:09→20:22)
--- NOTE | 2018-01-27 14:17 | HP ---
DATE OF SERVICE: 01/25/18 CHIEF COMPLAINT: Confusion increased as well as fever SOURCE OF HISTORY: Emergency room triage notes HISTORY OF PRESENT ILLNESS: The patient is being followed by Home Health and Home Health Personal felt that this patient has increasing confusion with fever and maybe some urinary tract infection. The patient was then brought to the emergency room. The patient in the emergency room had a temperature of 100.6, pulse 116, respiratory rate 18, oxygen saturation 97 at room air. Blood pressure was 117/65 and 100 pounds. The labs done in the emergency room showed slight leukocytosis 13,360, moderate anemia 236 Alkaline phosphatase, Troponin less than 0.100, calcitonin 0.11. Chest CT no acute processes noted, nodules repeat 6 months. CAT scan of the abdomen and pelvis focal region of all thickening and caliber restriction mid right colon could be infectious, inflammatory or neoplastic. Further workup is recommended. Severe vascular calcifications, Stable L1 compression fracture and interstitial thickening of the lung bases. This patient should have a colonoscopy. The patient was admitted because of the fever and confusion and urinary tract infection. PAST PERSONAL HISTORY: The patient had recent right intertrochanteric fracture after a fall at home and was admitted at [facility] and had surgery and was discharged to Transitional care at [facility]. She was admitted to [facility] 12/30/17. She had previous admissions because of COPD exacerbation. Right lower lobe pneumonia in 2016, hypothyroidism replaced, mild thrombocytopenia, lumbar compression fracture L1 and had Kyphoplasty. History of urinary tract infection with e-coli possible speculated nodule left upper lobe followed by Dr. Herrera. The recent chest CT without contrast does not indicate that. Chronic hepatitis and patient claimed that she was treated. Acute blood loss during the surgery of the hip. Generalized weakness. Previous appendectomy, cholecystectomy and hysterectomy and cataract extraction. FAMILY HISTORY: Brother COPD Sister COPD and smoker with coronary artery disease Mother congestive heart failure Father liver problems. SOCIAL HISTORY: The patient is and resides with her . She claims to have stopped smoking and had not return to the habit. MEDICATIONS: Levothyroxine 50mcg daily Zoloft 50mg daily Zyprexa 20mg at bedtime Ranitidine 150mg twice a day Zofran 4mg tablet four times a day as needed for nausea. Zofran was a prescription from [facility] after the open reduction and internal fixation of the hip fracture. ALLERGIES: Aspirin Codeine NSAID REVIEW OF SYSTEMS: CONSTITUTIONAL: The patient has fever but no chills and fatigued. 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 No seizure disorder VISUAL: Denies any blurred vision double vision or loss of vision. AUDITORY: The patient has decreased hearing but denies any ringing of the ears, pain or drainage. RESPIRATORY: The patient has cough and shortness of breath. On nasal oxygen 2 liters at home. The patient has COPD with respiratory failure. She had stopped smoking completely. CARDIOVASCULAR: Denies any chest pain or chest tightness and nausea or diaphoresis. GASTROINTESTINAL: Appetite remained poor. The patient however had maintained her weight. Denies any problems swallowing solids or liquids. Denies any abdominal pain. No diarrhea. ENDOCRINE: Negative. INTEGUMENT: No rash or pruritus HEMATOLOGIC: No history of prolonged bleeding although she did bleed a lot in the last surgery. Hgb was down to 7.4 and finally down to 7.1 when she was at [facility] and was then transfused two units. PSYCHIATRIC: The patient is arousable and follows verbal commands. PHYSICAL EXAMINATION: GENERAL: 67 year old female admitted to the hospital by the emergency room because of fever and more confusion and abnormal urinalysis. She was given 2 grams of Ceftriaxone in the emergency room intervenously. VITAL SIGNS: Temperature 100.6, pulse 116, blood pressure 117/65, respiratory rate 87 and oxygen saturation 87. HEAD: Unremarkably. Scalp no active dermatitis. FACE: Symmetrical and equal with no facial weakness and no cyanosis. She denies of any tenderness on pressure on the frontal maxillary sinus areas. EYES: Pupils equal/reactive to light. Conjunctivae pale. Sclerae not icteric. THROAT: No inflammation, tumors or exudate. NECK: No masses. No bruit. No tenderness. No rigidity. CHEST: Symmetrical and equal with limited expansion. Ribs are prominent. LUNGS: Breath sounds are diminished in both sides with no rales or wheezing. HEART: Audible and regular with good tones. No murmurs. Slightly tachycardiac ABDOMEN: Flat, soft with no remarkable tenderness. No masses palpable. Bowel sounds are active and no bruit. EXTERNAL GENITALIA: Not examined RECTAL: Not preformed LOWER EXTREMITIES: Essentially symmetrical and equal. The incision in the right lateral thigh is healed. Anterior tibials are present, posterior tibials not found. No significant edema on both ankles. UPPER EXTREMITIES: Symmetrical and equal ASSESSMENT: 1. Urinary tract infection 2. Confusion probably exacerbated by the urinary tract infection 3. Recent intertrochanteric fracture, right hip 4. Severe anemia, post operative transfused two units 5. Chronic respiratory daily 6. COPD severe 7. Chronic oxygen therapy at home 8. Chronic Hepatitis C treated 9. History of e-coli, urinary tract infection 10.History of lumbar oppression post kyphoplasty 11.History of hypothyroidism, replaced. PROGNOSIS: Guarded MTDD
[2018-01-27] MEDS: ZYPREXA PO SCH (20:21)
[2018-01-28] MEDS: SYNTHROID PO SCH (05:52)
[2018-01-28] MEDS: ZANTAC PO SCH ×2 (05:52→16:31)
[2018-01-28] MEDS: ZOLOFT PO SCH (09:08)
[2018-01-28] MEDS: NORCO 5-325 PO PRN ×2 (09:09→21:20)
[2018-01-28] MEDS: LOVENOX SUBCUT SCH (09:09)
[2018-01-28] MEDS: LEVAQUIN 500 MG in PREMIX 100 ML D5W 1 BAG IV SCH (09:09)
[2018-01-28] MEDS: D5%-1/2NS-KCL 40 MEQ/L IV SOL 1,000 ML IV SCH (11:40)
[2018-01-28] MEDS: ZYPREXA PO SCH (20:55)
[2018-01-28] MEDS ORDERED: LASIX ONE (23:46)
[2018-01-28] MEDS ORDERED: LASIX IVP STA (23:53)
[2018-01-29] MEDS: SYNTHROID PO SCH (05:53)
[2018-01-29] MEDS: ZANTAC PO SCH ×2 (05:53→16:21)
[2018-01-29] MEDS ORDERED: LEVAQUIN PO SCH (06:30)
[2018-01-29] MEDS: D5%-1/2NS-KCL 40 MEQ/L IV SOL 1,000 ML IV SCH (07:04)
[2018-01-29] MEDS: LOVENOX SUBCUT SCH (08:26)
[2018-01-29] MEDS: ZOLOFT PO SCH (08:26)
[2018-01-29] MEDS: NORCO 5-325 PO PRN (13:18)
[2018-01-29] MEDS ORDERED: LACTULOSE PO STA (13:52)
[2018-01-29] MEDS ORDERED: REMERON PO SCH ×2 (14:00→21:00)
[2018-01-29] MEDS: ZYPREXA PO SCH (22:39)
[2018-01-30] MEDS: NORCO 5-325 PO PRN (00:47)
[2018-01-30] MEDS: SYNTHROID PO SCH (05:52)
[2018-01-30] MEDS: ZANTAC PO SCH (05:52)
[2018-01-30] MEDS: ZOLOFT PO SCH (08:44)
[2018-01-30] MEDS: LOVENOX SUBCUT SCH (08:45)
[2018-01-30] MEDS ORDERED: LACTULOSE PO SCH (09:00)
[2018-01-30 09:19] VITALS: BP 104/62; TEMP 98
--- NOTE | 2018-01-31 09:07 | PN ---
DATE OF SERVICE: 01/27/18 SUBJECTIVE: The patient is this afternoon was alert and responsive. She is on nasal oxygen at 2 liters. She had movement of all extremities. Her temperature is 97.4, pulse 98, blood pressure 132/68, respiratory rate 16, oxygen saturation 96 at 2 liters. The patient refused her snack but did eat. She used the bedside commode. CBC today showed normal WBC, low RBC, lower hgb 9.1 from 11, hct 29.3 from 34.7 on admission this is probably due to hemodilution. Electrolytes showed an increasing chlorides. This patient is getting Dextrose 5% 1/2 saline plus Potassium 20. I am not certain as to why the chloride went up to 117 from 110, it was 108 on admission. The patient's Alkaline phosphatase is down to 157 from 236 on admission. This is probably the results from the fracture of the hip at the trochanteric right. LUNGS: Diminished breath sounds in both sides. Rales at right base, no wheezing HEART: Audible and regular GENERAL APPEARANCE: The same The patient goes to sleep. Her arterial blood gasses yesterday 01/26/18 showed an O2 saturation of 96, pH 7.493, pO2 2 2 liters is 77, pCO2 30.5. This patient is encouraged to eat and drink the Boost but she constantly refused to drink the Boost with the high protein. This patient will be advised to drink the Boost or milk. She just likes to drink Coca Cola and she constantly drinks coke. The relatives does drink her the Coca Cola. CONDITION: Stable, no fever now and the patient always had some confusion which is not a new one. She however answer question correctly today and yesterday. SUKUMAR
--- NOTE | 2018-01-31 09:19 | PN ---
DATE OF SERVICE: 01/28/18 SUBJECTIVE: The patient is alert and responsive. Color is about the same. General appearance is the same. She is has 2 liters of nasal oxygen. Temperature today is normal orally 98, pulse 86, blood pressure 120/69, respiratory rate 16, oxygen saturation 99 at 2 liters. It was 100% earlier in the afternoon. She again refused her snack and not drink the Boost. It was given to the patient. There was no output recorded today and the patient is incontinent. It was 2300cc yesterday. Total intake was 3300. The patient was given hydrocodone/APAP 5-325 and that seemed to make her drowsy so it was reduced to half a tablet Q 8 hours PRN. The patient was given Lasix 20mg intervenously near midnight on 01/28. The IV was discontinued and heplock was applied. LUNGS: still has rales at right base and this is a chronic problem ABDOMEN: No tenderness. No remarkably edema on both legs. General condition of the patient is about the same. She no longer has any fever and not as confused as before. PROGNOSIS: Poor MTDD
--- NOTE | 2018-01-31 09:27 | PN ---
DATE OF SERVICE: 01/29/18 SUBJECTIVE: The patient in the afternoon of 01/29/18 is alert and responsive but goes back to closing her eyes and sleep. Temperature is 98.7, pulse 95, blood pressure 101 /59. Respiratory rate 18, oxygen saturation 97 at 2 liters. The patient did eat except the snacks which she refuses. She also refuses the Boost. The patient was given Lactulose yesterday hoping she would have a good bowel movement. She will be given 20 gram of Lactulose everyday. FACE: Symmetrical and equal LUNGS: Diminished breath sounds in both sides with rales on the right lower base. No wheezing HEART: Audible and regular with good tones ABDOMEN: Nontender CBC today showed a hgb at 9.3 from 9.1 yesterday. The RDW is 15.9, electrolytes now shows chloride of 108 from 117. BNP is 127. The patient seemed to have some signs of congestive heart failure, breathing fasting according to the nurse. The urinalysis now showed marked improved, protein 1+ previously now negative, blood 1+ now negative, nitrated positive now negative and leukocyte esterase 3+ to trace, RBC 20-30 now none, WBC too numerous to count now 2-5, Epithelial cells 2-5 and urine bacteria initially on admission was 3+ and now trace. An antibiotics was already given and was discontinued since the urine as returned to normal and the patient has no fever and is not complaining of any burning on urination. The patient's Albumin is low and she needed to drink more Boost with high protein or drink Skim milk if she likes Skim Milk. MTDD
--- NOTE | 2018-01-31 11:35 | RS.OTQKDC ---
OT Discharge Date of Discharge: 01/29/18 Reason for Discharge: Pt discharged to home with home health.
--- NOTE | 2018-02-17 12:50 | DS ---
DATE OF SERVICE: 01/30/18 PATIENT IDENTIFICATION: 68 year old female admitted to the hospital by the emergency room because of confusion, fever and abnormal urinalysis. The patient was felt to have aggravated confusion because of the urinary tract infection. The patient was given Rocephin 2gram intervenous in the emergency room and 1 gram daily. The Rocephin was discontinued. The urine did grow gram negative rods. It was later identified as Klebsiella pneumoniae. It was sensitive to Ceftriaxone as well as sensitive to Cipro as well as Levaquin, Ertapenem, Gentamicin and Levofloxacin. The CINDY for the Levofloxacin is 0.12. The patient was continued on Levaquin with close observation to the heart rhythm since the Levaquin can prolong acute intervals. No such prolongation was seen. The patient's blood culture was negative after 5 days and the MRSA screen positive for MRSA. The patient had remained afebrile throughout the rest of her hospital except for when she was at the emergency room. Her blood pressure more or less stable. Her appetite was variable. The patient's vitals signs at discharge; temperature 98, pulse 96, blood pressure 104/62, respiratory rate 22 with 2 liters nasal oxygen 95% saturation. LUNGS: Still has diminished breath sounds with rales in the right lower base. HEART: Normal sinus rhythm The area of surgery has no signs of infection. ABDOMEN: Flat soft and no masses. LOWER EXTREMITIES: Significant edema This patient was tried on reduction of the Zoloft to 25mg daily and given Remeron hopefully help the depression as well as her appetite. Did not change the appetite at all and maybe because it was just given a couple days. I did call Mrs. Sung's and did advised him that she will be coming home and that she is no drinking her Boost. Mr. Sung did tell me that she drinks milk. I did tell him to give her milk at least 4 glasses a day. That would improve her protein as well as her calories. Hopefully that will make her stronger physically. Her labs today showed normal WBC 8,600, RBC 3.52, Hgb 10.7 , hct 33.1. This is probably a result of some reduction in the fluid since the IV was discontinued. Her EGFR is 84 and it was 86 yesterday. The patient did eat today but did not drink the Boost, she is drinking the coke. I did tell Mr. Sung personally when he came to pick her up that she should drink as much milk as she can and at least 4 glasses of 8 ounces. FINAL DIAGNOSES: 1. Urinary tract infection, Klebsiella Pneumoniae by culture, resolved 2. Elevated alkaline phosphatase, maybe secondary to the fracture 3. Anemia, moderately severe 4. Right intertrochanteric fracture, treated with open reduction and internal fixation, recent 5. COPD 6. History of chronic tobacco use and abuse, stopped a few months 7. History of depression 8. History of hypothyroidism, replaced 9. Serum ammonia level 105 upper normal 32. 10.Liver enzymes also abnormal PROGNOSIS: Very poor. PLAN: 1. Resume all medications 2. Drink plenty of milk and water 3. See me a week from this coming Wednesday and before if there is any concerns. SUKUMAR
== END 2018-01-30 16:12 | disposition home or self-care (01) | DRG 696 ==
LOC: ED 12:57 → MEDSURG A 15:10
PROVIDERS: ADMIT General Practice; ATTEND General Practice
DX: R30.9 Painful micturition, unspecified (principal); N39.0 Urinary tract infection, site not specified; R53.1 Weakness; R41.0 Disorientation, unspecified; R51 Headache; R10.9 Unspecified abdominal pain; J44.9 Chronic obstructive pulmonary disease, unspecified; J98.9 Respiratory disorder, unspecified; S72.141D Displaced intertrochanteric fracture of right femur, subsequent encounter for closed fracture with routine healing; D64.9 Anemia, unspecified; B18.2 Chronic viral hepatitis C; B96.1 Klebsiella pneumoniae [K. pneumoniae] as the cause of diseases classified elsewhere; Z99.81 Dependence on supplemental oxygen
CPT/HCPCS: 36415; 74176; 80053; 81001; 82140; 82803; 83605; 83880; 84145; 84484; 85025; 87040; 87081; 87086; 87186; 93005; 93010; 94640; 96365; 96375; 99284

== ENCOUNTER 2018-03-15 13:58 | Outpatient (CLI) | payer OTHER ==
--- NOTE | 2018-03-15 16:16 | DI ---
Exam: Single view pelvis. Date: 03/15/2018. Comparison: 05/14/2015. HISTORY: Right hip pain. FINDINGS: Vascular calcifications present multiple surgical clips are present overlying the lower ab domen pelvis. The mineralization is normal. There is an avulsed fragment of the left greater trocha nter with approximately 1.8 cm of separation. An intramedullary jessica and interlocking nail are presen t in the head of the right femur with dystrophic calcification in the soft tissues surrounding the ri ght hip. Femoral head is appropriately seated. Impression: There has been interval placement of an intramedullary jessica with interlocking nail in the right hip. 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 Avulsion of the greater trochanter of the left femur with approximately 1.8 cm of separation. The ag e of this finding is unknown. Previous pelvic surgery.
--- NOTE | 2018-03-15 16:19 | DI ---
Exam: Two views of the right hip. Comparison: X-ray of the pelvis performed 03/15/2018. Reason for exam: Low back pain. FINDINGS: Operative changes are seen after orthopedic fixation of the right femoral neck. Osseous d ensities are seen in the soft tissues adjacent to the operative site. These findings do not appear s ignificantly changed when compared to the previous exam. Impression: Similar appearing operative changes after intramedullary fixation of the right femoral n rahat without evidence of hardware complication. Similar appearing soft tissue calcifications likely po stoperative and post traumatic
== END 2018-03-15 13:59 | disposition home or self-care (01) ==
LOC: RAD 13:58
PROVIDERS: ATTEND General Practice
DX: M25.551 Pain in right hip (principal); M54.5 Low back pain

== ENCOUNTER 2018-05-11 15:40 | Inpatient (IN) ==
[2018-05-11 16:12] VITALS: BMI 15.8
[2018-05-11] MEDS ORDERED: XOPENEX 1.25 MG NEB ONE (16:57)
[2018-05-11] MEDS ORDERED: ZOFRAN TAB PO PRN (17:26)
[2018-05-11] MEDS: XOPENEX 1.25 MG NEB SCH ×2 (17:48→23:55)
[2018-05-11] MEDS ORDERED: NON-FORMULARY MEDICATION (Doxycycline Monohydrate [Doxycycline Monohydrate] 100 MG) PO SCH (21:00)
[2018-05-11] MEDS ORDERED: DOXYCYCLINE HYCLATE ONE (21:41)
[2018-05-11] MEDS: ZYPREXA PO SCH (21:47)
[2018-05-11] MEDS: MUCINEX PO SCH (21:47)
[2018-05-11] MEDS: INFUVITE ADULT 10 ML in D5%-1/2NS-KCL 20 MEQ/L IV SOL 1,000 ML IV SCH ×2 (22:27→22:36)
[2018-05-11] MEDS ORDERED: INFUVITE ADULT IV ONE (22:31)
[2018-05-11] MEDS ORDERED: MAXIPIME IV ONE (22:49)
[2018-05-11] MEDS: MAXIPIME 2 GM in SODIUM CHLORIDE 100 ML IV SCH (22:51)
[2018-05-11] MEDS: LACTULOSE PO SCH (22:52)
[2018-05-12] MEDS: XOPENEX 1.25 MG NEB SCH ×4 (04:55→23:09)
[2018-05-12] MEDS: SYNTHROID PO SCH (05:41)
[2018-05-12] MEDS: ZANTAC PO SCH ×2 (05:41→16:32)
--- NOTE | 2018-05-12 05:44 | DI ---
Exam: Chest two-view History: Cough FINDINGS: Rotated non conventional positioning is inhibiting. The cardiomediastinal contours are pr obably normal allowing for radiographic positioning. No infiltrative opacities are seen. There is c hronic reticular coarsening and hyperexpansion. Senescent changes of the chest wall. Prior thoracic and lumbar vertebral cement fixation. Left distal clavicle fracture incidentally noted. Impression: 1. Chronic obstructive pulmonary disease. No acute cardiopulmonary disease. 2. Left distal clavicle fracture
--- NOTE | 2018-05-12 05:45 | DI ---
Exam: Left shoulder three-view History: Fall with injury and pain Findings / impression: Left distal clavicle fracture is present. Slight elevation (5 mm) of the pro ximal segment. The acromioclavicular joint remains intact. The glenohumeral joint is intact with mi ld osteoarthritic change.
--- NOTE | 2018-05-12 05:49 | DI ---
Exam: Cervical spine three-view History: Fall with shoulder pain FINDINGS: Cervical spine shows normal alignment. Vertebral body height is maintained. Minor endpla te spondylosis. No fracture lines are seen. Normal prevertebral soft tissues. Impression: No acute findings of the cervical spine.
--- NOTE | 2018-05-12 05:49 | DI ---
Exam: Thoracic spine three-view History: Fall with back and shoulder pain FINDINGS: Thoracic spine shows normal alignment. Prior cement fixation of T8 and L1. The bones are demineralized. No acute fracture deformities are seen. Minor degenerative change. Impression: No acute abnormality of the thoracic spine.
[2018-05-12] MEDS ORDERED: REMERON PO SCH ×2 (09:00→21:00)
[2018-05-12] MEDS: MIRALAX PO SCH (09:33)
[2018-05-12] MEDS: MUCINEX PO SCH ×2 (09:33→21:19)
[2018-05-12] MEDS: DOXYCYCLINE HYCLATE PO SCH ×2 (09:33→21:28)
[2018-05-12] MEDS: LACTULOSE PO SCH ×2 (09:33→21:20)
[2018-05-12] MEDS: MAXIPIME 2 GM in SODIUM CHLORIDE 100 ML IV SCH ×2 (09:34→21:33)
[2018-05-12] MEDS: INFUVITE ADULT 10 ML in D5%-1/2NS-KCL 20 MEQ/L IV SOL 1,000 ML IV SCH (13:27)
[2018-05-12] MEDS: NORCO 10-325 PO PRN ×2 (15:37→21:33)
[2018-05-12] MEDS: ZYPREXA PO SCH (21:15)
[2018-05-13] MEDS ORDERED: INFUVITE ADULT IV ONE ×2 (02:36→16:41)
[2018-05-13] MEDS: INFUVITE ADULT 10 ML in D5%-1/2NS-KCL 20 MEQ/L IV SOL 1,000 ML IV SCH ×2 (02:40→16:47)
[2018-05-13] MEDS: NORCO 10-325 PO PRN ×3 (04:15→22:56)
[2018-05-13] MEDS: XOPENEX 1.25 MG NEB SCH ×4 (04:48→23:12)
[2018-05-13] MEDS: SYNTHROID PO SCH (06:23)
[2018-05-13] MEDS: ZANTAC PO SCH ×2 (06:23→16:47)
[2018-05-13] MEDS ORDERED: LACTULOSE PO SCH (09:00)
[2018-05-13] MEDS: MAXIPIME 2 GM in SODIUM CHLORIDE 100 ML IV SCH ×2 (09:41→20:41)
[2018-05-13] MEDS: MIRALAX PO SCH (09:41)
[2018-05-13] MEDS: LACTULOSE PO SCH ×2 (09:42→20:43)
[2018-05-13] MEDS: MUCINEX PO SCH ×2 (09:42→20:41)
[2018-05-13] MEDS: ZYPREXA PO SCH (20:41)
[2018-05-14] MEDS: XOPENEX 1.25 MG NEB SCH ×4 (04:42→23:06)
[2018-05-14] MEDS: ZANTAC PO SCH ×2 (06:05→16:22)
[2018-05-14] MEDS: SYNTHROID PO SCH (06:06)
[2018-05-14] MEDS ORDERED: INFUVITE ADULT IV ONE ×3 (09:00→22:25)
[2018-05-14] MEDS: MUCINEX PO SCH ×2 (09:04→20:18)
[2018-05-14] MEDS: MIRALAX PO SCH (09:05)
[2018-05-14] MEDS: LACTULOSE PO SCH ×2 (09:06→20:19)
[2018-05-14] MEDS: INFUVITE ADULT 10 ML in D5%-1/2NS-KCL 20 MEQ/L IV SOL 1,000 ML IV SCH ×3 (09:10→22:30)
[2018-05-14] MEDS: MAXIPIME 2 GM in SODIUM CHLORIDE 100 ML IV SCH (10:59)
[2018-05-14] MEDS: NORCO 10-325 PO PRN ×2 (15:44→21:48)
[2018-05-14] MEDS: ZYPREXA PO SCH (20:18)
[2018-05-15] MEDS: NORCO 10-325 PO PRN ×2 (03:22→17:54)
[2018-05-15] MEDS: XOPENEX 1.25 MG NEB SCH ×4 (04:56→22:30)
[2018-05-15] MEDS: SYNTHROID PO SCH (06:12)
[2018-05-15] MEDS: ZANTAC PO SCH ×2 (06:12→16:06)
[2018-05-15] MEDS: INFUVITE ADULT 10 ML in D5%-1/2NS-KCL 20 MEQ/L IV SOL 1,000 ML IV SCH ×4 (06:35→22:16)
[2018-05-15] MEDS: MIRALAX PO SCH (09:04)
[2018-05-15] MEDS: ROCEPHIN 1 GM in SODIUM CHLORIDE 50 ML IV SCH (09:04)
[2018-05-15] MEDS: LACTULOSE PO SCH ×2 (09:04→20:22)
[2018-05-15] MEDS: MUCINEX PO SCH ×2 (09:04→20:22)
[2018-05-15] MEDS ORDERED: INFUVITE ADULT IV ONE ×2 (09:08→22:06)
[2018-05-15] MEDS: ZYPREXA PO SCH (20:22)
[2018-05-16] MEDS: NORCO 10-325 PO PRN ×3 (02:07→20:54)
[2018-05-16] MEDS: XOPENEX 1.25 MG NEB SCH ×4 (04:43→23:40)
[2018-05-16] MEDS: INFUVITE ADULT 10 ML in D5%-1/2NS-KCL 20 MEQ/L IV SOL 1,000 ML IV SCH ×2 (04:50→12:57)
[2018-05-16] MEDS: SYNTHROID PO SCH (06:14)
[2018-05-16] MEDS: ZANTAC PO SCH ×2 (06:14→16:19)
[2018-05-16] MEDS: ROCEPHIN 1 GM in SODIUM CHLORIDE 50 ML IV SCH (08:53)
[2018-05-16] MEDS: MIRALAX PO SCH (08:55)
[2018-05-16] MEDS: LACTULOSE PO SCH ×2 (08:56→20:35)
[2018-05-16] MEDS: MUCINEX PO SCH ×2 (08:56→20:35)
[2018-05-16] MEDS ORDERED: DRISDOL PO SCH (09:00)
[2018-05-16] MEDS ORDERED: INFUVITE ADULT IV ONE (12:36)
--- NOTE | 2018-05-16 14:00 | HP ---
DATE OF SERVICE: 05/11/18 CHIEF COMPLAINT: Recurrent falls. Pain in left shoulder area from the fall. SOURCE OF HISTORY: Patient and . HISTORY OF PRESENT ILLNESS: The patient was admitted 05/11/2018. The patient fell at home about a week from the time of admission. The patient was across from her , but he was not able to catch before she went down to the floor. The patient had been experiencing increasing weakness and more drowsiness. The patient at the time of examination in the office was markedly weak, with the head down or slumped over. She does follow verbal commands however. Because of the extreme weakness and recurrent falls and also the severe ecchymosis in the left shoulder, this patient was admitted to the hospital for further workup and examination. PAST PERSONAL HISTORY: The patient had fallen over her dog 12/26/2017 and was seen at [place] emergency room initially and transported to [place] because of the fracture. She was operated by Dr. Castro. She did undergo open reduction and internal fixation. She was seen by Dr. Herrera, a client services associate, because of chronic lung problems. She was transferred to [place] post surgery on 2017. Previous admissions because of acute exacerbation of chronic bronchitis, right lower pneumonitis 2015. Hypothyroidism on medication. Lumbar compression fracture, status post kyphoplasty. Urinary tract infection, speculated nodule left upper lobe followed by Dr. Herrera. Chronic hepatitis C. The patient claimed to have received treatment. Generalized weakness. Previous appendectomy, cholecystectomy, hysterectomy and cataract extraction. FAMILY HISTORY: Brother had COPD, sister had COPD and still smoking with coronary artery disease and [place]. Mother had congestive heart failure. Father had liver problems. SOCIAL HISTORY: The patient is and resides with her . The patient claimed that she had stopped smoking. MEDICATIONS: Levothyroxine 50 mcg daily Zoloft 50 mg daily Zyprexa 20 mg at bedtime Ranitidine 150 mg twice a day Zofran 4 mg tablet four times a day as needed for nausea. Zofran was a prescription from [facility] after the open reduction and internal fixation of the hip fracture. Hydrocodone/APAP 10/325 mg every 6 hours prn Lactulose 20 grams every other day Remeron 15 mg daily Symbicort 160/4.5 mcg Vitamin D2 50,000 monthly Doxycycline Monohydrate 100 mg twice daily Mucinex 600 mg twice daily Miralax 17 gram daily ALLERGIES: Aspirin, Codeine and NSAID. REVIEW OF SYSTEMS: CONSTITUTIONAL: The patient has no fever or chills, but has extreme fatigue. Her head is always hanging down. 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 She does, however, answer verbal questioning and follows verbal commands. RESPIRATORY: The patient has cough, somewhat gurgling. She does have oxygen at home. CARDIOVASCULAR: Denies any chest pain. GASTROINTESTINAL: Appetite is poor. Denies any dysphagia or abdominal pain. GENITOURINARY: The patient is incontinent of urine, as well as stress incontinence. She denies any burning or symptoms on urination. MUSCULOSKELETAL: The patient has pain in the right hip probably related to the previous fracture. ENDOCRINE: Negative. INTEGUMENT: No rash. There is no lacerations. The patient has ecchymosis involving the left shoulder, as well as the area proximal to the shoulder. No crepitus. HEMATOLOGIC: No history of prolonged bleeding. PSYCHIATRIC: Affect is down. 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 Poor appetite. VITAL SIGNS: Temperature on admission is 98.3, pulse 99, blood pressure left 129 /79, right 137/82, respiratory rate 20, oxygen saturation 95 at room air. GENERAL APPEARANCE: Close to being lifeless. HEAD: Unremarkable. Scalp with no active dermatitis. FACE: Symmetrical and equal with no tenderness to palpation under pressure in the frontal or maxillary sinus areas. EYES: Pupils equal/reactive to light. Conjunctivae pale. Sclerae not icteric. THROAT: No inflammation, tumors or exudate. NECK: No masses. No bruit. No tenderness. No rigidity. CHEST: Symmetrical and equal with adequate expansion. LUNGS: Breath sounds are markedly diminished. Coarse rales. No wheezing. HEART: Audible and regular with good tones. No murmurs. ABDOMEN: Flat, soft with no remarkable tenderness. Liver and spleen not palpable. No masses palpable. No bruit. EXTERNAL GENITALIA: Not examined. RECTAL: Not done. LOWER EXTREMITIES: Essentially symmetrical and equal. No significant leg edema. Pedal pulses are present. UPPER EXTREMITIES: Symmetrical and equal. ASSESSMENT: 1. REPEATED FALLS, ETIOLOGY UNDETERMINED. 2. ECCHYMOSIS LEFT SHOULDER SECONDARY TO THE FALL A WEEK AGO 3. LETHARGIC 4. HISTORY OF CHRONIC HEPATITIS C PROGNOSIS: Poor. This patient, after this hospitalization, should be in the fpc to continue physical therapy and watch her diet. TIME SPENT: GREATER THAN 65 MINUTES MTDD
--- NOTE | 2018-05-16 14:08 | PN ---
DATE OF VISIT: 05/12/18 The patient was alert and responsive. VITAL SIGNS: Temperature at 2 p.m. showed a temperature of 98.6, pulse 86, blood pressure 110/64, respiratory rate 20, oxygen saturation 98 with 2 liters of nasal oxygen. LUNGS: Still has the same with coarse rales and diminished. No wheezing. HEART: Audible and regular. The patient on 05/12/18 did eat dinner about 90%. She also had a bowel movement , plus urination. She weighed 81 pounds 5.6 ounces. The alkaline phosphatase was elevated at 190.2 and ammonia 142.7. The Pro BNP is normal. We will obtain a repeat CMP tomorrow, 05/13/2018 to see what the alkaline phosphatase and ammonia also will be. The patient's Lactulose is increased to every other day to twice a day. The IV is continued. MTDD
--- NOTE | 2018-05-16 14:19 | PN ---
DATE OF VISIT: 05/13/18 The patient is alert and responsive. Her general appearance is somewhat better. Her WBC is normal, but the hemoglobin and hematocrit is down below normal. This is probably due to hydration. Mild abnormalities in the electrolytes, but no clinical significance. The alkaline phosphatase is down to normal now from 190 to 137.9 and ammonia is from 142.7 to 47.9. LUNGS: The lungs are still the same. HEART: Audible with good tones. The patient did eat 100% of her dinner. The patient is incontinent, but also voided. She also had a bowel movement today. CONDITION: Stable, but not much better. I am certain whether we can improve this patient very much from where she is. She probably needs to have a continued management of her appetite and caloric intake. The chest x-ray showed COPD, no acute processes. Distal clavicular fracture, left shoulder x-ray. Elevation of proximal segment about 5 mm. The AC joint is intact and the glenohumeral joint is also intact. Cervical and thoracic spine has no acute findings. PROGNOSIS: Poor. MTDD
--- NOTE | 2018-05-16 14:28 | PN ---
DATE OF VISIT: 05/14/18 The patient is alert and general appearance is somewhat improved. I did tell her that she would most likely go to the skilled nursing instead of going home. That was the plan on the previous admission, however because of financial reasons they had to go home instead of the skilled nursing. The patient did tell me that she wanted to go home. Her was in the hallway and I did talk to him earlier with regards to the skilled nursing placement. I also told him after I examined Ms. Sung, Mrs. Sung said to me that she wants to go home. I do not believe that she is ready to go home today. VITAL SIGNS: At 1:34 p.m. today showed a temperature of 98.7, pulse 99, blood pressure 112/61, respiratory rate 18, oxygen saturation 98 at 2 liters. LUNGS: Still has coarse breath sounds or rales. HEART: Normal sinus rhythm. ABDOMEN: Nontender. SHOULDER: The left shoulder ecchymosis is resolving. It is now with some brownish discoloration and some are green. No crepitus. Blood cultures times two were still negative. The urine did show Providencia Rettgeri and is sensitive to Cefepime. This patient is receiving Cefepime at this time. It is also sensitive to Ceftriaxone and we will probably change this medication to Ceftriaxone since there are no renal issues with Ceftriaxone. MTDD
[2018-05-16] MEDS: ZYPREXA PO SCH (20:35)
--- NOTE | 2018-05-16 23:07 | DI ---
EXAM: PA and lateral views of the chest. HISTORY: Cough. FINDINGS: There are multilevel compression fractures in the spine. There is methyl methacrylate in t wo compression fractures in the spine. The cardiac silhouette and pulmonary vasculature are within no rmal limits. The costophrenic angles are clear. There is right basilar atelectasis and/or pneumonia . Impression: Right basilar atelectasis and/or pneumonia.
[2018-05-17] MEDS: INFUVITE ADULT 10 ML in D5%-1/2NS-KCL 20 MEQ/L IV SOL 1,000 ML IV SCH (03:51)
[2018-05-17] MEDS: XOPENEX 1.25 MG NEB SCH ×2 (04:55→11:11)
[2018-05-17] MEDS: SYNTHROID PO SCH (05:46)
[2018-05-17] MEDS: ZANTAC PO SCH (05:46)
[2018-05-17 06:09] VITALS: BP 98/55; TEMP 97.6
[2018-05-17] MEDS: ROCEPHIN 1 GM in SODIUM CHLORIDE 50 ML IV SCH (08:39)
[2018-05-17] MEDS: LACTULOSE PO SCH (08:39)
[2018-05-17] MEDS: MUCINEX PO SCH (08:39)
[2018-05-17] MEDS: MIRALAX PO SCH (08:39)
--- NOTE | 2018-05-17 11:29 | PN ---
DATE OF SERVICE: 05/15/18 SUBJECTIVE: The patient is alert and somewhat tachypneic at 5:17 p.m. Her temperature is 98.6, pulse rate 94, BP 113/56, respiratory rate 18. The patient seemed to be breathing faster. The oxygen saturation 99% on 2L. Lungs have rales on both lung arias, more on the right side and crepitant. Heart is audible and regular , slightly rapid. No cyanosis. Abdomen is nontender. The patient was saying that she wants to go home. I don't believe that it is mujica for this patient to go home. If we can find an alternative place rather than home until she has gotten stronger, it would probably tina for a better prognosis. SUKUMAR
--- NOTE | 2018-05-17 11:35 | PN ---
DATE OF SERVICE: 05/16/18 SUBJECTIVE: The patient is seen at 9 o'clock this evening and the patient is alert and responsive and tachypneic. Respiratory rate at 7:46 p.m. was 22, pulse rate 96 , no other vital signs. The patient has rales on both lung arias, more on the right side. The IV will be discontinued and chest x-ray, two views, will be ordered as well as NT-Pro-BNP. Rales seem to be more than admission. The patient is receiving Ceftriaxone for the urinary tract infection and also will be helpful with the pulmonary problems. This patient has COPD with exacerbation. I did talk to the patient in the presence of MELVIN Deluna about going to the care home. I told her that I don't advise her to go home. She needs to be in a place where she can have physical rehabilitation and hopefully she will get stronger and her medications given to her regularly as well as food. The patient forgets easily. I just told her about going to the care home and she was agreeable. Then she told me, is she going home with her on Wednesday and I told her no. Prognosis of this patient is poor. SUKUMAR
--- NOTE | 2018-05-18 10:38 | DS ---
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 The patient was accompanied by her . The patient was barely able to raise her head. She looks very weak. She also has some rapid breathing. She did have rales more on the right side. No significant wheezing. The heart is audible with good tones. Abdomen nontender. The patient's skin is dry. The patient had a large area of ecchymosis with swelling in the left shoulder. No edema on the legs. Pedal pulses are present. The patient had repeated falls at home and the last one was about a week ago injuring the left shoulder. The patient is emaciated. HOSPITAL COURSE: The patient's labs during this admission consisted of a CBC repeated times four. Initial hemoglobin on admission was 13.2, hematocrit 40 and on discharge the hemoglobin is down to 9.9 and hematocrit 31.4 with hydration. Electrolytes remained essentially the same on repeat determination. E GFR normal. AST is slightly elevated. GGT normal. Alkaline phosphatase elevated 190.2, serum ammonia 142, upper normal 30 ml per liter. Pro BNP 125 on admission. Total protein was normal on admission, but with IV fluids the total protein is below normal, as well as the albumin. This patient had not been drinking very much liquids at home. BUN, however, is normal at 89.7. Specific gravity 1.015. The patient had an abnormal urinalysis although she did not have any fever and was treated with Cefepime 2 gram IV every 8 hours and changed to Rocephin 1 gram every 24 hours. This patient had been taking Doxycycline prior to this admission and this was discontinued. The urine culture showed Providencia Rettgeri and sensitive to Cefepime, as well as Ceftriaxone. The patient's vital signs were stable and she remained afebrile. The patient, however, was felt to have some increased tachypnea and the rales in the right side has increased. Chest x-ray showed right basilar atelectasis and/or pneumonia. IV fluids were discontinued. The NT-Pro BNP has slightly increased from admission to 273. It was felt necessary to continue the the antibiotic for several days prior to discharge to the shelter. I had discussed the placement post hospitalization with the patient and she was agreeable, as well as the . The patient's Procalcitonin is 0.10. It is less than 0.5. The chest x-ray showed fracture of the distal end of the clavicle. The patient at the time of discharge from acute care to Transitional is alert and responsive drinking a soda. LUNGS: She still has rales on both lung arias and more on the right, although less than yesterday. HEART: Audible with good tones. She still doesn't look well or healthy. The patient's Lactulose was increased and her serum ammonia has reduced from 147 to 47 and then was slightly up to 48. This patient had been refusing to take the Lactulose in the evening. FINAL DIAGNOSES: 1. LETHARGY, IMPROVED 2. GENERALIZED WEAKNESS, PERSISTENT 3. PNEUMONIA RIGHT LOWER LOBE 4. CHRONIC OBSTRUCTIVE PULMONARY DISEASE 5. ELEVATED AMMONIA LEVEL 6. FRACTURED LEFT DISTAL CLAVICLE 7. RECURRENT FALLS, SECONDARY TO GENERALIZED WEAKNESS 8. HISTORY OF CHRONIC HEPATITIS C PROGNOSIS: Poor. This patient is DNR. TIME SPENT: GREATER THAN 30 MINUTES MTDD
== END 2018-05-17 11:32 | disposition swing bed (61) | DRG 947 ==
LOC: MEDSURG B 15:40
PROVIDERS: ADMIT General Practice; ATTEND General Practice
DX: R53.83 Other fatigue (principal); J18.9 Pneumonia, unspecified organism; R53.1 Weakness; S42.032A Displaced fracture of lateral end of left clavicle, initial encounter for closed fracture; Z91.81 History of falling; Z86.19 Personal history of other infectious and parasitic diseases; W19.XXXA Unspecified fall, initial encounter
CPT/HCPCS: 36415; 80053; 81001; 82140; 82977; 83880; 84145; 85025; 87040; 87070; 87077; 87086; 87186; 93005; 93010; 94640; 97802

== ENCOUNTER 2018-05-17 12:07 | Inpatient (IN) | payer OTHER ==
[2018-05-17] MEDS ORDERED: DRISDOL PO SCH (12:30)
[2018-05-17 13:39] VITALS: BMI 15.9
[2018-05-17] MEDS: ZANTAC PO SCH (16:05)
[2018-05-17] MEDS: NORCO 10-325 PO PRN ×2 (16:10→22:15)
[2018-05-17] MEDS: XOPENEX 1.25 MG NEB SCH ×2 (17:05→23:00)
[2018-05-17] MEDS: LACTULOSE PO SCH (20:09)
[2018-05-17] MEDS: ZYPREXA PO SCH (20:09)
[2018-05-17] MEDS: MUCINEX PO SCH (20:09)
[2018-05-18] MEDS: XOPENEX 1.25 MG NEB SCH ×4 (04:50→23:04)
[2018-05-18] MEDS: SYNTHROID PO SCH (06:06)
[2018-05-18] MEDS: ZANTAC PO SCH ×2 (06:06→16:51)
--- NOTE | 2018-05-18 08:41 | RS.PTINEVL ---
Subjective - Patient information Date of Evaluation: 05/17/18 Date of Arrival on Unit: 05/17/18 Admitted From:: In-House Transfer (transfer to swing bed) Diagnosis: exacerbation COPD, L clavicular fx, falls, decubitus Usual Living Arrangement: With Spouse Living Arrangement Comments: Lives at home with her . Pt uses a RW to ambulate in her home. Pt wears oxygen at all times. Home Environment: House, Stairs (few), Rail Medical History: CVA/TIA, COPD Medical History Comments:: glaucoma, Hep C, hypothyroid, R hip fx, L1 comp fx Surgical History: Cholecystectomy, Hysterectomy Surgical History Comments:: ORIF R hip, Medications: see chart Subjective Information/ Patient Comments:: pt states " I am tired, but I am always going to be tired." - Level of function Prior to this admission, the patient could do the following:: Partially Dependent Ambulation Current Level of Function: Partially Dependent Current Equipment Used at Home: rwx, Pain Assessement - Location L shld Description: Sharp, Aching Pain Behavior: Moaning, Facial Grimacing Pain Aggravating Factors: Changing Position Pain Alleviating Factors: Medication Effects of Pain: pt unable to rate pain Interventions - Objective Patient Orientation: Person, Place Current Interventions: IV's, Oxygen Range of Motion - ROM Right Upper Extremity AROM: WFL's Left Upper Extremity AROM: Moderate limitation (limited due to clavicular fx) Right Lower Extremity AROM: WFL's Left Lower Extremity AROM: WFL's Muscle Strength - Muscle Strength Right Upper Extremity Strength: Mild Weakness (grossly 4-/5) Left Upper Extremity Strength: Mild Weakness (shld flex 2+/5, elbow flex/ext 3/5 ,) Right Lower Extremity Strength: Mild Weakness (hip flex 3+/5, knee flex/ext 4-/5 , ankle DF/PF 4-/5) Left Lower Extremity Strength: Mild Weakness (hip flex 3+/5, knee flex/ext 4-/5 , ankle DF/PF 4-/5) Sensation - Sensation Right Upper Extremity Sensation: Intact/Normal Left Upper Extremity Sensation: Intact/Normal Right Lower Extremity Sensation: Intact/Normal Left Lower Extremity Sensation: Intact/Normal Palpation Palpation Findings: Tenderness Comments:: L shld Balance - Sitting Balance and Reactions Static Sitting Balance: Fair Dynamic Sitting Balance: Poor Sitting Equilibrium Reactions: Delayed Left, Delayed Right Sitting Protective Reactions: Delayed Left, Delayed Right - Standing Balance and Reactions Static Standing Balance: Poor Dynamic Standing Balance: Poor Standing Equilibrium Reactions: Delayed Left, Delayed Right Standing Protective Reactions: Delayed Left, Delayed Right - Comments Balance Assessment Comments: pt able to maintain static sitting balance unsupported, unable to maintain dyn sit balance without assist Functional Mobility - Bed Mobility Rolling R/L: Min Assist Scooting: Mod Assist Supine to Sit: Min Assist, Mod Assist, 1 person assist - Transfers Sit to Stand: Min Assist, 2 person assist Stand to Sit: Min Assist, 2 person assist - Safety Awareness Safety Awareness: Poor BARRON INDEX SCORE: 15 Ambulation - Ambulation Assistive Device Used: Rolling Walker Orthotic/Prosthetic Device: No Distance: 15ft Assistance needed with Ambulation: Min Assist, 2 person assist Quality of Ambulation: pt required min assist of 1 +1 for O2. Gait Deviations: Forward posture, Short stride, Deviates from path Ambulation Comments: pt requires assist with placement of rwx as well as cues for step length and posture. Factors Affecting Ambulation: Decreased Balance, Breathing/O2 Saturation, Pain, Weakness, Decreased Coordination, Decreased Safety, Cognitive Status, Limited Endurance Treatment time - Time with patient Length of Evaluation: 26 Total treatment time: 29 Patient Education - Education Patient Education: Activity Modification, Education of Plan of Care Teaching Recipient: Patient Teaching Methods: Discussion Comments: discussion with patient regarding importance of trying to sit up in chair and being out of the bed to improve endurance as well as discussion regarding POC. Assessment - Assessment Problem List:: Decreased level of function, Requires training/education, Decreased safety/Risk of falls, Weakness, Pain limits previous level of function , Cognitive status limits abilities Rehab Potential: Fair Further Therapy Indicated?: Yes Candidate for Swing Bed for Therapy Services?: pt is currently swing bed for IV antibiotics. PT will attempt to work with patient to improve strength and endurance however unsure if pt will be able to tolerate PT. Evaluation Complexity: HISTORY: High (COPD, falls, clavicular fx, CVA, Hep C, ) , EXAM OF BODY SYSTEMS: High (SOA, strength, posture, balacne, gait, activity tolerance, cognition), CLINICAL PRESENTATION: Medium (evolving), CLINICAL DECISION MAKING: Medium Short Term Goals GOAL #1: pt demonstrate rolling and bridging with verbal cues Goal to be met by: 05/23/18 GOAL #2: pt amb with RWX 50ft with O2 with min to CGA Goal to be met by: 05/23/18 GOAL #3: Transfer sup to/from sit min x 1, sit to/from stand CGA Goal to be met by: 05/23/18 GOAL #4: Improved strength BLE 4- to 4/5 Goal to be met by: 05/23/18 Flight Paramedic Goals GOAL #1: pt transfer sup to/from sit to/from stand CGA Goal to be met by: 05/27/18 GOAL #2: pt amb with rwx with O2 with CGA functional household distances Goal to be met by: 05/27/18 GOAL #3: pt able to maintain dyn sit balance with reaching and challenges to balance Goal to be met by: 05/27/18 Plan Plan of Care: Therapeutic EX, Therapeutic Activity Other:: gait training Frequency of Treatment: 1-2 X day, as tolerated Duration of Treatment: 10 days Anticipated Discharge Destination: undetermined, pt would like to go home Treatment Diagnosis (ICD 10 Codes): R26.2 difficulty walking. R26.81 balance impaired. Z91.81 fall risk. M62.81 weakness Has the Physician been added for Co-signature?: Yes
[2018-05-18] MEDS: MUCINEX PO SCH ×2 (09:02→20:29)
[2018-05-18] MEDS: LACTULOSE PO SCH ×3 (09:02→20:30)
[2018-05-18] MEDS: MIRALAX PO SCH (09:02)
[2018-05-18] MEDS: ROCEPHIN 1 GM in SODIUM CHLORIDE 50 ML IV SCH (10:17)
[2018-05-18] MEDS: NORCO 10-325 PO PRN ×2 (10:24→18:59)
[2018-05-18] MEDS: ZYPREXA PO SCH (20:29)
[2018-05-19] MEDS: XOPENEX 1.25 MG NEB SCH ×4 (04:45→22:54)
[2018-05-19] MEDS: ZANTAC PO SCH ×2 (05:54→17:17)
[2018-05-19] MEDS: SYNTHROID PO SCH (05:54)
[2018-05-19] MEDS: ROCEPHIN 1 GM in SODIUM CHLORIDE 50 ML IV SCH (09:03)
[2018-05-19] MEDS: LACTULOSE PO SCH ×2 (09:03→20:28)
[2018-05-19] MEDS: MUCINEX PO SCH ×2 (09:03→20:28)
[2018-05-19] MEDS: MIRALAX PO SCH (09:05)
[2018-05-19] MEDS: NORCO 10-325 PO PRN ×2 (09:09→20:28)
--- NOTE | 2018-05-19 11:14 | PN ---
DATE OF VISIT: 05/18/18 The patient, today, is looking some better than yesterday. She is not as tachypneic. She appears to be brighter when I call her name and she opens her eyes quickly. I told her again that she could not go home, or I do not advise her to go home. She should go to the intermediate to get stronger and have a physical therapy. No physical therapy to the shoulder however. She still has rales in both lung arias more on the right, but much less. She most likely will be discharged from this facility by Wednesday to the intermediate. She is doing better. The patient ate 75% of dinner, but refused Boost. SUKUMAR
[2018-05-19] MEDS: ZYPREXA PO SCH (20:28)
[2018-05-20] MEDS: XOPENEX 1.25 MG NEB SCH ×2 (05:02→11:20)
[2018-05-20] MEDS: ZANTAC PO SCH (05:36)
[2018-05-20] MEDS: SYNTHROID PO SCH (05:36)
[2018-05-20] MEDS: ROCEPHIN 1 GM in SODIUM CHLORIDE 50 ML IV SCH (09:30)
[2018-05-20] MEDS: LACTULOSE PO SCH (09:30)
[2018-05-20] MEDS: MIRALAX PO SCH (09:30)
[2018-05-20] MEDS: MUCINEX PO SCH (09:30)
[2018-05-20 09:51] VITALS: BP 93/51; TEMP 97.9
[2018-05-20] MEDS: NORCO 10-325 PO PRN (10:06)
--- NOTE | 2018-05-20 12:49 | HP ---
DATE OF SERVICE: 05/17/18 (TRANSITIONAL CARE) CHIEF COMPLAINT: Weakness, shortness of breath. HISTORY OF PRESENT ILLNESS: The patient was admitted to the hospital because of lethargy, increasing weakness and recurrent falls. The patient had a fractured distal clavicle on the left side from the fall. She has rales in both lung arias. She does have chronic obstructive pulmonary disease and chronic tobacco use although she had stopped. This patient also had previous hepatitis C and also increasing serum ammonia levels. The patient was quite lethargic when she was seen at the office. The patient was given intravenous fluids while in the hospital. She was treated with antibiotic, Ceftriaxone since it was also appropriate for the urinary findings. She was on Cefepime initially. Cefepime was changed to Ceftriaxone because of the renal issues with Cefepime. The patient developed more rales more on the right side. The x-ray showed probable pneumonia on the right and so the patient was discharged from acute care to transitional for continued antibiotic treatment. The intravenous fluids were also discontinued. PAST PERSONAL HISTORY/FAMILY HISTORY/SOCIAL HISTORY: Please refer to histories of the acute admission. Admission 05/11/18 as well as family history and social history. MEDICATIONS: Xopenex q.6hr Mucinex 600 mg p.o. b.i.d. Zantac 150 mg p.o. b.i.d. a.c. Lactulose 20 gm p.o. b.i.d. Zyprexa 10 mg p.o. bedtime Synthroid 50 mcg p.o. q.d. a.c. Rocephin 50 mL IV daily Miralax 17 gm p.o. daily ALLERGIES: NSAIDS, SULFA, CODEINE, ASPIRIN REVIEW OF SYSTEMS: CONSTITUTIONAL: No fever, no chills. Markedly weak. YARD STOCKER: The patient is lethargic but less than on admission. RESPIRATORY: Cough with tachypnea and dyspnea. Has gurgling cough. No hemoptysis. CARDIOVASCULAR: No chest pain or tightness. GASTROINTESTINAL: The patient is not eating very much. She needed to be fed. MUSCULOSKELETAL: Fracture of the distal left clavicle. This resulted from the fall about one week prior to admission. INTEGUMENT: Skin is wrinkled and dry. There is a large area of ecchymosis on the left shoulder. ENDOCRINE: Negative. HEMATOLOGIC: No history of prolonged bleeding or spontaneous bleeding. PSYCHIATRIC: The patient is lethargic. Affect is down. PHYSICAL EXAMINATION: GENERAL: 68-year-old female admitted to the hospital because of extreme weakness, fatigue, lethargy, dyspnea and tachypnea. She also has pallor. She is admitted to transitional care for continued antibiotic management because of the findings probably equal to pneumonia in the right lower lobe. The rales have increased. VITAL SIGNS: Temperature on admission to transitional care 05/17/18 97.6, pulse 98, BP 102/56, respiratory rate 20, oxygen saturation 98 on 2L. Weight 81 lbs and 8 ozs. HEAD: Unremarkable. Face is symmetrical and equal with no facial weakness. Color is sallow. No tenderness in the frontal or maxillary sinus areas. EYES: Pupils equal/reactive to light about 3 mm in size. Conjunctivae not pale. Sclerae not icteric. MOUTH: Unremarkable. THROAT: No inflammation, or exudate. NECK: No masses. No bruit. CHEST: Essentially symmetrical and equal with limited expansion. LUNGS: Breath sounds are heard on both sides with rales in both lung arias more on the right almost extending to the upper third of the posterior chest wall. HEART: Audible and regular, not tachycardic. ABDOMEN: Flat to scaphoid with no tenderness, no masses, no bruit. EXTERNAL GENITALIA: Not examined. PELVIC/RECTAL: Not performed. LOWER EXTREMITIES: Symmetrical and equal with no significant edema. Pedal pulses are present. UPPER EXTREMITIES: Symmetrical and equal. ASSESSMENT: 1. PNEUMONITIS, RIGHT LOWER LOBE. 2. RESPIRATORY FAILURE, CHRONIC WITH ACUTE EXACERBATION. 3. MODERATELY SEVERE ANEMIA. 4. FRACTURED LEFT CLAVICLE SECONDARY TO FALL. 5. LETHARGY MAYBE SECONDARY TO INCREASED AMMONIA. 6. HISTORY OF FATIGUE AND WEAKNESS PROBABLY SECONDARY TO MALNUTRITION. PROGNOSIS: Poor. TIME SPENT: GREATER THAN 65 MINUTES MTDD
--- NOTE | 2018-05-20 12:55 | PN ---
DATE OF SERVICE: 05/19/18 SUBJECTIVE: The patient is much more alert and brighter. She looks stronger. She had been walking. Lungs still have rales but less. She is no longer tachypneic. Her NT-Pro-BNP is slower. Alkaline phosphatase is slightly elevated what had been normal. Hemoglobin 9.5, hematocrit 30.0. Red blood cell indicies does not particularly tell anything. Creatinine 0.51. Again this is probably not reliable since the patient is very thin, 83 lbs. OBJECTIVE: Vital signs today at 6 p.m.: Temperature 98.6, pulse 100, B/P 120/63, respiratory rate 20, oxygen saturation 94 on 2L of oxygen. General condition improved. MTDD
--- NOTE | 2018-05-27 09:13 | DS ---
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 HOSPITAL COURSE: The patient also had fallen a week ago and large area of ecchymosis in the left shoulder. The patient had been falling at home because of weakness. The patient was given intervenous fluids plus medication and encouraged to eat. The patient had improved but she was getting more tachypneic and chest CT showed findings compatible with pneumonitis. She also had more rales on both lung arias more on the right side. She was then given antibiotics and the patient was then discharged from acute care to transitional for the purpose of continuing the antibiotics. Chest x-ray on 05/16/18 still showed right basilar atelectasis or pneumonitis. The pulmonary and vasculature appears normal however her NT Pro BNP had risen slightly from 125 to 273. The patient was receiving Doxycycline 100mg twice a day a medication prior to admission. She was prescribed Cefepime 2 gram intervenously Q 8 hours and her blood cultures were negative but the urine culture showed gram negative rods, Providencia Rettgeri. It is sensitive to Cefepime as well as Ceftriaxone. The Cefepime was changed to Ceftriaxone daily. Doxycycline was discontinued. Her Remeron was discontinued and Zyprexa was continued at a lower dose of 10mg instead of 20. Lactulose was still twice a day. The patient continued to improved and her temperature had remained normal through the last three days of hospital stay as well as the blood pressure. Respiratory rate has return remarkable from 20 down to 12 and the oxygen saturation was between 97-100. The patient' general appearance also much brighter. She was is much quicker to answer questions and she is no longer lethargic. Her appetite had improved and she was consuming anywhere from 50-100 % of meals. I had discussed snf with her as well as her and her sister, Hiral. I repeated that to the patient that she is still going to the snf to recuperate and get stronger before going home. The patient at the time of discharge was alert, not drowsy and quick to answer questions. At 9:45am on 05/20/18 showed a temperature of 97.9, pulse 86, blood pressure 93.51, respiratory rate 12, oxygen saturation 97, 2 liters of oxygen. LUNGS: Still has diminished breath sounds but much less rales on the right side than three or four days ago. HEART: Audible with good tones. LEGS: No tenderness and no significant edema The patient is going to [facility]. Following her medications; Symbicort one puff twice a day, Omnicef 300mg every 12 hours for 7 days, Hydrocodone/APAP 5-325mg one tablet every 6 hours PRN, Lactulose 20gram orally daily, Zyprexa 10mg daily, Vitamine D 3 50,000 internal units monthly, Mucinex 600mg twice a day. The patient's allergies are NSAIDS, Sulfa, Aspirin, Codeine. FINAL DIAGNOSES: 1. Lethargy probably secondary to elevated ammonia, resolved 2. Progressive generalized weakness, multiple reasons or causes 3. Recurrent falls probably secondary to #2. 4. Fracture of left distal clavicle secondary to fall 5. Right lower lobe pneumonia 6. COPD 7. Chronic tobacco use and abuse, stop for a few months 8. History of chronic Hepatitis C PROGNOSIS: Poor. TIME SPENT: GREATER THAN 30 MINUTES MTDD
== END 2018-05-20 15:20 | DRG 947 ==
LOC: MEDSURG B 12:07
PROVIDERS: ADMIT General Practice; ATTEND General Practice
DX: R53.1 Weakness (principal); J18.9 Pneumonia, unspecified organism; J44.1 Chronic obstructive pulmonary disease with (acute) exacerbation; S42.032A Displaced fracture of lateral end of left clavicle, initial encounter for closed fracture; D64.9 Anemia, unspecified; Z72.0 Tobacco use; W19.XXXA Unspecified fall, initial encounter
CPT/HCPCS: 36415; 80053; 83880; 85025; 94640; 97802

== ENCOUNTER 2018-07-14 12:40 | Inpatient (IN) | payer OTHER ==
--- NOTE | 2018-07-14 13:03 | ED.PDOC ---
General ED Provider: Dr. LICHA NICOLE Chief Complaint: Constipation Stated Complaint: Has had reduced LOC for past 2 days and her states shes been this was for 2 days. Unable to eat or drink.Patient having difficulty with verbalizing her complaints. Time Seen by Physician: 12:50 Mode of Arrival: Wheelchair Information Source: Patient, Family Exam Limitations: Clinical condition (minimally verbal. Mouth dry and parched) Primary Care Provider: JANUSZ [facility]YN [facility] Nursing and Triage Documentation Reviewed and Agree: Yes Does patient meet sepsis criteria?: No System Inflammatory Response Syndrome: Not Applicable Sepsis Protocol: For patient's 13 years and over: Temp is 96.8 and below OR 101 and greater Pulse >90 BPM Resp >20/minute Acutely Altered Mental Status Are patient's symptoms suggestive of a new infection, such as: -Pneumonia -Skin, Soft Tissue -Endocarditis -UTI -Bone, Joint Infection -Implantable Device -Acute Abdominal Infection -Wound Infection -Meningitis -Blood Stream Catheter Infection -Unknown Neurological Complaint Exam - Weakness Complaint/Exam Last Known Well: 3 days per Onset: Gradual Symptoms Are: Still present Timing: Constant Episodes Lasting: Minutes Initial Severity: Moderate Current Severity: Moderate Character: Reports: Unable to describe Aggravating: Reports: None Alleviating: Reports: None Associated Signs and Symptoms: Reports: Short of air, Decreased oral intake, Loss of balance Cardiac Risk Factors: Reports: Hypertension CVA Risk Factors: Reports: PVD JVD Present: No Carotid Bruit Present: No Nystagmus Present: No Gag Reflex Present: Yes Meningeal Signs Positive: No Focal Weakness: Present: None Focal Sensory Loss: Present: None Review of Systems - Review Of Systems Constitutional: Reports: Malaise, Weakness Eyes: Reports: Drainage Ears, Nose, Mouth, Throat: Reports: Mouth pain (dryness) Respiratory: Reports: Cough, Short of air Cardiac: Reports: No symptoms GI: Reports: No symptoms, Constipated, Difficulty swallowing : Reports: No symptoms Musculoskeletal: Reports: No symptoms Skin: Reports: No symptoms Neurological: Reports: Weakness Endocrine: Reports: Increased thirst Hematologic/Lymphatic: Reports: No symptoms All Other Systems: Reviewed and Negative Past Medical History - Past Medical History Previously Healthy: No Endocrine: Reports: Hypothyroid Cardiovascular: Reports: None Respiratory: Reports: COPD, Pneumonia ((05/31/15 [facility])), Other (benign RUL lesion , chronic LLL inf(05/31/15 b[facility])) Hematological: Reports: Other Gastrointestinal: Reports: GERD, Liver (hepatitits c post treatment(05/31/15 [facility] )) Genitourinary: Reports: UTI Neuro/Psych: Reports: None, Other (hx eulalia psychosis(05/31/15 [facility])) Musculoskeletal: Reports: Arthritis (osteoarthritis), Back Pain (L1 comp fracture without malignancy(05/31/15 [facility])with kyphoplasty(05/31/15 [facility])), Other (leg pain) Cancer: Reports: None Last Menstrual Period: n/a - Surgical History General Surgical History: Reports: Back Surgery, Other (URINARY SURGERY,) - Family History Family History: Reports: Unknown - Social History Smoking Status: Former smoker Hx Substance Use: No Alcohol Screening: None Physical Exam - Physical Exam Appearance: Ill-appearing, Thin Ill-appearing: Moderate Pain Distress: Mild Eyes: CATHLEEN, EOMI, Conjunctiva clear ENT: Ears normal, Nose normal, Oropharynx normal (Oral mucosa markedly dry with thick tenaceous secretions in pharyngeal region ) Neck: Supple Respiratory: Airway patent, Breath sounds diminished, Crackles, Rhonchi Cardiovascular: RRR, Pulses normal, No rub, No murmur GI/: Soft, Nontender, No masses, Bowel sounds normal, No Organomegaly Musculoskeletal: Normal strength, ROM intact, No edema, No calf tenderness Skin: Warm, Dry, Normal color Neurological: Sensation intact, Motor intact, Reflexes intact, Cranial nerves intact, Alert, Oriented Psychiatric: Affect appropriate, Mood appropriate Interpretation - Radiology Interpretation Radiology Interpretation By: Radiologist Radiology Results: No acute changes Exam Interpreted: CXR (No acute abnormalities), CT Scan (Head -chronic ischemic changes -no acute findings) Physician Notification - Case Discussed Physician Notified: Dr Rodriguez Time of Notification: 14:50 (agrees to admission) Critical Care Note - Critical Care Note Total Time (mins): 120 Course - Course Hematology/Chemistry: 07/14/18 13:10 07/14/18 13:10 Orders, Labs, Meds: Lab Review 07/14/18 07/14/18 07/14/18 13:05 13:05 13:10 WBC 6.79 RBC 4.15 L Hgb 13.4 Hct 40.4 MCV 97.3 MCH 32.3 H MCHC 33.2 RDW Coeff of [place] 14.0 Plt Count 172 Immature Gran % (Auto) 0.3 Neut % (Auto) 68.2 Lymph % (Auto) 21.6 Fleming % (Auto) 7.4 Eos % (Auto) 2.4 Baso % (Auto) 0.1 Immature Gran # (Auto) 0.0 Neut # (Auto) 4.6 Lymph # (Auto) 1.5 Fleming # (Auto) 0.5 Eos # (Auto) 0.2 Baso # (Auto) 0.0 Puncture Site O2 Saturation ABG pH ABG pCO2 ABG pO2 ABG HCO3 ABG Total CO2 ABG Base Excess Ta Test O2 Delivery Device FiO2 % Sodium Potassium Chloride Carbon Dioxide Anion Gap BUN Creatinine Estimated GFR (MDRD) BUN/Creatinine Ratio Glucose Lactic Acid Calcium Total Bilirubin AST ALT Alkaline Phosphatase Troponin I Total Protein Albumin Globulin Albumin/Globulin Ratio Urine Color Dark Urine Clarity Cloudy Urine pH 7.5 Ur Specific [place] 1.015 Urine Protein Trace Urine Glucose (UA) Negative Urine Ketones Negative Urine Blood Trace-intact Urine Nitrite Positive Urine Bilirubin Negative Urine Urobilinogen 1.0 Ur Leukocyte Esterase 3+ Urine Microscopic WBC 30-50 Ur Squamous Epith Cells 2-5 Urine Bacteria 3+ Urine Opiates Screen Positive Ur Oxycodone Screen Negative Urine Methadone Screen Negative Ur Propoxyphene Screen Negative Ur Barbiturates Screen Negative U Tricyclic Antidepress Negative Ur Phencyclidine Scrn Negative Ur Amphetamine Screen Negative U Methamphetamines Scrn Negative U Benzodiazepines Scrn Negative Urine Cocaine Screen Negative U Cannabinoids Screen Negative Influ A Molecular Assay Influ B Molecular Assay 07/14/18 07/14/18 07/14/18 13:10 13:10 13:10 WBC RBC Hgb Hct MCV MCH MCHC RDW Coeff of [place] Plt Count Immature Gran % (Auto) Neut % (Auto) Lymph % (Auto) Fleming % (Auto) Eos % (Auto) Baso % (Auto) Immature Gran # (Auto) Neut # (Auto) Lymph # (Auto) Fleming # (Auto) Eos # (Auto) Baso # (Auto) Puncture Site O2 Saturation ABG pH ABG pCO2 ABG pO2 ABG HCO3 ABG Total CO2 ABG Base Excess Ta Test O2 Delivery Device FiO2 % Sodium 145.0 Potassium 3.30 L Chloride 110.1 H Carbon Dioxide 30.2 H Anion Gap 8.00 BUN 15.1 Creatinine 0.58 L Estimated GFR (MDRD) 103.00 BUN/Creatinine Ratio 26.03 Glucose 104.4 Lactic Acid 1.37 Calcium 8.69 Total Bilirubin 1.65 H AST 32.4 ALT 12.8 Alkaline Phosphatase 126.2 Troponin I < 0.012 Total Protein 7.43 Albumin 3.83 Globulin 3.60 Albumin/Globulin Ratio 1.06 Urine Color Urine Clarity Urine pH Ur Specific [place] Urine Protein Urine Glucose (UA) Urine Ketones Urine Blood Urine Nitrite Urine Bilirubin Urine Urobilinogen Ur Leukocyte Esterase Urine Microscopic WBC Ur Squamous Epith Cells Urine Bacteria Urine Opiates Screen Ur Oxycodone Screen Urine Methadone Screen Ur Propoxyphene Screen Ur Barbiturates Screen U Tricyclic Antidepress Ur Phencyclidine Scrn Ur Amphetamine Screen U Methamphetamines Scrn U Benzodiazepines Scrn Urine Cocaine Screen U Cannabinoids Screen Influ A Molecular Assay Influ B Molecular Assay 07/14/18 07/14/18 13:32 14:00 WBC RBC Hgb Hct MCV MCH MCHC RDW Coeff of [place] Plt Count Immature Gran % (Auto) Neut % (Auto) Lymph % (Auto) Fleming % (Auto) Eos % (Auto) Baso % (Auto) Immature Gran # (Auto) Neut # (Auto) Lymph # (Auto) Fleming # (Auto) Eos # (Auto) Baso # (Auto) Puncture Site R brach O2 Saturation 94.0 L ABG pH 7.434 ABG pCO2 40.5 ABG pO2 70.0 L ABG HCO3 27.1 H ABG Total CO2 28 ABG Base Excess 3 H Ta Test + O2 Delivery Device Nc FiO2 % 28.0 Sodium Potassium Chloride Carbon Dioxide Anion Gap BUN Creatinine Estimated GFR (MDRD) BUN/Creatinine Ratio Glucose Lactic Acid Calcium Total Bilirubin AST ALT Alkaline Phosphatase Troponin I Total Protein Albumin Globulin Albumin/Globulin Ratio Urine Color Urine Clarity Urine pH Ur Specific [place] Urine Protein Urine Glucose (UA) Urine Ketones Urine Blood Urine Nitrite Urine Bilirubin Urine Urobilinogen Ur Leukocyte Esterase Urine Microscopic WBC Ur Squamous Epith Cells Urine Bacteria Urine Opiates Screen Ur Oxycodone Screen Urine Methadone Screen Ur Propoxyphene Screen Ur Barbiturates Screen U Tricyclic Antidepress Ur Phencyclidine Scrn Ur Amphetamine Screen U Methamphetamines Scrn U Benzodiazepines Scrn Urine Cocaine Screen U Cannabinoids Screen Influ A Molecular Assay Negative by naat Influ B Molecular Assay Negative by naat Orders Category Date Time Status ABG DRAW REQUEST Stat CARDIO 07/14/18 14:01 Completed EKG-(ED ONLY) Stat CARDIO 07/14/18 13:03 Completed NEBULIZER TREATMENT Stat CARDIO 07/14/18 14:41 Completed OXYGEN Routine CARDIO 07/14/18 13:03 Ordered VITAL SIGNS Q8HR CARE 07/14/18 13:03 Active IV [ED IV/MEDIPORT/POWERPORT] .ONCE EMERGENCY 07/14/18 13:03 Active ABG Stat LAB 07/14/18 14:00 Completed BLOOD CULTURE (ED ONLY) Stat LAB 07/14/18 15:18 Received CBC W/ AUTO DIFF Stat LAB 07/14/18 13:10 Completed CMP [COMPREHENSIVE METABOLIC PANEL] Stat LAB 07/14/18 13:10 Completed FLU A & B MOLECULAR [FLU A/B MOLECULAR] Stat LAB 07/14/18 13:32 Completed LACTIC ACID Stat LAB 07/14/18 13:10 Completed SPUTUM CULTURE Stat LAB 07/14/18 15:09 Ordered TROPONIN I Stat LAB 07/14/18 13:10 Completed UA [URINALYSIS C & S IF INDICATED] Stat LAB 07/14/18 13:05 Completed URINE CULTURE Stat LAB 07/14/18 13:05 Received URINE DRUG SCREEN (RAPID FOR ED) [DRUG SCREEN, URINE, LAB 07/14/18 13:05 Completed RAPID] Stat 0.9 % Sodium Chloride [Saline Flush] MEDS 07/14/18 13:03 Active 1 syr IVF PRN PRN Albuterol Sulfate 0.083% Neb [Albuterol 0.083% Neb] MEDS 07/14/18 14:41 Discontinued 1 vial NEB ONCE STA Ceftriaxone Sodium [Rocephin] 1 gm MEDS 07/14/18 14:37 Discontinued 0.9 % Sodium Chloride [Sodium Chloride] 50 ml IV ONCE Naloxone HCl [Narcan] MEDS 07/14/18 13:07 Discontinued 0.4 mg SUBCUT ONCE STA Sodium Chloride 0.9% [Sodium Chloride] 1,000 ml MEDS 07/14/18 13:06 Discontinued IV BOLUS CHEST, 1V AP ONLY Stat RADS 07/14/18 13:[address] HEAD W/O CONTRAST Stat RADS 07/14/18 14:42 Completed Medications Generic Name Dose Route Start Last Admin Trade Name Freq PRN Reason Stop Dose Admin Albuterol/Ipratropium 1 vial 07/14/18 16:07 Duoneb NEB RTQ6H PRN Wheezing Enoxaparin Sodium 30 mg 07/14/18 16:30 07/14/18 16:20 Lovenox SUBCUT 30 mg DAILY ANTONIO Administration Guaifenesin 600 mg 07/14/18 21:00 Mucinex PO BID ANTONIO Potassium Chloride/Sodium Chloride 1,000 mls @ 125 mls/hr 07/14/18 16:30 09/27 16:20 Sodium Chloride 0.9%-Kcl 20 Meq IV 125 mls/hr .Q8H ANTONIO Administration Levothyroxine Sodium 50 mcg 07/15/18 06:30 Synthroid PO QDAC ANTOINO Ondansetron HCl 4 mg 07/14/18 16:07 Zofran 4 Mg/2 Ml IVP Q6H PRN Nausea / Vomiting Polyethylene Glycol 17 gm 07/15/18 09:00 Miralax PO DAILY ANTONIO Sodium Chloride 1 syr 07/14/18 13:03 07/14/18 13:28 Saline Flush IVF 1 syr PRN PRN Administration To flush IV Discontinued Medications Generic Name Dose Route Start Last Admin Trade Name Freq PRN Reason Stop Dose Admin Albuterol Sulfate 1 vial 07/14/18 14:41 07/14/18 14:49 Albuterol 0.083% Neb NEB 07/14/18 14:42 1 vial ONCE STA Administration Sodium Chloride 1,000 mls @ 1,000 mls/hr 07/14/18 13:06 07/14/18 13:22 Sodium Chloride IV 07/14/18 14:05 500 mls/hr BOLUS STA Administration Ceftriaxone Sodium 1 gm/ 50 mls @ 75 mls/hr 07/14/18 14:37 07/14/18 15:28 Sodium Chloride IV 07/14/18 15:16 75 mls/hr ONCE STA Administration Naloxone HCl 0.4 mg 07/14/18 13:07 07/14/18 13:26 Narcan SUBCUT 07/14/18 13:08 0.4 mg ONCE STA Administration Vital Signs: Temp Pulse Resp BP Pulse Ox 07/14/18 12:41 96.9 F L 95 H 20 127/84 91 L Departure - Departure Time of Disposition: 14:55 Disposition: ADMITTED INPATIENT Discharge Problem: Acute UTI, Sepsis, Hypokalemia, COPD (chronic obstructive pulmonary disease), Dehydration Condition: Poor Pt referred to PMD for follow-up: Yes (dr martin-agreed to admit patient) IPMP verified?: No Allergies/Adverse Reactions: Allergies aspirin Allergy (Mild, Verified 07/14/18 12:44) Vomiting codeine Allergy (Mild, Verified 07/14/18 12:44) Vomiting NSAIDS (Non-Steroidal Anti-Inflamma Allergy (Mild, Verified 07/14/18 12:44) Vomiting Sulfa (Sulfonamide Antibiotics) Allergy (Mild, Verified 07/14/18 12:44) Unknown Blisters in mouth egg Adverse Reaction (Unknown, Verified 07/14/18 18:00) Unknown Home Medications: Ambulatory Orders Budesonide/Formoterol Fumarate [Symbicort 160-4.5 Mcg Inhaler] 1 puff IH BID #1 hfa.aer.ad 05/20/18 Hydrocodone/Acetaminophen [Venus 5-325 Tablet] 1 each PO Q6H PRN #120 tablet 03/29 Lactulose 20 gm PO DAILY #30 cup 05/20/18 Ferrous Sulfate 324 mg PO DAILY 07/14/18 Mirtazapine [Remeron] 15 mg PO BEDTIME 07/14/18 Olanzapine [Zyprexa] 20 mg PO BEDTIME 07/14/18 Disposition Discussed With: Patient, Family, Other (Dr Rodriguez consulted and agrees to admit patient) Additional Comments Additional Comments: Dr Rodriguez-consulted. Advises patient has multiple chronic illness including her copd and declining poor health. Hx Pos Hep C
[2018-07-14] MEDS ORDERED: SODIUM CHLORIDE 1,000 ML IV STA (13:06)
[2018-07-14] MEDS ORDERED: NARCAN SUBCUT STA (13:07)
--- NOTE | 2018-07-14 13:57 | DI ---
EXAM: Chest one view HISTORY: Dyspnic COMPARISON: 05/16/[address] 01/25/2018 TECHNIQUE: Single view of the chest was performed FINDINGS: No airspace consolidation. Emphysematous change. There is no pleural effusion or pneumot horax. The heart is normal in size. The mediastinal contour is normal. There are no acute abnormal ities of the bones. Kyphoplasty noted. Thoracic spine IMPRESSION: 1. Emphysema. No acute cardiopulmonary process. 2. Nodules demonstrated on prior CT not clearly delineated. CT follow-up recommended as described.
[2018-07-14] MEDS ORDERED: ROCEPHIN 1 GM in SODIUM CHLORIDE 50 ML IV STA (14:37)
[2018-07-14] MEDS ORDERED: ALBUTEROL 0.083% NEB NEB STA (14:41)
[2018-07-14] MEDS ORDERED: ROCEPHIN ONE (15:03)
--- NOTE | 2018-07-14 15:40 | CT ---
EXAM: CT Head HISTORY: Altered/reduced level of consciousness COMPARISON: 11/18/2016 TECHNIQUE: CT head performed without contrast FINDINGS: There is no mass effect, midline shift, or intracranial hemmorhage. Tolbert white differenti ation is preserved. There is no extra-axial collection. The ventricles, sulci, and basal cisterns a re patent and symmetric. There is chronic ischemic disease of the white matter and cerebral volume l oss. There is no depressed calvarial fracture. The mastoid air cells are clear. The visualized para nasal sinuses are clear. There are intracranial atherosclerotic calcifications. IMPRESSION: 1. No acute intracranial abnormality. 2. Chronic ischemic disease of the white matter and cerebral volume loss.
[2018-07-14] MEDS ORDERED: ZOFRAN 4 MG/2 ML IVP PRN (16:07)
[2018-07-14] MEDS ORDERED: DUONEB NEB PRN (16:07)
[2018-07-14] MEDS: LOVENOX SUBCUT SCH (16:20)
[2018-07-14] MEDS: SODIUM CHLORIDE 0.9%-KCL 20 MEQ 1,000 ML IV SCH (16:20)
[2018-07-14 16:28] VITALS: BMI 16.1
[2018-07-14] MEDS: MUCINEX PO SCH (20:39)
[2018-07-14] MEDS: LACTULOSE PO SCH (20:42)
[2018-07-15] MEDS: SODIUM CHLORIDE 0.9%-KCL 20 MEQ 1,000 ML IV SCH ×3 (00:31→19:12)
[2018-07-15] MEDS: SYNTHROID PO SCH (05:44)
[2018-07-15] MEDS: LACTULOSE PO SCH ×4 (06:31→20:45)
[2018-07-15] MEDS: MIRALAX PO SCH (08:44)
[2018-07-15] MEDS: MUCINEX PO SCH ×2 (08:45→20:46)
[2018-07-15] MEDS: LOVENOX SUBCUT SCH (08:46)
[2018-07-15] MEDS ORDERED: ROCEPHIN 1 GM in SODIUM CHLORIDE 50 ML IV SCH (11:00)
[2018-07-15] MEDS ORDERED: INFUVITE ADULT IV ONE (19:26)
[2018-07-15] MEDS ORDERED: MAXIPIME IV ONE (20:25)
[2018-07-15] MEDS: INFUVITE ADULT 10 ML in D5%-1/2NS-KCL 20 MEQ/L IV SOL 1,000 ML IV SCH (20:35)
[2018-07-15] MEDS: MAXIPIME 2 GM in SODIUM CHLORIDE 100 ML IV SCH (21:18)
[2018-07-16] MEDS: LACTULOSE PO SCH ×3 (05:56→21:21)
[2018-07-16] MEDS: SYNTHROID PO SCH (05:57)
[2018-07-16] MEDS: MUCINEX PO SCH ×2 (08:34→21:19)
[2018-07-16] MEDS: MIRALAX PO SCH (08:34)
[2018-07-16] MEDS: MAXIPIME 2 GM in SODIUM CHLORIDE 100 ML IV SCH ×2 (08:34→21:20)
[2018-07-16] MEDS: LOVENOX SUBCUT SCH (08:34)
[2018-07-16] MEDS ORDERED: INFUVITE ADULT IV ONE (10:29)
[2018-07-16] MEDS: INFUVITE ADULT 10 ML in D5%-1/2NS-KCL 20 MEQ/L IV SOL 1,000 ML IV SCH ×2 (11:15→23:00)
[2018-07-16] MEDS ORDERED: NORCO 5-325 PO STA ×2 (14:47→20:50)
[2018-07-17] MEDS ORDERED: INFUVITE ADULT IV ONE (02:47)
[2018-07-17] MEDS: INFUVITE ADULT 10 ML in D5%-1/2NS-KCL 20 MEQ/L IV SOL 1,000 ML IV SCH ×2 (03:00→17:51)
[2018-07-17] MEDS: LACTULOSE PO SCH ×2 (05:45→12:51)
[2018-07-17] MEDS: SYNTHROID PO SCH (05:45)
[2018-07-17] MEDS: MUCINEX PO SCH ×2 (08:05→21:15)
[2018-07-17] MEDS: MIRALAX PO SCH (08:05)
[2018-07-17] MEDS: MAXIPIME 2 GM in SODIUM CHLORIDE 100 ML IV SCH ×2 (08:05→21:15)
[2018-07-17] MEDS: LOVENOX SUBCUT SCH (08:06)
[2018-07-17] MEDS ORDERED: MIRALAX PO PRN (17:53)
[2018-07-17] MEDS: NORCO 5-325 PO PRN (18:34)
[2018-07-18] MEDS: NORCO 5-325 PO PRN ×2 (00:36→15:40)
[2018-07-18 04:56] VITALS: TEMP 98.5
[2018-07-18] MEDS: SYNTHROID PO SCH (06:03)
[2018-07-18] MEDS: MUCINEX PO SCH (08:22)
[2018-07-18] MEDS: MAXIPIME 2 GM in SODIUM CHLORIDE 100 ML IV SCH (08:23)
[2018-07-18] MEDS: LOVENOX SUBCUT SCH (08:25)
[2018-07-18] MEDS ORDERED: LACTULOSE PO SCH (09:00)
[2018-07-18] MEDS ORDERED: CLINIMIX E 4.25%-5% SOLUTION 1,000 ML IV SCH (14:30)
[2018-07-18 15:03] VITALS: BP 137/70
--- NOTE | 2018-07-18 15:50 | CT ---
EXAM: CT of the chest without contrast History: Follow-up lung nodules. Comparison: Chest CT 01/25/2018 Technique: Multiplanar CT images through the thorax were obtained without the administration of IV c ontrast Findings: Heart size is normal. No pericardial effusion. Valvular calcifications of the heart. No thoracic aortic aneurysm. No pathologically enlarged thoracic lymph nodes. There is new consolidat ion within the right lower lobe. There is bronchial wall thickening. No significant interval change in the left lung nodules. No developing lung nodules. No pleural fluid pneumothorax. Emphysema Within the visualized upper abdomen, no acute findings. The liver is cirrhotic and there are large u pper abdominal varices. No acute osseous abnormalities. Chronic compression deformities of the spin e and kyphoplasties again noted. Impression: 1. Right lower lobe pneumonia. 2. No change in the left lung nodules. Continued follow-up recommended. 3. Emphysema. 4. Cirrhosis and upper abdominal varices consistent with portal venous hypertension
--- NOTE | 2018-07-25 10:37 | HP ---
DATE OF SERVICE: 07/14/18 CHIEF COMPLAINT: Lethargy, poor appetite, dehydration and constipation. SOURCE OF HISTORY: Patient, triage and MD documentation from the ER. HISTORY OF PRESENT ILLNESS: The patient, prior to the last two days, had been doing well according to her sister. The patient began experiencing constipation two days prior to presentation and she stopped eating and drinking. The patient is drowsy and does a smell of urine and the fingernails are dirty. The nature of the dirt is undetermined. The patient's CBC in ER was essentially unremarkable. ABG, FI02 28, acceptable and normal. BUN 15.1, within normal. Creatinine 0.58, E GR 103. Troponin 95.3, upper normal 30. Procalcitonin 0.03. Urine is dark. Specific gravity 1.015, nitrite positive, WBC 30-50, epithelial 2-5, 3+ bacteria. Drug screen was positive for opiates. Chest x-ray showed emphysema and no acute cardiopulmonary processes. Nodules demonstrated on previous CT not visible. Head CT because of fall with some ecchymosis in the right forehead showed no acute intracranial abnormality, chronic ischemic vessel disease of the white matter and decreased cerebral volume. The patient was given a gram of Rocephin in the emergency room IV, Duo Neb nebulizer, Lovenox subcutaneously and Mucinex. The patient was given Narcan 0.4 mg subcutaneously. The patient was given a bolus of 0.9% sodium chloride at 1000 cc. The patient was then admitted to the hospital. PAST PERSONAL HISTORY: The patient was admitted last 05/11/2018 because of recurrent falls with pain in the shoulder with large ecchymosis. She had a fall on 12/26/2017 with fracture of the right hip and was treated in [place] with open reduction and fixation. 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 She was transferred to [facility] on 12/30/2017 post surgery for rehab. Previous admissions to this facility because of acute exacerbation of chronic bronchitis, right lower lobe pneumonitis. Lumbar compression fractures , status post kyphoplasty. Speculated nodule left upper lobe followed by Dr. Herrera. History of chronic hepatitis C. The patient claimed that she was treated for the problem. Previous appendectomy, cholecystectomy, hysterectomy and cataract extraction. FAMILY HISTORY: Brother had COPD, sister also had COPD with chronic tobacco use and the same sister has coronary artery disease with myocardial infarction. Mother had congestive heart failure, father had liver problems. SOCIAL HISTORY: The patient is and resides with her . The patient claimed that she had stopped smoking. MEDICATIONS: Prior to this admission. Ranitidine 150 mg twice a day Vitamin D 50,000 IU monthly Symbicort 160/4.5 mcg, one puff twice a day Lactulose 20 grams daily Hydrocodone/APAP 5/325 mg one every 6 hours prn Levothyroxine 50 mcg daily Ferrous sulfate 324 mg daily Olanzapine 20 mg at bedtime Mirtazapine 15 mg at bedtime ALLERGIES: Aspirin, Codeine, NSAIDS, sulfa, eggs. Reaction to Aspirin, mild, vomiting. Codeine, mild, vomiting. NSAIDS, mild, vomiting. Sulfa unknown. Eggs unknown. Sulfa was described as mild. REVIEW OF SYSTEMS: CONSTITUTIONAL: No fever, no chills, but with fatigue. 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 She opens her eyes to answer. She claims that her appetite was down and that she was constipated. The rest of the systems review are unremarkable and not quite reliable as to the patient's answers. PHYSICAL EXAMINATION: GENERAL: 68 year old female was drowsy at the time of my examination at the floor with the smell of urine and that had been there probably for some time. The fingernails were dirty underneath the nails. She has 2 liters of nasal cannula oxygen. She does arouse and answers questions and moves the extremities. She goes back to closing her eyes. The patient appears ill and unkempt. VITAL SIGNS: Temperature 98.2 at 4:10 p.m. on 07/14/2018. Pulse 90, blood pressure 136/79, respiratory rate 24, oxygen saturation 93 with 2 liters of nasal cannula. She was measured at 82 pounds, 10.77 ounces at the floor and the emergency room was 83 pounds, 15.93 ounces. HEAD: Unremarkable. Face symmetrical and equal with no facial weakness. Color is sallow. No significant tenderness in the frontal or maxillary sinus areas to palpation under pressure. EYES: Pupils equal/reactive to light about 3 mm in size and round. Conjunctivae slightly pale. Sclerae not icteric. MOUTH: Unremarkable. THROAT: No inflammation, tumors or exudate. NECK: No masses. No bruit. No tenderness. No rigidity. No adenopathies. CHEST: Essentially symmetrical and equal with limited expansion. LUNGS: Breath sounds are heard in both sides, diminished with rales on both lung arias. HEART: Audible and regular, not tachycardic. with good tones. No murmurs. ABDOMEN: Flat to scaphoid. No remarkable tenderness. No masses palpable. No bruit, bowel sounds are active. EXTERNAL GENITALIA: Not examined. Pelvic not examined. RECTAL: Not performed. LOWER EXTREMITIES: Symmetrical and equal with no edema. Pedal pulses are present. UPPER EXTREMITIES: Symmetrical and equal. Fingernails are dirty underneath. ASSESSMENT: 1. LETHARGY, ETIOLOGY UNDETERMINED 2. DEHYDRATION 3. ANOREXIA 4. URINARY TRACT INFECTION 5. HISTORY OF CHRONIC TOBACCO USE AND ABUSE, STOPPED 6. ECCHYMOSIS RIGHT FOREHEAD, NO HEMATOMA 7. BILATERAL BRONCHITIS VERSUS PNEUMONITIS TIME SPENT: GREATER THAN 65 MINUTES MTDD
--- NOTE | 2018-07-25 11:51 | DS ---
DATE OF SERVICE: 07/18/18 PATIENT IDENTIFICATION: 68 year old female admitted to the hospital via the emergency room because of lethargy, anorexia, dehydration, not eating and constipation. The patient also smelled of urine and with dirty fingernails. This patient was given a bolus of 1000 cc of normal saline at the emergency room. The urinalysis was abnormal and culture was obtained and she also had a sputum culture, as well as a blood culture. HOSPITAL COURSE: This patient was given 1 gram of Rocephin in the emergency room and this was continued daily. The patient's temperature remained within normal with the highest 98.8. The blood pressure did fluctuate to lower than 100 systolic to slightly higher. A few times she consumed 75% of dinner and lunch. Her Lactulose was increased from once a day to three times a day and the patient had loose bowel movements as a consequence. This was then reduced back to once a day. The initial serum ammonia was elevated at 95.3 and did go down to 58.2 with Lactulose given three times a day. The NT Pro BNP on admission was 156, normal. Total protein was normal, but probably a function of dehydration, although the numbers does not indicate significant dehydration, but maybe she is since the BUN is still normal and the specific gravity of urine was 1.015. The patient, however, after hydration showed decreasing total protein from 7.43 to 5.45 and albumin from 3.8 to 2.55. The patient's TSH was normal and the Free T4 is also normal at 7.6. Urine culture showed Morganella Morganii and sensitive to Ceftriaxone, CINDY 1. The sputum was positive for Serratia Marcescens and again sensitive to Ceftriaxone, CINDY less than 1. The patient's physical condition had improved, as well as her mental processes. The has kept her narcotic medications and she does tell me that he gives the medication to her and not any more than four times a day. This patient was discharged from acute care to Transitional for continued antibiotic administration. The patient at the time of discharge from acute to Transitional Care is alert, responsive to verbal commands and does have orientation to person, time and place. VITAL SIGNS: On 07/18/2018 at 2 p.m. showed a temperature of 98.5, pulse rate of 91, blood pressure 137/70, respiratory rate 14, oxygen saturation 95 at 2.5 liters of oxygen. LUNGS: Still has diminished breath sounds on the right with rales at the right lower third. No wheezing. A few rales at the left base, but mostly clear and no wheezing. HEART: Audible with good tones. GENERAL CONDITION: Improved. FINAL DIAGNOSES: 1. RIGHT LOWER LOBE PNEUMONITIS 2. LETHARGY, IMPROVED 3. HISTORY OF CHRONIC OBSTRUCTIVE PULMONARY DISEASE 4. HISTORY OF CHRONIC TOBACCO USE AND ABUSE, STOPPED A FEW MONTHS AGO 5. CHRONIC RESPIRATORY FAILURE SECONDARY TO THE COPD 6. HISTORY OF HEPATITIS C. THE PATIENT CLAIMED THAT SHE WAS TREATED. 7. URINARY TRACT INFECTION, MORGANELLA MORGANII 8. PNEUMONIA, POSITIVE SPUTUM CULTURE FOR SERRATIA MARCESCENS PLAN: 1. This patient is continued on her medications for now. We will have to look at her medications that can produce drowsiness. 2. Keep probably the Lactulose at one dose a day and may increase to twice depending upon the number of bowel movements. 3. I do not know whether the increased serum ammonia has something to do with her lethargy or increasing lethargy. PROGNOSIS: Poor. TIME SPENT: GREATER THAN 30 MINUTES MTDD
--- NOTE | 2018-07-25 14:14 | PN ---
DATE OF SERVICE: 07/15/18 The patient this evening is better. She does open her eyes quickly. She still smells of urine. I had told the nurse that this patient needs to have a bath. They will try to do that tomorrow. She has movement of all extremities. VITAL SIGNS: At 2 p.m. today showed a temperature 98.4, pulse 63, blood pressure 111/68, respiratory rate 24, oxygen saturation 95 at 2 liters of nasal cannula oxygen. LUNGS: Diminished breath sounds on the right more than the left side. There is just a few rales at the left base. It is mostly on the right lower half that has rales, but no wheezing. HEART: Audible with good tones. She claims that she does not feel well today, although she had a good meal last night, 100% of snack, as well as 50%. Her oral intake has improved. The IV is twice the amount of the oral intake. CONDITION: Slightly improved, but still doesn't feel well. CBC showed normal WBC 6,120, hemoglobin down to 11.6, hematocrit 36.2. Total protein is below normal after hydration. Thyroid TSH normal, as well as the Free T4 at 7.6. Urine culture did grow gram negative rods, as well as sputum. No ID at this time. MTDD
--- NOTE | 2018-07-25 14:39 | PN ---
DATE OF SERVICE: 07/16/18 The patient is feeling better and her general appearance is much better also. She is not dyspneic, nor tachypneic. VITAL SIGNS: Temperature 99.3, pulse rate 90, blood pressure 125/64, respiratory rate 20, oxygen saturation 98 at 2 liters. LUNGS: About the same as yesterday. HEART: Normal sinus rhythm. The patient's Ceftriaxone was discontinued and changed to Cefepime 2 grams every 12 hours. Again, both bacterial growth on the culture are sensitive to Cefepime, as well as to Ceftriaxone, but the Ceftriaxone was discontinued. The patient's renal panel remained normal. The patient did eat 100% of her snack. She had used the urinal or bed bond three times. Blood sugar accucheck 100 at 6 p.m. CONDITION: Improved. MTDD
--- NOTE | 2018-07-25 14:50 | PN ---
DATE OF SERVICE: 07/17/18 The patient is alert and feeling better and looking much better. She does not smell of the urine that she did on admission and yesterday. She did eat 50% of dinner. The patient is alert and not cyanotic and not lethargic. LUNGS: The left is really clear down to the base. The right still has rales. No wheezing. The culture of the urine now shows Morganella Morganii and sensitive to both Cefepime and Rocephin. The patient is receiving Cefepime now. The sputum culture is still gram negative rods and identified as Serratia Marcescens sensitive for Cefepime, as well as Ceftriaxone. The Cefepime will then be continued at 2 grams every 12 hours. CBC still shows normal WBC, lower RBC 3.53 , hemoglobin 11.2, hematocrit 34.8. Electrolytes acceptable. Total protein is down further to 5.6 and albumin down to 2.7. Discussion as to where she should be post hospitalization and the patient expressed nothing else except going home. Her ammonia today is 58.2, much lower than previous on admission at 95.3. CONDITION: Improved. Left chest field posterior is almost completely clear. MTDD
== END 2018-07-18 15:47 | disposition swing bed (61) | DRG 689 ==
LOC: ED 12:40 → MEDSURG B 15:04
PROVIDERS: ADMIT General Practice; ATTEND General Practice
DX: N39.0 Urinary tract infection, site not specified (principal); A41.9 Sepsis, unspecified organism; J18.9 Pneumonia, unspecified organism; J96.10 Chronic respiratory failure, unspecified whether with hypoxia or hypercapnia; J44.9 Chronic obstructive pulmonary disease, unspecified; K13.79 Other lesions of oral mucosa; E87.6 Hypokalemia; E86.0 Dehydration; R06.02 Shortness of breath; R53.1 Weakness; R53.81 Other malaise; R63.0 Anorexia; R58 Hemorrhage, not elsewhere classified; Z79.899 Other long term (current) drug therapy
CPT/HCPCS: 36415; 80053; 80306; 81001; 82140; 82803; 82962; 83605; 83880; 84145; 84436; 84443; 84484; 85025; 87040; 87070; 87086; 87186; 87502; 93005; 93010; 94640; 97802; 99223; 99232; 99239; 99284

== ENCOUNTER 2018-07-18 16:01 | Inpatient (IN) | payer OTHER ==
[2018-07-18 16:26] VITALS: BMI 16.0
[2018-07-18] MEDS: DUONEB NEB PRN ×2 (17:10→23:30)
[2018-07-18] MEDS: CLINIMIX IV SCH (17:23)
[2018-07-18] MEDS: NORCO 5-325 PO PRN (20:15)
[2018-07-18] MEDS: MUCINEX PO SCH (20:15)
[2018-07-18] MEDS: MAXIPIME 2 GM in SODIUM CHLORIDE 100 ML IV SCH (20:16)
[2018-07-19] MEDS: NORCO 5-325 PO PRN ×4 (03:14→22:12)
[2018-07-19] MEDS: CLINIMIX IV SCH ×2 (06:10→22:15)
[2018-07-19] MEDS: SYNTHROID PO SCH (06:10)
[2018-07-19] MEDS: MAXIPIME 2 GM in SODIUM CHLORIDE 100 ML IV SCH ×2 (09:08→20:41)
[2018-07-19] MEDS: LOVENOX SUBCUT SCH (09:11)
[2018-07-19] MEDS: LACTULOSE PO SCH (09:11)
[2018-07-19] MEDS: MUCINEX PO SCH ×2 (09:11→20:41)
[2018-07-19] MEDS: DUONEB NEB PRN ×3 (13:17→23:48)
[2018-07-20] MEDS: NORCO 5-325 PO PRN ×3 (04:19→21:20)
[2018-07-20] MEDS: SYNTHROID PO SCH (05:51)
[2018-07-20] MEDS: CLINIMIX IV SCH ×3 (06:21→23:35)
[2018-07-20] MEDS: LOVENOX SUBCUT SCH (08:40)
[2018-07-20] MEDS: MAXIPIME 2 GM in SODIUM CHLORIDE 100 ML IV SCH ×2 (08:40→21:20)
[2018-07-20] MEDS: LACTULOSE PO SCH (08:40)
[2018-07-20] MEDS: MUCINEX PO SCH ×2 (08:40→21:20)
[2018-07-20] MEDS: DUONEB NEB PRN ×2 (13:48→23:20)
[2018-07-21] MEDS: CLINIMIX IV SCH ×3 (02:29→17:17)
[2018-07-21] MEDS: SYNTHROID PO SCH (05:46)
[2018-07-21] MEDS: MUCINEX PO SCH ×2 (08:29→20:56)
[2018-07-21] MEDS: LACTULOSE PO SCH (08:29)
[2018-07-21] MEDS: MAXIPIME 2 GM in SODIUM CHLORIDE 100 ML IV SCH ×2 (08:29→20:56)
[2018-07-21] MEDS: LOVENOX SUBCUT SCH (08:30)
[2018-07-21] MEDS: NORCO 5-325 PO PRN ×2 (11:10→20:55)
[2018-07-22] MEDS: SYNTHROID PO SCH (05:53)
[2018-07-22] MEDS: MAXIPIME 2 GM in SODIUM CHLORIDE 100 ML IV SCH ×2 (09:06→20:45)
[2018-07-22] MEDS: NORCO 5-325 PO PRN ×2 (09:08→18:24)
[2018-07-22] MEDS: LACTULOSE PO SCH ×2 (09:08→20:45)
[2018-07-22] MEDS: MUCINEX PO SCH ×2 (09:08→20:45)
[2018-07-22] MEDS: LOVENOX SUBCUT SCH (09:08)
[2018-07-22] MEDS: CLINIMIX IV SCH (12:54)
[2018-07-22] MEDS: INFUVITE ADULT 10 ML in D5%-1/2NS-KCL 20 MEQ/L IV SOL 1,000 ML IV SCH (13:26)
[2018-07-23] MEDS ORDERED: INFUVITE ADULT IV ONE ×2 (02:33→02:47)
[2018-07-23] MEDS: NORCO 5-325 PO PRN (02:40)
[2018-07-23] MEDS: INFUVITE ADULT 10 ML in D5%-1/2NS-KCL 20 MEQ/L IV SOL 1,000 ML IV SCH ×2 (02:53→15:32)
[2018-07-23 05:06] VITALS: BP 119/66; TEMP 98.4
[2018-07-23] MEDS: SYNTHROID PO SCH (06:14)
[2018-07-23] MEDS: MUCINEX PO SCH (08:37)
[2018-07-23] MEDS: LACTULOSE PO SCH (08:37)
[2018-07-23] MEDS: MAXIPIME 2 GM in SODIUM CHLORIDE 100 ML IV SCH (08:37)
[2018-07-23] MEDS: LOVENOX SUBCUT SCH (08:38)
[2018-07-23] MEDS ORDERED: ZYPREXA PO SCH (21:00)
[2018-07-23] MEDS ORDERED: REMERON PO SCH (21:00)
--- NOTE | 2018-07-25 10:53 | HP ---
DATE OF SERVICE: 07/18/18 ADMISSION TO TCU FROM ACUTE CHIEF COMPLAINT: 1. Right lower lobe pneumonitis 2. Urinary tract infection HISTORY OF PRESENT ILLNESS: 68 year old female was initialled admitted on 07/14/2018 because of lethargy with abnormal urinalysis and bilateral bronchitis identified as right lower lobe pneumonia. The patient was initiated with Rocephin 1 gram IV in the ER and this was continued daily. The urine culture did show Morganella Morganii and sensitive to Rocephin and the sputum showed Serratia Marcescens and again sensitive to Rocephin as least then 1 CINDY. These medications were continued. The patient's appetite had improved. PAST PERSONAL HISTORY, FAMILY HISTORY, SOCIAL HISTORY, MEDICATIONS AND ALLERGIES : Please see acute H & P dated 07/14/18. PHYSICAL EXAMINATION: GENERAL: The patient is alert and responsive with a better color and much more with it. General appearance is better and she no longer has the urine smell. The fingernails are press cleaner. VITAL SIGNS: The patient's vital signs on admission to [facility] at 4: 13 p.m. on 07/18/2018 showed a temperature 98.6, pulse 78, blood pressure left 94/50, right 98/60, respiratory rate 16, oxygen saturation 97 at 2 liters. 82 pounds, 5', BMI 16.0. HEAD: Unremarkable. Face symmetrical and equal with no facial weakness and no tenderness to palpation under pressure. EYES: Pupils equal/reactive to light. Conjunctivae not pale. Sclerae not icteric. MOUTH: Unremarkable. THROAT: No inflammation, tumors or exudate. NECK: No masses. No bruit. No tenderness. No rigidity. No adenopathy. CHEST: Essentially symmetrical and equal with good expansion. LUNGS: Breath sounds on the left side is almost clear down to the base. The right is diminished breath sounds more so on the lower half. The patient has rales on the right lower half. No wheezing. HEART: Audible and regular with good tones. Not tachycardic. No murmurs. ABDOMEN: Flat, soft with no remarkable tenderness. No guarding. Bowel sounds are active. No masses palpable. EXTERNAL GENITALIA: Not examined. RECTAL: Not performed. LOWER EXTREMITIES: No edema, no tenderness in the calf muscles. Pedal pulses are present. UPPER EXTREMITIES: Symmetrical and equal. ASSESSMENT: 1. RIGHT LOWER LOBE PNEUMONITIS 2. URINARY TRACT INFECTION 3. SERUM AMMONIA DECREASED, BUT NOT NORMAL 4. LETHARGY IMPROVED 5. COPD, SEVERE WITH RESPIRATORY FAILURE TIME SPENT: GREATER THAN 65 MINUTES MTDD
--- NOTE | 2018-07-25 11:18 | DS ---
DATE OF SERVICE: 07/23/18 PATIENT IDENTIFICATION: 68 year old female who was admitted to the hospital because of severe lethargy, anorexia, poor oral intake of fluids, including solids. Ill kept with smelly urine. The patient had improved and was diagnosed to have pneumonitis, right lower lobe with Serratia Marcescens. Urinary tract infection with Morganella Morganii. Both bacteria were sensitive to Rocephin. HOSPITAL COURSE: The patient was continued on Rocephin 1 gram daily or Transitional Care. The patient had eaten better on 07/18/18 at 75% of dinner, 75% of lunch and again on 07/20/18 75% of dinner. On 07/21/18, it was 50% of dinner and 07/22/18 is 25% of dinner and 25% of lunch. The patient had been voiding in the commode and also was noted to be incontinent of urine. She had two bowel movements on 07/20/18, one on 07/21/18 and two on 07/22/18. The patient at the time of discharge is alert and was sitting in a chair erect. She looks much better and much brighter. She has movement of all extremities. She does understand conversation, so I did explain to the patient , the in the presence of Kayleen Cochran RN. I told them that she should eat as much as possible and if she drinks Coke, that she should drink in about the same amount of milk. She should drink plenty of liquids and eat as much solid foods and maybe meat, any kind of meat or fish. I told them that we will decrease the medications, the Olanzapine to 10 mg from 20 mg and Mirtazapine 7.5 mg from 15 mg. I would probably like to decrease both of those medications to the point that we will stop them. The patient's vital signs on the afternoon of discharge were not recorded, but the vital signs in the morning on 07/23/2018 at 5:05 a.m. showed a temperature of 98.4, pulse 78, blood pressure 119/66, respiratory rate 16, oxygen saturation 93 at room air. I did shut the oxygen yesterday and I told Isabel uLna, nurse, to measure the oxygen concentration without the oxygen. I did not remove the cannula. I did in the late afternoon and early evening hours. The oxygen saturation 93 at room air and they were continuously on room air 94, since it had never been restarted to my knowledge. I did ask Ms. Luna again and she told me that she had kept that at room air. The patient at discharge is alert, ambulatory with movement of all extremities. LUNGS: Clear breath sounds on the left side with no rales at all. The right has diminished breath sounds with rales at the lower one third, but no wheezing. Breath sounds are audible in the upper half. HEART: Audible and regular with good tones. ABDOMEN: Unremarkable. PLAN: The patient is then discharged today with no further antibiotics, since she has 9 days of Rocephin IV. I should see her a week from today more or less. Her medications will be the same, except that the Olanzapine was going to be decreased to 10 mg instead of 20 mg and Mirtazapine to 7.5 mg instead of 15 mg and the Lactulose should be increased to twice a day, instead of once a day. Drink plenty of liquids, drink milk as much as possible. Move as often as she can in the house. She should see me in one week and before if there is any concerns. Again, I had expressed my reservations about going home, but the patient wanted to go home and the family has agreed to that. I did talk to her sister, Hiral, and told her about her decision to go home and also mentioned my thoughts about where she should go from here instead of home. FINAL DIAGNOSES: 1. RIGHT LOWER LOBE PNEUMONIA 2. LETHARGY, MAYBE SECONDARY TO RIGHT LOWER LOBE PNEUMONIA, MEDICATION OLANZAPINE AND MIRTAZAPINE. 3. CONSTIPATION RESOLVED WITH INCREASING LACTULOSE DOSE 4. URINARY TRACT INFECTION, SECONDARY TO MORGANELLA MORGANII, TREATED. TIME SPENT: GREATER THAN 30 MINUTES MTDD
--- NOTE | 2018-07-25 15:11 | PN ---
DATE OF SERVICE: 07/19/18 Transitional Care The patient is alert and now oriented person and time. She is also oriented to place. She still expresses her desire to go home. I told her that we are giving her the antibiotics to continue because of the pneumonia that is identified on the right lower base. She is still receiving Cefepime 2 gram every 12 hours and Enoxaparin 30 mg subcutaneously daily. She is receiving Lactulose at 20 grams twice a day. She is on Mirtazapine 7.5 mg at bedtime, which was previously 15 at Olanzapine at 10 mg daily from 20 mg. These medications will be continued as such at discharge and will gradually reduced to then probably stopped. We will see how she does when she gets to about 5 mg of Mirtazapine and 5 mg of Olanzapine. HEART: Audible and regular with good tones. ABDOMEN: Nontender. LOWER EXTREMITIES: No edema and no tenderness in the calf muscles. The pedal pulses are present. CONDITION: Stable and improved. MTDD
--- NOTE | 2018-07-25 15:15 | PN ---
DATE OF SERVICE: 07/20/18 The patient at 6 p.m. on 07/20/2018 is alert and responsive and has movement of all extremities at present. VITAL SIGNS: Temperature oral 97.8, pulse 91, blood pressure 126/67, respiratory rate 14, oxygen saturation 94 at room air. The patient was on 2 liters previously. I do not know if this was done and recorded as such at room air. No labs were done today. Chest CT done of 07/18/2018 before admission to [facility]itional [facility] showed the right lower lobe pneumonitis. The patient was wanting to know when she can go home and I did tell her that we will try to discharge her as soon as we feel that the condition had been stabilized and that the pneumonia more or less is resolving. CALLIED
--- NOTE | 2018-07-25 15:22 | PN ---
DATE OF SERVICE: 07/21/18 The patient is alert and oriented to time, person and place. She is getting peripheral Amino Acids at 4.25% hoping to increase her nutritional protein. She is tolerating the IV fluid and peripheral protein. VITAL SIGNS: At 6 p.m. today showed a temperature of 98.3, pulse 87, blood pressure 137/66, respiratory rate 12, oxygen saturation 95 at room air. LUNGS: Left almost clear completely, right diminished breath sounds and a better air exchange in the upper half. Rales in the right lower half. HEART: Audible with good tones. ABDOMEN: Nontender. LOWER EXTREMITIES: No tenderness in the calf muscles. The patient claims to be feeling better. CONDITION: Stable. MTDD
--- NOTE | 2018-07-25 15:31 | PN ---
DATE OF SERVICE: 07/22/18 The patient at 6 p.m. was alert with movement of all extremities. She was wanting to go home today. I told her that we will discharge tomorrow if all things remain the same or better. VITAL SIGNS: The patient at 6 p.m. on 07/22/2018 had a temperature of 98.5, pulse 58, blood pressure 146/71, respiratory rate 18, oxygen saturation 94 with room air. It had listed nasal cannula, but no amount of oxygen given. It appears that at 6 p.m. it was 95 on room air. The patient is able to tolerate without nasal oxygen if she is just lying down. This patient does have home oxygen. This patient would most likely be discharged tomorrow with instructions. The patient will be given the medications that she is getting a reduced dose of the Mirtazapine, as well as the Olanzapine. Again, I had talked to the patient that home is probably not the best place, but she had no other choices except she wants to go home. I told her that she had been falling and the next time she might have that episode where she would break a hip or any other bone, which would be very detrimental to her condition or physical condition or health. The patient, however, has not changed her mind. SUKUMAR
== END 2018-07-23 16:45 | disposition home or self-care (01) | DRG 689 ==
LOC: MEDSURG B 16:01
PROVIDERS: ADMIT General Practice; ATTEND General Practice
DX: N39.0 Urinary tract infection, site not specified (principal); A41.9 Sepsis, unspecified organism; J96.10 Chronic respiratory failure, unspecified whether with hypoxia or hypercapnia; J44.9 Chronic obstructive pulmonary disease, unspecified; K13.79 Other lesions of oral mucosa; E87.6 Hypokalemia; E86.0 Dehydration; R06.02 Shortness of breath; R53.1 Weakness; R53.81 Other malaise; R63.0 Anorexia; R58 Hemorrhage, not elsewhere classified
CPT/HCPCS: 36415; 80053; 82140; 85025; 94640; 97802; 99307; 99308; 99316

== ENCOUNTER 2018-10-26 13:41 | Outpatient (CLI) | payer OTHER ==
--- NOTE | 2018-10-26 14:50 | DI ---
EXAM: CHEST FRONTAL AND LATERAL VIEWS HISTORY: Chronic obstructive pulmonary disease. COMPARISON: 07/14/2018 FINDINGS: Heart size is within normal limits. There is atherosclerotic disease. There is diffuse, chronic appearing interstitial accentuation. Lungs are hyperinflated and there is relative lucency o f the lung zones suggesting pulmonary emphysema. Bibasilar fibrosis is suggested. There is mild den sity in the right costophrenic angle which is new possibly related to mild pneumonia or a tiny pleura l effusion. Correlate clinically. Lungs are otherwise unremarkable. Bones appear demineralized. M ultiple vertebral body deformities which are not well seen are present., one of which has underwent k yphoplasty. IMPRESSION: 1. Findings consistent with significant chronic obstructive pulmonary disease. 2. Cannot exclude focal right base pneumonia. Consider follow-up to assure clearance.
== END 2018-10-26 13:42 | disposition home or self-care (01) ==
LOC: LAB 13:41
PROVIDERS: ATTEND General Practice
DX: J44.9 Chronic obstructive pulmonary disease, unspecified (principal); R06.02 Shortness of breath; E03.9 Hypothyroidism, unspecified; Z86.2 Personal history of diseases of the blood and blood-forming organs and certain disorders involving the immune mechanism; Z00.00 Encounter for general adult medical examination without abnormal findings; R68.89 Other general symptoms and signs; M81.0 Age-related osteoporosis without current pathological fracture; F32.9 Major depressive disorder, single episode, unspecified
CPT/HCPCS: 36415; 80053; 80061; 82140; 83880; 84443; 85025

== ENCOUNTER 2018-10-27 10:21 | Outpatient (CLI) | payer OTHER | END 2018-10-27 10:22 | disposition home or self-care (01) | LOC: LAB 10:21 | PROVIDERS: ATTEND General Practice | DX: Z00.00 Encounter for general adult medical examination without abnormal findings (principal); J44.9 Chronic obstructive pulmonary disease, unspecified; R06.02 Shortness of breath; E03.9 Hypothyroidism, unspecified; Z86.2 Personal history of diseases of the blood and blood-forming organs and certain disorders involving the immune mechanism; R68.89 Other general symptoms and signs; M81.0 Age-related osteoporosis without current pathological fracture; F32.9 Major depressive disorder, single episode, unspecified | CPT/HCPCS: 81001; 87086; 87186 ==

== ENCOUNTER 2018-11-23 13:23 | Outpatient (CLI) | END 2018-11-23 13:24 | disposition home or self-care (01) | LOC: LAB 13:23 | PROVIDERS: ATTEND General Practice | DX: Z87.19 Personal history of other diseases of the digestive system (principal) | CPT/HCPCS: 36415; 80048 ==

== ENCOUNTER 2019-03-20 14:02 | Outpatient (CLI) ==
[2019-03-16 20:22] VITALS: BMI 14.1
== END 2019-03-20 14:27 | disposition short-term general hospital (02) ==
LOC: AMBL 14:02
PROVIDERS: ATTEND Internal Medicine
DX: K56.609 Unspecified intestinal obstruction, unspecified as to partial versus complete obstruction (principal)

== ENCOUNTER 2019-06-05 10:53 | Inpatient (IN) ==
[2019-06-05] MEDS ORDERED: SODIUM CHLORIDE 1,000 ML IV STA (11:28)
[2019-06-05] MEDS ORDERED: POTASSIUM CHLORIDE 10 MEQ/100 ML PREMIX 10 MEQ/100 ML BAG IV STA (12:11)
--- NOTE | 2019-06-05 12:38 | CT ---
EXAM: CT BRAIN HISTORY: Fall TECHNIQUE: CT brain without intravenous contrast. 5-mm axial sections with Reformations. COMPARISON: None FINDINGS: There is generalized atrophy. There is moderate periventricular and deep white matter low attenuatio n which although nonspecific is suggestive of chronic microvascular ischemic change. Brain otherwise was unremarkable without evidence of hemorrhage or large vessel distribution recent i schemic infarction. There is no suggestion of acute hydrocephalus or subdural fluid collection. No mass or mass effect. Cranium has no acute finding. Mastoid processes are aerated. The visualized paranasal sinuses are clear. IMPRESSION: No acute intracranial process. No skull fracture identified.
--- NOTE | 2019-06-05 12:43 | CT ---
EXAM: CT cervical spine. HISTORY: Fall, pain. TECHNIQUE: CT cervical spine without contrast. Detailed axial sections. Coronal and sagittal re-fo rmations. COMPARISON: 03/16/2019 FINDINGS: Bones are demineralized. There is no fracture or loss of vertebral body height. No spondylolisthesi s. Facet joints appear normally covered. Lateral masses of C1 and C2 are normally aligned and the odontoid process is intact. Degenerative changes lead to mild central canal stenosis and neural fora brendon narrowing. There is no evidence of traumatic central canal stenosis or paraspinal hematoma. I ncidental findings include atherosclerotic disease. IMPRESSION: 1. No fracture or subluxation.
--- NOTE | 2019-06-05 12:43 | CT ---
EXAM: CT scan of the chest without contrast HISTORY: cough TECHNIQUE: Imaging of the chest was performed without contrast. 5 mm thin axial images and coronal and sagittal injections were provided for interpretation. Comparison 03/16/2019 and 07/18/2018. FINDINGS: There is stable appearance of a irregular opacity seen in the left upper lobe of the lung seen on axial image number 14. There is stable appearance of an additional triangular density seen i n the left upper lobe of the lung seen on axial image number 16. No definite infiltrates are identif ied. Heart is normal size.2 there is atherosclerotic disease of the thoracic aorta. No lytic or joslyn stic lesions are seen within the osseous structures. IMPRESSION: Pulmonary emphysema. Stable appearance of nodular densities seen in the left upper lobe of the lung. Findings may represe nt foci of scarring.
--- NOTE | 2019-06-05 12:48 | CT ---
EXAM: CT scan of the abdomen and pelvis without contrast HISTORY: Fall TECHNIQUE: Helical imaging of the abdomen pelvis was performed without contrast. 5 mm thin axial im ages and coronal and sagittal reconstructions were provided for interpretation. Comparison 03/20/2019 CT scan of the abdomen pelvis. FINDINGS: The liver, spleen, pancreas, kidneys appear normal. The proximal ureters are normal size. The small and large bowel loops are normal caliber. There is no free air. The helical images obtained through the pelvis demonstrate a normal appearance of the rectum, urinary bladder. There is no free fluid seen within the pelvis. There is stable appearance of chronic appe aring compression deformities seen within the upper lumbar spine. IMPRESSION: No acute traumatic abnormalities are seen within the abdomen and pelvis.
--- NOTE | 2019-06-05 12:50 | CT ---
EXAM: CT LUMBAR SPINE HISTORY: Fall, pain TECHNIQUE: CT lumbar spine without contrast. 3-mm axial sections. Coronal and sagittal reformation s. COMPARISON: 03/16/2019 FINDINGS: Bones are significantly demineralized. There are vertebral body compression fractures at L1 and L2 w ith the L1 level having previously been treated by kyphoplasty. Degree of deformity is at least mode rate at these two levels. These are stable since the previous exam. No acute fracture is identified . Diffuse degenerative disc and facet disease is present with multilevel central canal and neural fo raminal stenosis also stable since previous exam and probably more noticeable at L4/L5 than other lev els. There is no paraspinal hematoma. See also same day CT abdomen and pelvis report. IMPRESSION: 1. Stable vertebral body compression fractures at L1 and L2. No acute fracture is identified.
--- NOTE | 2019-06-05 12:53 | CT ---
EXAM: CT scan of the thoracic spine without contrast HISTORY: Trauma TECHNIQUE: Helical imaging of the thoracic spine was performed without contrast. Sagittal and coron al reconstructions and axial images were provided for interpretation. Comparison 12/26/2017. FINDINGS: There has been previous kyphoplasty or vertebral plasty seen at T8. There is additional p revious kyphoplasty seen L1.. There is mild compression deformity seen at T8, L1 and L2. There is s table appearance of chronic appearing mild compression deformity of T4 and T5. The spinous processes are intact. There is a normal alignment of the facet joints. IMPRESSION: No evidence of acute fracture seen within the thoracic spine. Chronic appearing multiple mild compression deformities are seen.
--- NOTE | 2019-06-05 13:27 | DI ---
EXAM: Left ankle three views HISTORY: Injury, pain FINDINGS: Bones are severely demineralized. This limits the evaluation. No displaced fracture is i dentified. Joints are intact. There is no joint effusion or acute soft tissue finding. IMPRESSION: 1. No fracture or dislocation identified.
--- NOTE | 2019-06-05 13:29 | DI ---
EXAM: Three views of the left foot HISTORY: Injury TECHNIQUE: AP lateral, oblique views of the left foot were obtained. Comparison 12/16/2009 FINDINGS: There is cortical irregularity seen along the distal fourth metatarsal. The bones are ost eopenic. No other abnormalities are seen. IMPRESSION: There is suspicion for a fracture of the distal fourth metatarsal.
--- NOTE | 2019-06-05 14:24 | ED.PDOC ---
General ED Provider: Dr. ESE PAIGE Chief Complaint: Fall Stated Complaint: weakness fall a ground level fall due to profound weakness c/o of left foot pain , neck pain, back and hip pain Time Seen by Physician: 11:00 Mode of Arrival: Wheelchair Information Source: Patient Exam Limitations: No limitations Primary Care Provider: JANUSZ URIAS MD Nursing and Triage Documentation Reviewed and Agree: Yes Does patient meet sepsis criteria?: No If yes, has appropriate treatment been initiated?: No System Inflammatory Response Syndrome: Not Applicable Sepsis Protocol: For patient's 13 years and over: Temp is 96.8 and below OR 101 and greater Pulse >90 BPM Resp >20/minute Acutely Altered Mental Status Are patient's symptoms suggestive of a new infection, such as: -Pneumonia -Skin, Soft Tissue -Endocarditis -UTI -Bone, Joint Infection -Implantable Device -Acute Abdominal Infection -Wound Infection -Meningitis -Blood Stream Catheter Infection -Unknown Miscellaneous Complaint Exam Complex/Multi-System Complaint/Exam Onset/Duration: TODAY BUT STEADLY GETTING WEAK ER Symptoms Are: Still present Episodes Lasting: Days Initial Severity: Moderate Current Severity: Moderate Location of Pain: CHEST BACK , NECK FOOT Associated Signs and Symptoms: Reports Decreased responsiveness, Confusion, Short of air, Cough and Abdominal pain; Denies Agitation, Dizziness, Weakness, Syncope, Headache, Wheezing, Hemoptysis, Chest pain, Palpitations, Edema, Nausea, Vomiting, Diarrhea, Back pain, Dysuria, Hematemesis, Melena, Decreased oral intake, Fever, Diaphoresis, Immunocompromised, Anticoagulation Therapy, Recent medication changes, 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 Quality Indicators for AMI: EKG in 10min. Quality Indicator For Non-Traumatic Chest Pain/Syncope: EKG Performed Review of Systems Review Of Systems Constitutional: Reports Malaise, Weakness and Loss of appetite Eyes: Reports No symptoms Ears, Nose, Mouth, Throat: Reports No symptoms Respiratory: Reports Cough and Short of air Cardiac: Reports Irregular heart rate and Lightheadedness GI: Reports Abdominal pain : Reports Dysuria and Flank pain Musculoskeletal: Reports Joint pain (foot pain) Skin: Reports No symptoms Neurological: Reports No symptoms Endocrine: Reports No symptoms Hematologic/Lymphatic: Reports No symptoms All Other Systems: Reviewed and Negative [facility] Social History (Updated 05/26/19 @ 13:11 by JOS VASQUEZ LPN) Smoking and tobacco status: Former smoker Passive smoking exposure: Yes Second hand smoke exposure: Yes Alcohol intake: unknown Substance use type: unknown Household members: spouse Housing: house Marital status: M Lives independently: No History of recent travel: No Do you think of yourself as: straight/heterosexual Current gender identity: female Additional social history: Unable to obtain history, patient is a poor historian Female Reproductive History Menstrual Hx Hysterectomy: No Hx Tubal Ligation: No Physical Exam Physical Exam Appearance: Ill-appearing Ill-appearing: Severe Pain Distress: Mild Eyes: CATHLEEN, EOMI and Conjunctiva clear ENT: Ears normal, Nose normal and Oropharynx normal Neck: Supple Respiratory: Airway patent, Breath sounds clear, Breath sounds equal and Respirations nonlabored Cardiovascular: RRR, Pulses normal, No rub and No murmur GI/: Soft, Nontender, No masses, Bowel sounds normal and No Organomegaly Musculoskeletal: Normal strength, ROM intact, No edema and No calf tenderness Skin: Warm, Dry and Normal color Neurological: Sensation intact, Motor intact, Reflexes intact, Cranial nerves intact, Alert and Oriented Psychiatric: Affect appropriate and Mood appropriate Interpretation Radiology Interpretation Radiology Interpretation By: Radiologist Radiology Results: Positive (left foot fx metatarsal 4th fx) EKG Interpretation Interpretation: Afib with RVR Re-Evaluation Re-Evaluation Time of Re-Evaluation: 13:00 Status: Improved Vital Signs Stable: Yes Pain Level: 0 Appearance: Other (ACUTELY ILL DNR) Lungs: Clear Skin: Warm and Dry Neuro: Other (ALERT TO SELF ) CV: Other (TACHY IRREGULAR CONSISTENT WITH AFIB) Physician Notification Case Discussed Physician Notified: PMD Time of Notification: 14:20 Critical Care Note Critical Care Note Total Time (mins): 120 Course Course Hematology/Chemistry: 06/05/19 11:40 06/05/19 11:40 Orders, Labs, Meds: Lab Review 06/05/19 06/05/19 06/05/19 11:40 11:40 11:40 WBC 10.06 RBC 3.73 L Hgb 12.0 Hct 36.7 L MCV 98.4 MCH 32.2 H MCHC 32.7 RDW Coeff of [place] 14.6 Plt Count 221 Immature Gran % (Auto) 0.4 Neut % (Auto) 78.9 Lymph % (Auto) 13.8 Ida % (Auto) 5.0 Eos % (Auto) 1.5 Baso % (Auto) 0.4 Immature Gran # (Auto) 0.0 Neut # (Auto) 7.9 H Lymph # (Auto) 1.4 Ida # (Auto) 0.5 Eos # (Auto) 0.2 Baso # (Auto) 0.0 Sodium 140.5 Potassium 2.70 L* Chloride 105.3 Carbon Dioxide 24.2 Anion Gap 13.70 BUN 9.4 Creatinine 0.67 Estimated GFR (MDRD) 87.00 BUN/Creatinine Ratio 14.02 Glucose 137.9 H Lactic Acid Calcium 8.85 Total Bilirubin 1.31 H AST 38.7 H ALT 18.3 Alkaline Phosphatase 220.8 H Total Creatine Kinase 97.5 Troponin I < 0.012 Total Protein 8.56 H Albumin 4.05 Globulin 4.51 Albumin/Globulin Ratio 0.89 Procalcitonin 0.13 Urine Color Urine Clarity Urine pH Ur Specific [place] Urine Protein Urine Glucose (UA) Urine Ketones Urine Blood Urine Nitrite Urine Bilirubin Urine Urobilinogen Ur Leukocyte Esterase Urine Microscopic RBC Urine Microscopic WBC Ur Squamous Epith Cells Urine Bacteria 06/05/19 06/05/19 12:36 12:45 WBC RBC Hgb Hct MCV MCH MCHC RDW Coeff of [place] Plt Count Immature Gran % (Auto) Neut % (Auto) Lymph % (Auto) Ida % (Auto) Eos % (Auto) Baso % (Auto) Immature Gran # (Auto) Neut # (Auto) Lymph # (Auto) Ida # (Auto) Eos # (Auto) Baso # (Auto) Sodium Potassium Chloride Carbon Dioxide Anion Gap BUN Creatinine Estimated GFR (MDRD) BUN/Creatinine Ratio Glucose Lactic Acid 2.21 H Calcium Total Bilirubin AST ALT Alkaline Phosphatase Total Creatine Kinase Troponin I Total Protein Albumin Globulin Albumin/Globulin Ratio Procalcitonin Urine Color Yellow Urine Clarity Turbid Urine pH 7.0 Ur Specific [place] 1.015 Urine Protein Trace Urine Glucose (UA) Negative Urine Ketones Negative Urine Blood 1+ Urine Nitrite Positive Urine Bilirubin Negative Urine Urobilinogen 0.2 Ur Leukocyte Esterase 3+ Urine Microscopic RBC 2-5 Urine Microscopic WBC Tntc Ur Squamous Epith Cells Not Reportable Urine Bacteria 2+ Orders Category Date Time Status ABG DRAW REQUEST Stat CARDIO 06/05/19 11:27 Completed EKG-(ED ONLY) Stat CARDIO 06/05/19 11:20 Completed BLOOD CULTURE Stat LAB 06/05/19 12:36 Received CBC W/ AUTO DIFF Stat LAB 06/05/19 11:40 Completed COMPREHENSIVE METABOLIC PANEL Stat LAB 06/05/19 11:40 Completed CREATINE KINASE Stat LAB 06/05/19 11:40 Completed LACTIC ACID Stat LAB 06/05/19 12:36 Completed PROCALCITONIN Stat LAB 06/05/19 11:40 Completed TROPONIN I Stat LAB 06/05/19 11:40 Completed URINALYSIS C & S IF INDICATED Stat LAB 06/05/19 12:45 Completed URINE CULTURE Stat LAB 06/05/19 12:45 Received Potassium Chloride [Potassium Chloride 10 Meq/100 ml MEDS 06/05/19 12:11 Discontinued Premix] 10 meq in 100 ml IV ONCE Sodium Chloride 0.9% [Sodium Chloride] 1,000 ml MEDS 06/05/19 11:28 Active IV 125 mls/hr ANKLE, LEFT MIN 3 VIEWS Stat RADS 06/05/19 12:[address] ABDOMEN/PELVIS WO CONTRAST Stat RADS 06/05/19 11:[address] CERVICAL SPINE W/O CONTRAST Stat RADS 06/05/19 11:[address] CHEST W/O CONTRAST Stat RADS 06/05/19 11:[address] HEAD W/O CONTRAST Stat RADS 06/05/19 11:[address] LUMBAR SPINE W/O CONTRAST Stat RADS 06/05/19 11:[address] THORACIC SPINE W/O CONTRAST Stat RADS 06/05/19 11:23 Completed FOOT, LEFT 3 VIEWS Stat RADS 06/05/19 12:11 Completed Medications Generic Name Dose Route Start Last Admin Trade Name Freq PRN Reason Stop Dose Admin Sodium Chloride 1,000 mls @ 125 mls/hr 06/05/19 11:28 06/05/19 13:20 Sodium Chloride IV 06/05/19 19:27 125 mls/hr .Q8H STA Administration Discontinued Medications Generic Name Dose Route Start Last Admin Trade Name Freq PRN Reason Stop Dose Admin Potassium Chloride 10 meq in 100 mls @ 100 mls/hr 06/05/19 12:11 06/05/19 13:20 Potassium Chloride 10 Meq/100 Ml Premix IV 06/05/19 13:10 40 mls/hr ONCE STA Administration Vital Signs: Temp Pulse Resp BP Pulse Ox 06/05/19 10:56 97.8 F 117 H 34 H 128/60 96 Discharge Plan Discharge Patient Disposition: ADMITTED INPATIENT Discharge Problem: Hypokalemia, Chronic a-fib, Falls, Acute UTI ED Provider: ESE PAIGE Condition: Poor
[2019-06-05] MEDS ORDERED: NON-FORMULARY MEDICATION (Acetaminophen 650 MG) PO PRN (14:25)
[2019-06-05] MEDS ORDERED: NYSTATIN TP SCH (14:30)
[2019-06-05] MEDS ORDERED: TYLENOL PO PRN (14:30)
[2019-06-05] MEDS ORDERED: VANCOMYCIN 1 GM in SODIUM CHLORIDE 250 ML IV STA (14:30)
[2019-06-05 15:27] VITALS: BMI 17.1
[2019-06-05] MEDS: SODIUM CHLORIDE 0.9%-KCL 40MEQ 1,000 ML IV SCH (16:10)
[2019-06-05] MEDS ORDERED: ZOSYN 3.375 GM 3.375 GM in SODIUM CHLORIDE 50 ML IV SCH (18:00)
[2019-06-05] MEDS: ROCEPHIN 1 GM/50 ML D5W 1 GM/50 ML BAG IV SCH (18:17)
[2019-06-05] MEDS ORDERED: SODIUM CHLORIDE IV SCH (19:30)
[2019-06-05] MEDS ORDERED: GENTAMICIN SULFATE IV SCH (19:30)
[2019-06-05] MEDS ORDERED: GENTAMICIN SULFATE ONE (19:46)
[2019-06-05] MEDS: SODIUM CHLORIDE IV SCH (20:10)
[2019-06-05] MEDS: GENTAMICIN SULFATE IV SCH (20:10)
[2019-06-05] MEDS: REMERON PO SCH (20:17)
[2019-06-05] MEDS: ZYPREXA PO SCH (20:18)
[2019-06-06] MEDS: SODIUM CHLORIDE 0.9%-KCL 40MEQ 1,000 ML IV SCH ×4 (02:43→18:15)
[2019-06-06] MEDS ORDERED: GENTAMICIN SULFATE ONE ×2 (04:32→20:16)
[2019-06-06] MEDS: GENTAMICIN SULFATE IV SCH ×3 (04:43→21:30)
[2019-06-06] MEDS: SODIUM CHLORIDE IV SCH ×3 (04:43→21:30)
[2019-06-06] MEDS: SYNTHROID PO SCH (05:36)
[2019-06-06] MEDS: ROCEPHIN 1 GM/50 ML D5W 1 GM/50 ML BAG IV SCH (09:11)
[2019-06-06] MEDS: NYSTATIN CREAM TP SCH (11:04)
[2019-06-06] MEDS ORDERED: LACTULOSE RC STA (13:17)
[2019-06-06] MEDS ORDERED: POTASSIUM CHLORIDE 20 MEQ VIAL- ADDITIVE ONLY IV ONE (17:54)
[2019-06-06] MEDS: [UNRECOGNIZED DRUG - MIXTURE] IV SCH (18:01)
[2019-06-06] MEDS: CALMOSEPTINE OINTMENT TP SCH (21:31)
[2019-06-06] MEDS: ZYPREXA PO SCH (21:51)
[2019-06-06] MEDS: REMERON PO SCH (21:51)
[2019-06-07] MEDS: GENTAMICIN SULFATE IV SCH ×3 (06:22→20:39)
[2019-06-07] MEDS: SODIUM CHLORIDE IV SCH ×3 (06:22→20:39)
[2019-06-07] MEDS: SYNTHROID PO SCH (06:26)
[2019-06-07] MEDS: ROCEPHIN 1 GM/50 ML D5W 1 GM/50 ML BAG IV SCH (08:16)
[2019-06-07] MEDS: NYSTATIN CREAM TP SCH (08:21)
[2019-06-07] MEDS: CALMOSEPTINE OINTMENT TP SCH ×4 (08:30→20:41)
[2019-06-07] MEDS: [UNRECOGNIZED DRUG - MIXTURE] IV SCH ×2 (08:32→22:10)
[2019-06-07] MEDS: REMERON PO SCH (20:58)
[2019-06-07] MEDS: ZYPREXA PO SCH (20:59)
[2019-06-07] MEDS ORDERED: POTASSIUM CHLORIDE 20 MEQ VIAL- ADDITIVE ONLY IV ONE (22:16)
[2019-06-07] MEDS: [UNRECOGNIZED DRUG - MIXTURE] IV SCH (22:21)
[2019-06-08] MEDS: SODIUM CHLORIDE IV SCH ×2 (04:56→12:22)
[2019-06-08] MEDS: GENTAMICIN SULFATE IV SCH ×2 (04:56→12:22)
[2019-06-08] MEDS: SYNTHROID PO SCH (05:40)
[2019-06-08] MEDS: CALMOSEPTINE OINTMENT TP SCH ×4 (08:20→20:40)
[2019-06-08] MEDS: NYSTATIN CREAM TP SCH (08:20)
[2019-06-08] MEDS ORDERED: POTASSIUM CHLORIDE 20 MEQ VIAL- ADDITIVE ONLY IV ONE (12:52)
[2019-06-08] MEDS: [UNRECOGNIZED DRUG - MIXTURE] IV SCH (13:00)
[2019-06-08] MEDS ORDERED: LACTULOSE RC STA (16:29)
--- NOTE | 2019-06-08 19:08 | DI ---
EXAM: Chest 1 view. HISTORY: Short of breath, rales in the lung arias. COMPARISON: None. FINDINGS: The cardiac silhouette appears normal. There is some peribronchial denser thickening debby r areas lung bases. No lobar consolidation or pneumonia is seen. No pleural fluid or peripheral pul monary edema. Previous vertebral augmentation/kyphoplasty mid thoracic and upper lumbar levels. Impression 1. Cardiac silhouette normal size. 2. Peribronchial thickening hilar areas and the lung bases, correlate clinically regarding bronchiti s. No lobar consolidation or pneumonia.
[2019-06-08] MEDS: REMERON PO SCH (20:39)
[2019-06-08] MEDS: MAXIPIME 2 GM/50 ML D5W 2 GM/50 ML BAG IV SCH (20:39)
[2019-06-08] MEDS: ZYPREXA PO SCH (20:39)
[2019-06-09] MEDS: [UNRECOGNIZED DRUG - MIXTURE] IV SCH ×2 (03:54→11:02)
[2019-06-09] MEDS: MAXIPIME 2 GM/50 ML D5W 2 GM/50 ML BAG IV SCH ×3 (05:28→21:35)
[2019-06-09] MEDS: SYNTHROID PO SCH (05:30)
[2019-06-09] MEDS: NYSTATIN CREAM TP SCH (09:38)
[2019-06-09] MEDS: CALMOSEPTINE OINTMENT TP SCH ×4 (09:39→21:35)
[2019-06-09] MEDS: REMERON PO SCH (21:35)
[2019-06-09] MEDS: ZYPREXA PO SCH (21:36)
[2019-06-10] MEDS: MAXIPIME 2 GM/50 ML D5W 2 GM/50 ML BAG IV SCH ×4 (05:10→22:31)
[2019-06-10] MEDS ORDERED: POTASSIUM CHLORIDE 20 MEQ VIAL- ADDITIVE ONLY IV ONE (05:14)
[2019-06-10] MEDS: [UNRECOGNIZED DRUG - MIXTURE] IV SCH (05:18)
[2019-06-10] MEDS: SYNTHROID PO SCH (05:50)
[2019-06-10] MEDS: CALMOSEPTINE OINTMENT TP SCH ×4 (09:14→22:01)
[2019-06-10] MEDS: NYSTATIN CREAM TP SCH (09:15)
[2019-06-10] MEDS ORDERED: LACTULOSE PO ONE (16:09)
[2019-06-10] MEDS: ZYPREXA PO SCH (21:57)
[2019-06-10] MEDS: REMERON PO SCH (21:57)
[2019-06-11] MEDS: MAXIPIME 2 GM/50 ML D5W 2 GM/50 ML BAG IV SCH ×3 (05:33→21:11)
[2019-06-11] MEDS: SYNTHROID PO SCH (05:34)
[2019-06-11] MEDS: CALMOSEPTINE OINTMENT TP SCH ×3 (08:42→21:14)
[2019-06-11] MEDS: NYSTATIN CREAM TP SCH (08:43)
[2019-06-11] MEDS ORDERED: POTASSIUM CHLORIDE 20 MEQ VIAL- ADDITIVE ONLY IV ONE (09:51)
[2019-06-11] MEDS: [UNRECOGNIZED DRUG - MIXTURE] IV SCH ×2 (09:56→22:25)
[2019-06-11] MEDS: REMERON PO SCH (21:15)
[2019-06-11] MEDS: ZYPREXA PO SCH (21:16)
[2019-06-12] MEDS ORDERED: POTASSIUM CHLORIDE 20 MEQ VIAL- ADDITIVE ONLY IV ONE ×2 (04:32→21:58)
[2019-06-12] MEDS: [UNRECOGNIZED DRUG - MIXTURE] IV SCH ×2 (04:41→22:01)
[2019-06-12] MEDS: MAXIPIME 2 GM/50 ML D5W 2 GM/50 ML BAG IV SCH (04:41)
[2019-06-12] MEDS: SYNTHROID PO SCH (05:33)
[2019-06-12] MEDS: CALMOSEPTINE OINTMENT TP SCH ×5 (07:34→20:59)
[2019-06-12] MEDS: NYSTATIN CREAM TP SCH (08:32)
[2019-06-12] MEDS ORDERED: MAXIPIME 2 GM/50 ML D5W 2 GM/50 ML BAG IV SCH (13:00)
[2019-06-12] MEDS: DIFICID PO SCH ×2 (13:12→20:58)
[2019-06-12] MEDS ORDERED: VITAMIN B-12 IM STA (18:54)
[2019-06-12] MEDS: ZYPREXA PO SCH (20:58)
[2019-06-12] MEDS: REMERON PO SCH (20:58)
[2019-06-12] MEDS: NEOSPORIN OINT 0.9 GM PACKET TP SCH (21:00)
[2019-06-12] MEDS ORDERED: VITAMIN B-12 ONE (21:16)
[2019-06-13] MEDS: SYNTHROID PO SCH (06:04)
[2019-06-13] MEDS: DIFICID PO SCH (08:22)
[2019-06-13] MEDS: CALMOSEPTINE OINTMENT TP SCH (08:23)
[2019-06-13] MEDS: NEOSPORIN OINT 0.9 GM PACKET TP SCH (08:23)
[2019-06-13] MEDS: NYSTATIN CREAM TP SCH (08:24)
[2019-06-13] MEDS ORDERED: VITAMIN B-12 IM SCH (09:00)
[2019-06-13] MEDS ORDERED: VITAMIN B-12 SUBCUT SCH (09:00)
[2019-06-13 15:51] VITALS: BP 112/60; TEMP 97.6
--- NOTE | 2019-06-19 11:09 | PN ---
DATE OF SERVICE: 06/12/19 SUBJECTIVE: Today her vital signs are stable. She remains in SCU 3. I did speak with Saranya, her has been here today. Plans are maybe to discharged to [facility] facility so she can continue rehab. The patient isn't sure about this. Blood pressure 130/70, pulse 83, respiratory 14 and temperature 98.4 with O2 saturation 94% on 2 liters per nasal cannula. CBC and the Chem panel is stable. She has been up to the bathroom. She is C-Diff positive. She was started on Dificid and she on precautions. She is on Cefepime antibiotic and that was continued by Dr. Rodriguez. She is feeling okay. Again she has been working with physical therapy. LUNGS: Diminished HEART: Regular rate and rhythm ABDOMEN: Soft and nontender. The nurse does report that the she has been eating fairly decent today. MTDD
== END 2019-06-13 16:52 | DRG 948 ==
LOC: ED 10:53 → MEDSURG B 14:25 → SCU 06-09 18:54
PROVIDERS: ADMIT General Practice; ATTEND General Practice
DX: R06.02 Shortness of breath; R05 Cough; M25.572 Pain in left ankle and joints of left foot; R42 Dizziness and giddiness; R10.9 Unspecified abdominal pain; R41.0 Disorientation, unspecified; M25.552 Pain in left hip; I48.0 Paroxysmal atrial fibrillation; E87.6 Hypokalemia; R53.1 Weakness; M54.2 Cervicalgia; M54.9 Dorsalgia, unspecified; N39.0 Urinary tract infection, site not specified